=== PATIENT | female | born 1960 | race African-American/Black ===

== ENCOUNTER 2021-08-08 04:55 | Inpatient (IN) | payer OTHER, MEDICARE ==
[~2021-08-08] VITALS: Ht 162.6 cm; Wt 192.0 kg
[~2021-08-08 04:55] MED LIST: AMLO-186 PO; CIPR500S2 PO; ERGO500027 PO; FERR325T72 PO; FESO8TAB PO; FISH12002 PO; HYDR-2145 PO; LISI10TA16 PO; LISI1TAB39 PO; LORA10TA3 PO; LOVA20TA2 PO; MEDR10TA3 PO; METO50TA6 PO; MULT-18 PO; Megestrol Acetate PO; NAPR-683 PO; NORE5TAB3 PO; OMEP20TA8 PO; TERB250T72 PO; TOLT4CAP PO
--- NOTE | 2021-08-08 05:05 | PHYS DOC ---
Past Medical History Past Medical History: Anemia, High Cholesterol, Hypertension, Pneumonia, Other Additional Past Medical Histor: SLEEP APNEA Past Medical History Obesity hypoventilation syndrome Chronic hypoxic respiratory failure Past Surgical History: Cholecystectomy Smoking Status: Former Smoker Alcohol Use: Rarely Drug Use: None General Adult EDM: Chief Complaint: WEAKNESS/GENERALIZED HPI: HPI: Patient is a 61 year old female who is brought in by EMS from home for evaluation of generalized weakness and fatigue, as well as cough for the past week. She reports several episodes of nausea and vomiting. She has been unable to get out of bed on her own. She has had multiple slide/falls out of bed. EMS was called 2 hours prior to her arrival here for lift assist, the patient and her declined transport at that time. They were called again for another lift assist, the patient slid out of bed. No reported head injury or loss of consciousness was reported. The patient is on supplemental oxygen chronically, records indicate she has a history of obesity hypoventilation syndrome, dating back as far as 2014 in 2016. The patient reported to EMS and to me that she really does not even know why she is on oxygen. She was still hypoxic on 2 and 3 L for EMS, as well as here. She is titrated up to 5 L per nasal cannula shortly after arrival. She denies chest pain. She denies abdominal pain. She is not vaccinated against COVID-19. Her tested positive for COVID-19 infection about 1 week ago. Per EMS, the home is significantly cluttered, disheveled, and overall home/living situation appears to be dangerous and unsuitable for human dwelling. 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 I do not have any more recent records for her here other than from 2014 and 2015. Patient is overall an extremely poor historian. Review of Systems: Review of Systems: Constitutional: No reported documented fever. Generalized malaise, chills, weakness Eyes: Denies change in visual acuity. [] HENT: Denies nasal congestion or sore throat. [] Respiratory: Dry cough. Dyspnea. Cardiovascular: Denies chest pain GI: She denies abdominal pain. She does report intermittent nausea and vomiting symptoms. Denies acute bowel habit changes. : Chronically incontinent of urine, denies acute urinary symptoms Musculoskeletal: Generalized myalgias and body aches Integument: Denies rash. [] Neurologic: Denies headache, focal weakness or sensory changes. Diffuse, nonfocal and generalized weakness. Denies dizziness. Denies syncope. Denies head injury. Psychiatric: Denies depression or anxiety. [] Heart Score: C/O Chest Pain: No Risk Factors: Risk Factors: DM, Current or recent (<one month) smoker, HTN, HLP, family history of CAD, obesity. Risk Scores: Score 0 - 3: 2.5% MACE over next 6 weeks - Discharge Home Score 4 - 6: 20.3% MACE over next 6 weeks - Admit for Clinical Observation Score 7 - 10: 72.7% MACE over next 6 weeks - Early Invasive Strategies Allergies: Allergies: Allergies Coded Allergies Type Severity Reaction Last Updated Verified tree nut Allergy Intermediate LIP SWELLING 06/26/16 Yes Physical Exam: PE: Constitutional: She is ill-appearing, both acutely and chronically, she is obese, she appears much older than her stated age HENT: Normocephalic, atraumatic Eyes: PERRL, EOMI, conjunctiva normal, no discharge. No scleral icterus Neck: Normal range of motion, no tenderness, supple, no stridor. Achy it is midline. Cardiovascular:Heart rate regular rhythm, +2 radial pulses bilaterally Lungs & Thorax: Tachypnea is noted, no evidence of chest wall injury or trauma. Equal chest rise. Diminished breath sounds in bilateral bases. Bibasilar rales are noted. No stridor. No wheezing. She speaks in short but full sentences. Abdomen: Abdomen is obese, soft, nondistended, nontender Skin: Warm, dry, no erythema, no rash. [] Back: No tenderness, no CVA tenderness. [] Extremities: No tenderness, no cyanosis, no clubbing, ROM intact, bilateral lower extremity nonpitting, symmetric edema. No calf tenderness. No acute limb deformity is noted Neurologic: Patient is awake, she is not alert, she is oriented to person, place, month but not specific year. She localizes to pain. No facial asymmetry. Speech is clear. Sensation is grossly intact. She moves all 4 extremities equally, though there is significant, generalized, nonfocal motor weakness noted throughout. She is unable to participate in moving from the EMS gurney to the ED gurney. Psychologic: Affect is flat. EKG: EKG: EKG is interpreted at 0513 Rhythm is sinus Rate is 94 bpm [place] is normal No STEMI Radiology/Procedures: Radiology/Procedures: IMAGING REPORT Signed PATIENT: TAYLOR ORDOÑEZ RACCOUNT: [id number] : 1960 LOCATION: ER AGE: 61 SEX: F EXAM STATUS: REG ER ORD. PHYSICIAN: PETE FREGOSO DO REASON: respiratory failure, cough PROCEDURE: PORTABLE CHEST 1V Single view chest dated 08/08/2021 5:33 AM: COMPARISON: 02/04/2014 Clinical Indication: Respiratory failure. Findings: Single upright portable exam of the chest was performed. Size is moderately enlarged. Hazy increased density at the perihilar regions and bilateral lung bases. No definite pleural effusion or pneumothorax. IMPRESSION: 1. Hazy perihilar and bibasilar opacities, low-grade edema versus atypical pneumonia. 2. Cardiomegaly Electronically signed by: Mata Diane MD (08/08/2021 5:35 AM) [facility] DICTATED and SIGNED BY: MATA DIANE MD DATE: 08/08/21 [id number] Course & Med Decision Making: Course & Med Decision Making Pertinent Labs and Imaging studies reviewed. (See chart for details) Patient's oxygen was titrated here in the ER. ABG demonstrates marked hypercapnia and respiratory acidosis. BiPAP was ordered. The patient is given IV dexamethasone. Her vital signs are otherwise relatively stable. The patient verbalizes to me she wishes to remain a full code. I explained that she is very ill. COVID is positive, she manifest evidence of COVID-pneumonia on x-ray. I have recommended mission to the hospital. She understands this, she is excepted for admission by Dr. Luna. Dragon Disclaimer: Timur Disclaimer: This electronic medical record was generated, in whole or in part, using a voice recognition dictation system. Departure Departure Impression: Primary Impression: Respiratory failure with hypoxia Qualified Codes: J96.21 - Acute and chronic respiratory failure with hypoxia Additional Impressions: Respiratory acidosis COVID-19 Pneumonia due to COVID-19 virus Elevated troponin Disposition: ADMITTED INPATIENT Admitting Physician: COREY (Dr. Luna) Condition: CRITICAL Referrals: MATA EPPERSON MD (PCP) PETE FREGOSO DO Aug 08, 2021 05:05
--- NOTE | 2021-08-08 05:38 | RAD ---
Single view chest dated 08/08/2021 5:33 AM: COMPARISON: 02/04/2014 Clinical Indication: Respiratory failure. Findings: Single upright portable exam of the chest was performed. Size is moderately enlarged. Hazy increased density at the perihilar regions and bilateral lung bases. No definite pleural effusion or pneumothor ax. IMPRESSION: 1. Hazy perihilar and bibasilar opacities, low-grade edema versus atypical pneumonia. 2. Cardiomegaly Electronically signed by: Mata Diane MD (08/08/2021 5:35 AM) [facility]
[2021-08-08 05:42] LABS: BASO # 0.1 x10^3/uL (0.0-0.2); BASO % 1 % (0-3); EOS % 0 % (0-3); HEMATOCRIT 35.2 % (36.0-47.0); HEMOGLOBIN 11.3 g/dL (12.0-15.5); LYMPH # 0.5 x10^3/uL (1.0-4.8); LYMPH % 8 % (24-48); MEAN CORPUSCULAR HEMOGLOBIN 31 pg (25-35); MEAN CORPUSCULAR HGB CONC 32 g/dL (31-37); MEAN CORPUSCULAR VOLUME 96 fL (79-100); MONO # 0.5 x10^3/uL (0.0-1.1); MONO % 8 % (0-9); NEUT # 5.7 x10^3/uL (1.8-7.7); NEUT % 84 % (31-73); PLATELET COUNT 131 x10^3/uL (140-400); RED BLOOD COUNT 3.66 x10^6/uL (3.50-5.40); RED CELL DISTRIBUTION WIDTH 13.7 % (11.5-14.5); WHITE BLOOD COUNT 6.8 x10^3/uL (4.0-11.0)
[2021-08-08] MEDS ORDERED: DEXAMETHASONE SOD PHOS 4 MG/ML VIAL IVP ONE (05:45)
[2021-08-08 05:54] LABS: INFLUENZA A PATIENT NEGATIVE (NEGATIVE); INFLUENZA B PATIENT NEGATIVE (NEGATIVE)
[2021-08-08 06:09] LABS: CALCIUM 8.4 mg/dL (8.5-10.1); CREATININE 2.8 mg/dL (0.6-1.0); GFR 20.7; POTASSIUM 4.9 mmol/L (3.5-5.1)
[2021-08-08 06:15] LABS: ALBUMIN 2.7 g/dL (3.4-5.0); ALBUMIN/GLOBULIN RATIO 0.5 (1.0-1.7); MAGNESIUM 1.6 mg/dL (1.8-2.4); TOTAL BILIRUBIN 0.4 mg/dL (0.2-1.0); TOTAL PROTEIN 7.9 g/dL (6.4-8.2)
[2021-08-08 06:24] LABS: BASE EXCESS ABG -3 mmol/L (-3-3); HCO3 ABG 28 mmol/L (21-28); PO2 ABG 87 mmHg (65-108); SAT O2 ABG 93 % (92-99)
[2021-08-08] MEDS ORDERED: ONDANSETRON PF 4 MG/2 ML VIAL. IVP PRN (06:30)
[2021-08-08] MEDS ORDERED: ENOXAPARIN 40 MG/0.4 ML SYRINGE. SQ ONE (06:30)
[2021-08-08] MEDS ORDERED: ASPIRIN ENTERIC COATED 325 MG TABLET.DR. PO ONE (06:30)
--- NOTE | 2021-08-08 06:47 | EKG ---
[facility] [address] [place] [address] Test Date: 2021-08-08 Test Time: 05:10:30 Pat Name: TAYLOR ORDOÑEZ Department: Room: Gender: F Program Consultant: : 1960 Requested By: PETE FREGOSO Order Number: [id number] Reading MD: Jose Patino MD Measurements Intervals [place] Rate: 94 P: 46 HI: 138 QRS: 26 QRSD: 74 T: 54 QT: 334 QTc: 423 Interpretive Statements SINUS RHYTHM Electronically Signed On 08-08-2021 8:41:10 [employer] by Jose Patino MD
[2021-08-08 07:46] LABS: PCO2 ABG 81 mmHg (35-46)
[2021-08-08 10:00] VITALS: BP 155/88
--- NOTE | 2021-08-08 10:46 | NUR ---
ADMISSION PT ARRIVES ON FLOOR AT 0952, FROM ED ON CART. RT ACCOMPANIES PT TO FLOOR WITH BIPAP, THOUGH SHE IS CURRENTLY ON O2 PER NC, AND IS SATURATING WELL. BIPAP PLACED ON STANDBY AT THIS TIME. TRANSFERRED TO [facility] BED WITH ASSIST OF 5 STAFF MEMBERS. SHE IS SOILED WITH URINE AND FECES, BED BATH GIVEN. NOTABLE AMOUNTS OF MOISTURE AND YEAST UNDER (B) BREASTS, UNDER ENTIRE LENGTH OF PANNUS, AND IN KALEB AREA. NYSTATIN POWDER ORDERED, BUT NOT AVAILABLE AT THIS TIME. DRY, SCALY SKIN ON LOWER ABDOMEN AND SHINS WITH LOTION APPLIED. VS ASSESSED, TELE APPLIED. NEW WRISTBAND AND ALLERGY BRACELET APPLIED. PT IS ALERT AND ORIENTED, BUT IS UNABLE TO LIST HER HOME MEDICATIONS. SHE STATES THAT SHE DOESNT HAVE ANY FAMILY HISTORY.
[2021-08-08] MEDS: NYSTATIN TOPICAL POWDER 15GM BOTTLE. TP SCH ×2 (11:00→20:55)
[2021-08-08] MEDS: cefTRIAXone IV Push 1 GM VIAL. IVP SCH (12:00)
[2021-08-08] MEDS: IV NORMAL SALINE 1000ML BAG 1,000 ML IV SCH ×2 (12:00→23:46)
--- NOTE | 2021-08-08 12:16 | CONS ---
DATE OF CONSULTATION: 08/08/2021 PULMONARY CONSULTATION ATTENDING PHYSICIAN: Roger Luna MD REASON FOR CONSULTATION: Respiratory failure. HISTORY OF PRESENT ILLNESS: The patient is a 61-year-old who is morbidly obese with a BMI of 77.6. The patient has history of likely underlying obesity hypoventilation syndrome and sleep apnea. The patient was brought in to the hospital via EMS after she was noted to have generalized weakness and fatigue as well as a cough. There were several episodes of nausea and vomiting. EMS was called. The patient needed lift assist. The patient was noted to be hypoxic. She was placed on nasal cannula. Her tested positive for COVID-19 about a week ago. The patient is not vaccinated against COVID. Her COVID test came back positive as well. When I arrived in the patient's room, the patient was lethargic and was not fully responsive. I noticed that there was arterial blood gases, which was obtained earlier this morning showed a pH of 7.15, pCO2 of 81 and a pO2 of 87. BiPAP was on standby, but she has not been placed on the BiPAP. I immediately talked to her nurse and ordered to be placed on BiPAP stat. Discussed with Dr. Luna as well. A chest x-ray was reviewed. There are faint interstitial infiltrates suggestive of viral pneumonia. PAST MEDICAL HISTORY: Significant for history of morbid obesity and underlying obesity hypoventilation syndrome, sleep apnea, dyslipidemia, anemia, hypertension and pneumonia, and history of chronic hypoxic respiratory failure. PAST SURGICAL HISTORY: Cholecystectomy. SOCIAL HISTORY: Former smoker. ALLERGIES: None to any medications. CURRENT MEDICATIONS: Reviewed as listed in the MRAD including Lovenox for DVT prophylaxis. PHYSICAL EXAMINATION: She is not responsive. Visual exam done. No paradoxical breathing. She is morbidly obese. She has lower extremity edema. LABORATORY DATA: Reviewed. ABGs discussed in my history of present illness. Her BUN is 58 and a creatinine of 2.8. White cell count 6.8, hemoglobin 11.3 and platelets 131. IMPRESSION: 1. Acute on chronic hypercapnic and hypoxic respiratory failure secondary to multifactorial etiologies including COVID-19 viral pneumonia and underlying obesity hypoventilation syndrome with acute on chronic cor pulmonale. 2. Acute kidney injury. Could be component of volume contraction since she has some nausea and vomiting. 3. COVID positive. 4. Abnormal chest x-ray with bilateral interstitial infiltrates consistent with COVID-19 viral pneumonia. 5. Encephalopathy secondary to hypercarbia. 6. History of tobaccoism. RECOMMENDATIONS: 1. Discussed with RN. We will place her on BiPAP stat. 2. Follow ABGs in few hours after placement on BiPAP. 3. If clinically does not improve, then we may have to transfer to the ICU. 4. We will continue with Lovenox for DVT prophylaxis. 5. Initiate remdesivir. 6. Initiate dexamethasone. 7. We will follow the patient closely. Her respiratory status is guarded. 8. Discussed with RN and Dr. Luna. total cct [address]: Katty TID: [id number] MTDD
[2021-08-08 12:42] LABS: BASE EXCESS ABG -1 mmol/L (-3-3); HCO3 ABG 31 mmol/L (21-28); PO2 ABG 94 mmHg (65-108); SAT O2 ABG 95 % (92-99)
--- NOTE | 2021-08-08 12:46 | NUR ---
VACCINATION PT REPORTS THAT SHE HAD PFIZER VACCINES X 2, BUT NO BOOSTER. HE IS UNABLE TO RECALL DATES. SHE ALSO HAD THE FLU VACCINE FOR THIS YEAR WITH UNKNOWN DATE.
[2021-08-08 12:50] LABS: FIO2 ABG 60; PCO2 ABG 104 mmHg (35-46)
[2021-08-08 15:00] VITALS: BP 166/82
[2021-08-08] MEDS ORDERED: guaiFENesin DM 200MG/20MG 10 ML SYRUP PO PRN (15:30)
[2021-08-08] MEDS ORDERED: ACETAMINOPHEN 325 MG TABLET. PO PRN (15:30)
[2021-08-08] MEDS ORDERED: fentaNYL PF VIAL 100 MCG/2 ML VIAL IVP PRN (15:30)
--- NOTE | 2021-08-08 15:50 | PDOC1 ---
History and Physical Date of Admission Date of Admission DATE: 08/08/21 TIME: 15:13 Identification/Chief Complaint Chief Complaint Shortness of breath Source Source: Chart review, Patient History of Present Illness History of Present Illness Ms Londono is a 61 year old female w/ PMHx anemia, MADHU, OHS on 2 to 3 L home O2, HLD, HTN comes to ED on 08/08/2021 via EMS from home for a 1 week history of progressive weakness fatigue malaise nausea vomiting. She has been unable to get up out of bed and had been calling EMS for lift assist, and had previously declined transport earlier in the day. She is unable to provide significant history to me is very confused responsive to name mostly moving. ED physician has obtained above history patient did not complain of chest pain. ED physician noted patient is vaccinating is COVID-19 but her tested +1-week ago and patient herself has not been tested. There was concern noted by EMS about the condition of the home being unlivable. Labs with WBC 6.8, Hb 9.3, platelets 131, had a 136, K4.9, BUN 58, CR 2.8, glucose 129, calcium 8.4, mag 1.6, bilirubin 0.4, AST 112, ALT 35, alkaline phosphatase 69, high-sensitivity troponin is 298, NT proBNP 871, albumin is 2.7, lactic acid is 1.3, rapid influenza negative, rapid COVID-19 positive ABG 7.1 on 5 L nasal cannula oxygen. Chest radiograph with cardiomegaly and bibasilar opacities EKG sinus rate 94 bpm normal axis and intervals no ST elevations or TWI. Place on BIPAP, given dexamethasone and admitted for further care. Past Medical History Cardiovascular: HTN Pulmonary: COPD, Other Heme/Onc: Anemia NOS Psych: Anxiety, Depression Renal/: Chronic renal insuff Past Surgical History Past Surgical History: Cholecystectomy Family History Family History: Diabetes, Hypertension, Other Social History Smoke: Quit ALCOHOL: none Drugs: None Current Problem List Problem List Problems Medical Problems: (1) COVID-19 Status: Acute (2) Elevated troponin Status: Acute (3) Pneumonia due to COVID-19 virus Status: Acute (4) Respiratory acidosis Status: Acute (5) Respiratory failure with hypoxia Status: Acute Current Medications Current Medications Current Medications Dexamethasone Sodium Phosphate (Decadron) 6 mg 1X ONCE IVP Last administered on 08/08/21at 06:41; Start 08/08/21 at 05:45; Stop 08/08/21 at 05:47; Status DC Ondansetron HCl (Zofran) 4 mg PRN Q8HRS PRN IVP NAUSEA/VOMITING; Start 08/08/21 at 06:30; Stop 08/09/21 at 06:29 Aspirin (Ecotrin) 325 mg 1X ONCE PO ; Start 08/08/21 at 06:30; Stop 08/08/21 at 06:31; Status DC Enoxaparin Sodium (Lovenox Per Pharmacy Prophylaxis Dosing) 1 each PRN DAILY PRN MC SEE COMMENTS; Start 08/08/21 at 06:30 Enoxaparin Sodium (Lovenox 40mg Syringe) 40 mg 1X ONCE SQ ; Start 08/08/21 at 06:30; Stop 08/08/21 at 06:31; Status UNV Enoxaparin Sodium (Lovenox 60mg Syringe) 60 mg Q12HR SQ ; Start 08/08/21 at 06:45 Nystatin (Nystop) 1 blayne BID TP Last administered on 08/08/21at 11:00; Start 08/08/21 at 11:00 Dexamethasone Sodium Phosphate (Decadron) 6 mg DAILY IVP ; Start 08/09/21 at 09:00 Ceftriaxone Sodium (Rocephin) 1 gm Q24H IVP Last administered on 08/08/21at 12:00; Start 08/08/21 at 12:00 Sodium Chloride 1,000 ml @ 100 mls/hr Q10H IV Last administered on 08/08/21at 12:00; Start 08/08/21 at 12:00 Active Scripts Active [Megestrol Acetate] 20 MG Tablet 20 Mg PO BID Feosol (Ferrous Sulfate) 325 Mg Tablet 325 Mg PO DAILYWBKFT 30 Days Reported [place] 3-6-9 1,200 mg Softgel (Fish Oil/Borage/Flax/Om3,6,9#1) 1,200 Mg Capsule 1,200 Mg PO DAILY Loratadine 10 Mg Tablet 10 Mg PO Metoprolol Tartrate 50 Mg Tablet 50 Mg PO BID Toviaz (Fesoterodine Fumarate) 8 Mg Tab.er.24h 8 Mg PO Lovastatin 20 Mg Tablet 20 Mg PO HS Omeprazole 20 Mg Tablet.dr 20 Mg PO DAILY Daily Vitamin (Multivitamin) 1 Each Tablet 1 Each PO Detrol La (Tolterodine Tartrate) 4 Mg Cap.er.24h 4 Mg PO DAILY Allergies Allergies: Coded Allergies: tree nut (Verified Allergy, Intermediate, LIP SWELLING, 06/26/16) STEVEN ALMEIDA Review of System Unable to obtain due to significant altered mental status. Physical Exam General: Alert, severe distress HEENT: Atraumatic, PERRLA, EOMI, Mucous membr. moist/pink Lungs: Other (decreased breath sounds) Heart: S1S2, RRR, no thrills, no rubs, no gallops, no murmurs Abdomen: Normal bowel sounds, Soft, No tenderness, No hepatosplenomegaly, No masses Rectal Exam: not examined Extremities: No clubbing, No cyanosis, No edema, Normal pulses, No tenderness/swelling Skin: No rashes, No breakdown, No significant lesion Neuro: Normal tone, Sensation intact, Cranial nerves 3-12 NL, Reflexes 2+ Psych/Mental Status: Other (Confused) Vitals Vitals Vital Signs Date Time Temp Pulse Resp B/P (MAP) Pulse Ox O2 Delivery O2 Flow Rate FiO2 08/08/21 15:00 97.8 82 25 166/82 (110) 90 BiPAP/CPAP 50.0 97.8 Labs Labs Laboratory Tests Test 08/08/21 05:25 08/08/21 06:20 08/08/21 12:30 White Blood Count 6.8 x10^3/uL (4.0-11.0) Red Blood Count 3.66 x10^6/uL (3.50-5.40) Hemoglobin 11.3 g/dL (12.0-15.5) Hematocrit 35.2 % (36.0-47.0) Mean Corpuscular Volume 96 fL (79-100) Mean Corpuscular Hemoglobin 31 pg (25-35) Mean Corpuscular Hemoglobin Concent 32 g/dL (31-37) Red Cell Distribution Width 13.7 % (11.5-14.5) Platelet Count 131 x10^3/uL (140-400) Neutrophils (%) (Auto) 84 % (31-73) Lymphocytes (%) (Auto) 8 % (24-48) Monocytes (%) (Auto) 8 % (0-9) Eosinophils (%) (Auto) 0 % (0-3) Basophils (%) (Auto) 1 % (0-3) Neutrophils # (Auto) 5.7 x10^3/uL (1.8-7.7) Lymphocytes # (Auto) 0.5 x10^3/uL (1.0-4.8) Monocytes # (Auto) 0.5 x10^3/uL (0.0-1.1) Eosinophils # (Auto) 0.0 x10^3/uL (0.0-0.7) Basophils # (Auto) 0.1 x10^3/uL (0.0-0.2) Sodium Level 136 mmol/L (136-145) Potassium Level 4.9 mmol/L (3.5-5.1) Chloride Level 100 mmol/L (98-107) Carbon Dioxide Level 31 mmol/L (21-32) Anion Gap 5 (6-14) Blood Urea Nitrogen 58 mg/dL (7-20) Creatinine 2.8 mg/dL (0.6-1.0) Estimated GFR (Cockcroft-Gault) 20.7 BUN/Creatinine Ratio 21 (6-20) Glucose Level 129 mg/dL (70-99) Lactic Acid Level 1.3 mmol/L (0.4-2.0) Calcium Level 8.4 mg/dL (8.5-10.1) Magnesium Level 1.6 mg/dL (1.8-2.4) Total Bilirubin 0.4 mg/dL (0.2-1.0) Aspartate Amino Transf (AST/SGOT) 112 U/L (15-37) Alanine Aminotransferase (ALT/SGPT) 35 U/L (14-59) Alkaline Phosphatase 69 U/L (46-116) Troponin I High Sensitivity 298 ng/L (4-50) IZ-Udd-T-Type Natriuretic Peptide 871 pg/mL (0-124) Total Protein 7.9 g/dL (6.4-8.2) Albumin 2.7 g/dL (3.4-5.0) Albumin/Globulin Ratio 0.5 (1.0-1.7) Influenza Type A Antigen Negative (NEGATIVE) Influenza Type B Antigen Negative (NEGATIVE) SARS-CoV-2 Antigen (Rapid) Positive (NEGATIVE) O2 Saturation 93 % (92-99) 95 % (92-99) Arterial Blood pH 7.15 (7.35-7.45) 7.10 (7.35-7.45) Arterial Blood pCO2 at Patient Temp 81 mmHg (35-46) 104 mmHg (35-46) Arterial Blood pO2 at Patient Temp 87 mmHg (65-108) 94 mmHg (65-108) Arterial Blood HCO3 28 mmol/L (21-28) 31 mmol/L (21-28) Arterial Blood Base Excess -3 mmol/L (-3-3) -1 mmol/L (-3-3) FiO2 60 Laboratory Tests Test 08/08/21 05:25 08/08/21 06:20 08/08/21 12:30 White Blood Count 6.8 x10^3/uL (4.0-11.0) Red Blood Count 3.66 x10^6/uL (3.50-5.40) Hemoglobin 11.3 g/dL (12.0-15.5) Hematocrit 35.2 % (36.0-47.0) Mean Corpuscular Volume 96 fL (79-100) Mean Corpuscular Hemoglobin 31 pg (25-35) Mean Corpuscular Hemoglobin Concent 32 g/dL (31-37) Red Cell Distribution Width 13.7 % (11.5-14.5) Platelet Count 131 x10^3/uL (140-400) Neutrophils (%) (Auto) 84 % (31-73) Lymphocytes (%) (Auto) 8 % (24-48) Monocytes (%) (Auto) 8 % (0-9) Eosinophils (%) (Auto) 0 % (0-3) Basophils (%) (Auto) 1 % (0-3) Neutrophils # (Auto) 5.7 x10^3/uL (1.8-7.7) Lymphocytes # (Auto) 0.5 x10^3/uL (1.0-4.8) Monocytes # (Auto) 0.5 x10^3/uL (0.0-1.1) Eosinophils # (Auto) 0.0 x10^3/uL (0.0-0.7) Basophils # (Auto) 0.1 x10^3/uL (0.0-0.2) Sodium Level 136 mmol/L (136-145) Potassium Level 4.9 mmol/L (3.5-5.1) Chloride Level 100 mmol/L (98-107) Carbon Dioxide Level 31 mmol/L (21-32) Anion Gap 5 (6-14) Blood Urea Nitrogen 58 mg/dL (7-20) Creatinine 2.8 mg/dL (0.6-1.0) Estimated GFR (Cockcroft-Gault) 20.7 BUN/Creatinine Ratio 21 (6-20) Glucose Level 129 mg/dL (70-99) Lactic Acid Level 1.3 mmol/L (0.4-2.0) Calcium Level 8.4 mg/dL (8.5-10.1) Magnesium Level 1.6 mg/dL (1.8-2.4) Total Bilirubin 0.4 mg/dL (0.2-1.0) Aspartate Amino Transf (AST/SGOT) 112 U/L (15-37) Alanine Aminotransferase (ALT/SGPT) 35 U/L (14-59) Alkaline Phosphatase 69 U/L (46-116) Troponin I High Sensitivity 298 ng/L (4-50) DO-Zre-L-Type Natriuretic Peptide 871 pg/mL (0-124) Total Protein 7.9 g/dL (6.4-8.2) Albumin 2.7 g/dL (3.4-5.0) Albumin/Globulin Ratio 0.5 (1.0-1.7) Influenza Type A Antigen Negative (NEGATIVE) Influenza Type B Antigen Negative (NEGATIVE) SARS-CoV-2 Antigen (Rapid) Positive (NEGATIVE) O2 Saturation 93 % (92-99) 95 % (92-99) Arterial Blood pH 7.15 (7.35-7.45) 7.10 (7.35-7.45) Arterial Blood pCO2 at Patient Temp 81 mmHg (35-46) 104 mmHg (35-46) Arterial Blood pO2 at Patient Temp 87 mmHg (65-108) 94 mmHg (65-108) Arterial Blood HCO3 28 mmol/L (21-28) 31 mmol/L (21-28) Arterial Blood Base Excess -3 mmol/L (-3-3) -1 mmol/L (-3-3) FiO2 60 Images Images Single upright portable exam of the chest was performed. Size is moderately enlarged. Hazy increased density at the perihilar regions and bilateral lung bases. No definite pleural effusion or pneumothorax. IMPRESSION: 1. Hazy perihilar and bibasilar opacities, low-grade edema versus atypical pneumonia. 2. Cardiomegaly VTE Prophylaxis Ordered VTE Prophylaxis Devices: No VTE Pharmacological Prophylaxi: Yes Assessment/Plan Assessment/Plan A/P: Acute on chronic hypercapnic respiratory failure - likely from aspiratory infection with COVID-19 complicated by pre-existing OHS and MADHU. We will keep on BiPAP as needed while sleeping titrate to ABGs. Pulmonology consulted Hypoxic respiratory failure - likely from COVID-19 viral pneumonia acute on chr onic cor pulmonale. Acute kidney injury -on chronic kidney disease baseline creatinine from 7 years ago was 1.5 likely just vasomotor nephropathy from above COVID 19 pneumonia -required 5 L nasal cannula O2 increased for home O2 eval with BiPAP. We will give steroid therapy with dexamethasone and remdesivir. Acute metabolic encephalopathy -likely hypercapnic respiratory failure. We will treat with BiPAP Anemia - likely of chronic disease. 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 Protein calorie malnutrition - will start IV nutrition Elevated troponin -likely type II demand ischemia from hypoxia and hypercapnia and possibly COVID myocarditis. Will monitor. FEN - General diet PPX - lovenox FULL CODE DIspo - inpatient cc time 37 minutes Justifications for Admission Other Justification EBER ZHOU MD Aug 08, 2021 15:49
[2021-08-08] MEDS ORDERED: REMDESIVIR LOAD in IV NORMAL SALINE 250ML TV IV ONE (16:00)
[2021-08-08 19:00] VITALS: BP 166/74
[2021-08-08 22:51] LABS: BASE EXCESS ABG -1 mmol/L (-3-3); HCO3 ABG 31 mmol/L (21-28); PO2 ABG 72 mmHg (65-108); SAT O2 ABG 91 % (92-99)
[2021-08-08 22:52] VITALS: BP 173/80
[2021-08-08 22:55] LABS: FIO2 ABG 50% (Bipap); PCO2 ABG 97 mmHg (35-46)
[2021-08-09 02:39] VITALS: BP 149/72
[2021-08-09 07:00] VITALS: BP 136/72
[2021-08-09] MEDS: IV NORMAL SALINE 1000ML BAG 1,000 ML IV SCH (08:00)
[2021-08-09 08:52] LABS: BASE EXCESS ABG -1 mmol/L (-3-3); HCO3 ABG 29 mmol/L (21-28); PO2 ABG 73 mmHg (65-108); SAT O2 ABG 93 % (92-99)
[2021-08-09 08:58] LABS: ALBUMIN 2.4 g/dL (3.4-5.0); ALBUMIN/GLOBULIN RATIO 0.5 (1.0-1.7); CALCIUM 8.4 mg/dL (8.5-10.1); CREATININE 2.6 mg/dL (0.6-1.0); GFR 22.6; TOTAL BILIRUBIN 0.2 mg/dL (0.2-1.0); TOTAL PROTEIN 7.6 g/dL (6.4-8.2)
[2021-08-09] MEDS: DEXAMETHASONE SOD PHOS 4 MG/ML VIAL IVP SCH (09:00)
[2021-08-09] MEDS: NYSTATIN TOPICAL POWDER 15GM BOTTLE. TP SCH ×2 (09:00→21:35)
[2021-08-09 09:06] LABS: PCO2 ABG 78 mmHg (35-46)
[2021-08-09 09:07] LABS: FIO2 ABG 45
[2021-08-09 09:09] LABS: POTASSIUM 5.8 mmol/L (3.5-5.1)
[2021-08-09] MEDS: cefTRIAXone IV Push 1 GM VIAL. IVP SCH (09:49)
--- NOTE | 2021-08-09 10:45 | PDOC ---
PULMONARY PROGRESS NOTES DATE: 08/09/21 TIME: 10:38 Subjective patient seen resting in bed, more alert this morning. continues on bipap. Vitals Vital Signs Date Time Temp Pulse Resp B/P (MAP) Pulse Ox O2 Delivery O2 Flow Rate FiO2 08/09/21 08:41 91 BiPAP/CPAP 08/09/21 08:00 6.0 08/09/21 07:00 98.3 86 25 136/72 (93) 98.3 General: Alert, Oriented X4 HEENT: Other Lungs: Clear, Other Cardiovascular: S1, S2 Abdomen: Soft, Other Extremities: Other Labs Laboratory Tests Test 08/08/21 05:25 08/08/21 06:20 08/08/21 12:30 08/08/21 22:45 White Blood Count 6.8 x10^3/uL (4.0-11.0) Red Blood Count 3.66 x10^6/uL (3.50-5.40) Hemoglobin 11.3 g/dL (12.0-15.5) Hematocrit 35.2 % (36.0-47.0) Mean Corpuscular Volume 96 fL (79-100) Mean Corpuscular Hemoglobin 31 pg (25-35) Mean Corpuscular Hemoglobin Concent 32 g/dL (31-37) Red Cell Distribution Width 13.7 % (11.5-14.5) Platelet Count 131 x10^3/uL (140-400) Neutrophils (%) (Auto) 84 % (31-73) Lymphocytes (%) (Auto) 8 % (24-48) Monocytes (%) (Auto) 8 % (0-9) Eosinophils (%) (Auto) 0 % (0-3) Basophils (%) (Auto) 1 % (0-3) Neutrophils # (Auto) 5.7 x10^3/uL (1.8-7.7) Lymphocytes # (Auto) 0.5 x10^3/uL (1.0-4.8) Monocytes # (Auto) 0.5 x10^3/uL (0.0-1.1) Eosinophils # (Auto) 0.0 x10^3/uL (0.0-0.7) Basophils # (Auto) 0.1 x10^3/uL (0.0-0.2) Sodium Level 136 mmol/L (136-145) Potassium Level 4.9 mmol/L (3.5-5.1) Chloride Level 100 mmol/L (98-107) Carbon Dioxide Level 31 mmol/L (21-32) Anion Gap 5 (6-14) Blood Urea Nitrogen 58 mg/dL (7-20) Creatinine 2.8 mg/dL (0.6-1.0) Estimated GFR (Cockcroft-Gault) 20.7 BUN/Creatinine Ratio 21 (6-20) Glucose Level 129 mg/dL (70-99) Lactic Acid Level 1.3 mmol/L (0.4-2.0) Calcium Level 8.4 mg/dL (8.5-10.1) Magnesium Level 1.6 mg/dL (1.8-2.4) Total Bilirubin 0.4 mg/dL (0.2-1.0) Aspartate Amino Transf (AST/SGOT) 112 U/L (15-37) Alanine Aminotransferase (ALT/SGPT) 35 U/L (14-59) Alkaline Phosphatase 69 U/L (46-116) Troponin I High Sensitivity 298 ng/L (4-50) SA-Ord-I-Type Natriuretic Peptide 871 pg/mL (0-124) Total Protein 7.9 g/dL (6.4-8.2) Albumin 2.7 g/dL (3.4-5.0) Albumin/Globulin Ratio 0.5 (1.0-1.7) Influenza Type A Antigen Negative (NEGATIVE) Influenza Type B Antigen Negative (NEGATIVE) SARS-CoV-2 Antigen (Rapid) Positive (NEGATIVE) O2 Saturation 93 % (92-99) 95 % (92-99) 91 % (92-99) Arterial Blood pH 7.15 (7.35-7.45) 7.10 (7.35-7.45) 7.12 (7.35-7.45) Arterial Blood pCO2 at Patient Temp 81 mmHg (35-46) 104 mmHg (35-46) 97 mmHg (35-46) Arterial Blood pO2 at Patient Temp 87 mmHg (65-108) 94 mmHg (65-108) 72 mmHg (65-108) Arterial Blood HCO3 28 mmol/L (21-28) 31 mmol/L (21-28) 31 mmol/L (21-28) Arterial Blood Base Excess -3 mmol/L (-3-3) -1 mmol/L (-3-3) -1 mmol/L (-3-3) FiO2 60 50% (bipap) Test 08/09/21 04:25 08/09/21 08:41 Sodium Level 143 mmol/L (136-145) Potassium Level 5.8 mmol/L (3.5-5.1) Chloride Level 105 mmol/L (98-107) Carbon Dioxide Level 31 mmol/L (21-32) Anion Gap 7 (6-14) Blood Urea Nitrogen 69 mg/dL (7-20) Creatinine 2.6 mg/dL (0.6-1.0) Estimated GFR (Cockcroft-Gault) 22.6 BUN/Creatinine Ratio 27 (6-20) Glucose Level 81 mg/dL (70-99) Calcium Level 8.4 mg/dL (8.5-10.1) Total Bilirubin 0.2 mg/dL (0.2-1.0) Aspartate Amino Transf (AST/SGOT) 195 U/L (15-37) Alanine Aminotransferase (ALT/SGPT) 38 U/L (14-59) Alkaline Phosphatase 61 U/L (46-116) Total Protein 7.6 g/dL (6.4-8.2) Albumin 2.4 g/dL (3.4-5.0) Albumin/Globulin Ratio 0.5 (1.0-1.7) O2 Saturation 93 % (92-99) Arterial Blood pH 7.18 (7.35-7.45) Arterial Blood pCO2 at Patient Temp 78 mmHg (35-46) Arterial Blood pO2 at Patient Temp 73 mmHg (65-108) Arterial Blood HCO3 29 mmol/L (21-28) Arterial Blood Base Excess -1 mmol/L (-3-3) FiO2 45 Laboratory Tests Test 08/08/21 12:30 08/08/21 22:45 08/09/21 04:25 08/09/21 08:41 O2 Saturation 95 % (92-99) 91 % (92-99) 93 % (92-99) Arterial Blood pH 7.10 (7.35-7.45) 7.12 (7.35-7.45) 7.18 (7.35-7.45) Arterial Blood pCO2 at Patient Temp 104 mmHg (35-46) 97 mmHg (35-46) 78 mmHg (35-46) Arterial Blood pO2 at Patient Temp 94 mmHg (65-108) 72 mmHg (65-108) 73 mmHg (65-108) Arterial Blood HCO3 31 mmol/L (21-28) 31 mmol/L (21-28) 29 mmol/L (21-28) Arterial Blood Base Excess -1 mmol/L (-3-3) -1 mmol/L (-3-3) -1 mmol/L (-3-3) FiO2 60 50% (bipap) 45 Sodium Level 143 mmol/L (136-145) Potassium Level 5.8 mmol/L (3.5-5.1) Chloride Level 105 mmol/L (98-107) Carbon Dioxide Level 31 mmol/L (21-32) Anion Gap 7 (6-14) Blood Urea Nitrogen 69 mg/dL (7-20) Creatinine 2.6 mg/dL (0.6-1.0) Estimated GFR (Cockcroft-Gault) 22.6 BUN/Creatinine Ratio 27 (6-20) Glucose Level 81 mg/dL (70-99) Calcium Level 8.4 mg/dL (8.5-10.1) Total Bilirubin 0.2 mg/dL (0.2-1.0) Aspartate Amino Transf (AST/SGOT) 195 U/L (15-37) Alanine Aminotransferase (ALT/SGPT) 38 U/L (14-59) Alkaline Phosphatase 61 U/L (46-116) Total Protein 7.6 g/dL (6.4-8.2) Albumin 2.4 g/dL (3.4-5.0) Albumin/Globulin Ratio 0.5 (1.0-1.7) Medications Active Scripts Medications Dose Route/Sig Max Daily Dose Days Date Category [Megestrol Acetate] 20 MG Tablet 20 Mg PO BID 11/11/14 Rx Feosol (Ferrous Sulfate) 325 Mg Tablet 325 Mg PO DAILYWBKFT 30 11/11/14 Rx [place] 3-6-9 1,200 mg Softgel (Fish Oil/Borage/Flax/Om3,6,9#1) 1,200 Mg Capsule 1,200 Mg PO DAILY 11/05/14 Reported Loratadine 10 Mg Tablet 10 Mg PO 11/05/14 Reported Metoprolol Tartrate 50 Mg Tablet 50 Mg PO BID 11/05/14 Reported Toviaz (Fesoterodine Fumarate) 8 Mg Tab.er.24h 8 Mg PO 11/05/14 Reported Lovastatin 20 Mg Tablet 20 Mg PO HS 11/05/14 Reported Omeprazole 20 Mg Tablet.dr 20 Mg PO DAILY 02/04/14 Reported Daily Vitamin (Multivitamin) 1 Each Tablet 1 Each PO 02/04/14 Reported Detrol La (Tolterodine Tartrate) 4 Mg Cap.er.24h 4 Mg PO DAILY 02/04/14 Reported Impression . IMPRESSION: 1. Acute on chronic hypercapnic and hypoxic respiratory failure secondary to multifactorial etiologies including COVID-19 viral pneumonia and underlying obesity hypoventilation syndrome with acute on chronic cor pulmonale. 2. Acute kidney injury. Could be component of volume contraction since she has some nausea and vomiting. 3. COVID positive. 4. Abnormal chest x-ray with bilateral interstitial infiltrates consistent with COVID-19 viral pneumonia. 5. Encephalopathy secondary to hypercarbia. 6. History of tobaccoism. Plan . RECOMMENDATIONS: 1. continue on BIPAP to keep O2 sats greater than 90%, follow ABGs. Hypercapnia is improving along with improvement in pH. Patient is more awake. 2. continue lovenox for DVT prohpylaxis 3. continue remdesivir 4. continue dexamethasone 5. Patient may have a component of metabolic acidosis as well. We will try 1 amp of bicarb today. discussed with OLGA ADAMS MD Aug 09, 2021 10:45
[2021-08-09 11:00] VITALS: BP 161/74
[2021-08-09] MEDS ORDERED: SODIUM BICARB ADULT 8.4% 50 MEQ/50 ML DISP.SYRIN. IV ONE (11:00)
--- NOTE | 2021-08-09 12:36 | PDOC ---
[facility] PROGRESS NOTE Date of Service DOS: DATE: 08/09/21 TIME: 12:34 Chief Complaint Chief Complaint A/P: Acute on chronic hypercapnic respiratory failure - likely from aspiratory infection with COVID-19 complicated by pre-existing OHS and MADHU. We will keep on BiPAP as needed while sleeping titrate to ABGs. Pulmonology consulted Hypoxic respiratory failure - likely from COVID-19 viral pneumonia acute on chronic cor pulmonale. Hyperkalemia - IV bicarb Acute kidney injury -on chronic kidney disease baseline creatinine from 7 years ago was 1.5 likely just vasomotor nephropathy from above. Will consult nephrology COVID 19 pneumonia -required 5 L nasal cannula O2 increased for home O2 eval with BiPAP. We will give steroid therapy with dexamethasone and remdesivir. Acute metabolic encephalopathy -likely hypercapnic respiratory failure. We will treat with BiPAP Anemia - likely of chronic disease. 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 Protein calorie malnutrition - will start IV nutrition Elevated troponin -likely type II demand ischemia from hypoxia and hypercapnia and possibly COVID myocarditis. Will monitor. FEN - General diet PPX - lovenox FULL CODE DIspo - inpatient cc time 37 minutes History of Present Illness History of Present Illness Ms Londono is a 61 year old female w/ PMHx anemia, MADHU, OHS on 2 to 3 L home O2, HLD, HTN comes to ED on 08/08/2021 via EMS from home for a 1 week history of progressive weakness fatigue malaise nausea vomiting. She has been unable to get up out of bed and had been calling EMS for lift assist, and had previously declined transport earlier in the day. She is unable to provide significant history to me is very confused responsive to name mostly moving. ED physician has obtained above history patient did not complain of chest pain. ED physician noted patient is vaccinating is COVID-19 but her tested +1-week ago and patient herself has not been tested. There was concern noted by EMS about the condition of the home being unlivable. Labs with WBC 6.8, Hb 9.3, platelets 131, had a 136, K4.9, BUN 58, CR 2.8, glucose 129, calcium 8.4, mag 1.6, bilirubin 0.4, AST 112, ALT 35, alkaline phosphatase 69, high-sensitivity troponin is 298, NT proBNP 871, albumin is 2.7, lactic acid is 1.3, rapid influenza negative, rapid COVID-19 positive ABG 7.1 on 5 L nasal cannula oxygen. Chest radiograph with cardiomegaly and bibasilar opacities EKG sinus rate 94 bpm normal axis and intervals no ST elevations or TWI. Place on BIPAP, given dexamethasone and admitted for further care. 08/09: BUN/creatinine worsened slightly K5.8 given bicarb. More alert today still requiring BiPAP. Started on remdesivir and Decadron. She has a little bit of an appetite and is thirsty. Very weak diarrhea is improving. Vitals/I&O Vitals/I&O: Vital Signs Date Time Temp Pulse Resp B/P (MAP) Pulse Ox O2 Delivery O2 Flow Rate FiO2 08/09/21 11:50 90 BiPAP/CPAP 08/09/21 11:00 98.2 87 22 161/74 (103) 98.2 08/09/21 08:00 6.0 I & O 08/08/21 08/08/21 08/09/21 15:00 23:00 07:00 Intake Total 0 ml 0 ml 0 ml Output Total 0 ml 550 ml Balance 0 ml 0 ml -550 ml Physical Exam General: Alert, severe distress Lungs: Clear, Other Abdomen: Normal bowel sounds, Soft, No tenderness, No hepatosplenomegaly, No masses Extremities: No clubbing, No cyanosis, No edema, Normal pulses, No tenderness/swelling Skin: No rashes, No breakdown, No significant lesion Labs Labs: Laboratory Tests Test 08/08/21 22:45 08/09/21 04:25 08/09/21 08:41 O2 Saturation 91 % (92-99) 93 % (92-99) Arterial Blood pH 7.12 (7.35-7.45) 7.18 (7.35-7.45) Arterial Blood pCO2 at Patient Temp 97 mmHg (35-46) 78 mmHg (35-46) Arterial Blood pO2 at Patient Temp 72 mmHg (65-108) 73 mmHg (65-108) Arterial Blood HCO3 31 mmol/L (21-28) 29 mmol/L (21-28) Arterial Blood Base Excess -1 mmol/L (-3-3) -1 mmol/L (-3-3) FiO2 50% (bipap) 45 Sodium Level 143 mmol/L (136-145) Potassium Level 5.8 mmol/L (3.5-5.1) Chloride Level 105 mmol/L (98-107) Carbon Dioxide Level 31 mmol/L (21-32) Anion Gap 7 (6-14) Blood Urea Nitrogen 69 mg/dL (7-20) Creatinine 2.6 mg/dL (0.6-1.0) Estimated GFR (Cockcroft-Gault) 22.6 BUN/Creatinine Ratio 27 (6-20) Glucose Level 81 mg/dL (70-99) Calcium Level 8.4 mg/dL (8.5-10.1) Total Bilirubin 0.2 mg/dL (0.2-1.0) Aspartate Amino Transf (AST/SGOT) 195 U/L (15-37) Alanine Aminotransferase (ALT/SGPT) 38 U/L (14-59) Alkaline Phosphatase 61 U/L (46-116) Total Protein 7.6 g/dL (6.4-8.2) Albumin 2.4 g/dL (3.4-5.0) Albumin/Globulin Ratio 0.5 (1.0-1.7) Assessment and Plan Assessmemt and Plan Problems Medical Problems: (1) COVID-19 Status: Acute (2) Elevated troponin Status: Acute (3) Pneumonia due to COVID-19 virus Status: Acute (4) Respiratory acidosis Status: Acute (5) Respiratory failure with hypoxia Status: Acute Comment Review of Relevant I have reviewed the following items marcus (where applicable) has been applied. Medications: Current Medications Medications (Trade) Dose Ordered Sig/Jeannie Route PRN Reason Start Time Stop Time Status Last Admin Dose Admin Dexamethasone Sodium Phosphate (Decadron) 6 mg DAILY IVP 08/09/21 09:00 08/09/21 09:00 Remdesivir 200 mg/ Sodium Chloride 210 ml @ 210 mls/hr 1X ONCE IV 08/08/21 16:00 08/08/21 16:59 DC 08/08/21 16:00 Sodium Bicarbonate (Sodium Bicarb Adult 8.4% Syr) 50 meq 1X ONCE IV 08/09/21 11:00 08/09/21 11:01 DC 08/09/21 11:00 Justifications for Admission Other Justification EBER ZHOU MD Aug 09, 2021 12:36
--- NOTE | 2021-08-09 13:16 | NUR ---
SS following for discharge planning. SS reviewed pt chart and discussed with pt RN. Pt is from home with spouse and is currently requiring oxygen at six liters nasal canula and BIPAP. COVID19 positive. Pt on IV Remdesivir, IV Rocephin, and IV Decadron. Pulmonology following. Nephrology consulted. Per spouse, pt has continuous home oxygen through [employer]. SS will continue to follow for discharge planning.
[2021-08-09] MEDS: REMDESIVIR 100mg in NORMAL SALINE 250ML X 4 DAYS IV SCH (14:34)
[2021-08-09 15:00] VITALS: BP 188/85
[2021-08-09] MEDS: SODIUM BICARBONATE VIAL 50 MEQ in IV DEXTROSE 5% 1,000 ML IV SCH ×2 (15:09→23:10)
[2021-08-09 19:34] VITALS: BP 188/85
[2021-08-09 19:45] LABS: BASE EXCESS ABG 1 mmol/L (-3-3); HCO3 ABG 31 mmol/L (21-28); PO2 ABG 70 mmHg (65-108); SAT O2 ABG 92 % (92-99)
[2021-08-09 20:32] LABS: PCO2 ABG 83 mmHg (35-46)
[2021-08-09 20:33] LABS: FIO2 ABG 40
[2021-08-09] MEDS: LACTOBACILLUS RHAMNOSUS GG 1 CAPSULE. PO SCH (21:26)
[2021-08-09 22:42] VITALS: BP 195/91
[2021-08-10 02:30] VITALS: BP 129/82
[2021-08-10] MEDS ORDERED: STERILE WATER for RESP 1,000 ML BAG. INH PRN (03:00)
[2021-08-10 06:01] LABS: ALBUMIN 2.2 g/dL (3.4-5.0); ALBUMIN/GLOBULIN RATIO 0.5 (1.0-1.7); CALCIUM 7.7 mg/dL (8.5-10.1); CREATININE 2.8 mg/dL (0.6-1.0); GFR 20.7; POTASSIUM 5.4 mmol/L (3.5-5.1); TOTAL BILIRUBIN 0.2 mg/dL (0.2-1.0); TOTAL PROTEIN 6.6 g/dL (6.4-8.2)
[2021-08-10 07:32] VITALS: BP 171/81
[2021-08-10] MEDS: SODIUM BICARBONATE VIAL 50 MEQ in IV DEXTROSE 5% 1,000 ML IV SCH ×2 (08:08→15:13)
[2021-08-10 08:48] LABS: BASE EXCESS ABG 5 mmol/L (-3-3); HCO3 ABG 34 mmol/L (21-28); PO2 ABG 70 mmHg (65-108); SAT O2 ABG 92 % (92-99)
[2021-08-10] MEDS: NYSTATIN TOPICAL POWDER 15GM BOTTLE. TP SCH ×2 (08:56→20:12)
[2021-08-10] MEDS: DEXAMETHASONE SOD PHOS 4 MG/ML VIAL IVP SCH (08:56)
[2021-08-10] MEDS: LACTOBACILLUS RHAMNOSUS GG 1 CAPSULE. PO SCH ×2 (08:56→20:12)
[2021-08-10 09:05] LABS: FIO2 ABG 45; PCO2 ABG 78 mmHg (35-46)
[2021-08-10 10:37] VITALS: BP 175/80
--- NOTE | 2021-08-10 10:48 | PDOC ---
PULMONARY PROGRESS NOTES DATE: 08/10/21 TIME: 10:41 Subjective patient seen in bed, awake this morning continues on bipap, appears more comfortable. Vitals Vital Signs Date Time Temp Pulse Resp B/P (MAP) Pulse Ox O2 Delivery O2 Flow Rate FiO2 08/10/21 10:37 98.3 81 24 175/80 (111) 91 BiPAP/CPAP 98.3 08/10/21 08:00 7.0 General: Alert, Oriented X4 HEENT: Other Lungs: Clear, Other Cardiovascular: S1, S2 Abdomen: Soft, Other Extremities: Other Labs Laboratory Tests Test 08/08/21 12:30 08/08/21 22:45 08/09/21 04:25 08/09/21 08:41 O2 Saturation 95 % (92-99) 91 % (92-99) 93 % (92-99) Arterial Blood pH 7.10 (7.35-7.45) 7.12 (7.35-7.45) 7.18 (7.35-7.45) Arterial Blood pCO2 at Patient Temp 104 mmHg (35-46) 97 mmHg (35-46) 78 mmHg (35-46) Arterial Blood pO2 at Patient Temp 94 mmHg (65-108) 72 mmHg (65-108) 73 mmHg (65-108) Arterial Blood HCO3 31 mmol/L (21-28) 31 mmol/L (21-28) 29 mmol/L (21-28) Arterial Blood Base Excess -1 mmol/L (-3-3) -1 mmol/L (-3-3) -1 mmol/L (-3-3) FiO2 60 50% (bipap) 45 Sodium Level 143 mmol/L (136-145) Potassium Level 5.8 mmol/L (3.5-5.1) Chloride Level 105 mmol/L (98-107) Carbon Dioxide Level 31 mmol/L (21-32) Anion Gap 7 (6-14) Blood Urea Nitrogen 69 mg/dL (7-20) Creatinine 2.6 mg/dL (0.6-1.0) Estimated GFR (Cockcroft-Gault) 22.6 BUN/Creatinine Ratio 27 (6-20) Glucose Level 81 mg/dL (70-99) Calcium Level 8.4 mg/dL (8.5-10.1) Total Bilirubin 0.2 mg/dL (0.2-1.0) Aspartate Amino Transf (AST/SGOT) 195 U/L (15-37) Alanine Aminotransferase (ALT/SGPT) 38 U/L (14-59) Alkaline Phosphatase 61 U/L (46-116) Total Protein 7.6 g/dL (6.4-8.2) Albumin 2.4 g/dL (3.4-5.0) Albumin/Globulin Ratio 0.5 (1.0-1.7) Test 08/09/21 19:20 08/10/21 04:00 08/10/21 08:40 O2 Saturation 92 % (92-99) 92 % (92-99) Arterial Blood pH 7.19 (7.35-7.45) 7.26 (7.35-7.45) Arterial Blood pCO2 at Patient Temp 83 mmHg (35-46) 78 mmHg (35-46) Arterial Blood pO2 at Patient Temp 70 mmHg (65-108) 70 mmHg (65-108) Arterial Blood HCO3 31 mmol/L (21-28) 34 mmol/L (21-28) Arterial Blood Base Excess 1 mmol/L (-3-3) 5 mmol/L (-3-3) FiO2 40 45 Sodium Level 144 mmol/L (136-145) Potassium Level 5.4 mmol/L (3.5-5.1) Chloride Level 107 mmol/L (98-107) Carbon Dioxide Level 32 mmol/L (21-32) Anion Gap 5 (6-14) Blood Urea Nitrogen 85 mg/dL (7-20) Creatinine 2.8 mg/dL (0.6-1.0) Estimated GFR (Cockcroft-Gault) 20.7 BUN/Creatinine Ratio 30 (6-20) Glucose Level 148 mg/dL (70-99) Calcium Level 7.7 mg/dL (8.5-10.1) Total Bilirubin 0.2 mg/dL (0.2-1.0) Aspartate Amino Transf (AST/SGOT) 154 U/L (15-37) Alanine Aminotransferase (ALT/SGPT) 36 U/L (14-59) Alkaline Phosphatase 58 U/L (46-116) Total Protein 6.6 g/dL (6.4-8.2) Albumin 2.2 g/dL (3.4-5.0) Albumin/Globulin Ratio 0.5 (1.0-1.7) Laboratory Tests Test 08/09/21 19:20 08/10/21 04:00 08/10/21 08:40 O2 Saturation 92 % (92-99) 92 % (92-99) Arterial Blood pH 7.19 (7.35-7.45) 7.26 (7.35-7.45) Arterial Blood pCO2 at Patient Temp 83 mmHg (35-46) 78 mmHg (35-46) Arterial Blood pO2 at Patient Temp 70 mmHg (65-108) 70 mmHg (65-108) Arterial Blood HCO3 31 mmol/L (21-28) 34 mmol/L (21-28) Arterial Blood Base Excess 1 mmol/L (-3-3) 5 mmol/L (-3-3) FiO2 40 45 Sodium Level 144 mmol/L (136-145) Potassium Level 5.4 mmol/L (3.5-5.1) Chloride Level 107 mmol/L (98-107) Carbon Dioxide Level 32 mmol/L (21-32) Anion Gap 5 (6-14) Blood Urea Nitrogen 85 mg/dL (7-20) Creatinine 2.8 mg/dL (0.6-1.0) Estimated GFR (Cockcroft-Gault) 20.7 BUN/Creatinine Ratio 30 (6-20) Glucose Level 148 mg/dL (70-99) Calcium Level 7.7 mg/dL (8.5-10.1) Total Bilirubin 0.2 mg/dL (0.2-1.0) Aspartate Amino Transf (AST/SGOT) 154 U/L (15-37) Alanine Aminotransferase (ALT/SGPT) 36 U/L (14-59) Alkaline Phosphatase 58 U/L (46-116) Total Protein 6.6 g/dL (6.4-8.2) Albumin 2.2 g/dL (3.4-5.0) Albumin/Globulin Ratio 0.5 (1.0-1.7) Medications Active Scripts Medications Dose Route/Sig Max Daily Dose Days Date Category [Megestrol Acetate] 20 MG Tablet 20 Mg PO BID 11/11/14 Rx Feosol (Ferrous Sulfate) 325 Mg Tablet 325 Mg PO DAILYWBKFT 30 11/11/14 Rx [place] 3-6-9 1,200 mg Softgel (Fish Oil/Borage/Flax/Om3,6,9#1) 1,200 Mg Capsule 1,200 Mg PO DAILY 11/05/14 Reported Loratadine 10 Mg Tablet 10 Mg PO 11/05/14 Reported Metoprolol Tartrate 50 Mg Tablet 50 Mg PO BID 11/05/14 Reported Toviaz (Fesoterodine Fumarate) 8 Mg Tab.er.24h 8 Mg PO 11/05/14 Reported Lovastatin 20 Mg Tablet 20 Mg PO HS 11/05/14 Reported Omeprazole 20 Mg Tablet.dr 20 Mg PO DAILY 02/04/14 Reported Daily Vitamin (Multivitamin) 1 Each Tablet 1 Each PO 02/04/14 Reported Detrol La (Tolterodine Tartrate) 4 Mg Cap.er.24h 4 Mg PO DAILY 02/04/14 Reported Impression . IMPRESSION: 1. Acute on chronic hypercapnic and hypoxic respiratory failure secondary to multifactorial etiologies including COVID-19 viral pneumonia and underlying obesity hypoventilation syndrome with acute on chronic cor pulmonale. 2. Acute kidney injury. Could be component of volume contraction since she has some nausea and vomiting. 3. COVID positive. 4. Abnormal chest x-ray with bilateral interstitial infiltrates consistent with COVID-19 viral pneumonia. 5. Encephalopathy secondary to hypercarbia. 6. History of tobaccoism. Plan . RECOMMENDATIONS: 1. continue on BIPAP to keep O2 sats greater than 88%. Hypercapnia continues to improve along with improvement in pH. Patient is more awake and alert. titrate oxygen to 40% and repeat ABG 2. continue lovenox for DVT prohpylaxis 3. continue remdesivir 4. continue dexamethasone 5. Patient may have a component of metabolic acidosis as well. discussed with OLGA ADAMS MD Aug 10, 2021 10:48
--- NOTE | 2021-08-10 11:00 | PDOC ---
[employer] PROGRESS NOTE Date of Service DOS: DATE: 08/10/21 TIME: 10:59 Chief Complaint Chief Complaint A/P: Acute on chronic hypercapnic respiratory failure - likely from aspiratory infection with COVID-19 complicated by pre-existing OHS and MADHU. We will keep on BiPAP as needed while sleeping titrate to ABGs. Pulmonology consulted Hypoxic respiratory failure - likely from COVID-19 viral pneumonia acute on chronic cor pulmonale. Hyperkalemia - IV bicarb Acute kidney injury -on chronic kidney disease baseline creatinine from 7 years ago was 1.5 likely just vasomotor nephropathy from above. Will consult nephrology COVID 19 pneumonia -required 5 L nasal cannula O2 increased for home O2 eval with BiPAP. We will give steroid therapy with dexamethasone and remdesivir. Acute metabolic encephalopathy -likely hypercapnic respiratory failure. We will treat with BiPAP Anemia - likely of chronic disease. 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 Protein calorie malnutrition - will start IV nutrition Elevated troponin -likely type II demand ischemia from hypoxia and hypercapnia and possibly COVID myocarditis. Will monitor. FEN - General diet PPX - lovenox FULL CODE DIspo - inpatient cc time 37 minutes History of Present Illness History of Present Illness Ms Londono is a 61 year old female w/ PMHx anemia, MADHU, OHS on 2 to 3 L home O2, HLD, HTN comes to ED on 08/08/2021 via EMS from home for a 1 week history of progressive weakness fatigue malaise nausea vomiting. She has been unable to get up out of bed and had been calling EMS for lift assist, and had previously declined transport earlier in the day. She is unable to provide significant history to me is very confused responsive to name mostly moving. ED physician has obtained above history patient did not complain of chest pain. ED physician noted patient is vaccinating is COVID-19 but her tested +1-week ago and patient herself has not been tested. There was concern noted by EMS about the condition of the home being unlivable. Labs with WBC 6.8, Hb 9.3, platelets 131, had a 136, K4.9, BUN 58, CR 2.8, glucose 129, calcium 8.4, mag 1.6, bilirubin 0.4, AST 112, ALT 35, alkaline phosphatase 69, high-sensitivity troponin is 298, NT proBNP 871, albumin is 2.7, lactic acid is 1.3, rapid influenza negative, rapid COVID-19 positive ABG 7.1 on 5 L nasal cannula oxygen. Chest radiograph with cardiomegaly and bibasilar opacities EKG sinus rate 94 bpm normal axis and intervals no ST elevations or TWI. Place on BIPAP, given dexamethasone and admitted for further care. 08/09: BUN/creatinine worsened slightly K5.8 given bicarb. More alert today still requiring BiPAP. Started on remdesivir and Decadron. She has a little bit of an appetite and is thirsty. Very weak diarrhea is improving. 08/10: ABG 7.2 back on BiPAP. BUN 85. K down to 5.4. She is asking if she can have something to eat. Still with significant dyspnea Vitals/I&O Vitals/I&O: Vital Signs Date Time Temp Pulse Resp B/P (MAP) Pulse Ox O2 Delivery O2 Flow Rate FiO2 08/10/21 10:37 98.3 81 24 175/80 (111) 91 BiPAP/CPAP 98.3 08/10/21 08:00 7.0 I & O 08/09/21 08/09/21 08/10/21 15:00 23:00 07:00 Intake Total 320 ml 360 ml 100 ml Output Total 620 ml 400 ml Balance 320 ml -260 ml -300 ml Physical Exam General: Alert, severe distress Lungs: Clear, Other Abdomen: Normal bowel sounds, Soft, No tenderness, No hepatosplenomegaly, No masses Extremities: No clubbing, No cyanosis, No edema, Normal pulses, No tenderness/swelling Skin: No rashes, No breakdown, No significant lesion Labs Labs: Laboratory Tests Test 08/09/21 19:20 08/10/21 04:00 08/10/21 08:40 O2 Saturation 92 % (92-99) 92 % (92-99) Arterial Blood pH 7.19 (7.35-7.45) 7.26 (7.35-7.45) Arterial Blood pCO2 at Patient Temp 83 mmHg (35-46) 78 mmHg (35-46) Arterial Blood pO2 at Patient Temp 70 mmHg (65-108) 70 mmHg (65-108) Arterial Blood HCO3 31 mmol/L (21-28) 34 mmol/L (21-28) Arterial Blood Base Excess 1 mmol/L (-3-3) 5 mmol/L (-3-3) FiO2 40 45 Sodium Level 144 mmol/L (136-145) Potassium Level 5.4 mmol/L (3.5-5.1) Chloride Level 107 mmol/L (98-107) Carbon Dioxide Level 32 mmol/L (21-32) Anion Gap 5 (6-14) Blood Urea Nitrogen 85 mg/dL (7-20) Creatinine 2.8 mg/dL (0.6-1.0) Estimated GFR (Cockcroft-Gault) 20.7 BUN/Creatinine Ratio 30 (6-20) Glucose Level 148 mg/dL (70-99) Calcium Level 7.7 mg/dL (8.5-10.1) Total Bilirubin 0.2 mg/dL (0.2-1.0) Aspartate Amino Transf (AST/SGOT) 154 U/L (15-37) Alanine Aminotransferase (ALT/SGPT) 36 U/L (14-59) Alkaline Phosphatase 58 U/L (46-116) Total Protein 6.6 g/dL (6.4-8.2) Albumin 2.2 g/dL (3.4-5.0) Albumin/Globulin Ratio 0.5 (1.0-1.7) Assessment and Plan Assessmemt and Plan Problems Medical Problems: (1) COVID-19 Status: Acute (2) Elevated troponin Status: Acute (3) Pneumonia due to COVID-19 virus Status: Acute (4) Respiratory acidosis Status: Acute (5) Respiratory failure with hypoxia Status: Acute Comment Review of Relevant I have reviewed the following items marcus (where applicable) has been applied. Medications: Current Medications Medications (Trade) Dose Ordered Sig/Jeannie Route PRN Reason Start Time Stop Time Status Last Admin Dose Admin Remdesivir 100 mg/ Sodium Chloride 230 ml @ 460 mls/hr Q24H IV 08/09/21 16:00 08/12/21 16:29 08/09/21 14:34 Lactobacillus Rhamnosus (Culturelle) 1 cap BID PO 08/09/21 21:00 08/10/21 08:56 Sodium Bicarbonate (Sodium Bicarb Adult 8.4% Syr) 50 meq 1X ONCE IV 08/09/21 11:00 08/09/21 11:01 DC 08/09/21 11:00 Sodium Bicarbonate 50 meq/Dextrose 1,050 ml @ 125 mls/hr Q8H24M IV 08/09/21 15:00 08/10/21 08:08 Justifications for Admission Other Justification EBER ZHOU MD Aug 10, 2021 11:00
[2021-08-10] MEDS: cefTRIAXone IV Push 1 GM VIAL. IVP SCH (11:46)
--- NOTE | 2021-08-10 13:25 | PDOC2 ---
CONSULT Date of Consult Date of Consult DATE: 08/10/21 TIME: 13:20 Reason for Consult Reason for Consult: JULIA, hyperkalemia, COVID Referring Physician Referring Physician: Jeremy Identification/Chief Complaint Chief Complaint Generalized weakness and fatigue in the setting of COVID positivity Source Source: Chart review History of Present Illness Reason for Visit: Patient is a morbidly obese 61-year-old female with a past medical history as reviewed below. She tested positive for COVID and was also noted to have significant generalized weakness and fatigue as well as ongoing cough. She was noted to be hypoxemic on presentation to the ER and has been admitted to the hospital for further evaluation. Review of her old records show that she tends to run a creatinine of 1.5-1.8 as far back as 2014. No interim labs are available. She now presents with a creatinine of 2. 6 and now 2.8 today. We were asked to see her for her renal insufficiency. Abdominal ultrasound has been ordered and is pending. Previous imaging studies not included evaluation of her kidneys. At presentation ABG noted to be 7.1 0/94 with a bicarb of 31. She is now on BiPAP and ABGs have improved. She does have a history of sleep apnea and has a BMI documented of 77.6. Review of pulmonary note suggests possibility of interstitial infiltrate/viral pneumonitis Past Medical History Cardiovascular: HTN Pulmonary: COPD, Other Heme/Onc: Anemia NOS Psych: Anxiety, Depression Renal/: Chronic renal insuff Past Surgical History Past Surgical History: Cholecystectomy Family History Family History: Diabetes, Hypertension, Other Social History Quit ALCOHOL: none Drugs: None Lives: with Family Current Problem List Problem List Problems Medical Problems: (1) COVID-19 Status: Acute (2) Elevated troponin Status: Acute (3) Pneumonia due to COVID-19 virus Status: Acute (4) Respiratory acidosis Status: Acute (5) Respiratory failure with hypoxia Status: Acute Current Medications Current Medications Current Medications Dexamethasone Sodium Phosphate (Decadron) 6 mg 1X ONCE IVP Last administered on 08/08/21at 06:41; Start 08/08/21 at 05:45; Stop 08/08/21 at 05:47; Status DC Ondansetron HCl (Zofran) 4 mg PRN Q8HRS PRN IVP NAUSEA/VOMITING; Start 08/08/21 at 06:30; Stop 08/09/21 at 06:29; Status DC Aspirin (Ecotrin) 325 mg 1X ONCE PO ; Start 08/08/21 at 06:30; Stop 08/08/21 at 06:31; Status DC Enoxaparin Sodium (Lovenox Per Pharmacy Prophylaxis Dosing) 1 each PRN DAILY PRN MC SEE COMMENTS; Start 08/08/21 at 06:30 Enoxaparin Sodium (Lovenox 40mg Syringe) 40 mg 1X ONCE SQ ; Start 08/08/21 at 06:30; Stop 08/08/21 at 06:31; Status UNV Enoxaparin Sodium (Lovenox 60mg Syringe) 60 mg Q12HR SQ Last administered on 08/10/21at 08:56; Start 08/08/21 at 06:45 Nystatin (Nystop) 1 blayne BID TP Last administered on 08/10/21at 08:56; Start 08/08/21 at 11:00 Dexamethasone Sodium Phosphate (Decadron) 6 mg DAILY IVP Last administered on 08/10/21at 08:56; Start 08/09/21 at 09:00 Ceftriaxone Sodium (Rocephin) 1 gm Q24H IVP Last administered on 08/10/21at 11:46; Start 08/08/21 at 12:00 Sodium Chloride 1,000 ml @ 100 mls/hr Q10H IV Last administered on 08/09/21at 08:00; Start 08/08/21 at 12:00; Stop 08/09/21 at 12:34; Status DC Guaifenesin (Robitussin Dm) 10 ml PRN Q6HRS PRN PO COUGH; Start 08/08/21 at 15:30 Fentanyl Citrate (Fentanyl 2ml Vial) 25 mcg PRN Q3HRS PRN IVP SEVERE PAIN 7-10; Start 08/08/21 at 15:30 Acetaminophen (Tylenol) 650 mg PRN Q6HRS PRN PO MILD PAIN / TEMP > 100.3'F; Start 08/08/21 at 15:30 Remdesivir 200 mg/ Sodium Chloride 210 ml @ 210 mls/hr 1X ONCE IV Last administered on 08/08/21at 16:00; Start 08/08/21 at 16:00; Stop 08/08/21 at 16:59; Status DC Remdesivir 100 mg/ Sodium Chloride 230 ml @ 460 mls/hr Q24H IV Last administered on 08/09/21at 14:34; Start 08/09/21 at 16:00; Stop 08/12/21 at 16:29 Lactobacillus Rhamnosus (Culturelle) 1 cap BID PO Last administered on 07/21 09/10at 08:56; Start 08/09/21 at 21:00 Sodium Bicarbonate (Sodium Bicarb Adult 8.4% Syr) 50 meq 1X ONCE IV Last administered on 08/09/21at 11:00; Start 08/09/21 at 11:00; Stop 08/09/21 at 11:01; Status DC Sodium Bicarbonate 50 meq/Dextrose 1,050 ml @ 125 mls/hr Q8H24M IV Last administered on 08/10/21at 08:08; Start 08/09/21 at 15:00 Sterile Water (WATER for RESP) 1,000 ml CONT PRN INH VIA VAPOTHERM DEVICE; Start 08/10/21 at 03:00 Active Scripts Active [Megestrol Acetate] 20 MG Tablet 20 Mg PO BID Feosol (Ferrous Sulfate) 325 Mg Tablet 325 Mg PO DAILYWBKFT 30 Days Reported [place] 3-6-9 1,200 mg Softgel (Fish Oil/Borage/Flax/Om3,6,9#1) 1,200 Mg Capsule 1,200 Mg PO DAILY Loratadine 10 Mg Tablet 10 Mg PO Metoprolol Tartrate 50 Mg Tablet 50 Mg PO BID Toviaz (Fesoterodine Fumarate) 8 Mg Tab.er.24h 8 Mg PO Lovastatin 20 Mg Tablet 20 Mg PO HS Omeprazole 20 Mg Tablet.dr 20 Mg PO DAILY Daily Vitamin (Multivitamin) 1 Each Tablet 1 Each PO Detrol La (Tolterodine Tartrate) 4 Mg Cap.er.24h 4 Mg PO DAILY Allergies Allergies: Coded Allergies: tree nut (Verified Allergy, Intermediate, LIP SWELLING, 06/26/16) STEVEN ALMEIDA Review of System Unable to be obtained due to COVID-19 respiratory isolation. Reviewed as documented by other providers and in HPI Physical Exam Physical Exam Patient remains in COVID-19 isolation and hence physical exam as documented by other providers was reviewed and was corroborated with patient's nurse Vital Signs Vital Signs Date Time Temp Pulse Resp B/P (MAP) Pulse Ox O2 Delivery O2 Flow Rate FiO2 08/10/21 11:41 89 BiPAP/CPAP 08/10/21 10:37 98.3 81 24 175/80 (111) 98.3 08/10/21 08:00 7.0 Assessment & Plan ARF Versus progression of underlying CKD cannot be ruled out. Work-up as ordered current FLuid and E-lyte status does not necessitate emergent need for Dialysis. Will re-evaluate for Dialysis in am Severe hypercapnic respiratory failure in the setting of COVID-19 pneumonitis defer to pulmonary expertise Anemia: In the setting of potential CKD. Iron profile will be checked HTN: Current BP meds reviewed. We will continue to evaluate for additional blood pressure medications if needed Hyperkalemia: Presumably due to respiratory acidosis and hypercapnia. As reported urine output is adequate. Discussed Plan of Care and prognosis etc. at length with Dr. Abbott Labs Labs Laboratory Tests Test 08/08/21 22:45 08/09/21 04:25 08/09/21 08:41 08/09/21 19:20 O2 Saturation 91 % (92-99) 93 % (92-99) 92 % (92-99) Arterial Blood pH 7.12 (7.35-7.45) 7.18 (7.35-7.45) 7.19 (7.35-7.45) Arterial Blood pCO2 at Patient Temp 97 mmHg (35-46) 78 mmHg (35-46) 83 mmHg (35-46) Arterial Blood pO2 at Patient Temp 72 mmHg (65-108) 73 mmHg (65-108) 70 mmHg (65-108) Arterial Blood HCO3 31 mmol/L (21-28) 29 mmol/L (21-28) 31 mmol/L (21-28) Arterial Blood Base Excess -1 mmol/L (-3-3) -1 mmol/L (-3-3) 1 mmol/L (-3-3) FiO2 50% (bipap) 45 40 Sodium Level 143 mmol/L (136-145) Potassium Level 5.8 mmol/L (3.5-5.1) Chloride Level 105 mmol/L (98-107) Carbon Dioxide Level 31 mmol/L (21-32) Anion Gap 7 (6-14) Blood Urea Nitrogen 69 mg/dL (7-20) Creatinine 2.6 mg/dL (0.6-1.0) Estimated GFR (Cockcroft-Gault) 22.6 BUN/Creatinine Ratio 27 (6-20) Glucose Level 81 mg/dL (70-99) Calcium Level 8.4 mg/dL (8.5-10.1) Total Bilirubin 0.2 mg/dL (0.2-1.0) Aspartate Amino Transf (AST/SGOT) 195 U/L (15-37) Alanine Aminotransferase (ALT/SGPT) 38 U/L (14-59) Alkaline Phosphatase 61 U/L (46-116) Total Protein 7.6 g/dL (6.4-8.2) Albumin 2.4 g/dL (3.4-5.0) Albumin/Globulin Ratio 0.5 (1.0-1.7) Test 08/10/21 04:00 08/10/21 08:40 Sodium Level 144 mmol/L (136-145) Potassium Level 5.4 mmol/L (3.5-5.1) Chloride Level 107 mmol/L (98-107) Carbon Dioxide Level 32 mmol/L (21-32) Anion Gap 5 (6-14) Blood Urea Nitrogen 85 mg/dL (7-20) Creatinine 2.8 mg/dL (0.6-1.0) Estimated GFR (Cockcroft-Gault) 20.7 BUN/Creatinine Ratio 30 (6-20) Glucose Level 148 mg/dL (70-99) Calcium Level 7.7 mg/dL (8.5-10.1) Total Bilirubin 0.2 mg/dL (0.2-1.0) Aspartate Amino Transf (AST/SGOT) 154 U/L (15-37) Alanine Aminotransferase (ALT/SGPT) 36 U/L (14-59) Alkaline Phosphatase 58 U/L (46-116) Total Protein 6.6 g/dL (6.4-8.2) Albumin 2.2 g/dL (3.4-5.0) Albumin/Globulin Ratio 0.5 (1.0-1.7) O2 Saturation 92 % (92-99) Arterial Blood pH 7.26 (7.35-7.45) Arterial Blood pCO2 at Patient Temp 78 mmHg (35-46) Arterial Blood pO2 at Patient Temp 70 mmHg (65-108) Arterial Blood HCO3 34 mmol/L (21-28) Arterial Blood Base Excess 5 mmol/L (-3-3) FiO2 45 Laboratory Tests Test 08/09/21 19:20 08/10/21 04:00 08/10/21 08:40 O2 Saturation 92 % (92-99) 92 % (92-99) Arterial Blood pH 7.19 (7.35-7.45) 7.26 (7.35-7.45) Arterial Blood pCO2 at Patient Temp 83 mmHg (35-46) 78 mmHg (35-46) Arterial Blood pO2 at Patient Temp 70 mmHg (65-108) 70 mmHg (65-108) Arterial Blood HCO3 31 mmol/L (21-28) 34 mmol/L (21-28) Arterial Blood Base Excess 1 mmol/L (-3-3) 5 mmol/L (-3-3) FiO2 40 45 Sodium Level 144 mmol/L (136-145) Potassium Level 5.4 mmol/L (3.5-5.1) Chloride Level 107 mmol/L (98-107) Carbon Dioxide Level 32 mmol/L (21-32) Anion Gap 5 (6-14) Blood Urea Nitrogen 85 mg/dL (7-20) Creatinine 2.8 mg/dL (0.6-1.0) Estimated GFR (Cockcroft-Gault) 20.7 BUN/Creatinine Ratio 30 (6-20) Glucose Level 148 mg/dL (70-99) Calcium Level 7.7 mg/dL (8.5-10.1) Total Bilirubin 0.2 mg/dL (0.2-1.0) Aspartate Amino Transf (AST/SGOT) 154 U/L (15-37) Alanine Aminotransferase (ALT/SGPT) 36 U/L (14-59) Alkaline Phosphatase 58 U/L (46-116) Total Protein 6.6 g/dL (6.4-8.2) Albumin 2.2 g/dL (3.4-5.0) Albumin/Globulin Ratio 0.5 (1.0-1.7) Review All relevant outside records, renal labs, imaging studies, telemetry/EKG's were reviewed. Images Images Chest x-ray 08/08/2021 IMPRESSION: 1. Hazy perihilar and bibasilar opacities, low-grade edema versus atypical pneumonia. 2. Cardiomegaly ANG RUSH MD Aug 10, 2021 13:25
[2021-08-10 14:00] LABS: BILIRUBIN,URINE NEGATIVE (NEG); CLARITY,URINE CLEAR; COLOR,URINE YELLOW; NITRITE,URINE NEGATIVE (NEG); PH,URINE 5.5 (<5.0-8.0); PROTEIN,URINE >=300 mg/dL (NEG-TRACE); UROBILINOGEN,URINE 0.2 mg/dL (0.2 mg/dL)
[2021-08-10 14:12] VITALS: BP 151/89
[2021-08-10 14:17] LABS: BACTERIA,URINE MANY /HPF (0-FEW)
[2021-08-10] MEDS: REMDESIVIR 100mg in NORMAL SALINE 250ML X 4 DAYS IV SCH (15:13)
--- NOTE | 2021-08-10 15:37 | RAD ---
EXAM: RENAL ULTRASOUND CLINICAL HISTORY: ARF/ CKD, COVID POSITIVE COMPARISON: None available. TECHNIQUE: Ultrasound examination of the bilateral kidneys and urinary bladder was performed. FINDINGS: Examination is markedly limited chronic suboptimal sonographic penetration. Therefore the kidneys and bladder are not visualized. IMPRESSION: The kidneys and bladder are not visualized, obscured by overlying prominent soft tissues. Electronically signed by: Francois Abarca MD (08/10/2021 3:34 PM) [facility]
[2021-08-10 16:19] LABS: BASE EXCESS ABG 6 mmol/L (-3-3); HCO3 ABG 33 mmol/L (21-28); PO2 ABG 56 mmHg (65-108); SAT O2 ABG 88 % (92-99)
[2021-08-10 16:32] LABS: PCO2 ABG 60 mmHg (35-46)
[2021-08-10 16:33] LABS: FIO2 ABG 40
[2021-08-10 19:36] VITALS: BP 199/93
[2021-08-10 23:44] VITALS: BP 188/84
[2021-08-11] VITALS (7 sets, daily range): BP systolic 151–210; BP diastolic 73–94
[2021-08-11] MEDS: SODIUM BICARBONATE VIAL 50 MEQ in IV DEXTROSE 5% 1,000 ML IV SCH (02:49)
[2021-08-11 05:37] LABS: ALBUMIN 1.9 g/dL (3.4-5.0); ALBUMIN/GLOBULIN RATIO 0.4 (1.0-1.7); CALCIUM 8.1 mg/dL (8.5-10.1); CREATININE 2.6 mg/dL (0.6-1.0); GFR 22.6; TOTAL BILIRUBIN 0.2 mg/dL (0.2-1.0); TOTAL PROTEIN 6.4 g/dL (6.4-8.2)
--- NOTE | 2021-08-11 08:16 | PDOC ---
[employer] PROGRESS NOTE Date of Service DOS: DATE: 08/11/21 TIME: 08:16 Chief Complaint Chief Complaint A/P: Acute on chronic hypercapnic respiratory failure - likely from aspiratory infection with COVID-19 complicated by pre-existing OHS and MADHU. We will keep on BiPAP as needed while sleeping titrate to ABGs. Pulmonology consulted Hypoxic respiratory failure - likely from COVID-19 viral pneumonia acute on chronic cor pulmonale. Hyperkalemia - IV bicarb Acute kidney injury -on chronic kidney disease baseline creatinine from 7 years ago was 1.5 likely just vasomotor nephropathy from above. Will consult nephrology COVID 19 pneumonia -required 5 L nasal cannula O2 increased for home O2 eval with BiPAP. We will give steroid therapy with dexamethasone and remdesivir. Acute metabolic encephalopathy -likely hypercapnic respiratory failure. We will treat with BiPAP Anemia - likely of chronic disease. 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 Protein calorie malnutrition - will start IV nutrition Elevated troponin -likely type II demand ischemia from hypoxia and hypercapnia and possibly COVID myocarditis. Will monitor. FEN - General diet PPX - lovenox FULL CODE DIspo - inpatient cc time 37 minutes History of Present Illness History of Present Illness Ms Londono is a 61 year old female w/ PMHx anemia, MADHU, OHS on 2 to 3 L home O2, HLD, HTN comes to ED on 08/08/2021 via EMS from home for a 1 week history of progressive weakness fatigue malaise nausea vomiting. She has been unable to get up out of bed and had been calling EMS for lift assist, and had previously declined transport earlier in the day. She is unable to provide significant history to me is very confused responsive to name mostly moving. ED physician has obtained above history patient did not complain of chest pain. ED physician noted patient is vaccinating is COVID-19 but her tested +1-week ago and patient herself has not been tested. There was concern noted by EMS about the condition of the home being unlivable. Labs with WBC 6.8, Hb 9.3, platelets 131, had a 136, K4.9, BUN 58, CR 2.8, glucose 129, calcium 8.4, mag 1.6, bilirubin 0.4, AST 112, ALT 35, alkaline phosphatase 69, high-sensitivity troponin is 298, NT proBNP 871, albumin is 2.7, lactic acid is 1.3, rapid influenza negative, rapid COVID-19 positive ABG 7.1 on 5 L nasal cannula oxygen. Chest radiograph with cardiomegaly and bibasilar opacities EKG sinus rate 94 bpm normal axis and intervals no ST elevations or TWI. Place on BIPAP, given dexamethasone and admitted for further care. 08/09: BUN/creatinine worsened slightly K5.8 given bicarb. More alert today still requiring BiPAP. Started on remdesivir and Decadron. She has a little bit of an appetite and is thirsty. Very weak diarrhea is improving. 08/10: ABG 7.2 back on BiPAP. BUN 85. K down to 5.4. She is asking if she can have something to eat. Still with significant dyspnea 08/11: BUN increased to 109 CR 2.6, renal ultrasound did not identify kidneys ureters or bladder. On BiPAP 14/01 FiO2 40% she made some improvements with yesterday evening ABG 7.3 . O2 was increased to 60% and continue her BiPAP overnight. Restarting BP meds today. More alert. Amenable to dialysis if necessary. Hold remdesivir. Vitals/I&O Vitals/I&O: Vital Signs Date Time Temp Pulse Resp B/P (MAP) Pulse Ox O2 Delivery O2 Flow Rate FiO2 08/11/21 06:19 90 BiPAP/CPAP 08/11/21 03:42 98.4 74 18 181/86 (117) 98.4 08/10/21 18:07 6.0 I & O 08/10/21 08/10/21 08/11/21 15:00 23:00 07:00 Intake Total 720 ml 0 ml Output Total 1000 ml 700 ml Balance -280 ml -700 ml Physical Exam General: Alert, severe distress Lungs: Clear, Other Abdomen: Normal bowel sounds, Soft, No tenderness, No hepatosplenomegaly, No masses Extremities: No clubbing, No cyanosis, No edema, Normal pulses, No tenderness/swelling Skin: No rashes, No breakdown, No significant lesion Labs Labs: Laboratory Tests Test 08/10/21 08:40 08/10/21 13:30 08/10/21 16:10 08/11/21 04:30 O2 Saturation 92 % (92-99) 88 % (92-99) Arterial Blood pH 7.26 (7.35-7.45) 7.36 (7.35-7.45) Arterial Blood pCO2 at Patient Temp 78 mmHg (35-46) 60 mmHg (35-46) Arterial Blood pO2 at Patient Temp 70 mmHg (65-108) 56 mmHg (65-108) Arterial Blood HCO3 34 mmol/L (21-28) 33 mmol/L (21-28) Arterial Blood Base Excess 5 mmol/L (-3-3) 6 mmol/L (-3-3) FiO2 45 40 Urine Collection Type Unknown Urine Color Yellow Urine Clarity Clear Urine pH 5.5 (<5.0-8.0) Urine Specific [place] 1.015 (1.000-1.030) Urine Protein >=300 mg/dL (NEG-TRACE) Urine Glucose (UA) Negative mg/dL (NEG) Urine Ketones (Stick) Negative mg/dL (NEG) Urine Blood Large (NEG) Urine Nitrite Negative (NEG) Urine Bilirubin Negative (NEG) Urine Urobilinogen Dipstick 0.2 mg/dL (0.2 mg/dL) Urine Leukocyte Esterase Negative (NEG) Urine RBC 6-10 /HPF (0-2) Urine WBC 1-4 /HPF (0-4) Urine Squamous Epithelial Cells Mod /LPF Urine Bacteria Many /HPF (0-FEW) Urine Mucus Slight /LPF Sodium Level 137 mmol/L (136-145) Potassium Level 5.0 mmol/L (3.5-5.1) Chloride Level 102 mmol/L (98-107) Carbon Dioxide Level 33 mmol/L (21-32) Anion Gap 2 (6-14) Blood Urea Nitrogen 109 mg/dL (7-20) Creatinine 2.6 mg/dL (0.6-1.0) Estimated GFR (Cockcroft-Gault) 22.6 BUN/Creatinine Ratio 42 (6-20) Glucose Level 155 mg/dL (70-99) Calcium Level 8.1 mg/dL (8.5-10.1) Total Bilirubin 0.2 mg/dL (0.2-1.0) Aspartate Amino Transf (AST/SGOT) 97 U/L (15-37) Alanine Aminotransferase (ALT/SGPT) 32 U/L (14-59) Alkaline Phosphatase 49 U/L (46-116) Total Protein 6.4 g/dL (6.4-8.2) Albumin 1.9 g/dL (3.4-5.0) Albumin/Globulin Ratio 0.4 (1.0-1.7) Assessment and Plan Assessmemt and Plan Problems Medical Problems: (1) COVID-19 Status: Acute (2) Elevated troponin Status: Acute (3) Pneumonia due to COVID-19 virus Status: Acute (4) Respiratory acidosis Status: Acute (5) Respiratory failure with hypoxia Status: Acute Comment Review of Relevant I have reviewed the following items marcus (where applicable) has been applied. Justifications for Admission Other Justification EBER ZHOU MD Aug 11, 2021 08:16
[2021-08-11] MEDS: DEXAMETHASONE SOD PHOS 4 MG/ML VIAL IVP SCH (08:27)
[2021-08-11] MEDS: LACTOBACILLUS RHAMNOSUS GG 1 CAPSULE. PO SCH ×2 (08:27→19:59)
[2021-08-11] MEDS: NYSTATIN TOPICAL POWDER 15GM BOTTLE. TP SCH ×2 (08:27→20:07)
--- NOTE | 2021-08-11 09:48 | PDOC ---
PULMONARY PROGRESS NOTES DATE: 08/11/21 TIME: 09:44 Subjective patient seen in bed, awake this morning clinically much better. Off the BiPAP during the day and using at night. Currently on nasal cannula during the day Vitals Vital Signs Date Time Temp Pulse Resp B/P (MAP) Pulse Ox O2 Delivery O2 Flow Rate FiO2 08/11/21 09:04 91 Nasal Cannula 6.0 08/11/21 07:55 98.3 85 18 176/80 (112) 98.3 General: Alert, Oriented X4 HEENT: Other Lungs: Other (Decreased breath sounds bilaterally) Cardiovascular: S1, S2 Abdomen: Soft, Other (Trace pitting edema) Extremities: Other Labs Laboratory Tests Test 08/09/21 19:20 08/10/21 04:00 08/10/21 08:40 08/10/21 13:30 O2 Saturation 92 % (92-99) 92 % (92-99) Arterial Blood pH 7.19 (7.35-7.45) 7.26 (7.35-7.45) Arterial Blood pCO2 at Patient Temp 83 mmHg (35-46) 78 mmHg (35-46) Arterial Blood pO2 at Patient Temp 70 mmHg (65-108) 70 mmHg (65-108) Arterial Blood HCO3 31 mmol/L (21-28) 34 mmol/L (21-28) Arterial Blood Base Excess 1 mmol/L (-3-3) 5 mmol/L (-3-3) FiO2 40 45 Sodium Level 144 mmol/L (136-145) Potassium Level 5.4 mmol/L (3.5-5.1) Chloride Level 107 mmol/L (98-107) Carbon Dioxide Level 32 mmol/L (21-32) Anion Gap 5 (6-14) Blood Urea Nitrogen 85 mg/dL (7-20) Creatinine 2.8 mg/dL (0.6-1.0) Estimated GFR (Cockcroft-Gault) 20.7 BUN/Creatinine Ratio 30 (6-20) Glucose Level 148 mg/dL (70-99) Calcium Level 7.7 mg/dL (8.5-10.1) Total Bilirubin 0.2 mg/dL (0.2-1.0) Aspartate Amino Transf (AST/SGOT) 154 U/L (15-37) Alanine Aminotransferase (ALT/SGPT) 36 U/L (14-59) Alkaline Phosphatase 58 U/L (46-116) Creatine Kinase 2627 U/L (26-192) Total Protein 6.6 g/dL (6.4-8.2) Albumin 2.2 g/dL (3.4-5.0) Albumin/Globulin Ratio 0.5 (1.0-1.7) Urine Collection Type Unknown Urine Color Yellow Urine Clarity Clear Urine pH 5.5 (<5.0-8.0) Urine Specific [place] 1.015 (1.000-1.030) Urine Protein >=300 mg/dL (NEG-TRACE) Urine Glucose (UA) Negative mg/dL (NEG) Urine Ketones (Stick) Negative mg/dL (NEG) Urine Blood Large (NEG) Urine Nitrite Negative (NEG) Urine Bilirubin Negative (NEG) Urine Urobilinogen Dipstick 0.2 mg/dL (0.2 mg/dL) Urine Leukocyte Esterase Negative (NEG) Urine RBC 6-10 /HPF (0-2) Urine WBC 1-4 /HPF (0-4) Urine Squamous Epithelial Cells Mod /LPF Urine Bacteria Many /HPF (0-FEW) Urine Mucus Slight /LPF Test 08/10/21 16:10 08/11/21 04:30 O2 Saturation 88 % (92-99) Arterial Blood pH 7.36 (7.35-7.45) Arterial Blood pCO2 at Patient Temp 60 mmHg (35-46) Arterial Blood pO2 at Patient Temp 56 mmHg (65-108) Arterial Blood HCO3 33 mmol/L (21-28) Arterial Blood Base Excess 6 mmol/L (-3-3) FiO2 40 Sodium Level 137 mmol/L (136-145) Potassium Level 5.0 mmol/L (3.5-5.1) Chloride Level 102 mmol/L (98-107) Carbon Dioxide Level 33 mmol/L (21-32) Anion Gap 2 (6-14) Blood Urea Nitrogen 109 mg/dL (7-20) Creatinine 2.6 mg/dL (0.6-1.0) Estimated GFR (Cockcroft-Gault) 22.6 BUN/Creatinine Ratio 42 (6-20) Glucose Level 155 mg/dL (70-99) Calcium Level 8.1 mg/dL (8.5-10.1) Total Bilirubin 0.2 mg/dL (0.2-1.0) Aspartate Amino Transf (AST/SGOT) 97 U/L (15-37) Alanine Aminotransferase (ALT/SGPT) 32 U/L (14-59) Alkaline Phosphatase 49 U/L (46-116) Total Protein 6.4 g/dL (6.4-8.2) Albumin 1.9 g/dL (3.4-5.0) Albumin/Globulin Ratio 0.4 (1.0-1.7) Laboratory Tests Test 08/10/21 13:30 08/10/21 16:10 08/11/21 04:30 Urine Collection Type Unknown Urine Color Yellow Urine Clarity Clear Urine pH 5.5 (<5.0-8.0) Urine Specific [place] 1.015 (1.000-1.030) Urine Protein >=300 mg/dL (NEG-TRACE) Urine Glucose (UA) Negative mg/dL (NEG) Urine Ketones (Stick) Negative mg/dL (NEG) Urine Blood Large (NEG) Urine Nitrite Negative (NEG) Urine Bilirubin Negative (NEG) Urine Urobilinogen Dipstick 0.2 mg/dL (0.2 mg/dL) Urine Leukocyte Esterase Negative (NEG) Urine RBC 6-10 /HPF (0-2) Urine WBC 1-4 /HPF (0-4) Urine Squamous Epithelial Cells Mod /LPF Urine Bacteria Many /HPF (0-FEW) Urine Mucus Slight /LPF O2 Saturation 88 % (92-99) Arterial Blood pH 7.36 (7.35-7.45) Arterial Blood pCO2 at Patient Temp 60 mmHg (35-46) Arterial Blood pO2 at Patient Temp 56 mmHg (65-108) Arterial Blood HCO3 33 mmol/L (21-28) Arterial Blood Base Excess 6 mmol/L (-3-3) FiO2 40 Sodium Level 137 mmol/L (136-145) Potassium Level 5.0 mmol/L (3.5-5.1) Chloride Level 102 mmol/L (98-107) Carbon Dioxide Level 33 mmol/L (21-32) Anion Gap 2 (6-14) Blood Urea Nitrogen 109 mg/dL (7-20) Creatinine 2.6 mg/dL (0.6-1.0) Estimated GFR (Cockcroft-Gault) 22.6 BUN/Creatinine Ratio 42 (6-20) Glucose Level 155 mg/dL (70-99) Calcium Level 8.1 mg/dL (8.5-10.1) Total Bilirubin 0.2 mg/dL (0.2-1.0) Aspartate Amino Transf (AST/SGOT) 97 U/L (15-37) Alanine Aminotransferase (ALT/SGPT) 32 U/L (14-59) Alkaline Phosphatase 49 U/L (46-116) Total Protein 6.4 g/dL (6.4-8.2) Albumin 1.9 g/dL (3.4-5.0) Albumin/Globulin Ratio 0.4 (1.0-1.7) Medications Active Scripts Medications Dose Route/Sig Max Daily Dose Days Date Category [Megestrol Acetate] 20 MG Tablet 20 Mg PO BID 11/11/14 Rx Feosol (Ferrous Sulfate) 325 Mg Tablet 325 Mg PO DAILYWBKFT 30 11/11/14 Rx [place] 3-6-9 1,200 mg Softgel (Fish Oil/Borage/Flax/Om3,6,9#1) 1,200 Mg Capsule 1,200 Mg PO DAILY 11/05/14 Reported Loratadine 10 Mg Tablet 10 Mg PO 11/05/14 Reported Metoprolol Tartrate 50 Mg Tablet 50 Mg PO BID 11/05/14 Reported Toviaz (Fesoterodine Fumarate) 8 Mg Tab.er.24h 8 Mg PO 11/05/14 Reported Lovastatin 20 Mg Tablet 20 Mg PO HS 11/05/14 Reported Omeprazole 20 Mg Tablet.dr 20 Mg PO DAILY 02/04/14 Reported Daily Vitamin (Multivitamin) 1 Each Tablet 1 Each PO 02/04/14 Reported Detrol La (Tolterodine Tartrate) 4 Mg Cap.er.24h 4 Mg PO DAILY 02/04/14 Reported Impression . IMPRESSION: 1. Acute on chronic hypercapnic and hypoxic respiratory failure secondary to multifactorial etiologies including COVID-19 viral pneumonia and underlying obesity hypoventilation syndrome with acute on chronic cor pulmonale. Clinically compensated now. 2. Acute kidney injury. Could be component of volume contraction since she has some nausea and vomiting. 3. COVID positive. 4. Abnormal chest x-ray with bilateral interstitial infiltrates consistent with COVID-19 viral pneumonia. 5. Encephalopathy secondary to hypercarbia. 6. History of tobaccoism. Plan . RECOMMENDATIONS: 1. Patient is clinically improved. Her hypercapnia is now compensated. Will use BiPAP nightly and as needed during the day. Continue nasal cannula during the day 2. continue lovenox for DVT prohpylaxis 3. Patient's GFR is 22. Discussed with pharmacy. Will discontinue remdesivir today 4. continue dexamethasone 5. Discussed with renal Dr. Hamilton. Follow his recommendations. Discussed with Dr. Abbott and the patient. She has home CPAP. We will ask criminal records technician to consider home BiPAP for OLGA PAREDES MD Aug 11, 2021 09:48
--- NOTE | 2021-08-11 09:49 | PDOC ---
DATE OF SERVICE: DOS: DATE: 08/11/21 TIME: 09:44 SUBJECTIVE ROS Follow-up for acute kidney injury Patient remains in COVID-19 associated respiratory isolation at this time. Unable to get review of systems but reportedly is doing much better OBJECTIVE Vital Signs Vital Signs Date Time Temp Pulse Resp B/P (MAP) Pulse Ox O2 Delivery O2 Flow Rate FiO2 08/11/21 09:04 91 Nasal Cannula 6.0 08/11/21 07:55 98.3 85 18 176/80 (112) 98.3 I & 0 Intake and Output 08/11/21 07:00 Intake Total 720 ml Output Total 1700 ml Balance -980 ml Intake Oral 720 ml Output Urine Total 1700 ml # Voids 1 PHYSICAL EXAM Physical Exam Patient remains in COVID-19 isolation and hence physical exam as documented by other providers was reviewed and was corroborated with patient's nurse Assessment & Plan ARF Versus progression of underlying CKD cannot be ruled out. Ultrasound is ordered as unable to visualize kidneys. May need CT scan. Current FLuid and E-lyte status does not necessitate emergent need for Dialysis. Will re-evaluate for Dialysis in am Worsening azotemia presumably due to steroids Abnormal UA with significant proteinuria large amount of blood but no RBCs. Will check CPK. Quantitate proteinuria. Cannot rule out rhabdo Severe hypercapnic respiratory failure in the setting of COVID-19 pneumonitis defer to pulmonary expertise. No recent ABG but was improving on last check Anemia: In the setting of potential CKD. Iron profile will be checked HTN: Current BP meds reviewed. We will continue to evaluate for additional blood pressure medications if needed Hyperkalemia: Presumably due to respiratory acidosis and hypercapnia. Appears to have improved currently with correction of acidosis. No recent ABG. We will stop bicarbonate at this time COVID-19 positive and patient remains in respiratory isolation Discussed Plan of Care and prognosis etc. at length with Dr. Abbott COMMENT/RELEVANT DATA Meds Current Medications Medications (Trade) Dose Ordered Sig/Jeannie Start Time Stop Time Status Last Admin Dose Admin Acetaminophen (Tylenol) 650 mg PRN Q6HRS PRN 08/08/21 15:30 Aspirin (Ecotrin) 325 mg 1X ONCE 08/08/21 06:30 08/08/21 06:31 DC Ceftriaxone Sodium (Rocephin) 1 gm Q24H 08/08/21 12:00 08/10/21 11:46 1 GM Dexamethasone Sodium Phosphate (Decadron) 6 mg DAILY 08/09/21 09:00 08/11/21 08:27 6 MG Enoxaparin Sodium (Lovenox 40mg Syringe) 40 mg 1X ONCE 08/08/21 06:30 08/08/21 06:31 UNV Enoxaparin Sodium (Lovenox 60mg Syringe) 60 mg Q12HR 08/08/21 06:45 08/11/21 08:26 60 MG Enoxaparin Sodium (Lovenox Per Pharmacy Prophylaxis Dosing) 1 each PRN DAILY PRN 08/08/21 06:30 Fentanyl Citrate (Fentanyl 2ml Vial) 25 mcg PRN Q3HRS PRN 08/08/21 15:30 Guaifenesin (Robitussin Dm) 10 ml PRN Q6HRS PRN 08/08/21 15:30 08/10/21 17:27 10 ML Lactobacillus Rhamnosus (Culturelle) 1 cap BID 08/09/21 21:00 08/11/21 08:27 1 CAP Nystatin (Nystop) 1 blayne BID 08/08/21 11:00 08/11/21 08:27 1 BLAYNE Ondansetron HCl (Zofran) 4 mg PRN Q8HRS PRN 08/08/21 06:30 08/09/21 06:29 DC Remdesivir 100 mg/ Sodium Chloride 230 ml @ 460 mls/hr Q24H 08/09/21 16:00 08/12/21 16:29 08/10/21 15:13 460 MLS/HR Remdesivir 200 mg/ Sodium Chloride 210 ml @ 210 mls/hr 1X ONCE 08/08/21 16:00 08/08/21 16:59 DC 08/08/21 16:00 210 MLS/HR Sodium Bicarbonate 50 meq/Dextrose 1,050 ml @ 125 mls/hr Q8H24M 08/09/21 15:00 08/11/21 02:49 125 MLS/HR Sodium Bicarbonate (Sodium Bicarb Adult 8.4% Syr) 50 meq 1X ONCE 08/09/21 11:00 08/09/21 11:01 DC 08/09/21 11:00 50 MEQ Sodium Chloride 1,000 ml @ 100 mls/hr Q10H 08/08/21 12:00 08/09/21 12:34 DC 08/09/21 08:00 100 MLS/HR Sterile Water (WATER for RESP) 1,000 ml CONT PRN 08/10/21 03:00 Lab Laboratory Tests Test 08/10/21 13:30 08/10/21 16:10 08/11/21 04:30 Urine Collection Type Unknown Urine Color Yellow Urine Clarity Clear Urine pH 5.5 (<5.0-8.0) Urine Specific [place] 1.015 (1.000-1.030) Urine Protein >=300 mg/dL (NEG-TRACE) Urine Glucose (UA) Negative mg/dL (NEG) Urine Ketones (Stick) Negative mg/dL (NEG) Urine Blood Large (NEG) Urine Nitrite Negative (NEG) Urine Bilirubin Negative (NEG) Urine Urobilinogen Dipstick 0.2 mg/dL (0.2 mg/dL) Urine Leukocyte Esterase Negative (NEG) Urine RBC 6-10 /HPF (0-2) Urine WBC 1-4 /HPF (0-4) Urine Squamous Epithelial Cells Mod /LPF Urine Bacteria Many /HPF (0-FEW) Urine Mucus Slight /LPF O2 Saturation 88 % (92-99) Arterial Blood pH 7.36 (7.35-7.45) Arterial Blood pCO2 at Patient Temp 60 mmHg (35-46) Arterial Blood pO2 at Patient Temp 56 mmHg (65-108) Arterial Blood HCO3 33 mmol/L (21-28) Arterial Blood Base Excess 6 mmol/L (-3-3) FiO2 40 Sodium Level 137 mmol/L (136-145) Potassium Level 5.0 mmol/L (3.5-5.1) Chloride Level 102 mmol/L (98-107) Carbon Dioxide Level 33 mmol/L (21-32) Anion Gap 2 (6-14) Blood Urea Nitrogen 109 mg/dL (7-20) Creatinine 2.6 mg/dL (0.6-1.0) Estimated GFR (Cockcroft-Gault) 22.6 BUN/Creatinine Ratio 42 (6-20) Glucose Level 155 mg/dL (70-99) Calcium Level 8.1 mg/dL (8.5-10.1) Total Bilirubin 0.2 mg/dL (0.2-1.0) Aspartate Amino Transf (AST/SGOT) 97 U/L (15-37) Alanine Aminotransferase (ALT/SGPT) 32 U/L (14-59) Alkaline Phosphatase 49 U/L (46-116) Total Protein 6.4 g/dL (6.4-8.2) Albumin 1.9 g/dL (3.4-5.0) Albumin/Globulin Ratio 0.4 (1.0-1.7) Results All relevant outside records, renal labs, imaging studies, telemetry/EKG's were reviewed. Other Renal sonogram: FINDINGS: Examination is markedly limited chronic suboptimal sonographic penetration. Therefore the kidneys and bladder are not visualized. IMPRESSION: The kidneys and bladder are not visualized, obscured by overlying prominent soft tissues. Justicifation of Admission Dx: Justifications for Admission: Justification of Admission Dx: N/A ANG RUSH MD Aug 11, 2021 09:49
[2021-08-11] MEDS ORDERED: hydrALAZINE 20 MG/ML VIAL. IVP PRN (12:15)
[2021-08-11] MEDS: PANTOPRAZOLE 40 MG TABLET.DR. PO SCH (12:42)
[2021-08-11] MEDS: CETIRIZINE HCL 10 MG TABLET. PO SCH (12:42)
[2021-08-11] MEDS: cefTRIAXone IV Push 1 GM VIAL. IVP SCH (12:42)
[2021-08-11] MEDS: METOPROLOL TART IMMED RELEASE 50 MG TABLET. PO SCH ×2 (12:42→20:07)
[2021-08-11] MEDS ORDERED: MINERAL OIL/PETROLATUM,WHITE OPHTH OINT 3.5GM TUBE. OU PRN (13:45)
[2021-08-11] MEDS ORDERED: VITS A & D/LANOLIN TOPICAL OINTMENT 42GM TUBE. TP PRN (13:45)
[2021-08-11] MEDS: ATORVASTATIN CALCIUM 10 MG TABLET. PO SCH (19:59)
[2021-08-12 02:49] VITALS: BP 186/88
[2021-08-12 05:31] LABS: CREATININE,RANDOM URINE 67.1 mg/dL (Not Establ.)
[2021-08-12] MEDS: PANTOPRAZOLE 40 MG TABLET.DR. PO SCH (05:39)
[2021-08-12 05:54] LABS: ALBUMIN/GLOBULIN RATIO 0.4 (1.0-1.7); CALCIUM 8.4 mg/dL (8.5-10.1); CREATININE 2.5 mg/dL (0.6-1.0); GFR 23.6; PHOSPHORUS 2.1 mg/dL (2.6-4.7); POTASSIUM 5.4 mmol/L (3.5-5.1); TOTAL BILIRUBIN 0.3 mg/dL (0.2-1.0); TOTAL PROTEIN 6.6 g/dL (6.4-8.2)
[2021-08-12 07:55] VITALS: BP 186/102
[2021-08-12] MEDS: METOPROLOL TART IMMED RELEASE 50 MG TABLET. PO SCH ×2 (08:55→20:37)
[2021-08-12] MEDS: DEXAMETHASONE SOD PHOS 4 MG/ML VIAL IVP SCH (08:55)
[2021-08-12] MEDS: LACTOBACILLUS RHAMNOSUS GG 1 CAPSULE. PO SCH ×2 (08:56→20:37)
[2021-08-12] MEDS: CETIRIZINE HCL 10 MG TABLET. PO SCH (08:56)
[2021-08-12] MEDS: NYSTATIN TOPICAL POWDER 15GM BOTTLE. TP SCH ×2 (08:57→20:45)
--- NOTE | 2021-08-12 10:16 | PDOC ---
DATE OF SERVICE DATE: 08/12/21 TIME: 10:12 SUBJECTIVE ROS Propped up in bed. on 6 L nasal cannula. States feeling very weak Denies N/V, No SOB OBJECTIVE Vital Signs Vital Signs Date Time Temp Pulse Resp B/P (MAP) Pulse Ox O2 Delivery O2 Flow Rate FiO2 08/12/21 08:55 68 156/88 08/12/21 08:00 Bi-pap 6.0 08/12/21 07:55 98.0 20 90 98.0 I & 0 Intake and Output 08/12/21 07:00 Intake Total 1820 ml Output Total 575 ml Balance 1245 ml Intake Oral 1820 ml Output Urine Total 575 ml # Voids 4 # Bowel Movements 4 PHYSICAL EXAM Physical Exam General: AXOX3.nad , Morbidly Obese HEENT: Atraumatic, PERRLA, EOMI, Mucous membr. moist/pink. On o2 by NC Neck Thick, supple Lungs: decreased at bases, Non labored Heart: S1S2, RRR, no thrills, no rubs, no gallops, no murmurs Abdomen: Normal bowel sounds, Soft, No tenderness, No hepatosplenomegaly,Obese Extremities: No clubbing, No cyanosis, No edema, Skin: No rashes, No breakdown, No significant lesion Neuro: Grossly Normal Psych/Mental Status: Cooperative No Curtis, No CVA or SP tenderness DIAGNOSIS/ASSESSMENT Assessment & Plan ARF Versus progression of underlying CKD cannot be ruled out. Ultrasound unable to visualize kidneys. May need CT scan. UOP not recorded , Currently no emergent need for Dialysis. Will re-evaluate in am , Worsening azotemia due to steroids. Supportive care , maintain fluid balance. Strict II/o(NOT RECORDED) , Avoid Nephrotoxins HyperKalemia- Mild, Monitor Abnormal UA large amount of blood , RBCs + . Pr/Cr 2.2 gms . Mild Rhabdo . Monitor Rhabdo- Mild at presentation, improving Acute on chronic hypercapnic and hypoxic respiratory failure secondary to COVID-19 viral pneumonia and underlying obesity hypoventilation syndrome COVID-19 viral pneumonia. Abnormal chest x-ray with bilateral interstitial infiltrates consistent with History of tobaccoism. Anemia:Hgb stable,Tsat at goal No indication for ROBERT or Fe HTN:Not well controlled. Anthypertensives Morbid Obese COMMENT/RELEVANT DATA Meds Current Medications Medications (Trade) Dose Ordered Sig/Jeannie Start Time Stop Time Status Last Admin Dose Admin Acetaminophen (Tylenol) 650 mg PRN Q6HRS PRN 08/08/21 15:30 Aspirin (Ecotrin) 325 mg 1X ONCE 08/08/21 06:30 08/08/21 06:31 DC Atorvastatin Calcium (Lipitor) 5 mg HS 08/11/21 21:00 08/11/21 19:59 5 MG Ceftriaxone Sodium (Rocephin) 1 gm Q24H 08/08/21 12:00 08/11/21 12:42 1 GM Cetirizine HCl (ZyrTEC) 10 mg DAILY 08/11/21 12:45 08/12/21 08:56 10 MG Dexamethasone Sodium Phosphate (Decadron) 6 mg DAILY 08/09/21 09:00 08/12/21 08:55 6 MG Enoxaparin Sodium (Lovenox 40mg Syringe) 40 mg 1X ONCE 08/08/21 06:30 08/08/21 06:31 UNV Enoxaparin Sodium (Lovenox 60mg Syringe) 60 mg Q12HR 08/08/21 06:45 08/12/21 08:55 60 MG Enoxaparin Sodium (Lovenox Per Pharmacy Prophylaxis Dosing) 1 each PRN DAILY PRN 08/08/21 06:30 Fentanyl Citrate (Fentanyl 2ml Vial) 25 mcg PRN Q3HRS PRN 08/08/21 15:30 Guaifenesin (Robitussin Dm) 10 ml PRN Q6HRS PRN 08/08/21 15:30 08/10/21 17:27 10 ML Hydralazine HCl (Apresoline Inj) 10 mg PRN Q4HRS PRN 08/11/21 12:15 Lactobacillus Rhamnosus (Culturelle) 1 cap BID 08/09/21 21:00 08/12/21 08:56 1 CAP Metoprolol Tartrate (Lopressor) 50 mg BID 08/11/21 12:45 08/12/21 08:55 50 MG Multi-Ingred Cream/Lotion/Oil/ Oint (Artificial Tears Eye Ointment) 1 blayne PRN Q1HR PRN 08/11/21 13:45 Nystatin (Nystop) 1 blayne BID 08/08/21 11:00 08/12/21 08:57 1 BLAYNE Ondansetron HCl (Zofran) 4 mg PRN Q8HRS PRN 08/08/21 06:30 08/09/21 06:29 DC Pantoprazole Sodium (Protonix) 40 mg DAILYAC 08/11/21 12:45 08/12/21 05:39 40 MG Remdesivir 100 mg/ Sodium Chloride 230 ml @ 460 mls/hr Q24H 08/09/21 16:00 08/11/21 09:47 DC 08/10/21 15:13 460 MLS/HR Remdesivir 200 mg/ Sodium Chloride 210 ml @ 210 mls/hr 1X ONCE 08/08/21 16:00 08/08/21 16:59 DC 08/08/21 16:00 210 MLS/HR Sodium Bicarbonate 50 meq/Dextrose 1,050 ml @ 125 mls/hr Q8H24M 08/09/21 15:00 08/11/21 09:48 DC 08/11/21 02:49 125 MLS/HR Sodium Bicarbonate (Sodium Bicarb Adult 8.4% Syr) 50 meq 1X ONCE 08/09/21 11:00 08/09/21 11:01 DC 08/09/21 11:00 50 MEQ Sodium Chloride 1,000 ml @ 100 mls/hr Q10H 08/08/21 12:00 08/09/21 12:34 DC 08/09/21 08:00 100 MLS/HR Sterile Water (WATER for RESP) 1,000 ml CONT PRN 08/10/21 03:00 Vitamin A/Vitamin D (Vitamin A & D Ointment) 1 blayne PRN Q1HR PRN 08/11/21 13:45 UNV Lab Laboratory Tests Test 08/12/21 04:30 08/12/21 05:00 Sodium Level 145 mmol/L (136-145) Potassium Level 5.4 mmol/L (3.5-5.1) Chloride Level 107 mmol/L (98-107) Carbon Dioxide Level 32 mmol/L (21-32) Anion Gap 6 (6-14) Blood Urea Nitrogen 132 mg/dL (7-20) Creatinine 2.5 mg/dL (0.6-1.0) Estimated GFR (Cockcroft-Gault) 23.6 BUN/Creatinine Ratio 53 (6-20) Glucose Level 126 mg/dL (70-99) Calcium Level 8.4 mg/dL (8.5-10.1) Phosphorus Level 2.1 mg/dL (2.6-4.7) Total Bilirubin 0.3 mg/dL (0.2-1.0) Aspartate Amino Transf (AST/SGOT) 66 U/L (15-37) Alanine Aminotransferase (ALT/SGPT) 34 U/L (14-59) Alkaline Phosphatase 50 U/L (46-116) Creatine Kinase 346 U/L (26-192) Total Protein 6.6 g/dL (6.4-8.2) Albumin 2.0 g/dL (3.4-5.0) Albumin/Globulin Ratio 0.4 (1.0-1.7) Urine Random Creatinine 67.1 mg/dL (Not Establ.) Urine Random Total Protein 152.6 mg/dL (Not Establ.) Urine Protein/Creatinine Ratio 2274 mg/g (0-200) Results All relevant outside records, renal labs, imaging studies, telemetry/EKG's were reviewed. Justicifation of Admission Dx: Justifications for Admission: Justification of Admission Dx: N/A JORGE CHENEY MD Aug 12, 2021 10:16
[2021-08-12 10:24] VITALS: BP 169/81
--- NOTE | 2021-08-12 10:34 | PDOC ---
PULMONARY PROGRESS NOTES DATE: 08/12/21 TIME: 10:28 Subjective patient seen sitting on the edge of bed. denies shortness of breath. Off the BiPAP during the day and using at night. Currently on nasal cannula during the day. Vitals Vital Signs Date Time Temp Pulse Resp B/P (MAP) Pulse Ox O2 Delivery O2 Flow Rate FiO2 08/12/21 08:55 68 156/88 08/12/21 08:00 Bi-pap 6.0 08/12/21 07:55 98.0 20 90 98.0 General: Alert, Oriented X4 HEENT: Other Lungs: Other (Decreased breath sounds bilaterally) Cardiovascular: S1, S2 Abdomen: Soft, Other (Trace pitting edema) Extremities: Other Labs Laboratory Tests Test 08/10/21 13:30 08/10/21 16:10 08/11/21 04:30 08/12/21 04:30 Urine Collection Type Unknown Urine Color Yellow Urine Clarity Clear Urine pH 5.5 (<5.0-8.0) Urine Specific [place] 1.015 (1.000-1.030) Urine Protein >=300 mg/dL (NEG-TRACE) Urine Glucose (UA) Negative mg/dL (NEG) Urine Ketones (Stick) Negative mg/dL (NEG) Urine Blood Large (NEG) Urine Nitrite Negative (NEG) Urine Bilirubin Negative (NEG) Urine Urobilinogen Dipstick 0.2 mg/dL (0.2 mg/dL) Urine Leukocyte Esterase Negative (NEG) Urine RBC 6-10 /HPF (0-2) Urine WBC 1-4 /HPF (0-4) Urine Squamous Epithelial Cells Mod /LPF Urine Bacteria Many /HPF (0-FEW) Urine Mucus Slight /LPF Urine Random Sodium <20 mmol/L (Not Estab.) O2 Saturation 88 % (92-99) Arterial Blood pH 7.36 (7.35-7.45) Arterial Blood pCO2 at Patient Temp 60 mmHg (35-46) Arterial Blood pO2 at Patient Temp 56 mmHg (65-108) Arterial Blood HCO3 33 mmol/L (21-28) Arterial Blood Base Excess 6 mmol/L (-3-3) FiO2 40 Sodium Level 137 mmol/L (136-145) 145 mmol/L (136-145) Potassium Level 5.0 mmol/L (3.5-5.1) 5.4 mmol/L (3.5-5.1) Chloride Level 102 mmol/L (98-107) 107 mmol/L (98-107) Carbon Dioxide Level 33 mmol/L (21-32) 32 mmol/L (21-32) Anion Gap 2 (6-14) 6 (6-14) Blood Urea Nitrogen 109 mg/dL (7-20) 132 mg/dL (7-20) Creatinine 2.6 mg/dL (0.6-1.0) 2.5 mg/dL (0.6-1.0) Estimated GFR (Cockcroft-Gault) 22.6 23.6 BUN/Creatinine Ratio 42 (6-20) 53 (6-20) Glucose Level 155 mg/dL (70-99) 126 mg/dL (70-99) Calcium Level 8.1 mg/dL (8.5-10.1) 8.4 mg/dL (8.5-10.1) Iron Level 45 ug/dL (50-170) Total Iron Binding Capacity 127 ug/dL (250-450) Iron Saturation 35 % (15-34) Ferritin 559 ng/mL (8-252) Total Bilirubin 0.2 mg/dL (0.2-1.0) 0.3 mg/dL (0.2-1.0) Aspartate Amino Transf (AST/SGOT) 97 U/L (15-37) 66 U/L (15-37) Alanine Aminotransferase (ALT/SGPT) 32 U/L (14-59) 34 U/L (14-59) Alkaline Phosphatase 49 U/L (46-116) 50 U/L (46-116) Total Protein 6.4 g/dL (6.4-8.2) 6.6 g/dL (6.4-8.2) Albumin 1.9 g/dL (3.4-5.0) 2.0 g/dL (3.4-5.0) Albumin/Globulin Ratio 0.4 (1.0-1.7) 0.4 (1.0-1.7) Phosphorus Level 2.1 mg/dL (2.6-4.7) Creatine Kinase 346 U/L (26-192) Test 08/12/21 05:00 Urine Random Creatinine 67.1 mg/dL (Not Establ.) Urine Random Total Protein 152.6 mg/dL (Not Establ.) Urine Protein/Creatinine Ratio 2274 mg/g (0-200) Laboratory Tests Test 08/12/21 04:30 08/12/21 05:00 Sodium Level 145 mmol/L (136-145) Potassium Level 5.4 mmol/L (3.5-5.1) Chloride Level 107 mmol/L (98-107) Carbon Dioxide Level 32 mmol/L (21-32) Anion Gap 6 (6-14) Blood Urea Nitrogen 132 mg/dL (7-20) Creatinine 2.5 mg/dL (0.6-1.0) Estimated GFR (Cockcroft-Gault) 23.6 BUN/Creatinine Ratio 53 (6-20) Glucose Level 126 mg/dL (70-99) Calcium Level 8.4 mg/dL (8.5-10.1) Phosphorus Level 2.1 mg/dL (2.6-4.7) Total Bilirubin 0.3 mg/dL (0.2-1.0) Aspartate Amino Transf (AST/SGOT) 66 U/L (15-37) Alanine Aminotransferase (ALT/SGPT) 34 U/L (14-59) Alkaline Phosphatase 50 U/L (46-116) Creatine Kinase 346 U/L (26-192) Total Protein 6.6 g/dL (6.4-8.2) Albumin 2.0 g/dL (3.4-5.0) Albumin/Globulin Ratio 0.4 (1.0-1.7) Urine Random Creatinine 67.1 mg/dL (Not Establ.) Urine Random Total Protein 152.6 mg/dL (Not Establ.) Urine Protein/Creatinine Ratio 2274 mg/g (0-200) Medications Active Scripts Medications Dose Route/Sig Max Daily Dose Days Date Category [Megestrol Acetate] 20 MG Tablet 20 Mg PO BID 11/11/14 Rx Feosol (Ferrous Sulfate) 325 Mg Tablet 325 Mg PO [id number] 30 11/11/14 Rx [place] 3-6-9 1,200 mg Softgel (Fish Oil/Borage/Flax/Om3,6,9#1) 1,200 Mg Capsule 1,200 Mg PO DAILY 11/05/14 Reported Loratadine 10 Mg Tablet 10 Mg PO 11/05/14 Reported Metoprolol Tartrate 50 Mg Tablet 50 Mg PO BID 11/05/14 Reported Toviaz (Fesoterodine Fumarate) 8 Mg Tab.er.24h 8 Mg PO 11/05/14 Reported Lovastatin 20 Mg Tablet 20 Mg PO HS 11/05/14 Reported Omeprazole 20 Mg Tablet.dr 20 Mg PO DAILY 02/04/14 Reported Daily Vitamin (Multivitamin) 1 Each Tablet 1 Each PO 02/04/14 Reported Detrol La (Tolterodine Tartrate) 4 Mg Cap.er.24h 4 Mg PO DAILY 02/04/14 Reported Impression . IMPRESSION: 1. Acute on chronic hypercapnic and hypoxic respiratory failure secondary to multifactorial etiologies including COVID-19 viral pneumonia and underlying obesity hypoventilation syndrome with acute on chronic cor pulmonale. Clinically compensated now. 2. Acute kidney injury. Could be component of volume contraction since she has some nausea and vomiting. 3. COVID positive. 4. Abnormal chest x-ray with bilateral interstitial infiltrates consistent with COVID-19 viral pneumonia. 5. Encephalopathy secondary to hypercarbia. 6. History of tobaccoism. Plan . RECOMMENDATIONS: 1. Patient is clinically improved. Her hypercapnia is now compensated. Will use BiPAP nightly and as needed during the day. Continue nasal cannula during the day 2. continue lovenox for DVT prohpylaxis 3. Patient's GFR is 22. Discussed with pharmacy. remdesivir has been discontinued 4. continue dexamethasone 5. appreciate renal recommendations. planning to re evaluate for dialysis in the morning Discussed with rn She has home CPAP. We will ask online communications specialist to consider home BiPAP . Will reduce IPAP pressure to improve her tolerance OLGA PAREDES MD Aug 12, 2021 10:34
--- NOTE | 2021-08-12 11:51 | PDOC ---
[facility] PROGRESS NOTE Date of Service DOS: DATE: 08/12/21 TIME: 11:48 Chief Complaint Chief Complaint A/P: Acute on chronic hypercapnic respiratory failure - likely from aspiratory infection with COVID-19 complicated by pre-existing OHS and MADHU. We will keep on BiPAP as needed while sleeping titrate to ABGs. Pulmonology consulted Hypoxic respiratory failure - likely from COVID-19 viral pneumonia acute on chronic cor pulmonale. Hyperkalemia - IV bicarb Acute kidney injury -on chronic kidney disease baseline creatinine from 7 years ago was 1.5 likely just vasomotor nephropathy from above. Will consult nephrology COVID 19 pneumonia -required 5 L nasal cannula O2 increased for home O2 eval with BiPAP. We will give steroid therapy with dexamethasone and remdesivir. Acute metabolic encephalopathy -likely hypercapnic respiratory failure. We will treat with BiPAP Anemia - likely of chronic disease. 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 Protein calorie malnutrition - will start IV nutrition Elevated troponin -likely type II demand ischemia from hypoxia and hypercapnia and possibly COVID myocarditis. Will monitor. FEN - General diet PPX - lovenox FULL CODE DIspo - inpatient cc time 37 minutes History of Present Illness History of Present Illness Ms Londono is a 61 year old female w/ PMHx anemia, MADHU, OHS on 2 to 3 L home O2, HLD, HTN comes to ED on 08/08/2021 via EMS from home for a 1 week history of progressive weakness fatigue malaise nausea vomiting. She has been unable to get up out of bed and had been calling EMS for lift assist, and had previously declined transport earlier in the day. She is unable to provide significant history to me is very confused responsive to name mostly moving. ED physician has obtained above history patient did not complain of chest pain. ED physician noted patient is vaccinating is COVID-19 but her tested +1-week ago and patient herself has not been tested. There was concern noted by EMS about the condition of the home being unlivable. Labs with WBC 6.8, Hb 9.3, platelets 131, had a 136, K4.9, BUN 58, CR 2.8, glucose 129, calcium 8.4, mag 1.6, bilirubin 0.4, AST 112, ALT 35, alkaline phosphatase 69, high-sensitivity troponin is 298, NT proBNP 871, albumin is 2.7, lactic acid is 1.3, rapid influenza negative, rapid COVID-19 positive ABG 7.1 on 5 L nasal cannula oxygen. Chest radiograph with cardiomegaly and bibasilar opacities EKG sinus rate 94 bpm normal axis and intervals no ST elevations or TWI. Place on BIPAP, given dexamethasone and admitted for further care. 08/09: BUN/creatinine worsened slightly K5.8 given bicarb. More alert today still requiring BiPAP. Started on remdesivir and Decadron. She has a little bit of an appetite and is thirsty. Very weak diarrhea is improving. 08/10: ABG 7.2 back on BiPAP. BUN 85. K down to 5.4. She is asking if she can have something to eat. Still with significant dyspnea 08/11: BUN increased to 109 CR 2.6, renal ultrasound did not identify kidneys ureters or bladder. On BiPAP 14/01 FiO2 40% she made some improvements with yesterday evening ABG 7.3 . O2 was increased to 60% and continue her BiPAP overnight. Restarting BP meds today. More alert. Amenable to dialysis if necessary. Hold remdesivir. 08/12 Patient evaluated examined at bedside. Resting in bed on the phone with her daughter. She was on 6 L nasal cannula. Said to me she was still feeling just very weak and rundown overall. Continuing current treatments. Pulmonary and nephro following. Plan discussed with bedside RN. Vitals/I&O Vitals/I&O: Vital Signs Date Time Temp Pulse Resp B/P (MAP) Pulse Ox O2 Delivery O2 Flow Rate FiO2 08/12/21 10:24 98.0 82 18 169/81 (110) 95 Nasal Cannula 6.0 98.0 I & O 08/11/21 08/11/21 08/12/21 15:00 23:00 07:00 Intake Total 660 ml 1160 ml 0 ml Output Total 500 ml 75 ml Balance 660 ml 660 ml -75 ml Physical Exam General: Alert, severe distress Heart: Regular rate Lungs: Clear, Other (Decreased breath sounds bilaterally) Abdomen: Normal bowel sounds, Soft, No tenderness, No hepatosplenomegaly, No masses Extremities: No clubbing, No cyanosis, No edema, Normal pulses, No tenderness/swelling Skin: No rashes, No breakdown, No significant lesion Labs Labs: Laboratory Tests Test 08/12/21 04:30 08/12/21 05:00 Sodium Level 145 mmol/L (136-145) Potassium Level 5.4 mmol/L (3.5-5.1) Chloride Level 107 mmol/L (98-107) Carbon Dioxide Level 32 mmol/L (21-32) Anion Gap 6 (6-14) Blood Urea Nitrogen 132 mg/dL (7-20) Creatinine 2.5 mg/dL (0.6-1.0) Estimated GFR (Cockcroft-Gault) 23.6 BUN/Creatinine Ratio 53 (6-20) Glucose Level 126 mg/dL (70-99) Calcium Level 8.4 mg/dL (8.5-10.1) Phosphorus Level 2.1 mg/dL (2.6-4.7) Total Bilirubin 0.3 mg/dL (0.2-1.0) Aspartate Amino Transf (AST/SGOT) 66 U/L (15-37) Alanine Aminotransferase (ALT/SGPT) 34 U/L (14-59) Alkaline Phosphatase 50 U/L (46-116) Creatine Kinase 346 U/L (26-192) Total Protein 6.6 g/dL (6.4-8.2) Albumin 2.0 g/dL (3.4-5.0) Albumin/Globulin Ratio 0.4 (1.0-1.7) Urine Random Creatinine 67.1 mg/dL (Not Establ.) Urine Random Total Protein 152.6 mg/dL (Not Establ.) Urine Protein/Creatinine Ratio 2274 mg/g (0-200) Assessment and Plan Assessmemt and Plan Problems Medical Problems: (1) COVID-19 Status: Acute (2) Elevated troponin Status: Acute (3) Pneumonia due to COVID-19 virus Status: Acute (4) Respiratory acidosis Status: Acute (5) Respiratory failure with hypoxia Status: Acute Comment Review of Relevant I have reviewed the following items marcus (where applicable) has been applied. Medications: Current Medications Medications (Trade) Dose Ordered Sig/Jeannie Route PRN Reason Start Time Stop Time Status Last Admin Dose Admin Metoprolol Tartrate (Lopressor) 50 mg BID PO 08/11/21 12:45 08/12/21 08:55 Atorvastatin Calcium (Lipitor) 5 mg HS PO 08/11/21 21:00 08/11/21 19:59 Pantoprazole Sodium (Protonix) 40 mg DAILYAC PO 08/11/21 12:45 08/12/21 05:39 Cetirizine HCl (ZyrTEC) 10 mg DAILY PO 08/11/21 12:45 08/12/21 08:56 Justifications for Admission Other Justification EBER CEJA MD Aug 12, 2021 11:51
[2021-08-12] MEDS: cefTRIAXone IV Push 1 GM VIAL. IVP SCH (12:16)
--- NOTE | 2021-08-12 14:28 | NUR ---
SS following up with discharge planning. SS reviewed pt chart and discussed with pt RN. Pt is currently requiring oxygen at six liters nasal canula. COVID19 positive. BIPAP PRN. Pt on IV Decadron and IV Rocephin. Pt has home oxygen. Probable need for PT/OT when medically ready to participate. SS will continue to follow for discharge planning.
[2021-08-12 14:31] VITALS: BP 174/84
[2021-08-12 19:53] VITALS: BP 163/77
[2021-08-12] MEDS: ATORVASTATIN CALCIUM 10 MG TABLET. PO SCH (20:37)
[2021-08-12 22:53] VITALS: BP 153/82
[2021-08-13 02:55] VITALS: BP 172/96
[2021-08-13 06:42] LABS: ALBUMIN 2.1 g/dL (3.4-5.0); ALBUMIN/GLOBULIN RATIO 0.5 (1.0-1.7); CALCIUM 8.5 mg/dL (8.5-10.1); CREATININE 2.5 mg/dL (0.6-1.0); GFR 23.6; POTASSIUM 5.6 mmol/L (3.5-5.1); TOTAL BILIRUBIN 0.2 mg/dL (0.2-1.0); TOTAL PROTEIN 6.6 g/dL (6.4-8.2)
[2021-08-13 07:00] VITALS: BP 172/92
[2021-08-13] MEDS: NYSTATIN TOPICAL POWDER 15GM BOTTLE. TP SCH ×2 (09:00→19:55)
--- NOTE | 2021-08-13 09:39 | PDOC ---
PULMONARY PROGRESS NOTES DATE: 08/13/21 TIME: 09:38 Subjective Patient currently on 5 L oxygen flow, ARN BiPAP, BiPAP nightly Denies shortness of air Somewhat confused Vitals Vital Signs Date Time Temp Pulse Resp B/P (MAP) Pulse Ox O2 Delivery O2 Flow Rate FiO2 08/13/21 07:58 92 Nasal Cannula 6.0 08/13/21 07:00 97.8 62 28 172/92 (118) 97.8 ROS: No Nausea, No Chest Pain, No Abdominal Pain, No Increase Cough General: Alert, Confused HEENT: Other Lungs: Clear, Other (Decreased breath sounds bilaterally) Cardiovascular: S1, S2 Abdomen: Soft, Other (Trace pitting edema) Extremities: Other Labs Laboratory Tests Test 08/12/21 04:30 08/12/21 05:00 08/13/21 04:45 Sodium Level 145 mmol/L (136-145) 144 mmol/L (136-145) Potassium Level 5.4 mmol/L (3.5-5.1) 5.6 mmol/L (3.5-5.1) Chloride Level 107 mmol/L (98-107) 109 mmol/L (98-107) Carbon Dioxide Level 32 mmol/L (21-32) 34 mmol/L (21-32) Anion Gap 6 (6-14) 1 (6-14) Blood Urea Nitrogen 132 mg/dL (7-20) 140 mg/dL (7-20) Creatinine 2.5 mg/dL (0.6-1.0) 2.5 mg/dL (0.6-1.0) Estimated GFR (Cockcroft-Gault) 23.6 23.6 BUN/Creatinine Ratio 53 (6-20) 56 (6-20) Glucose Level 126 mg/dL (70-99) 131 mg/dL (70-99) Calcium Level 8.4 mg/dL (8.5-10.1) 8.5 mg/dL (8.5-10.1) Phosphorus Level 2.1 mg/dL (2.6-4.7) Total Bilirubin 0.3 mg/dL (0.2-1.0) 0.2 mg/dL (0.2-1.0) Aspartate Amino Transf (AST/SGOT) 66 U/L (15-37) 42 U/L (15-37) Alanine Aminotransferase (ALT/SGPT) 34 U/L (14-59) 36 U/L (14-59) Alkaline Phosphatase 50 U/L (46-116) 47 U/L (46-116) Creatine Kinase 346 U/L (26-192) 134 U/L (26-192) Total Protein 6.6 g/dL (6.4-8.2) 6.6 g/dL (6.4-8.2) Albumin 2.0 g/dL (3.4-5.0) 2.1 g/dL (3.4-5.0) Albumin/Globulin Ratio 0.4 (1.0-1.7) 0.5 (1.0-1.7) Urine Random Creatinine 67.1 mg/dL (Not Establ.) Urine Random Total Protein 152.6 mg/dL (Not Establ.) Urine Protein/Creatinine Ratio 2274 mg/g (0-200) Laboratory Tests Test 08/13/21 04:45 Sodium Level 144 mmol/L (136-145) Potassium Level 5.6 mmol/L (3.5-5.1) Chloride Level 109 mmol/L (98-107) Carbon Dioxide Level 34 mmol/L (21-32) Anion Gap 1 (6-14) Blood Urea Nitrogen 140 mg/dL (7-20) Creatinine 2.5 mg/dL (0.6-1.0) Estimated GFR (Cockcroft-Gault) 23.6 BUN/Creatinine Ratio 56 (6-20) Glucose Level 131 mg/dL (70-99) Calcium Level 8.5 mg/dL (8.5-10.1) Total Bilirubin 0.2 mg/dL (0.2-1.0) Aspartate Amino Transf (AST/SGOT) 42 U/L (15-37) Alanine Aminotransferase (ALT/SGPT) 36 U/L (14-59) Alkaline Phosphatase 47 U/L (46-116) Creatine Kinase 134 U/L (26-192) Total Protein 6.6 g/dL (6.4-8.2) Albumin 2.1 g/dL (3.4-5.0) Albumin/Globulin Ratio 0.5 (1.0-1.7) Medications Active Scripts Medications Dose Route/Sig Max Daily Dose Days Date Category [Megestrol Acetate] 20 MG Tablet 20 Mg PO BID 4/25/15 Rx Feosol (Ferrous Sulfate) 325 Mg Tablet 325 Mg PO DAILYWBKFT 30 11/11/14 Rx [place] 3-6-9 1,200 mg Softgel (Fish Oil/Borage/Flax/Om3,6,9#1) 1,200 Mg Capsule 1,200 Mg PO DAILY 11/05/14 Reported Loratadine 10 Mg Tablet 10 Mg PO 11/05/14 Reported Metoprolol Tartrate 50 Mg Tablet 50 Mg PO BID 11/05/14 Reported Toviaz (Fesoterodine Fumarate) 8 Mg Tab.er.24h 8 Mg PO 11/05/14 Reported Lovastatin 20 Mg Tablet 20 Mg PO HS 11/05/14 Reported Omeprazole 20 Mg Tablet.dr 20 Mg PO DAILY 02/04/14 Reported Daily Vitamin (Multivitamin) 1 Each Tablet 1 Each PO 02/04/14 Reported Detrol La (Tolterodine Tartrate) 4 Mg Cap.er.24h 4 Mg PO DAILY 02/04/14 Reported Impression . IMPRESSION: 1. Acute on chronic hypercapnic and hypoxic respiratory failure secondary to multifactorial etiologies including COVID-19 viral pneumonia and underlying obesity hypoventilation syndrome with acute on chronic cor pulmonale. 2. Chronic kidney disease, acute kidney insufficiency 3. COVID positive 4. Abnormal chest x-ray with bilateral interstitial infiltrates consistent with COVID-19 viral pneumonia. 5. Encephalopathy multifactorial 6. History of tobaccoism. Plan . Updated 08/13 continue current support BiPAP nightly Oxygen supplementation Follow nephrology input RECOMMENDATIONS: 1. Patient is clinically improved. Her hypercapnia is now compensated. Will use BiPAP nightly and as needed during the day. Continue nasal cannula during the day 2. continue lovenox for DVT prohpylaxis 3. Patient's GFR is 22. Discussed with pharmacy. remdesivir has been discontinued 4. continue dexamethasone 5. appreciate renal recommendations. planning to re evaluate for dialysis in the morning Discussed with rn She has home CPAP. We will ask technician support association to consider home BiPAP . Will reduce IPAP pressure to improve her tolerance IVORY WEBER MD Aug 13, 2021 09:39
--- NOTE | 2021-08-13 09:45 | PDOC ---
DATE OF SERVICE DATE: 08/13/21 TIME: 09:41 SUBJECTIVE ROS on 6 L nasal cannula. Denies N/V, No SOB OBJECTIVE Vital Signs Vital Signs Date Time Temp Pulse Resp B/P (MAP) Pulse Ox O2 Delivery O2 Flow Rate FiO2 08/13/21 07:58 92 Nasal Cannula 6.0 08/13/21 07:00 97.8 62 28 172/92 (118) 97.8 I & 0 Intake and Output 08/13/21 06:59 Intake Total 1730 ml Output Total 1950 ml Balance -220 ml Intake Oral 1730 ml Output Urine Total 1950 ml # Voids 3 # Bowel Movements 1 PHYSICAL EXAM Physical Exam General: AXOX3.nad , Morbidly Obese HEENT: Atraumatic, PERRLA, EOMI, Mucous membr. moist/pink. On o2 by NC Neck Thick, supple Lungs: decreased at bases, Non labored Heart: S1S2, RRR, no thrills, no rubs, no gallops, no murmurs Abdomen: Normal bowel sounds, Soft, No tenderness, No hepatosplenomegaly,Obese Extremities: No clubbing, No cyanosis, No edema, Skin: No rashes, No breakdown, No significant lesion Neuro: Grossly Normal Psych/Mental Status: Cooperative No Curtis, No CVA or SP tenderness DIAGNOSIS/ASSESSMENT Assessment & Plan ARF Versus progression of underlying CKD cannot be ruled out. Ultrasound sherron ble to visualize kidneysUOP not recorded ; will initiate dialysis Supportive care , maintain fluid balance. Strict I/o(NOT RECORDED) , Avoid Nephrotoxins HyperKalemia- Dialysis today Abnormal UA large amount of blood , RBCs + . Pr/Cr 2.2 gms . Mild Rhabdo . Monitor Rhabdo- Mild at presentation, improving Acute on chronic hypercapnic and hypoxic respiratory failure secondary to COVID-19 viral pneumonia and underlying obesity hypoventilation syndrome COVID-19 viral pneumonia. Abnormal chest x-ray with bilateral interstitial infiltrates consistent with History of tobaccoism. Anemia:Hgb stable,Tsat at goal No indication for ROBERT or Fe HTN:Not well controlled. Anthypertensives Morbid Obese COMMENT/RELEVANT DATA Meds Current Medications Medications (Trade) Dose Ordered Sig/Jeannie Start Time Stop Time Status Last Admin Dose Admin Acetaminophen (Tylenol) 650 mg PRN Q6HRS PRN 08/08/21 15:30 Aspirin (Ecotrin) 325 mg 1X ONCE 08/08/21 06:30 08/08/21 06:31 DC Atorvastatin Calcium (Lipitor) 5 mg HS 08/11/21 21:00 08/12/21 20:37 5 MG Ceftriaxone Sodium (Rocephin) 1 gm Q24H 08/08/21 12:00 08/14/21 12:01 08/12/21 12:16 1 GM Cetirizine HCl (ZyrTEC) 10 mg DAILY 08/11/21 12:45 08/12/21 08:56 10 MG Dexamethasone Sodium Phosphate (Decadron) 6 mg DAILY 08/09/21 09:00 08/18/21 09:01 08/12/21 08:55 6 MG Enoxaparin Sodium (Lovenox 40mg Syringe) 40 mg 1X ONCE 08/08/21 06:30 08/08/21 06:31 UNV Enoxaparin Sodium (Lovenox 60mg Syringe) 60 mg Q12HR 08/08/21 06:45 08/12/21 20:37 60 MG Enoxaparin Sodium (Lovenox Per Pharmacy Prophylaxis Dosing) 1 each PRN DAILY PRN 08/08/21 06:30 Fentanyl Citrate (Fentanyl 2ml Vial) 25 mcg PRN Q3HRS PRN 08/08/21 15:30 Guaifenesin (Robitussin Dm) 10 ml PRN Q6HRS PRN 08/08/21 15:30 08/10/21 17:27 10 ML Hydralazine HCl (Apresoline Inj) 10 mg PRN Q4HRS PRN 08/11/21 12:15 Lactobacillus Rhamnosus (Culturelle) 1 cap BID 08/09/21 21:00 08/12/21 20:37 1 CAP Metoprolol Tartrate (Lopressor) 50 mg BID 08/11/21 12:45 08/12/21 20:37 50 MG Multi-Ingred Cream/Lotion/Oil/ Oint (Artificial Tears Eye Ointment) 1 blayne PRN Q1HR PRN 08/11/21 13:45 Nystatin (Nystop) 1 blayne BID 08/08/21 11:00 08/12/21 20:45 1 BLAYNE Ondansetron HCl (Zofran) 4 mg PRN Q8HRS PRN 08/08/21 06:30 08/09/21 06:29 DC Pantoprazole Sodium (Protonix) 40 mg DAILYAC 08/11/21 12:45 08/12/21 05:39 40 MG Remdesivir 100 mg/ Sodium Chloride 230 ml @ 460 mls/hr Q24H 08/09/21 16:00 08/11/21 09:47 DC 08/10/21 15:13 460 MLS/HR Remdesivir 200 mg/ Sodium Chloride 210 ml @ 210 mls/hr 1X ONCE 08/08/21 16:00 08/08/21 16:59 DC 08/08/21 16:00 210 MLS/HR Sodium Bicarbonate 50 meq/Dextrose 1,050 ml @ 125 mls/hr Q8H24M 08/09/21 15:00 08/11/21 09:48 DC 08/11/21 02:49 125 MLS/HR Sodium Bicarbonate (Sodium Bicarb Adult 8.4% Syr) 50 meq 1X ONCE 08/09/21 11:00 08/09/21 11:01 DC 08/09/21 11:00 50 MEQ Sodium Chloride 1,000 ml @ 100 mls/hr Q10H 08/08/21 12:00 08/09/21 12:34 DC 08/09/21 08:00 100 MLS/HR Sterile Water (WATER for RESP) 1,000 ml CONT PRN 08/10/21 03:00 Vitamin A/Vitamin D (Vitamin A & D Ointment) 1 blayne PRN Q1HR PRN 08/11/21 13:45 UNV Lab Laboratory Tests Test 08/13/21 04:45 Sodium Level 144 mmol/L (136-145) Potassium Level 5.6 mmol/L (3.5-5.1) Chloride Level 109 mmol/L (98-107) Carbon Dioxide Level 34 mmol/L (21-32) Anion Gap 1 (6-14) Blood Urea Nitrogen 140 mg/dL (7-20) Creatinine 2.5 mg/dL (0.6-1.0) Estimated GFR (Cockcroft-Gault) 23.6 BUN/Creatinine Ratio 56 (6-20) Glucose Level 131 mg/dL (70-99) Calcium Level 8.5 mg/dL (8.5-10.1) Total Bilirubin 0.2 mg/dL (0.2-1.0) Aspartate Amino Transf (AST/SGOT) 42 U/L (15-37) Alanine Aminotransferase (ALT/SGPT) 36 U/L (14-59) Alkaline Phosphatase 47 U/L (46-116) Creatine Kinase 134 U/L (26-192) Total Protein 6.6 g/dL (6.4-8.2) Albumin 2.1 g/dL (3.4-5.0) Albumin/Globulin Ratio 0.5 (1.0-1.7) Results All relevant outside records, renal labs, imaging studies, telemetry/EKG's were reviewed. Justicifation of Admission Dx: Justifications for Admission: Justification of Admission Dx: N/A JORGE CHENEY MD Aug 13, 2021 09:45
[2021-08-13] MEDS ORDERED: HEPARIN for IV BOLUS 10,000 UNIT/10 ML VIAL. ONE (10:35)
[2021-08-13 11:00] VITALS: BP 152/72
--- NOTE | 2021-08-13 12:07 | PDOC ---
[facility] [facility] PROGRESS NOTE Date of Service DOS: DATE: 08/13/21 TIME: 12:06 Chief Complaint Chief Complaint A/P: Acute on chronic hypercapnic respiratory failure - likely from aspiratory infection with COVID-19 complicated by pre-existing OHS and MADHU. We will keep on BiPAP as needed while sleeping titrate to ABGs. Pulmonology consulted Hypoxic respiratory failure - likely from COVID-19 viral pneumonia acute on chronic cor pulmonale. Hyperkalemia - IV bicarb Acute kidney injury -on chronic kidney disease baseline creatinine from 7 years ago was 1.5 likely just vasomotor nephropathy from above. Will consult nephrology COVID 19 pneumonia -required 5 L nasal cannula O2 increased for home O2 eval with BiPAP. We will give steroid therapy with dexamethasone and remdesivir. Acute metabolic encephalopathy -likely hypercapnic respiratory failure. We will treat with BiPAP Anemia - likely of chronic disease. 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 Protein calorie malnutrition - will start IV nutrition Elevated troponin -likely type II demand ischemia from hypoxia and hypercapnia and possibly COVID myocarditis. Will monitor. FEN - General diet PPX - lovenox FULL CODE DIspo - inpatient cc time 37 minutes History of Present Illness History of Present Illness Ms Londono is a 61 year old female w/ PMHx anemia, MADHU, OHS on 2 to 3 L home O2, HLD, HTN comes to ED on 08/08/2021 via EMS from home for a 1 week history of progressive weakness fatigue malaise nausea vomiting. She has been unable to get up out of bed and had been calling EMS for lift assist, and had previously declined transport earlier in the day. She is unable to provide significant history to me is very confused responsive to name mostly moving. ED physician has obtained above history patient did not complain of chest pain. ED physician noted patient is vaccinating is COVID-19 but her tested +1-week ago and patient herself has not been tested. There was concern noted by EMS about the condition of the home being unlivable. Labs with WBC 6.8, Hb 9.3, platelets 131, had a 136, K4.9, BUN 58, CR 2.8, glucose 129, calcium 8.4, mag 1.6, bilirubin 0.4, AST 112, ALT 35, alkaline phosphatase 69, high-sensitivity troponin is 298, NT proBNP 871, albumin is 2.7, lactic acid is 1.3, rapid influenza negative, rapid COVID-19 positive ABG 7.1 on 5 L nasal cannula oxygen. Chest radiograph with cardiomegaly and bibasilar opacities EKG sinus rate 94 bpm normal axis and intervals no ST elevations or TWI. Place on BIPAP, given dexamethasone and admitted for further care. 08/09: BUN/creatinine worsened slightly K5.8 given bicarb. More alert today still requiring BiPAP. Started on remdesivir and Decadron. She has a little bit of an appetite and is thirsty. Very weak diarrhea is improving. 08/10: ABG 7.2 back on BiPAP. BUN 85. K down to 5.4. She is asking if she can have something to eat. Still with significant dyspnea 08/11: BUN increased to 109 CR 2.6, renal ultrasound did not identify kidneys ureters or bladder. On BiPAP 14/01 FiO2 40% she made some improvements with yesterday evening ABG 7.3 . O2 was increased to 60% and continue her BiPAP overnight. Restarting BP meds today. More alert. Amenable to dialysis if necessary. Hold remdesivir. 08/12 Patient evaluated examined at bedside. Resting in bed on the phone with her daughter. She was on 6 L nasal cannula. Said to me she was still feeling just very weak and rundown overall. Continuing current treatments. Pulmonary and nephro following. Plan discussed with bedside RN. 08/13 Patient evaluated examined at bedside. Resting in bed still on 6 L nasal cannula. Continue COVID treatment. Encourage BiPAP use when asleep. Dialysis today. PT OT ordered. Vitals/I&O Vitals/I&O: Vital Signs Date Time Temp Pulse Resp B/P (MAP) Pulse Ox O2 Delivery O2 Flow Rate FiO2 08/13/21 11:52 99 Nasal Cannula 6.0 08/13/21 11:00 98.3 57 22 152/72 (98) 98.3 I & O 08/12/21 08/12/21 08/13/21 15:00 23:00 07:00 Intake Total 640 ml 1090 ml 0 ml Output Total 950 ml 1000 ml Balance 640 ml 140 ml -1000 ml Physical Exam General: Alert, Oriented X3, Cooperative, severe distress Heart: Regular rate Lungs: Clear, Other (Decreased breath sounds bilaterally) Abdomen: Normal bowel sounds, Soft, No tenderness, No hepatosplenomegaly, No masses Extremities: No clubbing, No cyanosis, No edema, Normal pulses, No tenderness/swelling Skin: No rashes, No breakdown, No significant lesion Labs Labs: Laboratory Tests Test 08/13/21 04:45 Sodium Level 144 mmol/L (136-145) Potassium Level 5.6 mmol/L (3.5-5.1) Chloride Level 109 mmol/L (98-107) Carbon Dioxide Level 34 mmol/L (21-32) Anion Gap 1 (6-14) Blood Urea Nitrogen 140 mg/dL (7-20) Creatinine 2.5 mg/dL (0.6-1.0) Estimated GFR (Cockcroft-Gault) 23.6 BUN/Creatinine Ratio 56 (6-20) Glucose Level 131 mg/dL (70-99) Calcium Level 8.5 mg/dL (8.5-10.1) Total Bilirubin 0.2 mg/dL (0.2-1.0) Aspartate Amino Transf (AST/SGOT) 42 U/L (15-37) Alanine Aminotransferase (ALT/SGPT) 36 U/L (14-59) Alkaline Phosphatase 47 U/L (46-116) Creatine Kinase 134 U/L (26-192) Total Protein 6.6 g/dL (6.4-8.2) Albumin 2.1 g/dL (3.4-5.0) Albumin/Globulin Ratio 0.5 (1.0-1.7) Assessment and Plan Assessmemt and Plan Problems Medical Problems: (1) COVID-19 Status: Acute (2) Elevated troponin Status: Acute (3) Pneumonia due to COVID-19 virus Status: Acute (4) Respiratory acidosis Status: Acute (5) Respiratory failure with hypoxia Status: Acute Comment Review of Relevant I have reviewed the following items marcus (where applicable) has been applied. Justifications for Admission Other Justification EBER CEJA MD Aug 13, 2021 12:07
[2021-08-13] MEDS ORDERED: LIDOCAINE WITH 8.4% SOD BICARB 3 ML DISP.SYRIN. INJ ONE (13:45)
--- NOTE | 2021-08-13 13:52 | NUR ---
SS following up with discharge planning. SS reviewed pt chart and discussed with pt RN. Pt is currently requiring oxygen at six liters nasal canula and BIPAP PRN. COVID19 positive. Pt on IV Decadron and IV Rocephin. Pt has home home oxygen. PT/OT ordered. Temporary HD cath being placed today. Not ready. SS will continue to follow for discharge planning.
--- NOTE | 2021-08-13 14:32 | RAD ---
EXAM: XR CHEST 1V 08/13/2021 1:57 PM CLINICAL INDICATION: Catheter placement COMPARISON: Chest radiograph 08/08/2021 TECHNIQUE: AP view of the chest FINDINGS: There is a new right internal jugular dialysis catheter with tip projecting over the super ior cavoatrial junction. The heart is enlarged. There is persistent mild bibasilar opacities. No pleu ral effusion or pneumothorax. IMPRESSION: 1. New right IJ dialysis catheter in appropriate position. 2. Unchanged cardiomegaly and bibasilar opacities, which could be due to pneumonia or pulmonary edema . Electronically signed by: Pamela Salmon MD (08/13/2021 2:30 PM) [id number]
[2021-08-13] MEDS ORDERED: DIALYSIS PATIENT. MC PRN ×2 (14:45)
[2021-08-13] MEDS: CETIRIZINE HCL 10 MG TABLET. PO SCH (14:59)
[2021-08-13] MEDS: LACTOBACILLUS RHAMNOSUS GG 1 CAPSULE. PO SCH ×2 (14:59→21:27)
[2021-08-13] MEDS: DEXAMETHASONE SOD PHOS 4 MG/ML VIAL IVP SCH (14:59)
[2021-08-13] MEDS: PANTOPRAZOLE 40 MG TABLET.DR. PO SCH (14:59)
[2021-08-13] MEDS: METOPROLOL TART IMMED RELEASE 50 MG TABLET. PO SCH ×2 (14:59→21:27)
[2021-08-13 15:00] VITALS: BP 146/74
[2021-08-13] MEDS: cefTRIAXone IV Push 1 GM VIAL. IVP SCH (15:02)
--- NOTE | 2021-08-13 15:32 | RAD ---
EXAM: XR CHEST 1V 08/13/2021 3:09 PM CLINICAL INDICATION: Dialysis catheter placement COMPARISON: Chest radiograph 08/13/2021 TECHNIQUE: AP upright view of the chest FINDINGS: The right IJ dialysis catheter is unchanged in position. The heart is mildly enlarged. Jung gs are adequately expanded. There are persistent bilateral basilar predominant opacities. No enlargin g pleural effusion or pneumothorax. IMPRESSION: Unchanged right IJ dialysis catheter. Persistent cardiomegaly and bilateral opacities. Electronically signed by: Pamela Salmon MD (08/13/2021 3:30 PM) [id number]
--- NOTE | 2021-08-13 16:17 | RAD ---
Procedure: Temporary hemodialysis catheter placement Sterility: All elements of maximal sterile barrier technique including the use of a cap, mask, steril e gown, sterile gloves, large sterile sheet, appropriate hand hygiene, and 2% chlorhexidine for cutan eous antisepsis (or acceptable alternative antiseptic per current guidelines) were followed for this procedure. Consent: The procedure was explained in its entirety to the patient or the patients designated repres entative by a member of the treatment team, including a discussion of the risks, benefits and commonl y accepted alternatives to the procedure, as well as the expected consequences of no therapy whatsoev er. Discussion of the risks included, but was not limited to, those that are most frequent and thos e that are rare but possibly severe or life-threatening, as well as the possibility of unforeseen com plications. Technique and Findings: Following informed consent, the patient was prepped and draped in the usual s terile fashion. Ultrasound interrogation of the right neck revealed patency and compressibility of t he right internal jugular vein. A 21-gauge micropuncture was then used to gain access to this vein u nder ultrasound guidance. A hard copy ultrasound image was recorded. A guidewire was advanced centra lly over which, following dilatation, a temporary dialysis catheter was placed. The new catheter wa s found to flush and aspirate normally. The catheter was secured in place. Sterile dressings were blayne lied. No immediate complications were identified. IMPRESSION: Placement of a temporary dialysis catheter Electronically signed by: Ilia Negron MD (08/13/2021 4:14 PM) [id number]
[2021-08-13] MEDS: ATORVASTATIN CALCIUM 10 MG TABLET. PO SCH (21:27)
[2021-08-13] MEDS: HEPARIN for SUB-Q USE 5,000 UNIT/ML VIAL. SQ SCH (21:29)
[2021-08-13 22:16] VITALS: BP 143/76
[2021-08-14 02:53] VITALS: BP 162/76
[2021-08-14] MEDS: HEPARIN for SUB-Q USE 5,000 UNIT/ML VIAL. SQ SCH ×4 (06:09→20:45)
[2021-08-14 06:26] VITALS: BP 162/76
[2021-08-14 06:32] LABS: ALBUMIN 2.2 g/dL (3.4-5.0); CALCIUM 8.4 mg/dL (8.5-10.1); CREATININE 2.1 mg/dL (0.6-1.0); GFR 28.9; PHOSPHORUS 4.4 mg/dL (2.6-4.7); POTASSIUM 5.5 mmol/L (3.5-5.1)
[2021-08-14] MEDS: NYSTATIN TOPICAL POWDER 15GM BOTTLE. TP SCH ×2 (09:00→21:00)
[2021-08-14] MEDS: METOPROLOL TART IMMED RELEASE 50 MG TABLET. PO SCH ×2 (09:00→20:44)
--- NOTE | 2021-08-14 09:47 | PDOC ---
PULMONARY PROGRESS NOTES DATE: 08/14/21 TIME: 09:47 Subjective Patient's respiratory status remains tenuous patient currently on 5 L oxygen flow, ARN BiPAP, BiPAP nightly Denies shortness of air Less confused today Vitals Vital Signs Date Time Temp Pulse Resp B/P (MAP) Pulse Ox O2 Delivery O2 Flow Rate FiO2 08/14/21 06:26 97.8 52 30 162/76 (104) 94 BiPAP/CPAP 97.8 08/13/21 15:00 6.0 ROS: No Nausea, No Chest Pain, No Abdominal Pain, No Increase Cough General: Alert, Confused HEENT: Other Lungs: Clear, Other (Decreased breath sounds bilaterally) Cardiovascular: S1, S2 Abdomen: Soft, Other (Trace pitting edema) Extremities: Other Labs Laboratory Tests Test 08/13/21 04:45 08/14/21 04:45 Sodium Level 144 mmol/L (136-145) 143 mmol/L (136-145) Potassium Level 5.6 mmol/L (3.5-5.1) 5.5 mmol/L (3.5-5.1) Chloride Level 109 mmol/L (98-107) 108 mmol/L (98-107) Carbon Dioxide Level 34 mmol/L (21-32) 32 mmol/L (21-32) Anion Gap 1 (6-14) 3 (6-14) Blood Urea Nitrogen 140 mg/dL (7-20) 100 mg/dL (7-20) Creatinine 2.5 mg/dL (0.6-1.0) 2.1 mg/dL (0.6-1.0) Estimated GFR (Cockcroft-Gault) 23.6 28.9 BUN/Creatinine Ratio 56 (6-20) Glucose Level 131 mg/dL (70-99) 128 mg/dL (70-99) Calcium Level 8.5 mg/dL (8.5-10.1) 8.4 mg/dL (8.5-10.1) Total Bilirubin 0.2 mg/dL (0.2-1.0) Aspartate Amino Transf (AST/SGOT) 42 U/L (15-37) Alanine Aminotransferase (ALT/SGPT) 36 U/L (14-59) Alkaline Phosphatase 47 U/L (46-116) Creatine Kinase 134 U/L (26-192) Total Protein 6.6 g/dL (6.4-8.2) Albumin 2.1 g/dL (3.4-5.0) 2.2 g/dL (3.4-5.0) Albumin/Globulin Ratio 0.5 (1.0-1.7) Hepatitis B Surface Antigen Nonreactive (Nonreactive) Hepatitis B Surface Antibody, Quant 36.6 mIU/mL (Immunity>9.9) Phosphorus Level 4.4 mg/dL (2.6-4.7) Laboratory Tests Test 08/14/21 04:45 Sodium Level 143 mmol/L (136-145) Potassium Level 5.5 mmol/L (3.5-5.1) Chloride Level 108 mmol/L (98-107) Carbon Dioxide Level 32 mmol/L (21-32) Anion Gap 3 (6-14) Blood Urea Nitrogen 100 mg/dL (7-20) Creatinine 2.1 mg/dL (0.6-1.0) Estimated GFR (Cockcroft-Gault) 28.9 Glucose Level 128 mg/dL (70-99) Calcium Level 8.4 mg/dL (8.5-10.1) Phosphorus Level 4.4 mg/dL (2.6-4.7) Albumin 2.2 g/dL (3.4-5.0) Medications Active Scripts Medications Dose Route/Sig Max Daily Dose Days Date Category [Megestrol Acetate] 20 MG Tablet 20 Mg PO BID 11/11/14 Rx Feosol (Ferrous Sulfate) 325 Mg Tablet 325 Mg PO DAILYWBKFT 30 11/11/14 Rx [place] 3-6-9 1,200 mg Softgel (Fish Oil/Borage/Flax/Om3,6,9#1) 1,200 Mg Capsule 1,200 Mg PO DAILY 11/05/14 Reported Loratadine 10 Mg Tablet 10 Mg PO 11/05/14 Reported Metoprolol Tartrate 50 Mg Tablet 50 Mg PO BID 11/05/14 Reported Toviaz (Fesoterodine Fumarate) 8 Mg Tab.er.24h 8 Mg PO 11/05/14 Reported Lovastatin 20 Mg Tablet 20 Mg PO HS 11/05/14 Reported Omeprazole 20 Mg Tablet.dr 20 Mg PO DAILY 02/04/14 Reported Daily Vitamin (Multivitamin) 1 Each Tablet 1 Each PO 02/04/14 Reported Detrol La (Tolterodine Tartrate) 4 Mg Cap.er.24h 4 Mg PO DAILY 02/04/14 Reported Impression . IMPRESSION: 1. Acute on chronic hypercapnic and hypoxic respiratory failure secondary to multifactorial etiologies including COVID-19 viral pneumonia and underlying obesity hypoventilation syndrome with acute on chronic cor pulmonale. 2. Chronic kidney disease, acute kidney insufficiency 3. COVID positive 4. Abnormal chest x-ray with bilateral interstitial infiltrates consistent with COVID-19 viral pneumonia. 5. Encephalopathy multifactorial 6. History of tobaccoism. Plan . Continue current support BiPAP as needed and nightly Oxygen supplementation Nephrology, input appreciated Dexamethasone IVORY WEBER MD Aug 14, 2021 09:47
--- NOTE | 2021-08-14 10:02 | NUR ---
SS following up with discharge planning. SS reviewed pt chart and discussed with pt RN. Pt is currently requiring oxygen at six liters nasal canula and BIPAP PRN. COVID19 positive post six days. Pt currently on temporary hemodialysis. Pt on IV Decadron and IV Rocephin. Morbid obesity. Pt has home oxygen. PT/OT recommended shelter unit. Not medically ready at this time. SS will continue to follow for discharge planning.
--- NOTE | 2021-08-14 10:31 | PDOC ---
DATE OF SERVICE DATE: 08/14/21 TIME: 10:30 SUBJECTIVE ROS on 6 L nasal cannula. Denies N/V, No SOB . No issues on dialysis yesterday OBJECTIVE Vital Signs Vital Signs Date Time Temp Pulse Resp B/P (MAP) Pulse Ox O2 Delivery O2 Flow Rate FiO2 08/14/21 06:26 97.8 52 30 162/76 (104) 94 BiPAP/CPAP 97.8 08/13/21 15:00 6.0 I & 0 Intake and Output 08/14/21 07:00 Intake Total 1360 ml Output Total 750 ml Balance 610 ml Intake Oral 1360 ml Output Urine Total 750 ml # Voids 1 # Bowel Movements 1 PHYSICAL EXAM Physical Exam General: AXOX3.nad , Morbidly Obese HEENT: Atraumatic, PERRLA, EOMI, Mucous membr. moist/pink. On o2 by NC Neck Thick, supple Lungs: decreased at bases, Non labored Heart: S1S2, RRR, no thrills, no rubs, no gallops, no murmurs Abdomen: Normal bowel sounds, Soft, No tenderness, No hepatosplenomegaly,Obese Extremities: No clubbing, No cyanosis, No edema, Skin: No rashes, No breakdown, No significant lesion Neuro: Grossly Normal Psych/Mental Status: Cooperative No Curtis, No CVA or SP tenderness DIAGNOSIS/ASSESSMENT Assessment & Plan ARF Versus progression of underlying CKD cannot be ruled out. Ultrasound unable to visualize kidneysUOP not recorded ; Started dialysis 08/13, 2 nd treatment today. Discussed treatment plan with DRMaryann Supportive care , maintain fluid balance. Strict I/o(NOT RECORDED) , Avoid Nephrotoxins HyperKalemia- Dialyzed yesterday; again today Abnormal UA large amount of blood , RBCs + . Pr/Cr 2.2 gms . Mild Rhabdo . Monitor Rhabdo- Mild at presentation, improving Acute on chronic hypercapnic and hypoxic respiratory failure secondary to COVID-19 viral pneumonia and underlying obesity hypoventilation syndrome COVID-19 viral pneumonia. Abnormal chest x-ray with bilateral interstitial infiltrates consistent with History of tobaccoism. Anemia:Hgb stable,Tsat at goal No indication for ROBERT or Fe HTN:Not well controlled. Anthypertensives Morbid Obese COMMENT/RELEVANT DATA Meds Current Medications Medications (Trade) Dose Ordered Sig/Jeannie Start Time Stop Time Status Last Admin Dose Admin Acetaminophen (Tylenol) 650 mg PRN Q6HRS PRN 08/08/21 15:30 Aspirin (Ecotrin) 325 mg 1X ONCE 08/08/21 06:30 08/08/21 06:31 DC Atorvastatin Calcium (Lipitor) 5 mg HS 08/11/21 21:00 08/13/21 21:27 5 MG Ceftriaxone Sodium (Rocephin) 1 gm Q24H 08/08/21 12:00 08/14/21 12:01 08/13/21 15:02 1 GM Cetirizine HCl (ZyrTEC) 10 mg DAILY 08/11/21 12:45 08/13/21 14:59 10 MG Dexamethasone Sodium Phosphate (Decadron) 6 mg DAILY 08/09/21 09:00 08/18/21 09:01 08/13/21 14:59 6 MG Enoxaparin Sodium (Lovenox 40mg Syringe) 40 mg 1X ONCE 08/08/21 06:30 08/08/21 06:31 UNV Enoxaparin Sodium (Lovenox 60mg Syringe) 60 mg Q12HR 08/08/21 06:45 08/13/21 14:46 DC 08/12/21 20:37 60 MG Enoxaparin Sodium (Lovenox Per Pharmacy Prophylaxis Dosing) 1 each PRN DAILY PRN 08/08/21 06:30 08/13/21 14:46 DC Fentanyl Citrate (Fentanyl 2ml Vial) 25 mcg PRN Q3HRS PRN 08/08/21 15:30 Guaifenesin (Robitussin Dm) 10 ml PRN Q6HRS PRN 08/08/21 15:30 08/10/21 17:27 10 ML Heparin Sodium (Porcine) (Heparin Sodium) 7,500 unit Q8HRS 08/13/21 22:00 08/14/21 06:09 7,500 UNIT Hydralazine HCl (Apresoline Inj) 10 mg PRN Q4HRS PRN 08/11/21 12:15 Info (PHARMACY MONITORING -- do not chart) 1 each PRN DAILY PRN 08/13/21 14:45 UNV Lactobacillus Rhamnosus (Culturelle) 1 cap BID 08/09/21 21:00 08/13/21 21:27 1 CAP Lidocaine HCl (Buffered Lidocaine 1%) 6 ml 1X ONCE 08/13/21 13:45 08/13/21 13:53 DC 08/13/21 13:49 3 ML Metoprolol Tartrate (Lopressor) 50 mg BID 08/11/21 12:45 08/13/21 21:27 50 MG Multi-Ingred Cream/Lotion/Oil/ Oint (Artificial Tears Eye Ointment) 1 blayne PRN Q1HR PRN 08/11/21 13:45 Nystatin (Nystop) 1 blayne BID 08/08/21 11:00 08/13/21 19:55 1 BLAYNE Ondansetron HCl (Zofran) 4 mg PRN Q8HRS PRN 08/08/21 06:30 08/09/21 06:29 DC Pantoprazole Sodium (Protonix) 40 mg DAILYAC 08/11/21 12:45 08/13/21 14:59 40 MG Remdesivir 100 mg/ Sodium Chloride 230 ml @ 460 mls/hr Q24H 08/09/21 16:00 08/11/21 09:47 DC 08/10/21 15:13 460 MLS/HR Remdesivir 200 mg/ Sodium Chloride 210 ml @ 210 mls/hr 1X ONCE 08/08/21 16:00 08/08/21 16:59 DC 08/08/21 16:00 210 MLS/HR Sodium Bicarbonate 50 meq/Dextrose 1,050 ml @ 125 mls/hr Q8H24M 08/09/21 15:00 08/11/21 09:48 DC 08/11/21 02:49 125 MLS/HR Sodium Bicarbonate (Sodium Bicarb Adult 8.4% Syr) 50 meq 1X ONCE 08/09/21 11:00 08/09/21 11:01 DC 08/09/21 11:00 50 MEQ Sodium Chloride 1,000 ml @ 100 mls/hr Q10H 08/08/21 12:00 08/09/21 12:34 DC 08/09/21 08:00 100 MLS/HR Sterile Water (WATER for RESP) 1,000 ml CONT PRN 08/10/21 03:00 Vitamin A/Vitamin D (Vitamin A & D Ointment) 1 blayne PRN Q1HR PRN 08/11/21 13:45 UNV Lab Laboratory Tests Test 08/14/21 04:45 Sodium Level 143 mmol/L (136-145) Potassium Level 5.5 mmol/L (3.5-5.1) Chloride Level 108 mmol/L (98-107) Carbon Dioxide Level 32 mmol/L (21-32) Anion Gap 3 (6-14) Blood Urea Nitrogen 100 mg/dL (7-20) Creatinine 2.1 mg/dL (0.6-1.0) Estimated GFR (Cockcroft-Gault) 28.9 Glucose Level 128 mg/dL (70-99) Calcium Level 8.4 mg/dL (8.5-10.1) Phosphorus Level 4.4 mg/dL (2.6-4.7) Albumin 2.2 g/dL (3.4-5.0) Results All relevant outside records, renal labs, imaging studies, telemetry/EKG's were reviewed. Justicifation of Admission Dx: Justifications for Admission: Justification of Admission Dx: N/A JORGE CHENEY MD Aug 14, 2021 10:30
[2021-08-14] MEDS: DEXAMETHASONE SOD PHOS 4 MG/ML VIAL IVP SCH (10:49)
[2021-08-14] MEDS: LACTOBACILLUS RHAMNOSUS GG 1 CAPSULE. PO SCH ×2 (10:50→20:44)
[2021-08-14] MEDS: PANTOPRAZOLE 40 MG TABLET.DR. PO SCH (10:51)
[2021-08-14] MEDS: CETIRIZINE HCL 10 MG TABLET. PO SCH (10:51)
[2021-08-14 11:00] VITALS: BP 142/80
--- NOTE | 2021-08-14 11:39 | PDOC ---
[facility] PROGRESS NOTE Date of Service DOS: DATE: 08/14/21 TIME: 11:38 Chief Complaint Chief Complaint A/P: Acute on chronic hypercapnic respiratory failure - likely from aspiratory infection with COVID-19 complicated by pre-existing OHS and MADHU. We will keep on BiPAP as needed while sleeping titrate to ABGs. Pulmonology consulted Hypoxic respiratory failure - likely from COVID-19 viral pneumonia acute on chronic cor pulmonale. Hyperkalemia - IV bicarb Acute kidney injury -on chronic kidney disease baseline creatinine from 7 years ago was 1.5 likely just vasomotor nephropathy from above. Will consult nephrology COVID 19 pneumonia -required 5 L nasal cannula O2 increased for home O2 eval with BiPAP. We will give steroid therapy with dexamethasone and remdesivir. Acute metabolic encephalopathy -likely hypercapnic respiratory failure. We will treat with BiPAP Anemia - likely of chronic disease. 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 Protein calorie malnutrition - will start IV nutrition Elevated troponin -likely type II demand ischemia from hypoxia and hypercapnia and possibly COVID myocarditis. Will monitor. FEN - General diet PPX - lovenox FULL CODE DIspo - inpatient cc time 37 minutes History of Present Illness History of Present Illness Ms Londono is a 61 year old female w/ PMHx anemia, MADHU, OHS on 2 to 3 L home O2, HLD, HTN comes to ED on 08/08/2021 via EMS from home for a 1 week history of progressive weakness fatigue malaise nausea vomiting. She has been unable to get up out of bed and had been calling EMS for lift assist, and had previously declined transport earlier in the day. She is unable to provide significant history to me is very confused responsive to name mostly moving. ED physician has obtained above history patient did not complain of chest pain. ED physician noted patient is vaccinating is COVID-19 but her tested +1-week ago and patient herself has not been tested. There was concern noted by EMS about the condition of the home being unlivable. Labs with WBC 6.8, Hb 9.3, platelets 131, had a 136, K4.9, BUN 58, CR 2.8, glucose 129, calcium 8.4, mag 1.6, bilirubin 0.4, AST 112, ALT 35, alkaline phosphatase 69, high-sensitivity troponin is 298, NT proBNP 871, albumin is 2.7, lactic acid is 1.3, rapid influenza negative, rapid COVID-19 positive ABG 7.1 on 5 L nasal cannula oxygen. Chest radiograph with cardiomegaly and bibasilar opacities EKG sinus rate 94 bpm normal axis and intervals no ST elevations or TWI. Place on BIPAP, given dexamethasone and admitted for further care. 08/09: BUN/creatinine worsened slightly K5.8 given bicarb. More alert today still requiring BiPAP. Started on remdesivir and Decadron. She has a little bit of an appetite and is thirsty. Very weak diarrhea is improving. 08/10: ABG 7.2 back on BiPAP. BUN 85. K down to 5.4. She is asking if she can have something to eat. Still with significant dyspnea 08/11: BUN increased to 109 CR 2.6, renal ultrasound did not identify kidneys ureters or bladder. On BiPAP 14/01 FiO2 40% she made some improvements with yesterday evening ABG 7.3 . O2 was increased to 60% and continue her BiPAP overnight. Restarting BP meds today. More alert. Amenable to dialysis if necessary. Hold remdesivir. 08/12 Patient evaluated examined at bedside. Resting in bed on the phone with her daughter. She was on 6 L nasal cannula. Said to me she was still feeling just very weak and rundown overall. Continuing current treatments. Pulmonary and nephro following. Plan discussed with bedside RN. 08/13 Patient evaluated examined at bedside. Resting in bed still on 6 L nasal cannula. Continue COVID treatment. Encourage BiPAP use when asleep. Dialysis today. PT OT ordered. 08/14 Patient evaluated examined at bedside. Still on 6 L oxygen. Did okay with the first dialysis yesterday. Any further sessions per nephrology. Otherwise continuing Covid treatment. Vitals/I&O Vitals/I&O: Vital Signs Date Time Temp Pulse Resp B/P (MAP) Pulse Ox O2 Delivery O2 Flow Rate FiO2 08/14/21 11:00 98.9 106 28 142/80 (100) 96 Nasal Cannula 6.0 98.9 I & O 08/13/21 08/13/21 08/14/21 15:00 23:00 07:00 Intake Total 1210 ml 150 ml Output Total 750 ml Balance 460 ml 150 ml Physical Exam General: Alert, Oriented X3, Cooperative, severe distress Heart: Regular rate Lungs: Clear, Other (Decreased breath sounds bilaterally) Abdomen: Normal bowel sounds, Soft, No tenderness, No hepatosplenomegaly, No masses Extremities: No clubbing, No cyanosis, No edema, Normal pulses, No tenderness/swelling Skin: No rashes, No breakdown, No significant lesion Labs Labs: Laboratory Tests Test 08/14/21 04:45 Sodium Level 143 mmol/L (136-145) Potassium Level 5.5 mmol/L (3.5-5.1) Chloride Level 108 mmol/L (98-107) Carbon Dioxide Level 32 mmol/L (21-32) Anion Gap 3 (6-14) Blood Urea Nitrogen 100 mg/dL (7-20) Creatinine 2.1 mg/dL (0.6-1.0) Estimated GFR (Cockcroft-Gault) 28.9 Glucose Level 128 mg/dL (70-99) Calcium Level 8.4 mg/dL (8.5-10.1) Phosphorus Level 4.4 mg/dL (2.6-4.7) Albumin 2.2 g/dL (3.4-5.0) Assessment and Plan Assessmemt and Plan Problems Medical Problems: (1) COVID-19 Status: Acute (2) Elevated troponin Status: Acute (3) Pneumonia due to COVID-19 virus Status: Acute (4) Respiratory acidosis Status: Acute (5) Respiratory failure with hypoxia Status: Acute Comment Review of Relevant I have reviewed the following items marcus (where applicable) has been applied. Medications: Current Medications Medications (Trade) Dose Ordered Sig/Jeannie Route PRN Reason Start Time Stop Time Status Last Admin Dose Admin Heparin Sodium (Porcine) (Heparin Sodium) 2,500 unit 1X ONCE INT CAT 08/13/21 13:30 08/13/21 13:31 DC 08/13/21 13:53 Lidocaine HCl (Buffered Lidocaine 1%) 6 ml 1X ONCE INJ 08/13/21 13:45 08/13/21 13:53 DC 08/13/21 13:49 Heparin Sodium (Porcine) (Heparin Sodium) 7,500 unit Q8HRS SQ 08/13/21 22:00 08/14/21 06:09 Justifications for Admission Other Justification EBER CEJA MD Aug 14, 2021 11:39
[2021-08-14] MEDS: cefTRIAXone IV Push 1 GM VIAL. IVP SCH (12:56)
[2021-08-14] MEDS ORDERED: DIALYSIS PATIENT. MC PRN (15:15)
[2021-08-14] MEDS ORDERED: IV NORMAL SALINE 1000ML BAG 1,000 ML IV PRN ×2 (15:15)
[2021-08-14] MEDS: ATORVASTATIN CALCIUM 10 MG TABLET. PO SCH (20:44)
[2021-08-14 22:32] VITALS: BP 120/80
[2021-08-15 02:04] VITALS: BP 143/85
[2021-08-15] MEDS: HEPARIN for SUB-Q USE 5,000 UNIT/ML VIAL. SQ SCH ×3 (05:04→21:48)
[2021-08-15 05:14] LABS: ALBUMIN 2.2 g/dL (3.4-5.0); CALCIUM 8.3 mg/dL (8.5-10.1); CREATININE 1.8 mg/dL (0.6-1.0); GFR 34.5; POTASSIUM 4.9 mmol/L (3.5-5.1)
[2021-08-15 07:55] VITALS: BP 136/79
[2021-08-15] MEDS: PANTOPRAZOLE 40 MG TABLET.DR. PO SCH (08:46)
[2021-08-15] MEDS: LACTOBACILLUS RHAMNOSUS GG 1 CAPSULE. PO SCH ×2 (08:47→21:43)
[2021-08-15] MEDS: CETIRIZINE HCL 10 MG TABLET. PO SCH (08:47)
[2021-08-15] MEDS: DEXAMETHASONE SOD PHOS 4 MG/ML VIAL IVP SCH (08:48)
[2021-08-15] MEDS: NYSTATIN TOPICAL POWDER 15GM BOTTLE. TP SCH ×2 (08:48→21:00)
[2021-08-15] MEDS: METOPROLOL TART IMMED RELEASE 50 MG TABLET. PO SCH ×2 (08:48→21:43)
--- NOTE | 2021-08-15 09:34 | PDOC ---
PULMONARY PROGRESS NOTES DATE: 08/15/21 TIME: 09:31 Subjective Patient feels slightly better p as needed BiPAP 12/ 45% Vitals Vital Signs Date Time Temp Pulse Resp B/P (MAP) Pulse Ox O2 Delivery O2 Flow Rate FiO2 08/15/21 08:48 58 136/79 08/15/21 07:55 98.5 22 96 Nasal Cannula 6.0 98.5 ROS: No Nausea, No Chest Pain, No Abdominal Pain, No Increase Cough General: Alert HEENT: Other Lungs: Clear, Other (Decreased breath sounds bilaterally) Cardiovascular: S1, S2 Abdomen: Soft, Other (Trace pitting edema) Extremities: Other Skin: Warm, No Rashes Labs Laboratory Tests Test 08/14/21 04:45 08/15/21 03:55 Sodium Level 143 mmol/L (136-145) 141 mmol/L (136-145) Potassium Level 5.5 mmol/L (3.5-5.1) 4.9 mmol/L (3.5-5.1) Chloride Level 108 mmol/L (98-107) 104 mmol/L (98-107) Carbon Dioxide Level 32 mmol/L (21-32) 33 mmol/L (21-32) Anion Gap 3 (6-14) 4 (6-14) Blood Urea Nitrogen 100 mg/dL (7-20) 64 mg/dL (7-20) Creatinine 2.1 mg/dL (0.6-1.0) 1.8 mg/dL (0.6-1.0) Estimated GFR (Cockcroft-Gault) 28.9 34.5 Glucose Level 128 mg/dL (70-99) 119 mg/dL (70-99) Calcium Level 8.4 mg/dL (8.5-10.1) 8.3 mg/dL (8.5-10.1) Phosphorus Level 4.4 mg/dL (2.6-4.7) 5.0 mg/dL (2.6-4.7) Albumin 2.2 g/dL (3.4-5.0) 2.2 g/dL (3.4-5.0) Laboratory Tests Test 08/15/21 03:55 Sodium Level 141 mmol/L (136-145) Potassium Level 4.9 mmol/L (3.5-5.1) Chloride Level 104 mmol/L (98-107) Carbon Dioxide Level 33 mmol/L (21-32) Anion Gap 4 (6-14) Blood Urea Nitrogen 64 mg/dL (7-20) Creatinine 1.8 mg/dL (0.6-1.0) Estimated GFR (Cockcroft-Gault) 34.5 Glucose Level 119 mg/dL (70-99) Calcium Level 8.3 mg/dL (8.5-10.1) Phosphorus Level 5.0 mg/dL (2.6-4.7) Albumin 2.2 g/dL (3.4-5.0) Medications Active Scripts Medications Dose Route/Sig Max Daily Dose Days Date Category [Megestrol Acetate] 20 MG Tablet 20 Mg PO BID 11/11/14 Rx Feosol (Ferrous Sulfate) 325 Mg Tablet 325 Mg PO [id number] 30 11/11/14 Rx [place] 3-6-9 1,200 mg Softgel (Fish Oil/Borage/Flax/Om3,6,9#1) 1,200 Mg Capsule 1,200 Mg PO DAILY 11/05/14 Reported Loratadine 10 Mg Tablet 10 Mg PO 11/05/14 Reported Metoprolol Tartrate 50 Mg Tablet 50 Mg PO BID 11/05/14 Reported Toviaz (Fesoterodine Fumarate) 8 Mg Tab.er.24h 8 Mg PO 11/05/14 Reported Lovastatin 20 Mg Tablet 20 Mg PO HS 11/05/14 Reported Omeprazole 20 Mg Tablet.dr 20 Mg PO DAILY 02/04/14 Reported Daily Vitamin (Multivitamin) 1 Each Tablet 1 Each PO 02/04/14 Reported Detrol La (Tolterodine Tartrate) 4 Mg Cap.er.24h 4 Mg PO DAILY 02/04/14 Reported Impression . IMPRESSION: 1. Acute on chronic hypercapnic and hypoxic respiratory failure secondary to multifactorial etiologies including COVID-19 viral pneumonia and underlying obesity hypoventilation syndrome with acute on chronic cor pulmonale. 2. Chronic kidney disease, acute kidney insufficiency 3. COVID positive 4. Abnormal chest x-ray with bilateral interstitial infiltrates consistent with COVID-19 viral pneumonia. 5. Encephalopathy multifactorial 6. History of tobaccoism. Plan . Continue oxygen supplementation As needed BiPAP Hemodialysis per nephrology Spoke with on the phone IVORY Hill MD Aug 15, 2021 09:34
--- NOTE | 2021-08-15 09:51 | PDOC ---
DATE OF SERVICE DATE: 08/15/21 TIME: 09:48 SUBJECTIVE ROS Denies N/V, No SOB . No issues on dialysis yesterday on 6 L nasal cannula. OBJECTIVE Vital Signs Vital Signs Date Time Temp Pulse Resp B/P (MAP) Pulse Ox O2 Delivery O2 Flow Rate FiO2 08/15/21 08:48 58 136/79 08/15/21 07:55 98.5 22 96 Nasal Cannula 6.0 98.5 I & 0 Intake and Output 08/15/21 06:59 Intake Total 570 ml Output Total 200 ml Balance 370 ml Intake Oral 570 ml Output Urine Total 200 ml # Voids 1 PHYSICAL EXAM Physical Exam General: AXOX3.nad , Morbidly Obese HEENT: Atraumatic, PERRLA, EOMI, Mucous membr. moist/pink. On o2 by NC Neck Thick, supple Lungs: decreased at bases, Non labored Heart: S1S2, RRR, no thrills, no rubs, no gallops, no murmurs Abdomen: Normal bowel sounds, Soft, No tenderness, No hepatosplenomegaly,Obese Extremities: No clubbing, No cyanosis, No edema, Skin: No rashes, No breakdown, No significant lesion Neuro: Grossly Normal Psych/Mental Status: Cooperative No Curtis, No CVA or SP tenderness DIAGNOSIS/ASSESSMENT Assessment & Plan ARF Versus progression of underlying CKD cannot be ruled out. Ultrasound unable to visualize kidneysUOP not recorded ; Started dialysis 08/13 x 2 treatment . Currently no indication for dialysis today Supportive care , maintain fluid balance. Strict I/o Monitor for renal recovery Avoid Nephrotoxins HyperKalemia- Resolved Abnormal UA large amount of blood , RBCs + . Pr/Cr 2.2 gms . Mild Rhabdo . Monitor Rhabdo- Mild at presentation, improving Acute on chronic hypercapnic and hypoxic respiratory failure secondary to COVID-19 viral pneumonia and underlying obesity hypoventilation syndrome COVID-19 viral pneumonia. Abnormal chest x-ray with bilateral interstitial i nfiltrates consistent with History of tobaccoism. Anemia:Hgb stable,Tsat at goal No indication for ROBERT or Fe HTN:Not well controlled. Anthypertensives Morbid Obese COMMENT/RELEVANT DATA Meds Current Medications Medications (Trade) Dose Ordered Sig/Jeannie Start Time Stop Time Status Last Admin Dose Admin Acetaminophen (Tylenol) 650 mg PRN Q6HRS PRN 08/08/21 15:30 Aspirin (Ecotrin) 325 mg 1X ONCE 08/08/21 06:30 08/08/21 06:31 DC Atorvastatin Calcium (Lipitor) 5 mg HS 08/11/21 21:00 08/14/21 20:44 5 MG Ceftriaxone Sodium (Rocephin) 1 gm Q24H 08/08/21 12:00 08/14/21 12:01 DC 08/14/21 12:56 1 GM Cetirizine HCl (ZyrTEC) 10 mg DAILY 08/11/21 12:45 08/15/21 08:47 10 MG Dexamethasone Sodium Phosphate (Decadron) 6 mg DAILY 08/09/21 09:00 08/18/21 09:01 08/15/21 08:48 6 MG Enoxaparin Sodium (Lovenox 40mg Syringe) 40 mg 1X ONCE 08/08/21 06:30 08/08/21 06:31 UNV Enoxaparin Sodium (Lovenox 60mg Syringe) 60 mg Q12HR 08/08/21 06:45 08/13/21 14:46 DC 08/12/21 20:37 60 MG Enoxaparin Sodium (Lovenox Per Pharmacy Prophylaxis Dosing) 1 each PRN DAILY PRN 08/08/21 06:30 08/13/21 14:46 DC Fentanyl Citrate (Fentanyl 2ml Vial) 25 mcg PRN Q3HRS PRN 08/08/21 15:30 Guaifenesin (Robitussin Dm) 10 ml PRN Q6HRS PRN 08/08/21 15:30 08/10/21 17:27 10 ML Heparin Sodium (Porcine) (Heparin Sodium) 7,500 unit Q8HRS 08/13/21 22:00 08/15/21 05:04 7,500 UNIT Hydralazine HCl (Apresoline Inj) 10 mg PRN Q4HRS PRN 08/11/21 12:15 Info (PHARMACY MONITORING -- do not chart) 1 each PRN DAILY PRN 08/14/21 15:15 Lactobacillus Rhamnosus (Culturelle) 1 cap BID 08/09/21 21:00 08/15/21 08:47 1 CAP Lidocaine HCl (Buffered Lidocaine 1%) 6 ml 1X ONCE 08/13/21 13:45 08/13/21 13:53 DC 08/13/21 13:49 3 ML Metoprolol Tartrate (Lopressor) 50 mg BID 08/11/21 12:45 08/15/21 08:48 50 MG Multi-Ingred Cream/Lotion/Oil/ Oint (Artificial Tears Eye Ointment) 1 blayne PRN Q1HR PRN 08/11/21 13:45 Nystatin (Nystop) 1 blayne BID 08/08/21 11:00 08/15/21 08:48 1 BLAYNE Ondansetron HCl (Zofran) 4 mg PRN Q8HRS PRN 08/08/21 06:30 08/09/21 06:29 DC Pantoprazole Sodium (Protonix) 40 mg DAILYAC 08/11/21 12:45 08/15/21 08:46 40 MG Remdesivir 100 mg/ Sodium Chloride 230 ml @ 460 mls/hr Q24H 08/09/21 16:00 08/11/21 09:47 DC 08/10/21 15:13 460 MLS/HR Remdesivir 200 mg/ Sodium Chloride 210 ml @ 210 mls/hr 1X ONCE 08/08/21 16:00 08/08/21 16:59 DC 08/08/21 16:00 210 MLS/HR Sodium Bicarbonate 50 meq/Dextrose 1,050 ml @ 125 mls/hr Q8H24M 08/09/21 15:00 08/11/21 09:48 DC 08/11/21 02:49 125 MLS/HR Sodium Bicarbonate (Sodium Bicarb Adult 8.4% Syr) 50 meq 1X ONCE 08/09/21 11:00 08/09/21 11:01 DC 08/09/21 11:00 50 MEQ Sodium Chloride 1,000 ml @ 400 mls/hr Q2H30M PRN 08/14/21 15:15 08/15/21 03:14 DC Sterile Water (WATER for RESP) 1,000 ml CONT PRN 08/10/21 03:00 Vitamin A/Vitamin D (Vitamin A & D Ointment) 1 blayne PRN Q1HR PRN 08/11/21 13:45 UNV Lab Laboratory Tests Test 08/15/21 03:55 Sodium Level 141 mmol/L (136-145) Potassium Level 4.9 mmol/L (3.5-5.1) Chloride Level 104 mmol/L (98-107) Carbon Dioxide Level 33 mmol/L (21-32) Anion Gap 4 (6-14) Blood Urea Nitrogen 64 mg/dL (7-20) Creatinine 1.8 mg/dL (0.6-1.0) Estimated GFR (Cockcroft-Gault) 34.5 Glucose Level 119 mg/dL (70-99) Calcium Level 8.3 mg/dL (8.5-10.1) Phosphorus Level 5.0 mg/dL (2.6-4.7) Albumin 2.2 g/dL (3.4-5.0) Results All relevant outside records, renal labs, imaging studies, telemetry/EKG's were reviewed. Justicifation of Admission Dx: Justifications for Admission: Justification of Admission Dx: N/A JORGE CHENEY MD Aug 15, 2021 09:51
[2021-08-15 11:30] VITALS: BP 140/74
--- NOTE | 2021-08-15 12:12 | PDOC ---
[employer] PROGRESS NOTE Date of Service DOS: DATE: 08/15/21 TIME: 12:10 Chief Complaint Chief Complaint A/P: Acute on chronic hypercapnic respiratory failure - likely from aspiratory infection with COVID-19 complicated by pre-existing OHS and MADHU. We will keep on BiPAP as needed while sleeping titrate to ABGs. Pulmonology consulted Hypoxic respiratory failure - likely from COVID-19 viral pneumonia acute on chronic cor pulmonale. Hyperkalemia - IV bicarb Acute kidney injury -on chronic kidney disease baseline creatinine from 7 years ago was 1.5 likely just vasomotor nephropathy from above. Will consult nephrology COVID 19 pneumonia -required 5 L nasal cannula O2 increased for home O2 eval with BiPAP. We will give steroid therapy with dexamethasone and remdesivir. Acute metabolic encephalopathy -likely hypercapnic respiratory failure. We will treat with BiPAP Anemia - likely of chronic disease. 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 Protein calorie malnutrition - will start IV nutrition Elevated troponin -likely type II demand ischemia from hypoxia and hypercapnia and possibly COVID myocarditis. Will monitor. FEN - General diet PPX - lovenox FULL CODE DIspo - inpatient cc time 37 minutes History of Present Illness History of Present Illness Ms Londono is a 61 year old female w/ PMHx anemia, MADHU, OHS on 2 to 3 L home O2, HLD, HTN comes to ED on 08/08/2021 via EMS from home for a 1 week history of progressive weakness fatigue malaise nausea vomiting. She has been unable to get up out of bed and had been calling EMS for lift assist, and had previously declined transport earlier in the day. She is unable to provide significant history to me is very confused responsive to name mostly moving. ED physician has obtained above history patient did not complain of chest pain. ED physician noted patient is vaccinating is COVID-19 but her tested +1-week ago and patient herself has not been tested. There was concern noted by EMS about the condition of the home being unlivable. Labs with WBC 6.8, Hb 9.3, platelets 131, had a 136, K4.9, BUN 58, CR 2.8, glucose 129, calcium 8.4, mag 1.6, bilirubin 0.4, AST 112, ALT 35, alkaline phosphatase 69, high-sensitivity troponin is 298, NT proBNP 871, albumin is 2.7, lactic acid is 1.3, rapid influenza negative, rapid COVID-19 positive ABG 7.1 on 5 L nasal cannula oxygen. Chest radiograph with cardiomegaly and bibasilar opacities EKG sinus rate 94 bpm normal axis and intervals no ST elevations or TWI. Place on BIPAP, given dexamethasone and admitted for further care. 08/09: BUN/creatinine worsened slightly K5.8 given bicarb. More alert today still requiring BiPAP. Started on remdesivir and Decadron. She has a little bit of an appetite and is thirsty. Very weak diarrhea is improving. 08/10: ABG 7.2 back on BiPAP. BUN 85. K down to 5.4. She is asking if she can have something to eat. Still with significant dyspnea 08/11: BUN increased to 109 CR 2.6, renal ultrasound did not identify kidneys ureters or bladder. On BiPAP 14/01 FiO2 40% she made some improvements with yesterday evening ABG 7.3 . O2 was increased to 60% and continue her BiPAP overnight. Restarting BP meds today. More alert. Amenable to dialysis if necessary. Hold remdesivir. 08/12 Patient evaluated examined at bedside. Resting in bed on the phone with her daughter. She was on 6 L nasal cannula. Said to me she was still feeling just very weak and rundown overall. Continuing current treatments. Pulmonary and nephro following. Plan discussed with bedside RN. 08/13 Patient evaluated examined at bedside. Resting in bed still on 6 L nasal cannula. Continue COVID treatment. Encourage BiPAP use when asleep. Dialysis today. PT OT ordered. 08/14 Patient evaluated examined at bedside. Still on 6 L oxygen. Did okay with the first dialysis yesterday. Any further sessions per nephrology. Otherwise continuing Covid treatment. 08/15 Seen and examined at bedside. Still little confused today. No dialysis today per nephrology. Covid treatment. Continue PT OT. Suspect will need placement. Vitals/I&O Vitals/I&O: Vital Signs Date Time Temp Pulse Resp B/P (MAP) Pulse Ox O2 Delivery O2 Flow Rate FiO2 08/15/21 08:48 58 136/79 08/15/21 07:55 98.5 22 96 Nasal Cannula 6.0 98.5 I & O 08/14/21 08/14/21 08/15/21 14:59 22:59 06:59 Intake Total 220 ml 200 ml 150 ml Output Total 200 ml Balance 220 ml 200 ml -50 ml Physical Exam General: Alert, Oriented X3, Cooperative, severe distress Heart: Regular rate Lungs: Clear, Other (Decreased breath sounds bilaterally) Abdomen: Normal bowel sounds, Soft, No tenderness, No hepatosplenomegaly, No masses Extremities: No clubbing, No cyanosis, No edema, Normal pulses, No tenderness/swelling Skin: No rashes, No breakdown, No significant lesion Labs Labs: Laboratory Tests Test 08/15/21 03:55 Sodium Level 141 mmol/L (136-145) Potassium Level 4.9 mmol/L (3.5-5.1) Chloride Level 104 mmol/L (98-107) Carbon Dioxide Level 33 mmol/L (21-32) Anion Gap 4 (6-14) Blood Urea Nitrogen 64 mg/dL (7-20) Creatinine 1.8 mg/dL (0.6-1.0) Estimated GFR (Cockcroft-Gault) 34.5 Glucose Level 119 mg/dL (70-99) Calcium Level 8.3 mg/dL (8.5-10.1) Phosphorus Level 5.0 mg/dL (2.6-4.7) Albumin 2.2 g/dL (3.4-5.0) Assessment and Plan Assessmemt and Plan Problems Medical Problems: (1) COVID-19 Status: Acute (2) Elevated troponin Status: Acute (3) Pneumonia due to COVID-19 virus Status: Acute (4) Respiratory acidosis Status: Acute (5) Respiratory failure with hypoxia Status: Acute Comment Review of Relevant I have reviewed the following items marcus (where applicable) has been applied. Justifications for Admission Other Justification EBER CEJA MD Aug 15, 2021 12:12
--- NOTE | 2021-08-15 13:32 | NUR ---
SS following up with discharge planning. SS reviewed pt chart and discussed with pt RN. Pt is currently requiring oxygen at six liters nasal canula and BIPAP PRN. COVID19 positive post seven days. Pt currently on temporary hemodialysis. Pt on IV Decadron. Morbid obesity. Pt has home oxygen. PT/OT recommended group home unit. Not medically ready at this time. SS will continue to follow for discharge planning.
[2021-08-15 15:12] VITALS: BP 142/77
--- NOTE | 2021-08-15 16:12 | RAD ---
CT scan abdomen and pelvis without contrast 08/15/2021 CLINICAL HISTORY: Microscopic hematuria. TECHNIQUE: Unenhanced, contiguous, 2 mm axial sections were obtained through the abdomen and pelvis. One or more of the following individualized dose reduction techniques were utilized for this study: 1. Automated exposure control. 2. Adjustment of the mA and/or kV according to patient size. 3. Use of iterative reconstruction technique. FINDINGS: The patient's extraordinarily large body habitus causes significant beam hardening artifact limiting the study. Images through the lung bases demonstrate mild cardiomegaly. A 1 cm calcified granuloma is seen invol ving the lingula. Dependent subsegmental atelectasis is seen involving both lower lobes. The liver parenchyma has a decreased attenuation consistent with fatty infiltration. The spleen, panc reas, and adrenal glands are within normal limits. No renal or ureteral calculus is seen. There is no evidence of obstruction of either collecting system. The abdominal aorta tapers normally. Atherosclerotic calcification of the abdominal aorta is seen. No free fluid or free air is seen within the abdomen. There is no evidence of bowel obstruction. Images through the pelvis demonstrate the urinary bladder to be contracted. No adnexal mass is seen. No free fluid is noted. Calcifications are seen within the pelvis consistent with phleboliths. Minimal S-shaped curvature of the thoracolumbar spine is seen. Degenerative changes are seen involvin g the lower thoracic and throughout the lumbar spine along with both hips. IMPRESSION: No acute abnormality is seen. Electronically signed by: Dyllan Taylor MD (08/15/2021 4:10 PM) [id number]
--- NOTE | 2021-08-15 18:24 | NUR ---
Assumed care of patient from ANDI Padilla. Agree with previous nurse assessment. Will continue to monitor.
[2021-08-15 19:02] VITALS: BP 135/62
[2021-08-15] MEDS: ATORVASTATIN CALCIUM 10 MG TABLET. PO SCH (21:43)
[2021-08-15 22:34] VITALS: BP 139/67
[2021-08-16 02:35] VITALS: BP 131/72
[2021-08-16 05:10] LABS: ALBUMIN 2.3 g/dL (3.4-5.0); CALCIUM 8.3 mg/dL (8.5-10.1); CREATININE 2.3 mg/dL (0.6-1.0); PHOSPHORUS 5.6 mg/dL (2.6-4.7); POTASSIUM 5.4 mmol/L (3.5-5.1)
[2021-08-16] MEDS: HEPARIN for SUB-Q USE 5,000 UNIT/ML VIAL. SQ SCH ×3 (05:46→20:49)
[2021-08-16] MEDS: PANTOPRAZOLE 40 MG TABLET.DR. PO SCH (05:46)
[2021-08-16 07:00] VITALS: BP_SYST 169; BP_SYST 95; BP_DIAS 64; BP_DIAS 73
[2021-08-16] MEDS: DEXAMETHASONE SOD PHOS 4 MG/ML VIAL IVP SCH (08:47)
[2021-08-16] MEDS: CETIRIZINE HCL 10 MG TABLET. PO SCH (08:48)
[2021-08-16] MEDS: METOPROLOL TART IMMED RELEASE 50 MG TABLET. PO SCH ×2 (08:48→20:47)
[2021-08-16] MEDS: LACTOBACILLUS RHAMNOSUS GG 1 CAPSULE. PO SCH ×2 (08:48→20:48)
[2021-08-16] MEDS: NYSTATIN TOPICAL POWDER 15GM BOTTLE. TP SCH ×2 (09:00→20:49)
--- NOTE | 2021-08-16 09:17 | PDOC ---
PULMONARY PROGRESS NOTES DATE: 08/16/21 TIME: 09:11 Subjective Patient sitting up in bed, feeling "pretty good" this morning Currently on 6LNC BiPAP used last night, settings 12/7 45% Vitals Vital Signs Date Time Temp Pulse Resp B/P (MAP) Pulse Ox O2 Delivery O2 Flow Rate FiO2 08/16/21 08:48 59 169/73 08/16/21 07:00 97.8 20 100 BiPAP/CPAP 97.8 08/15/21 22:34 6.0 ROS: No Nausea, No Chest Pain, No Abdominal Pain, No Increase Cough General: Alert HEENT: Other Lungs: Clear, Other (Decreased breath sounds bilaterally) Cardiovascular: S1, S2 Abdomen: Soft, Other (Trace pitting edema) Extremities: Other Skin: Warm, No Rashes Labs Laboratory Tests Test 08/15/21 03:55 08/16/21 04:15 Sodium Level 141 mmol/L (136-145) 140 mmol/L (136-145) Potassium Level 4.9 mmol/L (3.5-5.1) 5.4 mmol/L (3.5-5.1) Chloride Level 104 mmol/L (98-107) 105 mmol/L (98-107) Carbon Dioxide Level 33 mmol/L (21-32) 32 mmol/L (21-32) Anion Gap 4 (6-14) 3 (6-14) Blood Urea Nitrogen 64 mg/dL (7-20) 84 mg/dL (7-20) Creatinine 1.8 mg/dL (0.6-1.0) 2.3 mg/dL (0.6-1.0) Estimated GFR (Cockcroft-Gault) 34.5 26.0 Glucose Level 119 mg/dL (70-99) 114 mg/dL (70-99) Calcium Level 8.3 mg/dL (8.5-10.1) 8.3 mg/dL (8.5-10.1) Phosphorus Level 5.0 mg/dL (2.6-4.7) 5.6 mg/dL (2.6-4.7) Albumin 2.2 g/dL (3.4-5.0) 2.3 g/dL (3.4-5.0) Laboratory Tests Test 08/16/21 04:15 Sodium Level 140 mmol/L (136-145) Potassium Level 5.4 mmol/L (3.5-5.1) Chloride Level 105 mmol/L (98-107) Carbon Dioxide Level 32 mmol/L (21-32) Anion Gap 3 (6-14) Blood Urea Nitrogen 84 mg/dL (7-20) Creatinine 2.3 mg/dL (0.6-1.0) Estimated GFR (Cockcroft-Gault) 26.0 Glucose Level 114 mg/dL (70-99) Calcium Level 8.3 mg/dL (8.5-10.1) Phosphorus Level 5.6 mg/dL (2.6-4.7) Albumin 2.3 g/dL (3.4-5.0) Medications Active Scripts Medications Dose Route/Sig Max Daily Dose Days Date Category [Megestrol Acetate] 20 MG Tablet 20 Mg PO BID 11/11/14 Rx Feosol (Ferrous Sulfate) 325 Mg Tablet 325 Mg PO [id number] 30 11/11/14 Rx [place] 3-6-9 1,200 mg Softgel (Fish Oil/Borage/Flax/Om3,6,9#1) 1,200 Mg Capsule 1,200 Mg PO DAILY 11/05/14 Reported Loratadine 10 Mg Tablet 10 Mg PO 11/05/14 Reported Metoprolol Tartrate 50 Mg Tablet 50 Mg PO BID 11/05/14 Reported Toviaz (Fesoterodine Fumarate) 8 Mg Tab.er.24h 8 Mg PO 11/05/14 Reported Lovastatin 20 Mg Tablet 20 Mg PO HS 11/05/14 Reported Omeprazole 20 Mg Tablet.dr 20 Mg PO DAILY 02/04/14 Reported Daily Vitamin (Multivitamin) 1 Each Tablet 1 Each PO 02/04/14 Reported Detrol La (Tolterodine Tartrate) 4 Mg Cap.er.24h 4 Mg PO DAILY 02/04/14 Reported Impression . IMPRESSION: 1. Acute on chronic hypercapnic and hypoxic respiratory failure secondary to multifactorial etiologies including COVID-19 viral pneumonia and underlying obesity hypoventilation syndrome with acute on chronic cor pulmonale. 2. Chronic kidney disease, acute kidney insufficiency 3. COVID positive 4. Abnormal chest x-ray with bilateral interstitial infiltrates consistent with COVID-19 viral pneumonia. 5. Encephalopathy multifactorial 6. History of tobaccoism. Plan . Continue oxygen supplementation, currently 6L NC As needed BiPAP Hemodialysis per nephrology Continue Dexamethasone Labs reviewed ABD CT results noted IVORY WEBER MD Aug 16, 2021 09:17
[2021-08-16 11:00] VITALS: BP 142/64
--- NOTE | 2021-08-16 11:00 | PDOC ---
DATE OF SERVICE DATE: 08/16/21 TIME: 10:59 SUBJECTIVE ROS Denies N/V, No SOB on 6 L nasal cannula. OBJECTIVE Vital Signs Vital Signs Date Time Temp Pulse Resp B/P (MAP) Pulse Ox O2 Delivery O2 Flow Rate FiO2 08/16/21 08:48 59 169/73 08/16/21 08:00 Bi-pap 6.0 08/16/21 07:00 97.8 20 100 97.8 I & 0 Intake and Output 08/16/21 07:00 Intake Total 800 ml Output Total 950 ml Balance -150 ml Intake Oral 800 ml Output Urine Total 950 ml PHYSICAL EXAM Physical Exam General: AXOX3.nad , Morbidly Obese HEENT: Atraumatic, PERRLA, EOMI, Mucous membr. moist/pink. On o2 by NC Neck Thick, supple Lungs: decreased at bases, Non labored Heart: S1S2, RRR, no thrills, no rubs, no gallops, no murmurs Abdomen: Normal bowel sounds, Soft, No tenderness, No hepatosplenomegaly,Obese Extremities: No clubbing, No cyanosis, No edema, Skin: No rashes, No breakdown, No significant lesion Neuro: Grossly Normal Psych/Mental Status: Cooperative No Curtis, No CVA or SP tenderness DIAGNOSIS/ASSESSMENT Assessment & Plan ARF Versus progression of underlying CKD cannot be ruled out. Ultrasound unable to visualize kidneys; non oliguric ?Accuracy of UOP recorded ; Started dialysis 08/13 ; Dialysis today . Discussed treatment plan with GABRIELA Supportive care , maintain fluid balance. Strict I/o Monitor for renal recovery Avoid Nephrotoxins HyperKalemia- mild, dialysis today Abnormal UA large amount of blood , RBCs + . Pr/Cr 2.2 gms . Mild Rhabdo . Monitor Rhabdo- Mild at presentation, improving Acute on chronic hypercapnic and hypoxic respiratory failure secondary to COVID-19 viral pneumonia and underlying obesity hypoventilation syndrome COVID-19 viral pneumonia. Abnormal chest x-ray with bilateral interstitial infiltrates consistent with History of tobaccoism. Anemia:Hgb stable,Tsat at goal No indication for ROBERT or Fe HTN:Not well controlled. Anthypertensives Morbid Obese COMMENT/RELEVANT DATA Meds Current Medications Medications (Trade) Dose Ordered Sig/Jeannie Start Time Stop Time Status Last Admin Dose Admin Acetaminophen (Tylenol) 650 mg PRN Q6HRS PRN 08/08/21 15:30 Aspirin (Ecotrin) 325 mg 1X ONCE 08/08/21 06:30 08/08/21 06:31 DC Atorvastatin Calcium (Lipitor) 5 mg HS 08/11/21 21:00 08/15/21 21:43 5 MG Ceftriaxone Sodium (Rocephin) 1 gm Q24H 08/08/21 12:00 08/14/21 12:01 DC 08/14/21 12:56 1 GM Cetirizine HCl (ZyrTEC) 10 mg DAILY 08/11/21 12:45 08/16/21 08:48 10 MG Dexamethasone Sodium Phosphate (Decadron) 6 mg DAILY 08/09/21 09:00 08/18/21 09:01 08/16/21 08:47 6 MG Enoxaparin Sodium (Lovenox 40mg Syringe) 40 mg 1X ONCE 08/08/21 06:30 08/08/21 06:31 UNV Enoxaparin Sodium (Lovenox 60mg Syringe) 60 mg Q12HR 08/08/21 06:45 08/13/21 14:46 DC 08/12/21 20:37 60 MG Enoxaparin Sodium (Lovenox Per Pharmacy Prophylaxis Dosing) 1 each PRN DAILY PRN 08/08/21 06:30 08/13/21 14:46 DC Fentanyl Citrate (Fentanyl 2ml Vial) 25 mcg PRN Q3HRS PRN 08/08/21 15:30 Guaifenesin (Robitussin Dm) 10 ml PRN Q6HRS PRN 08/08/21 15:30 08/10/21 17:27 10 ML Heparin Sodium (Porcine) (Heparin Sodium) 7,500 unit Q8HRS 08/13/21 22:00 08/16/21 05:46 7,500 UNIT Hydralazine HCl (Apresoline Inj) 10 mg PRN Q4HRS PRN 08/11/21 12:15 Info (PHARMACY MONITORING -- do not chart) 1 each PRN DAILY PRN 08/14/21 15:15 Lactobacillus Rhamnosus (Culturelle) 1 cap BID 08/09/21 21:00 08/16/21 08:48 1 CAP Lidocaine HCl (Buffered Lidocaine 1%) 6 ml 1X ONCE 08/13/21 13:45 08/13/21 13:53 DC 08/13/21 13:49 3 ML Metoprolol Tartrate (Lopressor) 50 mg BID 08/11/21 12:45 08/16/21 08:48 50 MG Multi-Ingred Cream/Lotion/Oil/ Oint (Artificial Tears Eye Ointment) 1 blayne PRN Q1HR PRN 08/11/21 13:45 Nystatin (Nystop) 1 blayne BID 08/08/21 11:00 08/16/21 09:00 1 BLAYNE Ondansetron HCl (Zofran) 4 mg PRN Q8HRS PRN 08/08/21 06:30 08/09/21 06:29 DC Pantoprazole Sodium (Protonix) 40 mg DAILYAC 08/11/21 12:45 08/16/21 05:46 40 MG Remdesivir 100 mg/ Sodium Chloride 230 ml @ 460 mls/hr Q24H 08/09/21 16:00 08/11/21 09:47 DC 08/10/21 15:13 460 MLS/HR Remdesivir 200 mg/ Sodium Chloride 210 ml @ 210 mls/hr 1X ONCE 08/08/21 16:00 08/08/21 16:59 DC 08/08/21 16:00 210 MLS/HR Sodium Bicarbonate 50 meq/Dextrose 1,050 ml @ 125 mls/hr Q8H24M 08/09/21 15:00 08/11/21 09:48 DC 08/11/21 02:49 125 MLS/HR Sodium Bicarbonate (Sodium Bicarb Adult 8.4% Syr) 50 meq 1X ONCE 08/09/21 11:00 08/09/21 11:01 DC 08/09/21 11:00 50 MEQ Sodium Chloride 1,000 ml @ 400 mls/hr Q2H30M PRN 08/14/21 15:15 08/15/21 03:14 DC Sterile Water (WATER for RESP) 1,000 ml CONT PRN 08/10/21 03:00 Vitamin A/Vitamin D (Vitamin A & D Ointment) 1 blayne PRN Q1HR PRN 08/11/21 13:45 UNV Lab Laboratory Tests Test 08/16/21 04:15 Sodium Level 140 mmol/L (136-145) Potassium Level 5.4 mmol/L (3.5-5.1) Chloride Level 105 mmol/L (98-107) Carbon Dioxide Level 32 mmol/L (21-32) Anion Gap 3 (6-14) Blood Urea Nitrogen 84 mg/dL (7-20) Creatinine 2.3 mg/dL (0.6-1.0) Estimated GFR (Cockcroft-Gault) 26.0 Glucose Level 114 mg/dL (70-99) Calcium Level 8.3 mg/dL (8.5-10.1) Phosphorus Level 5.6 mg/dL (2.6-4.7) Albumin 2.3 g/dL (3.4-5.0) Results All relevant outside records, renal labs, imaging studies, telemetry/EKG's were reviewed. Justicifation of Admission Dx: Justifications for Admission: Justification of Admission Dx: N/A JORGE CHENEY MD Aug 16, 2021 11:00
[2021-08-16] MEDS ORDERED: 0.9 % SODIUM CHLORIDE 10 ML DISP.SYRIN. IV PRN ×2 (11:15)
[2021-08-16] MEDS ORDERED: DIALYSIS PATIENT. MC PRN ×2 (11:15)
[2021-08-16] MEDS ORDERED: IV NORMAL SALINE 1000ML BAG 1,000 ML IV PRN (11:15)
--- NOTE | 2021-08-16 12:07 | NUR ---
SS following up with discharge planning. SS reviewed pt chart and discussed with pt RN. Pt is currently requiring oxygen at six liters nasal canula and BIPAP PRN. COVID19 positive post eight days. Pt currently on temporary hemodialysis. Nephrology monitoring for renal recovery. Pt on IV Decadron. Morbid obesity. Pt has home oxygen. PT/OT recommended senior living unit on 08/13/2021. Not medically ready at this time. SS will continue to follow for discharge planning.
--- NOTE | 2021-08-16 13:37 | PDOC ---
[employer] PROGRESS NOTE Date of Service DOS: DATE: 08/16/21 TIME: 13:37 Chief Complaint Chief Complaint A/P: Acute on chronic hypercapnic respiratory failure - likely from aspiratory infection with COVID-19 complicated by pre-existing OHS and MADHU. We will keep on BiPAP as needed while sleeping titrate to ABGs. Pulmonology consulted Hypoxic respiratory failure - likely from COVID-19 viral pneumonia acute on chronic cor pulmonale. Hyperkalemia - IV bicarb Acute kidney injury -on chronic kidney disease baseline creatinine from 7 years ago was 1.5 likely just vasomotor nephropathy from above. Will consult nephrology COVID 19 pneumonia -required 5 L nasal cannula O2 increased for home O2 eval with BiPAP. We will give steroid therapy with dexamethasone and remdesivir. Acute metabolic encephalopathy -likely hypercapnic respiratory failure. We will treat with BiPAP Anemia - likely of chronic disease. 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 Protein calorie malnutrition - will start IV nutrition Elevated troponin -likely type II demand ischemia from hypoxia and hypercapnia and possibly COVID myocarditis. Will monitor. FEN - General diet PPX - lovenox FULL CODE DIspo - inpatient cc time 37 minutes History of Present Illness History of Present Illness Ms Londono is a 61 year old female w/ PMHx anemia, MADHU, OHS on 2 to 3 L home O2, HLD, HTN comes to ED on 08/08/2021 via EMS from home for a 1 week history of progressive weakness fatigue malaise nausea vomiting. She has been unable to get up out of bed and had been calling EMS for lift assist, and had previously declined transport earlier in the day. She is unable to provide significant history to me is very confused responsive to name mostly moving. ED physician has obtained above history patient did not complain of chest pain. ED physician noted patient is vaccinating is COVID-19 but her tested +1-week ago and patient herself has not been tested. There was concern noted by EMS about the condition of the home being unlivable. Labs with WBC 6.8, Hb 9.3, platelets 131, had a 136, K4.9, BUN 58, CR 2.8, glucose 129, calcium 8.4, mag 1.6, bilirubin 0.4, AST 112, ALT 35, alkaline phosphatase 69, high-sensitivity troponin is 298, NT proBNP 871, albumin is 2.7, lactic acid is 1.3, rapid influenza negative, rapid COVID-19 positive ABG 7.1 on 5 L nasal cannula oxygen. Chest radiograph with cardiomegaly and bibasilar opacities EKG sinus rate 94 bpm normal axis and intervals no ST elevations or TWI. Place on BIPAP, given dexamethasone and admitted for further care. 08/09: BUN/creatinine worsened slightly K5.8 given bicarb. More alert today still requiring BiPAP. Started on remdesivir and Decadron. She has a little bit of an appetite and is thirsty. Very weak diarrhea is improving. 08/10: ABG 7.2 back on BiPAP. BUN 85. K down to 5.4. She is asking if she can have something to eat. Still with significant dyspnea 08/11: BUN increased to 109 CR 2.6, renal ultrasound did not identify kidneys ureters or bladder. On BiPAP 14/01 FiO2 40% she made some improvements with yesterday evening ABG 7.3 . O2 was increased to 60% and continue her BiPAP overnight. Restarting BP meds today. More alert. Amenable to dialysis if necessary. Hold remdesivir. 08/12 Patient evaluated examined at bedside. Resting in bed on the phone with her daughter. She was on 6 L nasal cannula. Said to me she was still feeling just very weak and rundown overall. Continuing current treatments. Pulmonary and nephro following. Plan discussed with bedside RN. 08/13 Patient evaluated examined at bedside. Resting in bed still on 6 L nasal cannula. Continue COVID treatment. Encourage BiPAP use when asleep. Dialysis today. PT OT ordered. 08/14 Patient evaluated examined at bedside. Still on 6 L oxygen. Did okay with the first dialysis yesterday. Any further sessions per nephrology. Otherwise continuing Covid treatment. 08/15 Seen and examined at bedside. Still little confused today. No dialysis today per nephrology. Covid treatment. Continue PT OT. Suspect will need placement. 08/16 Evaluated at bedside. Plan for dialysis today. Patient agreeable. A little bit altered still. Treat COVID still. Plan discussed with bedside RN. Vitals/I&O Vitals/I&O: Vital Signs Date Time Temp Pulse Resp B/P (MAP) Pulse Ox O2 Delivery O2 Flow Rate FiO2 08/16/21 11:00 97.9 61 18 142/64 (90) 100 BiPAP/CPAP 97.9 08/16/21 08:00 6.0 I & O 08/15/21 08/15/21 08/16/21 15:00 23:00 07:00 Intake Total 700 ml 100 ml Output Total 950 ml Balance 700 ml -850 ml Physical Exam General: Alert, Oriented X3, Cooperative, severe distress Heart: Regular rate Lungs: Clear, Other (Decreased breath sounds bilaterally) Abdomen: Normal bowel sounds, Soft, No tenderness, No hepatosplenomegaly, No masses Extremities: No clubbing, No cyanosis, No edema, Normal pulses, No tenderness/swelling Skin: No rashes, No breakdown, No significant lesion Labs Labs: Laboratory Tests Test 08/16/21 04:15 Sodium Level 140 mmol/L (136-145) Potassium Level 5.4 mmol/L (3.5-5.1) Chloride Level 105 mmol/L (98-107) Carbon Dioxide Level 32 mmol/L (21-32) Anion Gap 3 (6-14) Blood Urea Nitrogen 84 mg/dL (7-20) Creatinine 2.3 mg/dL (0.6-1.0) Estimated GFR (Cockcroft-Gault) 26.0 Glucose Level 114 mg/dL (70-99) Calcium Level 8.3 mg/dL (8.5-10.1) Phosphorus Level 5.6 mg/dL (2.6-4.7) Albumin 2.3 g/dL (3.4-5.0) Assessment and Plan Assessmemt and Plan Problems Medical Problems: (1) COVID-19 Status: Acute (2) Elevated troponin Status: Acute (3) Pneumonia due to COVID-19 virus Status: Acute (4) Respiratory acidosis Status: Acute (5) Respiratory failure with hypoxia Status: Acute Comment Review of Relevant I have reviewed the following items marcus (where applicable) has been applied. Justifications for Admission Other Justification EBER CEJA MD Aug 16, 2021 13:37
[2021-08-16 15:00] VITALS: BP 131/64
--- NOTE | 2021-08-16 15:00 | NUR ---
Discharged patient to [facility]. Report given to Juventino, staff nurse. piv and heart monitor removed. Escorted patient off unit per transportation via wheelchair. Addendum: 08/16/21 at 1552 by Xander Quiroz RN ABOVE NOTE MADE IN WRONG PATIENT.
[2021-08-16 19:11] VITALS: BP 143/66
[2021-08-16] MEDS: ATORVASTATIN CALCIUM 10 MG TABLET. PO SCH (20:48)
[2021-08-16 22:32] VITALS: BP 126/60
[2021-08-17 02:17] VITALS: BP 129/66
[2021-08-17 05:01] LABS: ALBUMIN 2.2 g/dL (3.4-5.0); CALCIUM 8.1 mg/dL (8.5-10.1); CREATININE 2.1 mg/dL (0.6-1.0); GFR 28.9; PHOSPHORUS 5.1 mg/dL (2.6-4.7); POTASSIUM 5.1 mmol/L (3.5-5.1)
[2021-08-17] MEDS: PANTOPRAZOLE 40 MG TABLET.DR. PO SCH (06:00)
[2021-08-17] MEDS: HEPARIN for SUB-Q USE 5,000 UNIT/ML VIAL. SQ SCH ×3 (06:00→21:15)
[2021-08-17 07:00] VITALS: BP 125/59
--- NOTE | 2021-08-17 08:35 | PDOC ---
PULMONARY PROGRESS NOTES DATE: 08/17/21 TIME: 08:30 Subjective Patient feeling better, no worse currently on NC at 6L BiPAP overnight no new cough Vitals Vital Signs Date Time Temp Pulse Resp B/P (MAP) Pulse Ox O2 Delivery O2 Flow Rate FiO2 08/17/21 04:45 100 BiPAP/CPAP 08/17/21 02:17 98.2 62 20 129/66 (87) 98.2 08/16/21 19:11 6.0 ROS: No Nausea, No Chest Pain, No Abdominal Pain, No Increase Cough General: Alert HEENT: Other Lungs: Clear, Other (Decreased breath sounds bilaterally) Cardiovascular: S1, S2 Abdomen: Soft, Other (Trace pitting edema) Extremities: Other Skin: Warm, No Rashes Labs Laboratory Tests Test 08/16/21 04:15 08/17/21 04:00 Sodium Level 140 mmol/L (136-145) 140 mmol/L (136-145) Potassium Level 5.4 mmol/L (3.5-5.1) 5.1 mmol/L (3.5-5.1) Chloride Level 105 mmol/L (98-107) 106 mmol/L (98-107) Carbon Dioxide Level 32 mmol/L (21-32) 33 mmol/L (21-32) Anion Gap 3 (6-14) 1 (6-14) Blood Urea Nitrogen 84 mg/dL (7-20) 69 mg/dL (7-20) Creatinine 2.3 mg/dL (0.6-1.0) 2.1 mg/dL (0.6-1.0) Estimated GFR (Cockcroft-Gault) 26.0 28.9 Glucose Level 114 mg/dL (70-99) 136 mg/dL (70-99) Calcium Level 8.3 mg/dL (8.5-10.1) 8.1 mg/dL (8.5-10.1) Phosphorus Level 5.6 mg/dL (2.6-4.7) 5.1 mg/dL (2.6-4.7) Albumin 2.3 g/dL (3.4-5.0) 2.2 g/dL (3.4-5.0) Laboratory Tests Test 08/17/21 04:00 Sodium Level 140 mmol/L (136-145) Potassium Level 5.1 mmol/L (3.5-5.1) Chloride Level 106 mmol/L (98-107) Carbon Dioxide Level 33 mmol/L (21-32) Anion Gap 1 (6-14) Blood Urea Nitrogen 69 mg/dL (7-20) Creatinine 2.1 mg/dL (0.6-1.0) Estimated GFR (Cockcroft-Gault) 28.9 Glucose Level 136 mg/dL (70-99) Calcium Level 8.1 mg/dL (8.5-10.1) Phosphorus Level 5.1 mg/dL (2.6-4.7) Albumin 2.2 g/dL (3.4-5.0) Medications Active Scripts Medications Dose Route/Sig Max Daily Dose Days Date Category [Megestrol Acetate] 20 MG Tablet 20 Mg PO BID 11/11/14 Rx Feosol (Ferrous Sulfate) 325 Mg Tablet 325 Mg PO DAILYWBKFT 30 11/11/14 Rx [place] 3-6-9 1,200 mg Softgel (Fish Oil/Borage/Flax/Om3,6,9#1) 1,200 Mg Capsule 1,200 Mg PO DAILY 11/05/14 Reported Loratadine 10 Mg Tablet 10 Mg PO 11/05/14 Reported Metoprolol Tartrate 50 Mg Tablet 50 Mg PO BID 11/05/14 Reported Toviaz (Fesoterodine Fumarate) 8 Mg Tab.er.24h 8 Mg PO 11/05/14 Reported Lovastatin 20 Mg Tablet 20 Mg PO HS 11/05/14 Reported Omeprazole 20 Mg Tablet.dr 20 Mg PO DAILY 02/04/14 Reported Daily Vitamin (Multivitamin) 1 Each Tablet 1 Each PO 02/04/14 Reported Detrol La (Tolterodine Tartrate) 4 Mg Cap.er.24h 4 Mg PO DAILY 02/04/14 Reported Impression . IMPRESSION: 1. Acute on chronic hypercapnic and hypoxic respiratory failure secondary to multifactorial etiologies including COVID-19 viral pneumonia and underlying obesity hypoventilation syndrome with acute on chronic cor pulmonale. 2. Chronic kidney disease, acute kidney insufficiency 3. COVID positive 4. Abnormal chest x-ray with bilateral interstitial infiltrates consistent with COVID-19 viral pneumonia. 5. Encephalopathy multifactorial 6. History of tobaccoism. Plan . Update 08/17 Continue current support Continue oxygen supplementation and titrate if possible, currently 6L NC BiPAP PRN Continue Dexamethasone Dialysis per nephrology Continue oxygen supplementation, currently 6L NC As needed BiPAP Hemodialysis per nephrology Continue Dexamethasone Labs reviewed ABD CT results noted IVORY WEBER MD Aug 17, 2021 08:35
[2021-08-17] MEDS: NYSTATIN TOPICAL POWDER 15GM BOTTLE. TP SCH ×2 (09:00→21:00)
[2021-08-17] MEDS: METOPROLOL TART IMMED RELEASE 50 MG TABLET. PO SCH ×2 (09:24→21:14)
[2021-08-17] MEDS: LACTOBACILLUS RHAMNOSUS GG 1 CAPSULE. PO SCH ×2 (09:24→21:11)
[2021-08-17] MEDS: CETIRIZINE HCL 10 MG TABLET. PO SCH (09:29)
[2021-08-17] MEDS: DEXAMETHASONE SOD PHOS 4 MG/ML VIAL IVP SCH (09:29)
[2021-08-17 11:00] VITALS: BP 110/56
--- NOTE | 2021-08-17 13:04 | PDOC ---
DATE OF SERVICE DATE: 08/17/21 TIME: 13:04 SUBJECTIVE ROS Denies N/V, No SOB on 6 L nasal cannula. OBJECTIVE Vital Signs Vital Signs Date Time Temp Pulse Resp B/P (MAP) Pulse Ox O2 Delivery O2 Flow Rate FiO2 08/17/21 12:00 98 Nasal Cannula 5.0 08/17/21 11:00 96.9 67 20 110/56 (74) 96.9 I & 0 Intake and Output 08/17/21 07:00 Intake Total 1000 ml Output Total 1000 ml Balance 0 ml Intake Oral 1000 ml Output Urine Total 1000 ml # Voids 2 PHYSICAL EXAM Physical Exam General: AXOX3.nad , Morbidly Obese HEENT: Atraumatic, PERRLA, EOMI, Mucous membr. moist/pink. On o2 by NC Neck Thick, supple Lungs: decreased at bases, Non labored Heart: S1S2, RRR, no thrills, no rubs, no gallops, no murmurs Abdomen: Normal bowel sounds, Soft, No tenderness, No hepatosplenomegaly,Obese Extremities: No clubbing, No cyanosis, No edema, Skin: No rashes, No breakdown, No significant lesion Neuro: Grossly Normal Psych/Mental Status: Cooperative No Curtis, No CVA or SP tenderness DIAGNOSIS/ASSESSMENT Assessment & Plan ARF Versus progression of underlying CKD cannot be ruled out. Ultrasound unable to visualize kidneys; non oliguric ?Accuracy of UOP recorded ; No indication for dialysis today Supportive care , maintain fluid balance. Strict I/o Monitor for renal recovery Avoid Nephrotoxins . Monitor for renal recovery . Re-eval on Thursday HyperKalemia- resolved Abnormal UA large amount of blood , RBCs + . Pr/Cr 2.2 gms . Mild Rhabdo . Monitor Rhabdo- Mild at presentation, improving Acute on chronic hypercapnic and hypoxic respiratory failure secondary to COVID-19 viral pneumonia and underlying obesity hypoventilation syndrome COVID-19 viral pneumonia. Abnormal chest x-ray with bilateral interstitial infiltrates consistent with History of tobaccoism. Anemia:Hgb stable,Tsat at goal No indication for ROBERT or Fe HTN:Not well controlled. Anthypertensives Morbid Obese COMMENT/RELEVANT DATA Meds Current Medications Medications (Trade) Dose Ordered Sig/Jeannie Start Time Stop Time Status Last Admin Dose Admin Acetaminophen (Tylenol) 650 mg PRN Q6HRS PRN 08/08/21 15:30 Aspirin (Ecotrin) 325 mg 1X ONCE 08/08/21 06:30 08/08/21 06:31 DC Atorvastatin Calcium (Lipitor) 5 mg HS 08/11/21 21:00 08/16/21 20:48 5 MG Ceftriaxone Sodium (Rocephin) 1 gm Q24H 08/08/21 12:00 08/14/21 12:01 DC 08/14/21 12:56 1 GM Cetirizine HCl (ZyrTEC) 10 mg DAILY 08/11/21 12:45 08/17/21 09:29 10 MG Dexamethasone Sodium Phosphate (Decadron) 6 mg DAILY 08/09/21 09:00 08/18/21 09:01 08/17/21 09:29 6 MG Enoxaparin Sodium (Lovenox 40mg Syringe) 40 mg 1X ONCE 08/08/21 06:30 08/08/21 06:31 UNV Enoxaparin Sodium (Lovenox 60mg Syringe) 60 mg Q12HR 08/08/21 06:45 08/13/21 14:46 DC 08/12/21 20:37 60 MG Enoxaparin Sodium (Lovenox Per Pharmacy Prophylaxis Dosing) 1 each PRN DAILY PRN 08/08/21 06:30 08/13/21 14:46 DC Fentanyl Citrate (Fentanyl 2ml Vial) 25 mcg PRN Q3HRS PRN 08/08/21 15:30 Guaifenesin (Robitussin Dm) 10 ml PRN Q6HRS PRN 08/08/21 15:30 08/10/21 17:27 10 ML Heparin Sodium (Porcine) (Heparin Sodium) 7,500 unit Q8HRS 08/13/21 22:00 08/17/21 06:00 7,500 UNIT Hydralazine HCl (Apresoline Inj) 10 mg PRN Q4HRS PRN 08/11/21 12:15 Info (PHARMACY MONITORING -- do not chart) 1 each PRN DAILY PRN 08/16/21 11:15 Lactobacillus Rhamnosus (Culturelle) 1 cap BID 08/09/21 21:00 08/17/21 09:24 1 CAP Lidocaine HCl (Buffered Lidocaine 1%) 6 ml 1X ONCE 08/13/21 13:45 08/13/21 13:53 DC 08/13/21 13:49 3 ML Metoprolol Tartrate (Lopressor) 50 mg BID 08/11/21 12:45 08/17/21 09:24 50 MG Multi-Ingred Cream/Lotion/Oil/ Oint (Artificial Tears Eye Ointment) 1 blayne PRN Q1HR PRN 08/11/21 13:45 Nystatin (Nystop) 1 blayne BID 08/08/21 11:00 08/17/21 09:00 1 BLAYNE Ondansetron HCl (Zofran) 4 mg PRN Q8HRS PRN 08/08/21 06:30 08/09/21 06:29 DC Pantoprazole Sodium (Protonix) 40 mg DAILYAC 08/11/21 12:45 08/17/21 06:00 40 MG Remdesivir 100 mg/ Sodium Chloride 230 ml @ 460 mls/hr Q24H 08/09/21 16:00 08/11/21 09:47 DC 08/10/21 15:13 460 MLS/HR Remdesivir 200 mg/ Sodium Chloride 210 ml @ 210 mls/hr 1X ONCE 08/08/21 16:00 08/08/21 16:59 DC 08/08/21 16:00 210 MLS/HR Sodium Bicarbonate 50 meq/Dextrose 1,050 ml @ 125 mls/hr Q8H24M 08/09/21 15:00 08/11/21 09:48 DC 08/11/21 02:49 125 MLS/HR Sodium Bicarbonate (Sodium Bicarb Adult 8.4% Syr) 50 meq 1X ONCE 08/09/21 11:00 08/09/21 11:01 DC 08/09/21 11:00 50 MEQ Sodium Chloride (Normal Saline Flush) 10 ml 1X PRN PRN 08/16/21 11:15 08/17/21 11:14 DC Sterile Water (WATER for RESP) 1,000 ml CONT PRN 08/10/21 03:00 Vitamin A/Vitamin D (Vitamin A & D Ointment) 1 blayne PRN Q1HR PRN 08/11/21 13:45 UNV Lab Laboratory Tests Test 08/17/21 04:00 Sodium Level 140 mmol/L (136-145) Potassium Level 5.1 mmol/L (3.5-5.1) Chloride Level 106 mmol/L (98-107) Carbon Dioxide Level 33 mmol/L (21-32) Anion Gap 1 (6-14) Blood Urea Nitrogen 69 mg/dL (7-20) Creatinine 2.1 mg/dL (0.6-1.0) Estimated GFR (Cockcroft-Gault) 28.9 Glucose Level 136 mg/dL (70-99) Calcium Level 8.1 mg/dL (8.5-10.1) Phosphorus Level 5.1 mg/dL (2.6-4.7) Albumin 2.2 g/dL (3.4-5.0) Results All relevant outside records, renal labs, imaging studies, telemetry/EKG's were reviewed. Justicifation of Admission Dx: Justifications for Admission: Justification of Admission Dx: N/A JORGE CHENEY MD Aug 17, 2021 13:04
[2021-08-17 15:00] VITALS: BP 118/58
[2021-08-17 19:55] VITALS: BP 135/64
--- NOTE | 2021-08-17 21:02 | PDOC ---
[facility] PROGRESS NOTE Date of Service DOS: DATE: 08/17/21 TIME: 21:01 Chief Complaint Chief Complaint A/P: Acute on chronic hypercapnic respiratory failure - likely from aspiratory infection with COVID-19 complicated by pre-existing OHS and MADHU. We will keep on BiPAP as needed while sleeping titrate to ABGs. Pulmonology consulted Hypoxic respiratory failure - likely from COVID-19 viral pneumonia acute on chronic cor pulmonale. Hyperkalemia - IV bicarb Acute kidney injury -on chronic kidney disease baseline creatinine from 7 years ago was 1.5 likely just vasomotor nephropathy from above. Will consult nephrology COVID 19 pneumonia -required 5 L nasal cannula O2 increased for home O2 eval with BiPAP. We will give steroid therapy with dexamethasone and remdesivir. Acute metabolic encephalopathy -likely hypercapnic respiratory failure. We will treat with BiPAP Anemia - likely of chronic disease. 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 Protein calorie malnutrition - will start IV nutrition Elevated troponin -likely type II demand ischemia from hypoxia and hypercapnia and possibly COVID myocarditis. Will monitor. FEN - General diet PPX - lovenox FULL CODE DIspo - inpatient cc time 37 minutes History of Present Illness History of Present Illness Ms Londono is a 61 year old female w/ PMHx anemia, MADHU, OHS on 2 to 3 L home O2, HLD, HTN comes to ED on 08/08/2021 via EMS from home for a 1 week history of progressive weakness fatigue malaise nausea vomiting. She has been unable to get up out of bed and had been calling EMS for lift assist, and had previously declined transport earlier in the day. She is unable to provide significant history to me is very confused responsive to name mostly moving. ED physician has obtained above history patient did not complain of chest pain. ED physician noted patient is vaccinating is COVID-19 but her tested +1-week ago and patient herself has not been tested. There was concern noted by EMS about the condition of the home being unlivable. Labs with WBC 6.8, Hb 9.3, platelets 131, had a 136, K4.9, BUN 58, CR 2.8, glucose 129, calcium 8.4, mag 1.6, bilirubin 0.4, AST 112, ALT 35, alkaline phosphatase 69, high-sensitivity troponin is 298, NT proBNP 871, albumin is 2.7, lactic acid is 1.3, rapid influenza negative, rapid COVID-19 positive ABG 7.1 on 5 L nasal cannula oxygen. Chest radiograph with cardiomegaly and bibasilar opacities EKG sinus rate 94 bpm normal axis and intervals no ST elevations or TWI. Place on BIPAP, given dexamethasone and admitted for further care. 08/09: BUN/creatinine worsened slightly K5.8 given bicarb. More alert today still requiring BiPAP. Started on remdesivir and Decadron. She has a little bit of an appetite and is thirsty. Very weak diarrhea is improving. 08/10: ABG 7.2 back on BiPAP. BUN 85. K down to 5.4. She is asking if she can have something to eat. Still with significant dyspnea 08/11: BUN increased to 109 CR 2.6, renal ultrasound did not identify kidneys ureters or bladder. On BiPAP 14/01 FiO2 40% she made some improvements with yesterday evening ABG 7.3 . O2 was increased to 60% and continue her BiPAP overnight. Restarting BP meds today. More alert. Amenable to dialysis if necessary. Hold remdesivir. 08/12 Patient evaluated examined at bedside. Resting in bed on the phone with her daughter. She was on 6 L nasal cannula. Said to me she was still feeling just very weak and rundown overall. Continuing current treatments. Pulmonary and nephro following. Plan discussed with bedside RN. 08/13 Patient evaluated examined at bedside. Resting in bed still on 6 L nasal cannula. Continue COVID treatment. Encourage BiPAP use when asleep. Dialysis today. PT OT ordered. 08/14 Patient evaluated examined at bedside. Still on 6 L oxygen. Did okay with the first dialysis yesterday. Any further sessions per nephrology. Otherwise continuing Covid treatment. 08/15 Seen and examined at bedside. Still little confused today. No dialysis today per nephrology. Covid treatment. Continue PT OT. Suspect will need placement. 08/16 Evaluated at bedside. Plan for dialysis today. Patient agreeable. A little bit altered still. Treat COVID still. Plan discussed with bedside RN. 08/17 Eval examined at bedside. Nephro pulm following. Not much clinical change. Continue current. Vitals/I&O Vitals/I&O: Vital Signs Date Time Temp Pulse Resp B/P (MAP) Pulse Ox O2 Delivery O2 Flow Rate FiO2 08/17/21 16:22 100 Nasal Cannula 5.0 08/17/21 15:00 97.9 64 20 118/58 (78) 97.9 I & O 08/16/21 08/16/21 08/17/21 15:00 23:00 07:00 Intake Total 350 ml 650 ml Output Total 700 ml 300 ml Balance -700 ml 350 ml 350 ml Physical Exam General: Alert, Oriented X3, Cooperative, severe distress Heart: Regular rate Lungs: Clear, Other (Decreased breath sounds bilaterally) Abdomen: Normal bowel sounds, Soft, No tenderness, No hepatosplenomegaly, No masses Extremities: No clubbing, No cyanosis, No edema, Normal pulses, No tenderness/swelling Skin: No rashes, No breakdown, No significant lesion Labs Labs: Laboratory Tests Test 08/17/21 04:00 Sodium Level 140 mmol/L (136-145) Potassium Level 5.1 mmol/L (3.5-5.1) Chloride Level 106 mmol/L (98-107) Carbon Dioxide Level 33 mmol/L (21-32) Anion Gap 1 (6-14) Blood Urea Nitrogen 69 mg/dL (7-20) Creatinine 2.1 mg/dL (0.6-1.0) Estimated GFR (Cockcroft-Gault) 28.9 Glucose Level 136 mg/dL (70-99) Calcium Level 8.1 mg/dL (8.5-10.1) Phosphorus Level 5.1 mg/dL (2.6-4.7) Albumin 2.2 g/dL (3.4-5.0) Assessment and Plan Assessmemt and Plan Problems Medical Problems: (1) COVID-19 Status: Acute (2) Elevated troponin Status: Acute (3) Pneumonia due to COVID-19 virus Status: Acute (4) Respiratory acidosis Status: Acute (5) Respiratory failure with hypoxia Status: Acute Comment Review of Relevant I have reviewed the following items marcus (where applicable) has been applied. Justifications for Admission Other Justification EBER CEJA MD Aug 17, 2021 21:02
[2021-08-17] MEDS: ATORVASTATIN CALCIUM 10 MG TABLET. PO SCH (21:11)
[2021-08-17 22:59] VITALS: BP 134/64
[2021-08-18 02:41] VITALS: BP 127/60
[2021-08-18 05:31] LABS: ALBUMIN 2.3 g/dL (3.4-5.0); CALCIUM 8.3 mg/dL (8.5-10.1); CREATININE 2.2 mg/dL (0.6-1.0); GFR 27.4; PHOSPHORUS 5.2 mg/dL (2.6-4.7); POTASSIUM 5.4 mmol/L (3.5-5.1)
[2021-08-18] MEDS: HEPARIN for SUB-Q USE 5,000 UNIT/ML VIAL. SQ SCH ×3 (06:05→22:22)
[2021-08-18] MEDS: PANTOPRAZOLE 40 MG TABLET.DR. PO SCH (06:06)
[2021-08-18 07:00] VITALS: BP 121/60
[2021-08-18] MEDS: METOPROLOL TART IMMED RELEASE 50 MG TABLET. PO SCH ×2 (09:00→20:53)
[2021-08-18] MEDS: NYSTATIN TOPICAL POWDER 15GM BOTTLE. TP SCH ×2 (09:00→20:53)
--- NOTE | 2021-08-18 09:17 | PDOC ---
PULMONARY PROGRESS NOTES DATE: 08/18/21 TIME: 09:05 Subjective Patient feeling better, currently on NC at 6L BiPAP overnight 14/01 40% Has not needed BiPAP PRN Vitals Vital Signs Date Time Temp Pulse Resp B/P (MAP) Pulse Ox O2 Delivery O2 Flow Rate FiO2 08/18/21 07:00 96.8 58 20 121/60 (80) 100 Nasal Cannula 6.0 96.8 ROS: No Nausea, No Chest Pain, No Abdominal Pain, No Increase Cough General: Alert HEENT: Other Lungs: Clear, Other (Decreased breath sounds bilaterally) Cardiovascular: S1, S2 Abdomen: Soft, Other (Trace pitting edema) Extremities: Other Skin: Warm, No Rashes Labs Laboratory Tests Test 08/17/21 04:00 08/18/21 04:00 Sodium Level 140 mmol/L (136-145) 141 mmol/L (136-145) Potassium Level 5.1 mmol/L (3.5-5.1) 5.4 mmol/L (3.5-5.1) Chloride Level 106 mmol/L (98-107) 105 mmol/L (98-107) Carbon Dioxide Level 33 mmol/L (21-32) 32 mmol/L (21-32) Anion Gap 1 (6-14) 4 (6-14) Blood Urea Nitrogen 69 mg/dL (7-20) 87 mg/dL (7-20) Creatinine 2.1 mg/dL (0.6-1.0) 2.2 mg/dL (0.6-1.0) Estimated GFR (Cockcroft-Gault) 28.9 27.4 Glucose Level 136 mg/dL (70-99) 113 mg/dL (70-99) Calcium Level 8.1 mg/dL (8.5-10.1) 8.3 mg/dL (8.5-10.1) Phosphorus Level 5.1 mg/dL (2.6-4.7) 5.2 mg/dL (2.6-4.7) Albumin 2.2 g/dL (3.4-5.0) 2.3 g/dL (3.4-5.0) Laboratory Tests Test 08/18/21 04:00 Sodium Level 141 mmol/L (136-145) Potassium Level 5.4 mmol/L (3.5-5.1) Chloride Level 105 mmol/L (98-107) Carbon Dioxide Level 32 mmol/L (21-32) Anion Gap 4 (6-14) Blood Urea Nitrogen 87 mg/dL (7-20) Creatinine 2.2 mg/dL (0.6-1.0) Estimated GFR (Cockcroft-Gault) 27.4 Glucose Level 113 mg/dL (70-99) Calcium Level 8.3 mg/dL (8.5-10.1) Phosphorus Level 5.2 mg/dL (2.6-4.7) Albumin 2.3 g/dL (3.4-5.0) Medications Active Scripts Medications Dose Route/Sig Max Daily Dose Days Date Category [Megestrol Acetate] 20 MG Tablet 20 Mg PO BID 11/11/14 Rx Feosol (Ferrous Sulfate) 325 Mg Tablet 325 Mg PO DAILYWBKFT 30 11/11/14 Rx [place] 3-6-9 1,200 mg Softgel (Fish Oil/Borage/Flax/Om3,6,9#1) 1,200 Mg Capsule 1,200 Mg PO DAILY 11/05/14 Reported Loratadine 10 Mg Tablet 10 Mg PO 11/05/14 Reported Metoprolol Tartrate 50 Mg Tablet 50 Mg PO BID 11/05/14 Reported Toviaz (Fesoterodine Fumarate) 8 Mg Tab.er.24h 8 Mg PO 11/05/14 Reported Lovastatin 20 Mg Tablet 20 Mg PO HS 11/05/14 Reported Omeprazole 20 Mg Tablet.dr 20 Mg PO DAILY 02/04/14 Reported Daily Vitamin (Multivitamin) 1 Each Tablet 1 Each PO 02/04/14 Reported Detrol La (Tolterodine Tartrate) 4 Mg Cap.er.24h 4 Mg PO DAILY 02/04/14 Reported Impression . IMPRESSION: 1. Acute on chronic hypercapnic and hypoxic respiratory failure secondary to multifactorial etiologies including COVID-19 viral pneumonia and underlying obesity hypoventilation syndrome with acute on chronic cor pulmonale. 2. Chronic kidney disease, acute kidney insufficiency 3. COVID positive 4. Abnormal chest x-ray with bilateral interstitial infiltrates consistent with COVID-19 viral pneumonia. 5. Encephalopathy multifactorial 6. History of tobaccoism. Plan . Updated 08/18 We will discussed with team, on disposition Continue current support Dialysis per nephrology BiPAP overnight and PRN Continue to titrate O2 down Labs reviewed IVORY WEBER MD Aug 18, 2021 09:17
[2021-08-18] MEDS: DEXAMETHASONE SOD PHOS 4 MG/ML VIAL IVP SCH (10:32)
[2021-08-18] MEDS: LACTOBACILLUS RHAMNOSUS GG 1 CAPSULE. PO SCH ×2 (10:34→20:53)
[2021-08-18] MEDS: CETIRIZINE HCL 10 MG TABLET. PO SCH (10:34)
[2021-08-18 11:00] VITALS: BP 126/71
--- NOTE | 2021-08-18 12:33 | PDOC ---
DATE OF SERVICE DATE: 08/18/21 TIME: 12:31 SUBJECTIVE ROS Denies N/V, No SOB on 3 L nasal cannula., improved OBJECTIVE Vital Signs Vital Signs Date Time Temp Pulse Resp B/P (MAP) Pulse Ox O2 Delivery O2 Flow Rate FiO2 08/18/21 11:00 97.0 60 20 126/71 (89) 98 Nasal Cannula 3.0 97.0 I & 0 Intake and Output 08/18/21 07:00 Intake Total 900 ml Output Total 600 ml Balance 300 ml Intake Oral 900 ml Output Urine Total 600 ml # Voids 1 PHYSICAL EXAM Physical Exam General: AXOX3.nad , Morbidly Obese HEENT: Atraumatic, PERRLA, EOMI, Mucous membr. moist/pink. On o2 by NC Neck Thick, supple Lungs: decreased at bases, Non labored Heart: S1S2, RRR, no thrills, no rubs, no gallops, no murmurs Abdomen: Normal bowel sounds, Soft, No tenderness, No hepatosplenomegaly,Obese Extremities: No clubbing, No cyanosis, No edema, Skin: No rashes, No breakdown, No significant lesion Neuro: Grossly Normal Psych/Mental Status: Cooperative No Curtis, No CVA or SP tenderness DIAGNOSIS/ASSESSMENT Assessment & Plan ARF Versus progression of underlying CKD cannot be ruled out. Ultrasound unable to visualize kidneys; non oliguric ?Accuracy of UOP recorded ; No indication for dialysis today Supportive care , maintain fluid balance. Strict I/o Avoid Nephrotoxins .Monitor for renal recovery . Re-evaluate for Dialysis on Thursday HyperKalemia- Mild Abnormal UA large amount of blood , RBCs + . Pr/Cr 2.2 gms . Mild Rhabdo . Monitor Rhabdo- Mild at presentation, improving Acute on chronic hypercapnic and hypoxic respiratory failure secondary to COVID-19 viral pneumonia and underlying obesity hypoventilation syndrome COVID-19 viral pneumonia. Abnormal chest x-ray with bilateral interstitial infiltrates consistent with History of tobaccoism. Anemia:Hgb stable,Tsat at goal No indication for ROBERT or Fe HTN:Not well controlled. Anthypertensives Morbid Obese COMMENT/RELEVANT DATA Meds Current Medications Medications (Trade) Dose Ordered Sig/Jeannie Start Time Stop Time Status Last Admin Dose Admin Acetaminophen (Tylenol) 650 mg PRN Q6HRS PRN 08/08/21 15:30 Aspirin (Ecotrin) 325 mg 1X ONCE 08/08/21 06:30 08/08/21 06:31 DC Atorvastatin Calcium (Lipitor) 5 mg HS 08/11/21 21:00 08/17/21 21:11 5 MG Ceftriaxone Sodium (Rocephin) 1 gm Q24H 08/08/21 12:00 08/14/21 12:01 DC 08/14/21 12:56 1 GM Cetirizine HCl (ZyrTEC) 10 mg DAILY 08/11/21 12:45 08/18/21 10:34 10 MG Dexamethasone Sodium Phosphate (Decadron) 6 mg DAILY 08/09/21 09:00 08/18/21 09:01 DC 08/18/21 10:32 6 MG Enoxaparin Sodium (Lovenox 40mg Syringe) 40 mg 1X ONCE 08/08/21 06:30 08/08/21 06:31 UNV Enoxaparin Sodium (Lovenox 60mg Syringe) 60 mg Q12HR 08/08/21 06:45 08/13/21 14:46 DC 08/12/21 20:37 60 MG Enoxaparin Sodium (Lovenox Per Pharmacy Prophylaxis Dosing) 1 each PRN DAILY PRN 08/08/21 06:30 08/13/21 14:46 DC Fentanyl Citrate (Fentanyl 2ml Vial) 25 mcg PRN Q3HRS PRN 08/08/21 15:30 Guaifenesin (Robitussin Dm) 10 ml PRN Q6HRS PRN 08/08/21 15:30 08/10/21 17:27 10 ML Heparin Sodium (Porcine) (Heparin Sodium) 7,500 unit Q8HRS 08/13/21 22:00 08/18/21 06:05 7,500 UNIT Hydralazine HCl (Apresoline Inj) 10 mg PRN Q4HRS PRN 08/11/21 12:15 Info (PHARMACY MONITORING -- do not chart) 1 each PRN DAILY PRN 08/16/21 11:15 Lactobacillus Rhamnosus (Culturelle) 1 cap BID 08/09/21 21:00 08/18/21 10:34 1 CAP Lidocaine HCl (Buffered Lidocaine 1%) 6 ml 1X ONCE 08/13/21 13:45 08/13/21 13:53 DC 08/13/21 13:49 3 ML Metoprolol Tartrate (Lopressor) 50 mg BID 08/11/21 12:45 08/17/21 21:14 50 MG Multi-Ingred Cream/Lotion/Oil/ Oint (Artificial Tears Eye Ointment) 1 blayne PRN Q1HR PRN 08/11/21 13:45 Nystatin (Nystop) 1 blayne BID 08/08/21 11:00 08/18/21 09:00 1 BLAYNE Ondansetron HCl (Zofran) 4 mg PRN Q8HRS PRN 08/08/21 06:30 08/09/21 06:29 DC Pantoprazole Sodium (Protonix) 40 mg DAILYAC 08/11/21 12:45 08/18/21 06:06 40 MG Remdesivir 100 mg/ Sodium Chloride 230 ml @ 460 mls/hr Q24H 08/09/21 16:00 08/11/21 09:47 DC 08/10/21 15:13 460 MLS/HR Remdesivir 200 mg/ Sodium Chloride 210 ml @ 210 mls/hr 1X ONCE 08/08/21 16:00 08/08/21 16:59 DC 08/08/21 16:00 210 MLS/HR Sodium Bicarbonate 50 meq/Dextrose 1,050 ml @ 125 mls/hr Q8H24M 08/09/21 15:00 08/11/21 09:48 DC 08/11/21 02:49 125 MLS/HR Sodium Bicarbonate (Sodium Bicarb Adult 8.4% Syr) 50 meq 1X ONCE 08/09/21 11:00 08/09/21 11:01 DC 08/09/21 11:00 50 MEQ Sodium Chloride (Normal Saline Flush) 10 ml 1X PRN PRN 08/16/21 11:15 08/17/21 11:14 DC Sterile Water (WATER for RESP) 1,000 ml CONT PRN 08/10/21 03:00 Vitamin A/Vitamin D (Vitamin A & D Ointment) 1 blayne PRN Q1HR PRN 08/11/21 13:45 UNV Lab Laboratory Tests Test 08/18/21 04:00 Sodium Level 141 mmol/L (136-145) Potassium Level 5.4 mmol/L (3.5-5.1) Chloride Level 105 mmol/L (98-107) Carbon Dioxide Level 32 mmol/L (21-32) Anion Gap 4 (6-14) Blood Urea Nitrogen 87 mg/dL (7-20) Creatinine 2.2 mg/dL (0.6-1.0) Estimated GFR (Cockcroft-Gault) 27.4 Glucose Level 113 mg/dL (70-99) Calcium Level 8.3 mg/dL (8.5-10.1) Phosphorus Level 5.2 mg/dL (2.6-4.7) Albumin 2.3 g/dL (3.4-5.0) Results All relevant outside records, renal labs, imaging studies, telemetry/EKG's were reviewed. Justicifation of Admission Dx: Justifications for Admission: Justification of Admission Dx: N/A JORGE CHENEY MD Aug 18, 2021 12:33
--- NOTE | 2021-08-18 13:19 | PDOC ---
[employer] PROGRESS NOTE Date of Service DOS: DATE: 08/18/21 TIME: 13:18 Chief Complaint Chief Complaint A/P: Acute on chronic hypercapnic respiratory failure - likely from aspiratory infection with COVID-19 complicated by pre-existing OHS and MADHU. We will keep on BiPAP as needed while sleeping titrate to ABGs. Pulmonology consulted Hypoxic respiratory failure - likely from COVID-19 viral pneumonia acute on chronic cor pulmonale. Hyperkalemia - IV bicarb Acute kidney injury -on chronic kidney disease baseline creatinine from 7 years ago was 1.5 likely just vasomotor nephropathy from above. Will consult nephrology COVID 19 pneumonia -required 5 L nasal cannula O2 increased for home O2 eval with BiPAP. We will give steroid therapy with dexamethasone and remdesivir. Acute metabolic encephalopathy -likely hypercapnic respiratory failure. We will treat with BiPAP Anemia - likely of chronic disease. 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 Protein calorie malnutrition - will start IV nutrition Elevated troponin -likely type II demand ischemia from hypoxia and hypercapnia and possibly COVID myocarditis. Will monitor. FEN - General diet PPX - lovenox FULL CODE DIspo - inpatient cc time 37 minutes History of Present Illness History of Present Illness Ms Londono is a 61 year old female w/ PMHx anemia, MADHU, OHS on 2 to 3 L home O2, HLD, HTN comes to ED on 08/08/2021 via EMS from home for a 1 week history of progressive weakness fatigue malaise nausea vomiting. She has been unable to get up out of bed and had been calling EMS for lift assist, and had previously declined transport earlier in the day. She is unable to provide significant history to me is very confused responsive to name mostly moving. ED physician has obtained above history patient did not complain of chest pain. ED physician noted patient is vaccinating is COVID-19 but her tested +1-week ago and patient herself has not been tested. There was concern noted by EMS about the condition of the home being unlivable. Labs with WBC 6.8, Hb 9.3, platelets 131, had a 136, K4.9, BUN 58, CR 2.8, glucose 129, calcium 8.4, mag 1.6, bilirubin 0.4, AST 112, ALT 35, alkaline phosphatase 69, high-sensitivity troponin is 298, NT proBNP 871, albumin is 2.7, lactic acid is 1.3, rapid influenza negative, rapid COVID-19 positive ABG 7.1 on 5 L nasal cannula oxygen. Chest radiograph with cardiomegaly and bibasilar opacities EKG sinus rate 94 bpm normal axis and intervals no ST elevations or TWI. Place on BIPAP, given dexamethasone and admitted for further care. 08/09: BUN/creatinine worsened slightly K5.8 given bicarb. More alert today still requiring BiPAP. Started on remdesivir and Decadron. She has a little bit of an appetite and is thirsty. Very weak diarrhea is improving. 08/10: ABG 7.2 back on BiPAP. BUN 85. K down to 5.4. She is asking if she can have something to eat. Still with significant dyspnea 08/11: BUN increased to 109 CR 2.6, renal ultrasound did not identify kidneys ureters or bladder. On BiPAP 14/01 FiO2 40% she made some improvements with yesterday evening ABG 7.3 . O2 was increased to 60% and continue her BiPAP overnight. Restarting BP meds today. More alert. Amenable to dialysis if necessary. Hold remdesivir. 08/12 Patient evaluated examined at bedside. Resting in bed on the phone with her daughter. She was on 6 L nasal cannula. Said to me she was still feeling just very weak and rundown overall. Continuing current treatments. Pulmonary and nephro following. Plan discussed with bedside RN. 08/13 Patient evaluated examined at bedside. Resting in bed still on 6 L nasal cannula. Continue COVID treatment. Encourage BiPAP use when asleep. Dialysis today. PT OT ordered. 08/14 Patient evaluated examined at bedside. Still on 6 L oxygen. Did okay with the first dialysis yesterday. Any further sessions per nephrology. Otherwise continuing Covid treatment. 08/15 Seen and examined at bedside. Still little confused today. No dialysis today per nephrology. Covid treatment. Continue PT OT. Suspect will need placement. 08/16 Evaluated at bedside. Plan for dialysis today. Patient agreeable. A little bit altered still. Treat COVID still. Plan discussed with bedside RN. 08/17 Eval examined at bedside. Nephro pulm following. Not much clinical change. Continue current. 08/18 Evaluated examined at bedside. Able to wean O2 a little bit. Otherwise continue current treatments. Nephro evaluating for dialysis. Continue current otherwise. Most recent therapy note recommending SNF placement Vitals/I&O Vitals/I&O: Vital Signs Date Time Temp Pulse Resp B/P (MAP) Pulse Ox O2 Delivery O2 Flow Rate FiO2 08/18/21 11:00 97.0 60 20 126/71 (89) 98 Nasal Cannula 3.0 97.0 I & O 08/17/21 08/17/21 08/18/21 15:00 23:00 07:00 Intake Total 300 ml 600 ml Output Total 600 ml Balance 300 ml 0 ml Physical Exam General: Alert, Oriented X3, Cooperative, severe distress Heart: Regular rate Lungs: Clear, Other (Decreased breath sounds bilaterally) Abdomen: Normal bowel sounds, Soft, No tenderness, No hepatosplenomegaly, No masses Extremities: No clubbing, No cyanosis, No edema, Normal pulses, No tenderness/swelling Skin: No rashes, No breakdown, No significant lesion Labs Labs: Laboratory Tests Test 08/18/21 04:00 Sodium Level 141 mmol/L (136-145) Potassium Level 5.4 mmol/L (3.5-5.1) Chloride Level 105 mmol/L (98-107) Carbon Dioxide Level 32 mmol/L (21-32) Anion Gap 4 (6-14) Blood Urea Nitrogen 87 mg/dL (7-20) Creatinine 2.2 mg/dL (0.6-1.0) Estimated GFR (Cockcroft-Gault) 27.4 Glucose Level 113 mg/dL (70-99) Calcium Level 8.3 mg/dL (8.5-10.1) Phosphorus Level 5.2 mg/dL (2.6-4.7) Albumin 2.3 g/dL (3.4-5.0) Assessment and Plan Assessmemt and Plan Problems Medical Problems: (1) COVID-19 Status: Acute (2) Elevated troponin Status: Acute (3) Pneumonia due to COVID-19 virus Status: Acute (4) Respiratory acidosis Status: Acute (5) Respiratory failure with hypoxia Status: Acute Comment Review of Relevant I have reviewed the following items marcus (where applicable) has been applied. Justifications for Admission Other Justification EBER CEJA MD Aug 18, 2021 13:19
[2021-08-18 15:00] VITALS: BP 121/57
[2021-08-18 19:43] VITALS: BP 147/70
[2021-08-18] MEDS: ATORVASTATIN CALCIUM 10 MG TABLET. PO SCH (20:53)
[2021-08-18 22:26] VITALS: BP 126/66
[2021-08-19 02:38] VITALS: BP 175/82
[2021-08-19 05:30] LABS: ALBUMIN 2.2 g/dL (3.4-5.0); GFR 30.5; POTASSIUM 5.7 mmol/L (3.5-5.1)
[2021-08-19] MEDS: PANTOPRAZOLE 40 MG TABLET.DR. PO SCH (06:19)
[2021-08-19] MEDS: HEPARIN for SUB-Q USE 5,000 UNIT/ML VIAL. SQ SCH ×3 (06:19→21:04)
[2021-08-19 07:55] VITALS: BP 137/73
[2021-08-19] MEDS ORDERED: IV NORMAL SALINE 1000ML BAG 1,000 ML IV PRN ×2 (08:00)
[2021-08-19] MEDS ORDERED: DIALYSIS PATIENT. MC PRN (08:00)
--- NOTE | 2021-08-19 08:29 | PDOC ---
PULMONARY PROGRESS NOTES DATE: 08/19/21 TIME: 08:24 Subjective Patient resting comfortably, feeling a little better this morning currently on NC at 3L BiPAP overnight 28/6 40% PRN, did not use last night No new concerns Vitals Vital Signs Date Time Temp Pulse Resp B/P (MAP) Pulse Ox O2 Delivery O2 Flow Rate FiO2 08/19/21 07:52 98 Nasal Cannula 3.0 08/19/21 02:38 97.6 62 20 175/82 (113) 97.6 ROS: No Nausea, No Chest Pain, No Abdominal Pain, No Increase Cough General: Alert HEENT: Other Lungs: Clear, Other (Decreased breath sounds bilaterally) Cardiovascular: S1, S2 Abdomen: Soft, Other (Trace pitting edema) Extremities: Other Skin: Warm, No Rashes Labs Laboratory Tests Test 08/18/21 04:00 08/19/21 04:40 Sodium Level 141 mmol/L (136-145) 139 mmol/L (136-145) Potassium Level 5.4 mmol/L (3.5-5.1) 5.7 mmol/L (3.5-5.1) Chloride Level 105 mmol/L (98-107) 106 mmol/L (98-107) Carbon Dioxide Level 32 mmol/L (21-32) 32 mmol/L (21-32) Anion Gap 4 (6-14) 1 (6-14) Blood Urea Nitrogen 87 mg/dL (7-20) 84 mg/dL (7-20) Creatinine 2.2 mg/dL (0.6-1.0) 2.0 mg/dL (0.6-1.0) Estimated GFR (Cockcroft-Gault) 27.4 30.5 Glucose Level 113 mg/dL (70-99) 108 mg/dL (70-99) Calcium Level 8.3 mg/dL (8.5-10.1) 8.0 mg/dL (8.5-10.1) Phosphorus Level 5.2 mg/dL (2.6-4.7) 4.0 mg/dL (2.6-4.7) Albumin 2.3 g/dL (3.4-5.0) 2.2 g/dL (3.4-5.0) Laboratory Tests Test 08/19/21 04:40 Sodium Level 139 mmol/L (136-145) Potassium Level 5.7 mmol/L (3.5-5.1) Chloride Level 106 mmol/L (98-107) Carbon Dioxide Level 32 mmol/L (21-32) Anion Gap 1 (6-14) Blood Urea Nitrogen 84 mg/dL (7-20) Creatinine 2.0 mg/dL (0.6-1.0) Estimated GFR (Cockcroft-Gault) 30.5 Glucose Level 108 mg/dL (70-99) Calcium Level 8.0 mg/dL (8.5-10.1) Phosphorus Level 4.0 mg/dL (2.6-4.7) Albumin 2.2 g/dL (3.4-5.0) Medications Active Scripts Medications Dose Route/Sig Max Daily Dose Days Date Category [Megestrol Acetate] 20 MG Tablet 20 Mg PO BID 11/11/14 Rx Feosol (Ferrous Sulfate) 325 Mg Tablet 325 Mg PO DAILYWBKFT 30 11/11/14 Rx [place] 3-6-9 1,200 mg Softgel (Fish Oil/Borage/Flax/Om3,6,9#1) 1,200 Mg Capsule 1,200 Mg PO DAILY 11/05/14 Reported Loratadine 10 Mg Tablet 10 Mg PO 11/05/14 Reported Metoprolol Tartrate 50 Mg Tablet 50 Mg PO BID 11/05/14 Reported Toviaz (Fesoterodine Fumarate) 8 Mg Tab.er.24h 8 Mg PO 11/05/14 Reported Lovastatin 20 Mg Tablet 20 Mg PO HS 11/05/14 Reported Omeprazole 20 Mg Tablet.dr 20 Mg PO DAILY 02/04/14 Reported Daily Vitamin (Multivitamin) 1 Each Tablet 1 Each PO 02/04/14 Reported Detrol La (Tolterodine Tartrate) 4 Mg Cap.er.24h 4 Mg PO DAILY 02/04/14 Reported Impression . IMPRESSION: 1. Acute on chronic hypercapnic and hypoxic respiratory failure secondary to multifactorial etiologies including COVID-19 viral pneumonia and underlying obesity hypoventilation syndrome with acute on chronic cor pulmonale. 2. Chronic kidney disease, acute kidney insufficiency 3. COVID positive 4. Abnormal chest x-ray with bilateral interstitial infiltrates consistent with COVID-19 viral pneumonia. 5. Encephalopathy multifactorial 6. History of tobaccoism. Plan . Updated 08/19 We will discuss with Dr. Braun, on need for long-term dialysis Continue current support of 3L NC Titrate O2 down as tolerated Dialysis per nephrology Labs reviewed Updated 08/18 We will discussed with team, on disposition Continue current support Dialysis per nephrology BiPAP overnight and PRN Continue to titrate O2 down Labs reviewed IVORY WEBER MD Aug 19, 2021 08:29
[2021-08-19] MEDS: NYSTATIN TOPICAL POWDER 15GM BOTTLE. TP SCH ×2 (09:00→21:00)
--- NOTE | 2021-08-19 11:07 | PDOC ---
[employer] PROGRESS NOTE Date of Service DOS: DATE: 08/19/21 TIME: 11:06 Chief Complaint Chief Complaint A/P: Acute on chronic hypercapnic respiratory failure - likely from aspiratory infection with COVID-19 complicated by pre-existing OHS and MADHU. We will keep on BiPAP as needed while sleeping titrate to ABGs. Pulmonology consulted Hypoxic respiratory failure - likely from COVID-19 viral pneumonia acute on chronic cor pulmonale. Hyperkalemia - IV bicarb Acute kidney injury -on chronic kidney disease baseline creatinine from 7 years ago was 1.5 likely just vasomotor nephropathy from above. Will consult nephrology COVID 19 pneumonia -required 5 L nasal cannula O2 increased for home O2 eval with BiPAP. We will give steroid therapy with dexamethasone and remdesivir. Acute metabolic encephalopathy -likely hypercapnic respiratory failure. We will treat with BiPAP Anemia - likely of chronic disease. 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 Protein calorie malnutrition - will start IV nutrition Elevated troponin -likely type II demand ischemia from hypoxia and hypercapnia and possibly COVID myocarditis. Will monitor. FEN - General diet PPX - lovenox FULL CODE DIspo - inpatient cc time 37 minutes History of Present Illness History of Present Illness Ms Londono is a 61 year old female w/ PMHx anemia, MADHU, OHS on 2 to 3 L home O2, HLD, HTN comes to ED on 08/08/2021 via EMS from home for a 1 week history of progressive weakness fatigue malaise nausea vomiting. She has been unable to get up out of bed and had been calling EMS for lift assist, and had previously declined transport earlier in the day. She is unable to provide significant history to me is very confused responsive to name mostly moving. ED physician has obtained above history patient did not complain of chest pain. ED physician noted patient is vaccinating is COVID-19 but her tested +1-week ago and patient herself has not been tested. There was concern noted by EMS about the condition of the home being unlivable. Labs with WBC 6.8, Hb 9.3, platelets 131, had a 136, K4.9, BUN 58, CR 2.8, glucose 129, calcium 8.4, mag 1.6, bilirubin 0.4, AST 112, ALT 35, alkaline phosphatase 69, high-sensitivity troponin is 298, NT proBNP 871, albumin is 2.7, lactic acid is 1.3, rapid influenza negative, rapid COVID-19 positive ABG 7.1 on 5 L nasal cannula oxygen. Chest radiograph with cardiomegaly and bibasilar opacities EKG sinus rate 94 bpm normal axis and intervals no ST elevations or TWI. Place on BIPAP, given dexamethasone and admitted for further care. 08/09: BUN/creatinine worsened slightly K5.8 given bicarb. More alert today still requiring BiPAP. Started on remdesivir and Decadron. She has a little bit of an appetite and is thirsty. Very weak diarrhea is improving. 08/10: ABG 7.2 back on BiPAP. BUN 85. K down to 5.4. She is asking if she can have something to eat. Still with significant dyspnea 08/11: BUN increased to 109 CR 2.6, renal ultrasound did not identify kidneys ureters or bladder. On BiPAP 14/01 FiO2 40% she made some improvements with yesterday evening ABG 7.3 . O2 was increased to 60% and continue her BiPAP overnight. Restarting BP meds today. More alert. Amenable to dialysis if necessary. Hold remdesivir. 08/12 Patient evaluated examined at bedside. Resting in bed on the phone with her daughter. She was on 6 L nasal cannula. Said to me she was still feeling just very weak and rundown overall. Continuing current treatments. Pulmonary and nephro following. Plan discussed with bedside RN. 08/13 Patient evaluated examined at bedside. Resting in bed still on 6 L nasal cannula. Continue COVID treatment. Encourage BiPAP use when asleep. Dialysis today. PT OT ordered. 08/14 Patient evaluated examined at bedside. Still on 6 L oxygen. Did okay with the first dialysis yesterday. Any further sessions per nephrology. Otherwise continuing Covid treatment. 08/15 Seen and examined at bedside. Still little confused today. No dialysis today per nephrology. Covid treatment. Continue PT OT. Suspect will need placement. 08/16 Evaluated at bedside. Plan for dialysis today. Patient agreeable. A little bit altered still. Treat COVID still. Plan discussed with bedside RN. 08/17 Eval examined at bedside. Nephro pulm following. Not much clinical change. Continue current. 08/18: Evaluated examined at bedside. Able to wean O2 a little bit. Nephro evaluating for dialysis. Continue current otherwise. Most recent therapy note recommending SNF. 08/19: K5.7, BUN 84, CR 2. Going for dialysis today. On 3L NCO2 and QHS BIPAP. Very weak. Vitals/I&O Vitals/I&O: Vital Signs Date Time Temp Pulse Resp B/P (MAP) Pulse Ox O2 Delivery O2 Flow Rate FiO2 08/19/21 07:55 97.8 70 18 137/73 (94) 98 Nasal Cannula 3.0 97.8 I & O 08/18/21 08/18/21 08/19/21 15:00 23:00 07:00 Intake Total 580 ml 320 ml 200 ml Output Total 1300 ml Balance 580 ml -980 ml 200 ml Physical Exam General: Alert, Oriented X3, Cooperative, severe distress Heart: Regular rate Lungs: Clear, Other (Decreased breath sounds bilaterally) Abdomen: Normal bowel sounds, Soft, No tenderness, No hepatosplenomegaly, No masses Extremities: No clubbing, No cyanosis, No edema, Normal pulses, No tenderness/swelling Skin: No rashes, No breakdown, No significant lesion Labs Labs: Laboratory Tests Test 08/19/21 04:40 Sodium Level 139 mmol/L (136-145) Potassium Level 5.7 mmol/L (3.5-5.1) Chloride Level 106 mmol/L (98-107) Carbon Dioxide Level 32 mmol/L (21-32) Anion Gap 1 (6-14) Blood Urea Nitrogen 84 mg/dL (7-20) Creatinine 2.0 mg/dL (0.6-1.0) Estimated GFR (Cockcroft-Gault) 30.5 Glucose Level 108 mg/dL (70-99) Calcium Level 8.0 mg/dL (8.5-10.1) Phosphorus Level 4.0 mg/dL (2.6-4.7) Albumin 2.2 g/dL (3.4-5.0) Assessment and Plan Assessmemt and Plan Problems Medical Problems: (1) COVID-19 Status: Acute (2) Elevated troponin Status: Acute (3) Pneumonia due to COVID-19 virus Status: Acute (4) Respiratory acidosis Status: Acute (5) Respiratory failure with hypoxia Status: Acute Comment Review of Relevant I have reviewed the following items marcus (where applicable) has been applied. Justifications for Admission Other Justification EBER ZHOU MD Aug 19, 2021 11:07
--- NOTE | 2021-08-19 12:32 | PDOC ---
Renal-Progress Notes Subjective Notes Notes NO NEW COMPLAINTS History of Present Illness Hx of present illness STABLE Vitals Vitals Vital Signs Date Time Temp Pulse Resp B/P (MAP) Pulse Ox O2 Delivery O2 Flow Rate FiO2 08/19/21 08:00 Nasal Cannula 3.0 08/19/21 07:55 97.8 70 18 137/73 (94) 98 97.8 Weight Weight [ ] I.O. Intake and Output Intake and Output 08/19/21 07:00 Intake Total 1100 ml Output Total 1300 ml Balance -200 ml Intake Oral 1100 ml Output Urine Total 1300 ml # Voids 1 Labs Labs Laboratory Tests Test 08/19/21 04:40 Sodium Level 139 mmol/L (136-145) Potassium Level 5.7 mmol/L (3.5-5.1) Chloride Level 106 mmol/L (98-107) Carbon Dioxide Level 32 mmol/L (21-32) Anion Gap 1 (6-14) Blood Urea Nitrogen 84 mg/dL (7-20) Creatinine 2.0 mg/dL (0.6-1.0) Estimated GFR (Cockcroft-Gault) 30.5 Glucose Level 108 mg/dL (70-99) Calcium Level 8.0 mg/dL (8.5-10.1) Phosphorus Level 4.0 mg/dL (2.6-4.7) Albumin 2.2 g/dL (3.4-5.0) Micro Micro Microbiology 08/10/21 Urine Culture - Final, Complete 08/08/21 Blood Culture - Final, Complete Staphylococcus Pettenkoferi Review of Systems Constitutional: yes: alert, oriented Ears/Nose/Throat: Yes: no symptom reported Eyes: Yes: no symptom reported Pulmonary: Yes dyspnea Cardiovascular: Yes no symptom reported Gastrointestional: Yes: no symptom reported Genitourinary: Yes: no symptom reported Musculoskeletal: Yes: no symptom reported Skin: Yes no symptom reported Psychiatric/Neurological: Yes: no symptom reported Endocrine: Yes: no symptom reported Physical Exam General Appearance: no apparent distress Skin: warm Respiratory: decreased breath sounds Heart: S1S2 Abdomen: soft, bowel sounds present Genitourinary: bladder flat Extremities: pulses present Neurology: alert, oriented Assessment Assessment IMP JULIA-ATN-NON OLIGURIC CKD STAGE 3B TO 4 - CR PROB NEAR 2.0 AT BASELINE ACUTE HYPOXIC HYPERCAPNEIC RESP FAILURE MORBID OBESITY COVID 19 VIRAL PNEUMONIA ENCEPHALOPATHY-RESOLVED ANEMIA PLAN HD AGAIN TODAY MIN UF LOOK FOR RENAL RECOVERY START ORAL DIURETICS TODAY WILL FOLLOW BOOM RAINEY MD Aug 19, 2021 12:32
--- NOTE | 2021-08-19 13:05 | NUR ---
SS following up with discharge planning. SS reviewed pt chart and discussed with pt RN. Pt is currently requiring oxygen at three liters nasal canula and BIPAP PRN. COVID19 positive. Pt has home oxygen. Morbid obesity. Temporary Hemodialysis. Nephrology monitoring for renal recovery. PT/OT recommended half-way unit. Referrals sent to [facility], [facility], [facility], and [facility]. [facility] and [facility] clinically declined. [facility] reviewing at this time. [facility] reported that they would have to decline if pt needs hemodialysis due to cost of bariatric transportation to and from dialysis. SS will continue to follow for discharge planning.
[2021-08-19 14:18] VITALS: BP 108/56
[2021-08-19] MEDS: CETIRIZINE HCL 10 MG TABLET. PO SCH (14:27)
[2021-08-19] MEDS: LACTOBACILLUS RHAMNOSUS GG 1 CAPSULE. PO SCH ×2 (14:27→21:02)
[2021-08-19] MEDS: METOPROLOL TART IMMED RELEASE 50 MG TABLET. PO SCH ×2 (14:28→21:03)
[2021-08-19] MEDS: FUROSEMIDE 40 MG TABLET. PO SCH ×2 (14:29→21:07)
[2021-08-19 19:50] VITALS: BP 126/63
[2021-08-19] MEDS: ATORVASTATIN CALCIUM 10 MG TABLET. PO SCH (21:02)
[2021-08-19 23:20] VITALS: BP 128/59
[2021-08-20 03:00] VITALS: BP 130/68
[2021-08-20] MEDS: PANTOPRAZOLE 40 MG TABLET.DR. PO SCH (06:07)
[2021-08-20] MEDS: HEPARIN for SUB-Q USE 5,000 UNIT/ML VIAL. SQ SCH ×3 (06:07→21:33)
[2021-08-20 06:10] LABS: ALBUMIN 2.1 g/dL (3.4-5.0); CALCIUM 8.2 mg/dL (8.5-10.1); CREATININE 1.8 mg/dL (0.6-1.0); GFR 34.5; PHOSPHORUS 4.5 mg/dL (2.6-4.7); POTASSIUM 4.9 mmol/L (3.5-5.1)
[2021-08-20 07:55] VITALS: BP 118/61
[2021-08-20] MEDS: METOPROLOL TART IMMED RELEASE 50 MG TABLET. PO SCH ×2 (08:58→21:30)
[2021-08-20] MEDS: NYSTATIN TOPICAL POWDER 15GM BOTTLE. TP SCH ×2 (08:58→21:31)
[2021-08-20] MEDS: FUROSEMIDE 40 MG TABLET. PO SCH ×2 (08:58→21:30)
[2021-08-20] MEDS: CETIRIZINE HCL 10 MG TABLET. PO SCH (08:58)
[2021-08-20] MEDS: LACTOBACILLUS RHAMNOSUS GG 1 CAPSULE. PO SCH ×2 (08:58→21:30)
--- NOTE | 2021-08-20 09:01 | PDOC ---
PULMONARY PROGRESS NOTES DATE: 08/20/21 TIME: 08:57 Subjective Patient resting comfortably this morning, No events overnight Feels slightly better Continues on 3L NC Vitals Vital Signs Date Time Temp Pulse Resp B/P (MAP) Pulse Ox O2 Delivery O2 Flow Rate FiO2 08/20/21 08:28 96 Nasal Cannula 3.0 08/20/21 07:55 98.4 63 22 118/61 (80) 98.4 ROS: No Nausea, No Chest Pain, No Abdominal Pain, No Increase Cough General: Alert HEENT: Other Lungs: Clear, Other (Decreased breath sounds bilaterally) Cardiovascular: S1, S2 Abdomen: Soft, Other (Trace pitting edema) Extremities: Other Skin: Warm, No Rashes Labs Laboratory Tests Test 08/19/21 04:40 08/20/21 05:20 Sodium Level 139 mmol/L (136-145) 144 mmol/L (136-145) Potassium Level 5.7 mmol/L (3.5-5.1) 4.9 mmol/L (3.5-5.1) Chloride Level 106 mmol/L (98-107) 108 mmol/L (98-107) Carbon Dioxide Level 32 mmol/L (21-32) 33 mmol/L (21-32) Anion Gap 1 (6-14) 3 (6-14) Blood Urea Nitrogen 84 mg/dL (7-20) 51 mg/dL (7-20) Creatinine 2.0 mg/dL (0.6-1.0) 1.8 mg/dL (0.6-1.0) Estimated GFR (Cockcroft-Gault) 30.5 34.5 Glucose Level 108 mg/dL (70-99) 87 mg/dL (70-99) Calcium Level 8.0 mg/dL (8.5-10.1) 8.2 mg/dL (8.5-10.1) Phosphorus Level 4.0 mg/dL (2.6-4.7) 4.5 mg/dL (2.6-4.7) Albumin 2.2 g/dL (3.4-5.0) 2.1 g/dL (3.4-5.0) Laboratory Tests Test 08/20/21 05:20 Sodium Level 144 mmol/L (136-145) Potassium Level 4.9 mmol/L (3.5-5.1) Chloride Level 108 mmol/L (98-107) Carbon Dioxide Level 33 mmol/L (21-32) Anion Gap 3 (6-14) Blood Urea Nitrogen 51 mg/dL (7-20) Creatinine 1.8 mg/dL (0.6-1.0) Estimated GFR (Cockcroft-Gault) 34.5 Glucose Level 87 mg/dL (70-99) Calcium Level 8.2 mg/dL (8.5-10.1) Phosphorus Level 4.5 mg/dL (2.6-4.7) Albumin 2.1 g/dL (3.4-5.0) Medications Active Scripts Medications Dose Route/Sig Max Daily Dose Days Date Category [Megestrol Acetate] 20 MG Tablet 20 Mg PO BID 11/11/14 Rx Feosol (Ferrous Sulfate) 325 Mg Tablet 325 Mg PO DAILYWBKFT 30 11/11/14 Rx [place] 3-6-9 1,200 mg Softgel (Fish Oil/Borage/Flax/Om3,6,9#1) 1,200 Mg Capsule 1,200 Mg PO DAILY 11/05/14 Reported Loratadine 10 Mg Tablet 10 Mg PO 11/05/14 Reported Metoprolol Tartrate 50 Mg Tablet 50 Mg PO BID 11/05/14 Reported Toviaz (Fesoterodine Fumarate) 8 Mg Tab.er.24h 8 Mg PO 11/05/14 Reported Lovastatin 20 Mg Tablet 20 Mg PO HS 11/05/14 Reported Omeprazole 20 Mg Tablet.dr 20 Mg PO DAILY 02/04/14 Reported Daily Vitamin (Multivitamin) 1 Each Tablet 1 Each PO 02/04/14 Reported Detrol La (Tolterodine Tartrate) 4 Mg Cap.er.24h 4 Mg PO DAILY 02/04/14 Reported Impression . IMPRESSION: 1. Acute on chronic hypercapnic and hypoxic respiratory failure secondary to multifactorial etiologies including COVID-19 viral pneumonia and underlying obesity hypoventilation syndrome with acute on chronic cor pulmonale. 2. Chronic kidney disease, acute kidney insufficiency 3. COVID positive 4. Abnormal chest x-ray with bilateral interstitial infiltrates consistent with COVID-19 viral pneumonia. 5. Encephalopathy multifactorial 6. History of tobaccoism. Plan . Updated 08/20 Tolerate O2 down as tolerated Labs reviewed Nephrology following Dialysis yesterday Updated 08/19 We will discuss with Dr. Braun, on need for long-term dialysis Continue current support of 3L NC Titrate O2 down as tolerated Dialysis per nephrology Labs reviewed Updated 08/18 We will discussed with team, on disposition Continue current support Dialysis per nephrology BiPAP overnight and PRN Continue to titrate O2 down Labs reviewed IVORY WEBER MD Aug 20, 2021 09:01
--- NOTE | 2021-08-20 11:09 | PDOC ---
[facility] [facility] PROGRESS NOTE Date of Service DOS: DATE: 08/20/21 TIME: 11:07 Chief Complaint Chief Complaint A/P: Acute on chronic hypercapnic respiratory failure - likely from aspiratory infection with COVID-19 complicated by pre-existing OHS and MADHU. We will keep on BiPAP as needed while sleeping titrate to ABGs. Pulmonology consulted Hypoxic respiratory failure - likely from COVID-19 viral pneumonia acute on chronic cor pulmonale. Hyperkalemia - IV bicarb Acute kidney injury -on chronic kidney disease baseline creatinine from 7 years ago was 1.5 likely just vasomotor nephropathy from above. Will consult nephrology COVID 19 pneumonia -required 5 L nasal cannula O2 increased for home O2 eval with BiPAP. We will give steroid therapy with dexamethasone and remdesivir. Acute metabolic encephalopathy -likely hypercapnic respiratory failure. We will treat with BiPAP Anemia - likely of chronic disease. 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 Protein calorie malnutrition - will start IV nutrition Elevated troponin -likely type II demand ischemia from hypoxia and hypercapnia and possibly COVID myocarditis. Will monitor. FEN - General diet PPX - lovenox FULL CODE DIspo - inpatient cc time 37 minutes History of Present Illness History of Present Illness Ms Londono is a 61 year old female w/ PMHx anemia, MADHU, OHS on 2 to 3 L home O2, HLD, HTN comes to ED on 08/08/2021 via EMS from home for a 1 week history of progressive weakness fatigue malaise nausea vomiting. She has been unable to get up out of bed and had been calling EMS for lift assist, and had previously declined transport earlier in the day. She is unable to provide significant history to me is very confused responsive to name mostly moving. ED physician has obtained above history patient did not complain of chest pain. ED physician noted patient is vaccinating is COVID-19 but her tested +1-week ago and patient herself has not been tested. There was concern noted by EMS about the condition of the home being unlivable. Labs with WBC 6.8, Hb 9.3, platelets 131, had a 136, K4.9, BUN 58, CR 2.8, glucose 129, calcium 8.4, mag 1.6, bilirubin 0.4, AST 112, ALT 35, alkaline phosphatase 69, high-sensitivity troponin is 298, NT proBNP 871, albumin is 2.7, lactic acid is 1.3, rapid influenza negative, rapid COVID-19 positive ABG 7.1 on 5 L nasal cannula oxygen. Chest radiograph with cardiomegaly and bibasilar opacities EKG sinus rate 94 bpm normal axis and intervals no ST elevations or TWI. Place on BIPAP, given dexamethasone and admitted for further care. 08/09: BUN/creatinine worsened slightly K5.8 given bicarb. More alert. BiPAP qhs. On remdesivir and Decadron. Has appetite and is thirsty. Very weak diarrhea is improving. 08/10: ABG 7.2 back on BiPAP. BUN 85. K down to 5.4. She is asking if she can have something to eat. Still with significant dyspnea 08/11: BUN increased to 109 CR 2.6, renal ultrasound did not identify kidneys ureters or bladder. On BiPAP / FiO2 40% she made some improvements with yesterday evening ABG 7.3 . O2 was increased to 60% and continue her BiPAP overnight. Restarting BP meds today. More alert. Amenable to dialysis if necessary. Hold remdesivir. 08/12: Patient evaluated examined at bedside. Resting in bed on the phone with her daughter. She was on 6 L nasal cannula. Said to me she was still feeling just very weak 08/13: Patient evaluated examined at bedside. Resting in bed still on 6 L nasal cannula. Continue COVID treatment. Encourage BiPAP use when asleep. Dialysis today. PT OT 08/14: Patient evaluated examined at bedside. Still on 6 L oxygen. Did okay with the first dialysis yesterday. Any further sessions per nephrology. 08/15: Seen and examined at bedside. Still little confused today. No dialysis today per nephrology. Covid treatment. Continue PT OT. Suspect will need placement. 08/16: Evaluated at bedside. Plan for dialysis today. Patient agreeable. A little bit altered still. Treat COVID still. Plan discussed with bedside RN. 08/17: Eval examined at bedside. Nephro pulm following. Not much clinical change. Continue current. 1/30: Evaluated examined at bedside. Able to wean O2 a little bit. Nephro evaluating for dialysis. Continue current otherwise. Most recent therapy note recommending SNF. 08/19: K5.7, BUN 84, CR 2. Going for dialysis today. On 3L NCO2 and QHS BIPAP. Very weak. 08/20: K BUN/creatinine improved. No plans for dialysis next day will monitor labs. Feeling weak is amenable to rehab. On 3 L nasal cannula with O2 saturations 94%. BiPAP nightly. Vitals/I&O Vitals/I&O: Vital Signs Date Time Temp Pulse Resp B/P (MAP) Pulse Ox O2 Delivery O2 Flow Rate FiO2 08/20/21 08:58 63 118/61 08/20/21 08:28 96 Nasal Cannula 3.0 08/20/21 07:55 98.4 22 98.4 I & O 08/19/21 08/19/21 08/20/21 14:59 22:59 06:59 Intake Total 660 ml 440 ml Output Total 450 ml Balance 660 ml -10 ml Physical Exam General: Alert, Oriented X3, Cooperative, severe distress Heart: Regular rate Lungs: Clear, Other (Decreased breath sounds bilaterally) Abdomen: Normal bowel sounds, Soft, No tenderness, No hepatosplenomegaly, No masses Extremities: No clubbing, No cyanosis, No edema, Normal pulses, No tenderness/swelling Skin: No rashes, No breakdown, No significant lesion Labs Labs: Laboratory Tests Test 08/20/21 05:20 Sodium Level 144 mmol/L (136-145) Potassium Level 4.9 mmol/L (3.5-5.1) Chloride Level 108 mmol/L (98-107) Carbon Dioxide Level 33 mmol/L (21-32) Anion Gap 3 (6-14) Blood Urea Nitrogen 51 mg/dL (7-20) Creatinine 1.8 mg/dL (0.6-1.0) Estimated GFR (Cockcroft-Gault) 34.5 Glucose Level 87 mg/dL (70-99) Calcium Level 8.2 mg/dL (8.5-10.1) Phosphorus Level 4.5 mg/dL (2.6-4.7) Albumin 2.1 g/dL (3.4-5.0) Assessment and Plan Assessmemt and Plan Problems Medical Problems: (1) COVID-19 Status: Acute (2) Elevated troponin Status: Acute (3) Pneumonia due to COVID-19 virus Status: Acute (4) Respiratory acidosis Status: Acute (5) Respiratory failure with hypoxia Status: Acute Comment Review of Relevant I have reviewed the following items marcus (where applicable) has been applied. Medications: Current Medications Medications (Trade) Dose Ordered Sig/Jeannie Route PRN Reason Start Time Stop Time Status Last Admin Dose Admin Furosemide (Lasix) 40 mg BID PO 08/19/21 13:00 08/20/21 08:58 Justifications for Admission Other Justification EBER ZHOU MD Aug 20, 2021 11:09
[2021-08-20 11:55] VITALS: BP 124/59
--- NOTE | 2021-08-20 12:09 | PDOC ---
Renal-Progress Notes Subjective Notes Notes NO NEW COMPLAINTS History of Present Illness Hx of present illness STABLE Vitals Vitals Vital Signs Date Time Temp Pulse Resp B/P (MAP) Pulse Ox O2 Delivery O2 Flow Rate FiO2 08/20/21 08:58 63 118/61 08/20/21 08:28 96 Nasal Cannula 3.0 08/20/21 07:55 98.4 22 98.4 Weight Weight [ ] I.O. Intake and Output Intake and Output 08/20/21 07:00 Intake Total 1100 ml Output Total 450 ml Balance 650 ml Intake Oral 1100 ml Output Urine Total 450 ml Labs Labs Laboratory Tests Test 08/20/21 05:20 Sodium Level 144 mmol/L (136-145) Potassium Level 4.9 mmol/L (3.5-5.1) Chloride Level 108 mmol/L (98-107) Carbon Dioxide Level 33 mmol/L (21-32) Anion Gap 3 (6-14) Blood Urea Nitrogen 51 mg/dL (7-20) Creatinine 1.8 mg/dL (0.6-1.0) Estimated GFR (Cockcroft-Gault) 34.5 Glucose Level 87 mg/dL (70-99) Calcium Level 8.2 mg/dL (8.5-10.1) Phosphorus Level 4.5 mg/dL (2.6-4.7) Albumin 2.1 g/dL (3.4-5.0) Micro Micro Microbiology 08/10/21 Urine Culture - Final, Complete 08/08/21 Blood Culture - Final, Complete Staphylococcus Pettenkoferi Review of Systems Constitutional: yes: alert, oriented Ears/Nose/Throat: Yes: no symptom reported Eyes: Yes: no symptom reported Pulmonary: Yes dyspnea Cardiovascular: Yes no symptom reported Gastrointestional: Yes: no symptom reported Genitourinary: Yes: no symptom reported Musculoskeletal: Yes: no symptom reported Skin: Yes no symptom reported Psychiatric/Neurological: Yes: no symptom reported Endocrine: Yes: no symptom reported Physical Exam General Appearance: no apparent distress Skin: warm Respiratory: decreased breath sounds Heart: S1S2 Abdomen: soft, bowel sounds present Genitourinary: bladder flat Extremities: pulses present Neurology: alert, oriented Assessment Assessment IMP JULIA-ATN-NON OLIGURIC CKD STAGE 3B TO 4 - CR PROB NEAR 2.0 AT BASELINE ACUTE HYPOXIC HYPERCAPNEIC RESP FAILURE MORBID OBESITY COVID 19 VIRAL PNEUMONIA ENCEPHALOPATHY-RESOLVED ANEMIA PLAN HOLD HD FOR NOW LOOK FOR RENAL RECOVERY START ORAL DIURETICS TODAY WILL FOLLOW BOOM RAINEY MD Aug 20, 2021 12:09
--- NOTE | 2021-08-20 13:23 | NUR ---
SS following up with discharge planning. SS reviewed pt chart and discussed with pt RN. Pt is currently requiring oxygen at three liters nasal canula and BIPAP PRN. COVID19 positive. Pt has home oxygen. Morbid obesity. Temporary Hemodialysis. Nephrology monitoring for renal recovery. PT/OT recommended [facility] unit. [facility], ; fax [phone], if pt does not need dialysis. [facility] unable to provide bariatric transportation to and from dialysis. Possible LTACH referral if hemodialysis needed. Clinical updates phoned and faxed to [facility]. SS will continue to follow for discharge planning.
[2021-08-20 14:58] VITALS: BP 119/56
[2021-08-20 19:00] VITALS: BP 148/71
[2021-08-20] MEDS: ATORVASTATIN CALCIUM 10 MG TABLET. PO SCH (21:31)
[2021-08-20 23:00] VITALS: BP 122/66
[2021-08-21 02:55] VITALS: BP 143/80
[2021-08-21] MEDS: PANTOPRAZOLE 40 MG TABLET.DR. PO SCH (06:17)
[2021-08-21] MEDS: HEPARIN for SUB-Q USE 5,000 UNIT/ML VIAL. SQ SCH ×3 (06:18→20:08)
[2021-08-21 06:50] LABS: ALBUMIN 2.2 g/dL (3.4-5.0); CALCIUM 8.5 mg/dL (8.5-10.1); CREATININE 2.3 mg/dL (0.6-1.0); MAGNESIUM 1.9 mg/dL (1.8-2.4); POTASSIUM 5.3 mmol/L (3.5-5.1)
[2021-08-21 07:00] VITALS: BP 113/56
[2021-08-21] MEDS: NYSTATIN TOPICAL POWDER 15GM BOTTLE. TP SCH ×2 (09:00→20:08)
[2021-08-21] MEDS: CETIRIZINE HCL 10 MG TABLET. PO SCH (09:13)
[2021-08-21] MEDS: FUROSEMIDE 40 MG TABLET. PO SCH ×2 (09:13→20:06)
[2021-08-21] MEDS: LACTOBACILLUS RHAMNOSUS GG 1 CAPSULE. PO SCH ×2 (09:13→20:06)
[2021-08-21] MEDS: METOPROLOL TART IMMED RELEASE 50 MG TABLET. PO SCH ×2 (09:14→20:06)
[2021-08-21 10:24] VITALS: BP 126/52
--- NOTE | 2021-08-21 12:29 | NUR ---
SS following up with discharge planning. SS reviewed pt chart and discussed with pt RN. Pt is currently requiring oxygen at three liters nasal canula and BIPAP PRN. COVID19 positive. Pt has home oxygen. Morbid obesity. Temporary Hemodialysis. Nephrology monitoring for renal recovery. PT/OT recommended [facility] unit. Pt accepted at [facility], ; fax [phone], if pt does not need dialysis. [facility] unable to provide bariatric transportation to and from dialysis. Possible LTACH referral if hemodialysis needed. SS will continue to follow for discharge planning.
--- NOTE | 2021-08-21 13:13 | PDOC ---
PULMONARY PROGRESS NOTES DATE: 08/21/21 TIME: 13:12 Subjective Patient with no new complaints continues on nasal cannula oxygen Vitals Vital Signs Date Time Temp Pulse Resp B/P (MAP) Pulse Ox O2 Delivery O2 Flow Rate FiO2 08/21/21 10:24 97.6 74 18 126/52 (76) 95 Nasal Cannula 3.0 97.6 ROS: No Nausea, No Chest Pain, No Abdominal Pain, No Increase Cough General: Alert HEENT: Other Lungs: Clear, Other (Decreased breath sounds bilaterally) Cardiovascular: S1, S2 Abdomen: Soft, Other (Trace pitting edema) Extremities: Other Skin: Warm, No Rashes Labs Laboratory Tests Test 08/20/21 05:20 08/21/21 05:44 Sodium Level 144 mmol/L (136-145) 142 mmol/L (136-145) Potassium Level 4.9 mmol/L (3.5-5.1) 5.3 mmol/L (3.5-5.1) Chloride Level 108 mmol/L (98-107) 107 mmol/L (98-107) Carbon Dioxide Level 33 mmol/L (21-32) 31 mmol/L (21-32) Anion Gap 3 (6-14) 4 (6-14) Blood Urea Nitrogen 51 mg/dL (7-20) 64 mg/dL (7-20) Creatinine 1.8 mg/dL (0.6-1.0) 2.3 mg/dL (0.6-1.0) Estimated GFR (Cockcroft-Gault) 34.5 26.0 Glucose Level 87 mg/dL (70-99) 90 mg/dL (70-99) Calcium Level 8.2 mg/dL (8.5-10.1) 8.5 mg/dL (8.5-10.1) Phosphorus Level 4.5 mg/dL (2.6-4.7) 5.0 mg/dL (2.6-4.7) Albumin 2.1 g/dL (3.4-5.0) 2.2 g/dL (3.4-5.0) Magnesium Level 1.9 mg/dL (1.8-2.4) Laboratory Tests Test 08/21/21 05:44 Sodium Level 142 mmol/L (136-145) Potassium Level 5.3 mmol/L (3.5-5.1) Chloride Level 107 mmol/L (98-107) Carbon Dioxide Level 31 mmol/L (21-32) Anion Gap 4 (6-14) Blood Urea Nitrogen 64 mg/dL (7-20) Creatinine 2.3 mg/dL (0.6-1.0) Estimated GFR (Cockcroft-Gault) 26.0 Glucose Level 90 mg/dL (70-99) Calcium Level 8.5 mg/dL (8.5-10.1) Phosphorus Level 5.0 mg/dL (2.6-4.7) Magnesium Level 1.9 mg/dL (1.8-2.4) Albumin 2.2 g/dL (3.4-5.0) Medications Active Scripts Medications Dose Route/Sig Max Daily Dose Days Date Category [Megestrol Acetate] 20 MG Tablet 20 Mg PO BID 11/11/14 Rx Feosol (Ferrous Sulfate) 325 Mg Tablet 325 Mg PO [id number] 30 11/11/14 Rx [place] 3-6-9 1,200 mg Softgel (Fish Oil/Borage/Flax/Om3,6,9#1) 1,200 Mg Capsule 1,200 Mg PO DAILY 11/05/14 Reported Loratadine 10 Mg Tablet 10 Mg PO 11/05/14 Reported Metoprolol Tartrate 50 Mg Tablet 50 Mg PO BID 11/05/14 Reported Toviaz (Fesoterodine Fumarate) 8 Mg Tab.er.24h 8 Mg PO 11/05/14 Reported Lovastatin 20 Mg Tablet 20 Mg PO HS 11/05/14 Reported Omeprazole 20 Mg Tablet.dr 20 Mg PO DAILY 02/04/14 Reported Daily Vitamin (Multivitamin) 1 Each Tablet 1 Each PO 02/04/14 Reported Detrol La (Tolterodine Tartrate) 4 Mg Cap.er.24h 4 Mg PO DAILY 02/04/14 Reported Impression . IMPRESSION: 1. Acute on chronic hypercapnic and hypoxic respiratory failure secondary to multifactorial etiologies including COVID-19 viral pneumonia and underlying obesity hypoventilation syndrome with acute on chronic cor pulmonale. 2. Chronic kidney disease, acute kidney insufficiency 3. COVID positive 4. Abnormal chest x-ray with bilateral interstitial infiltrates consistent with COVID-19 viral pneumonia. 5. Encephalopathy multifactorial 6. History of tobaccoism. Plan . Updated 2/[address] Braun, Dr. Riffel Continue current support As needed BiPAP, at bedtime IVORY WEBER MD Aug 21, 2021 13:13
--- NOTE | 2021-08-21 13:58 | PDOC ---
Renal-Progress Notes Subjective Notes Notes NO NEW COMPLAINTS History of Present Illness Hx of present illness STABLE Vitals Vitals Vital Signs Date Time Temp Pulse Resp B/P (MAP) Pulse Ox O2 Delivery O2 Flow Rate FiO2 08/21/21 10:24 97.6 74 18 126/52 (76) 95 Nasal Cannula 3.0 97.6 Weight Weight [ ] I.O. Intake and Output Intake and Output 08/21/21 07:00 Intake Total 1660 ml Output Total 1100 ml Balance 560 ml Intake Oral 1660 ml Output Urine Total 1100 ml # Voids 6 Labs Labs Laboratory Tests Test 08/21/21 05:44 Sodium Level 142 mmol/L (136-145) Potassium Level 5.3 mmol/L (3.5-5.1) Chloride Level 107 mmol/L (98-107) Carbon Dioxide Level 31 mmol/L (21-32) Anion Gap 4 (6-14) Blood Urea Nitrogen 64 mg/dL (7-20) Creatinine 2.3 mg/dL (0.6-1.0) Estimated GFR (Cockcroft-Gault) 26.0 Glucose Level 90 mg/dL (70-99) Calcium Level 8.5 mg/dL (8.5-10.1) Phosphorus Level 5.0 mg/dL (2.6-4.7) Magnesium Level 1.9 mg/dL (1.8-2.4) Albumin 2.2 g/dL (3.4-5.0) Micro Micro Microbiology 08/10/21 Urine Culture - Final, Complete 08/08/21 Blood Culture - Final, Complete Staphylococcus Pettenkoferi Review of Systems Constitutional: yes: alert, oriented Ears/Nose/Throat: Yes: no symptom reported Eyes: Yes: no symptom reported Pulmonary: Yes dyspnea Cardiovascular: Yes no symptom reported Gastrointestional: Yes: no symptom reported Genitourinary: Yes: no symptom reported Musculoskeletal: Yes: no symptom reported Skin: Yes no symptom reported Psychiatric/Neurological: Yes: no symptom reported Endocrine: Yes: no symptom reported Physical Exam General Appearance: no apparent distress Skin: warm Respiratory: decreased breath sounds Heart: S1S2 Abdomen: soft, bowel sounds present Genitourinary: bladder flat Extremities: pulses present Neurology: alert, oriented Assessment Assessment IMP JULIA-ATN-NON OLIGURIC MILD HYPERKALEMIA CKD STAGE 3B TO 4 - CR PROB NEAR 2.0 AT BASELINE ACUTE HYPOXIC HYPERCAPNEIC RESP FAILURE MORBID OBESITY COVID 19 VIRAL PNEUMONIA ENCEPHALOPATHY-RESOLVED ANEMIA PLAN LOW K DIET RESTRICTION CONT HOLD HD FOR NOW LOOK FOR RENAL RECOVERY CONT PO LASIX IF CR STABLE TOMORROW THEN WILL D/C HD LINE WILL FOLLOW BOOM RAINEY MD Aug 21, 2021 13:58
--- NOTE | 2021-08-21 14:32 | PDOC ---
[employer] PROGRESS NOTE Date of Service DOS: DATE: 08/21/21 TIME: 14:31 Chief Complaint Chief Complaint A/P: Acute on chronic hypercapnic respiratory failure - likely from aspiratory infection with COVID-19 complicated by pre-existing OHS and MADHU. We will keep on BiPAP as needed while sleeping titrate to ABGs. Pulmonology consulted Hypoxic respiratory failure - likely from COVID-19 viral pneumonia acute on chronic cor pulmonale. Hyperkalemia - IV bicarb Acute kidney injury -on chronic kidney disease baseline creatinine from 7 years ago was 1.5 likely just vasomotor nephropathy from above. Will consult nephrology COVID 19 pneumonia -required 5 L nasal cannula O2 increased for home O2 eval with BiPAP. We will give steroid therapy with dexamethasone and remdesivir. Acute metabolic encephalopathy -likely hypercapnic respiratory failure. We will treat with BiPAP Anemia - likely of chronic disease. 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 Protein calorie malnutrition - will start IV nutrition Elevated troponin -likely type II demand ischemia from hypoxia and hypercapnia and possibly COVID myocarditis. Will monitor. FEN - General diet PPX - lovenox FULL CODE DIspo - inpatient cc time 37 minutes History of Present Illness History of Present Illness Ms Londono is a 61 year old female w/ PMHx anemia, MADHU, OHS on 2 to 3 L home O2, HLD, HTN comes to ED on 08/08/2021 via EMS from home for a 1 week history of progressive weakness fatigue malaise nausea vomiting. She has been unable to get up out of bed and had been calling EMS for lift assist, and had previously declined transport earlier in the day. She is unable to provide significant history to me is very confused responsive to name mostly moving. ED physician has obtained above history patient did not complain of chest pain. ED physician noted patient is vaccinating is COVID-19 but her tested +1-week ago and patient herself has not been tested. There was concern noted by EMS about the condition of the home being unlivable. Labs with WBC 6.8, Hb 9.3, platelets 131, had a 136, K4.9, BUN 58, CR 2.8, glucose 129, calcium 8.4, mag 1.6, bilirubin 0.4, AST 112, ALT 35, alkaline phosphatase 69, high-sensitivity troponin is 298, NT proBNP 871, albumin is 2.7, lactic acid is 1.3, rapid influenza negative, rapid COVID-19 positive ABG 7.1 on 5 L nasal cannula oxygen. Chest radiograph with cardiomegaly and bibasilar opacities EKG sinus rate 94 bpm normal axis and intervals no ST elevations or TWI. Place on BIPAP, given dexamethasone and admitted for further care. 08/09: BUN/creatinine worsened slightly K5.8 given bicarb. More alert. BiPAP qhs. On remdesivir and Decadron. Has appetite and is thirsty. Very weak diarrhea is improving. 08/10: ABG 7.2 back on BiPAP. BUN 85. K down to 5.4. She is asking if she can have something to eat. Still with significant dyspnea 08/11: BUN increased to 109 CR 2.6, renal ultrasound did not identify kidneys ureters or bladder. On BiPAP / FiO2 40% she made some improvements with yesterday evening ABG 7.3 . O2 was increased to 60% and continue her BiPAP overnight. Restarting BP meds today. More alert. Amenable to dialysis if necessary. Hold remdesivir. 08/12: Patient evaluated examined at bedside. Resting in bed on the phone with her daughter. She was on 6 L nasal cannula. Said to me she was still feeling just very weak 08/13: Patient evaluated examined at bedside. Resting in bed still on 6 L nasal cannula. Continue COVID treatment. Encourage BiPAP use when asleep. Dialysis today. PT OT 08/14: Patient evaluated examined at bedside. Still on 6 L oxygen. Did okay with the first dialysis yesterday. Any further sessions per nephrology. 08/15: Seen and examined at bedside. Still little confused today. No dialysis today per nephrology. Covid treatment. Continue PT OT. Suspect will need placement. 08/16: Evaluated at bedside. Plan for dialysis today. Patient agreeable. A little bit altered still. Treat COVID still. Plan discussed with bedside RN. 08/17: Eval examined at bedside. Nephro pulm following. Not much clinical change. Continue current. 1/30: Evaluated examined at bedside. Able to wean O2 a little bit. Nephro evaluating for dialysis. Continue current otherwise. Most recent therapy note recommending SNF. 08/19: K5.7, BUN 84, CR 2. Going for dialysis today. On 3L NCO2 and QHS BIPAP. Very weak. 08/20: K BUN/creatinine improved. No plans for dialysis next day will monitor labs. Feeling weak is amenable to rehab. On 3 L nasal cannula with O2 saturations 94%. BiPAP nightly. 08/21: Stable on 3 L nasal cannula. Had easily awakened. CR and BUN with a slight bump today. Good urine output 900 cc per shift. Awaiting renal labs on 08/22/2021 Vitals/I&O Vitals/I&O: Vital Signs Date Time Temp Pulse Resp B/P (MAP) Pulse Ox O2 Delivery O2 Flow Rate FiO2 08/21/21 10:24 97.6 74 18 126/52 (76) 95 Nasal Cannula 3.0 97.6 I & O 08/20/21 08/20/21 08/21/21 15:00 23:00 07:00 Intake Total 640 ml 900 ml 120 ml Output Total 300 ml 800 ml Balance 640 ml 600 ml -680 ml Physical Exam General: Alert, Oriented X3, Cooperative, severe distress Heart: Regular rate Lungs: Clear, Other (Decreased breath sounds bilaterally) Abdomen: Normal bowel sounds, Soft, No tenderness, No hepatosplenomegaly, No masses Extremities: No clubbing, No cyanosis, No edema, Normal pulses, No tenderness/swelling Skin: No rashes, No breakdown, No significant lesion Labs Labs: Laboratory Tests Test 08/21/21 05:44 Sodium Level 142 mmol/L (136-145) Potassium Level 5.3 mmol/L (3.5-5.1) Chloride Level 107 mmol/L (98-107) Carbon Dioxide Level 31 mmol/L (21-32) Anion Gap 4 (6-14) Blood Urea Nitrogen 64 mg/dL (7-20) Creatinine 2.3 mg/dL (0.6-1.0) Estimated GFR (Cockcroft-Gault) 26.0 Glucose Level 90 mg/dL (70-99) Calcium Level 8.5 mg/dL (8.5-10.1) Phosphorus Level 5.0 mg/dL (2.6-4.7) Magnesium Level 1.9 mg/dL (1.8-2.4) Albumin 2.2 g/dL (3.4-5.0) Assessment and Plan Assessmemt and Plan Problems Medical Problems: (1) COVID-19 Status: Acute (2) Elevated troponin Status: Acute (3) Pneumonia due to COVID-19 virus Status: Acute (4) Respiratory acidosis Status: Acute (5) Respiratory failure with hypoxia Status: Acute Comment Review of Relevant I have reviewed the following items marcus (where applicable) has been applied. Justifications for Admission Other Justification EBER ZHOU MD Aug 21, 2021 14:32
[2021-08-21 15:00] VITALS: BP 139/73
[2021-08-21 19:39] VITALS: BP 140/63
[2021-08-21] MEDS: ATORVASTATIN CALCIUM 10 MG TABLET. PO SCH (20:06)
[2021-08-21 22:08] VITALS: BP 131/60
[2021-08-22 02:58] VITALS: BP 131/61
[2021-08-22 04:38] LABS: ALBUMIN 2.1 g/dL (3.4-5.0); CALCIUM 8.4 mg/dL (8.5-10.1); CREATININE 2.2 mg/dL (0.6-1.0); GFR 27.4; PHOSPHORUS 4.1 mg/dL (2.6-4.7); POTASSIUM 5.1 mmol/L (3.5-5.1)
[2021-08-22] MEDS: HEPARIN for SUB-Q USE 5,000 UNIT/ML VIAL. SQ SCH ×3 (06:35→20:06)
[2021-08-22 07:00] VITALS: BP 127/60
[2021-08-22] MEDS: PANTOPRAZOLE 40 MG TABLET.DR. PO SCH (07:24)
[2021-08-22] MEDS: NYSTATIN TOPICAL POWDER 15GM BOTTLE. TP SCH ×2 (09:00→20:14)
[2021-08-22] MEDS: LACTOBACILLUS RHAMNOSUS GG 1 CAPSULE. PO SCH ×2 (09:25→20:13)
[2021-08-22] MEDS: METOPROLOL TART IMMED RELEASE 50 MG TABLET. PO SCH ×2 (09:26→20:13)
[2021-08-22] MEDS: FUROSEMIDE 40 MG TABLET. PO SCH ×2 (09:26→20:14)
[2021-08-22] MEDS: CETIRIZINE HCL 10 MG TABLET. PO SCH (09:26)
--- NOTE | 2021-08-22 09:32 | PDOC ---
PULMONARY PROGRESS NOTES DATE: 08/22/21 TIME: 09:32 Subjective Patient with no new complaints continues on nasal cannula oxygen Vitals Vital Signs Date Time Temp Pulse Resp B/P (MAP) Pulse Ox O2 Delivery O2 Flow Rate FiO2 08/22/21 09:26 76 127/60 08/22/21 07:00 97.6 18 96 Nasal Cannula 3.0 97.6 ROS: No Nausea, No Chest Pain, No Abdominal Pain, No Increase Cough General: Alert HEENT: Other Lungs: Clear, Other (Decreased breath sounds bilaterally) Cardiovascular: S1, S2 Abdomen: Soft, Other (Trace pitting edema) Extremities: Other Skin: Warm, No Rashes Labs Laboratory Tests Test 08/21/21 05:44 08/22/21 03:05 Sodium Level 142 mmol/L (136-145) 141 mmol/L (136-145) Potassium Level 5.3 mmol/L (3.5-5.1) 5.1 mmol/L (3.5-5.1) Chloride Level 107 mmol/L (98-107) 106 mmol/L (98-107) Carbon Dioxide Level 31 mmol/L (21-32) 33 mmol/L (21-32) Anion Gap 4 (6-14) 2 (6-14) Blood Urea Nitrogen 64 mg/dL (7-20) 61 mg/dL (7-20) Creatinine 2.3 mg/dL (0.6-1.0) 2.2 mg/dL (0.6-1.0) Estimated GFR (Cockcroft-Gault) 26.0 27.4 Glucose Level 90 mg/dL (70-99) 97 mg/dL (70-99) Calcium Level 8.5 mg/dL (8.5-10.1) 8.4 mg/dL (8.5-10.1) Phosphorus Level 5.0 mg/dL (2.6-4.7) 4.1 mg/dL (2.6-4.7) Magnesium Level 1.9 mg/dL (1.8-2.4) Albumin 2.2 g/dL (3.4-5.0) 2.1 g/dL (3.4-5.0) Laboratory Tests Test 08/22/21 03:05 Sodium Level 141 mmol/L (136-145) Potassium Level 5.1 mmol/L (3.5-5.1) Chloride Level 106 mmol/L (98-107) Carbon Dioxide Level 33 mmol/L (21-32) Anion Gap 2 (6-14) Blood Urea Nitrogen 61 mg/dL (7-20) Creatinine 2.2 mg/dL (0.6-1.0) Estimated GFR (Cockcroft-Gault) 27.4 Glucose Level 97 mg/dL (70-99) Calcium Level 8.4 mg/dL (8.5-10.1) Phosphorus Level 4.1 mg/dL (2.6-4.7) Albumin 2.1 g/dL (3.4-5.0) Medications Active Scripts Medications Dose Route/Sig Max Daily Dose Days Date Category [Megestrol Acetate] 20 MG Tablet 20 Mg PO BID 11/11/14 Rx Feosol (Ferrous Sulfate) 325 Mg Tablet 325 Mg PO DAILYWBKFT 30 11/11/14 Rx [place] 3-6-9 1,200 mg Softgel (Fish Oil/Borage/Flax/Om3,6,9#1) 1,200 Mg Capsule 1,200 Mg PO DAILY 11/05/14 Reported Loratadine 10 Mg Tablet 10 Mg PO 11/05/14 Reported Metoprolol Tartrate 50 Mg Tablet 50 Mg PO BID 11/05/14 Reported Toviaz (Fesoterodine Fumarate) 8 Mg Tab.er.24h 8 Mg PO 11/05/14 Reported Lovastatin 20 Mg Tablet 20 Mg PO HS 11/05/14 Reported Omeprazole 20 Mg Tablet.dr 20 Mg PO DAILY 02/04/14 Reported Daily Vitamin (Multivitamin) 1 Each Tablet 1 Each PO 02/04/14 Reported Detrol La (Tolterodine Tartrate) 4 Mg Cap.er.24h 4 Mg PO DAILY 02/04/14 Reported Impression . IMPRESSION: 1. Acute on chronic hypercapnic and hypoxic respiratory failure secondary to multifactorial etiologies including COVID-19 viral pneumonia and underlying obesity hypoventilation syndrome with acute on chronic cor pulmonale. 2. Chronic kidney disease, acute kidney insufficiency 3. COVID positive 4. Abnormal chest x-ray with bilateral interstitial infiltrates consistent with COVID-19 viral pneumonia. 5. Encephalopathy multifactorial 6. History of tobaccoism. Plan . d/w dr Aparna ramos dc today or IVORY Hong MD Aug 22, 2021 09:32
[2021-08-22 11:00] VITALS: BP 130/59
--- NOTE | 2021-08-22 11:47 | PDOC ---
[employer] PROGRESS NOTE Date of Service DOS: DATE: 08/22/21 TIME: 11:46 Chief Complaint Chief Complaint A/P: Acute on chronic hypercapnic respiratory failure - likely from aspiratory infection with COVID-19 complicated by pre-existing OHS and MADHU. BiPAP as needed while sleeping Hypoxic respiratory failure - likely from COVID-19 viral pneumonia acute on chronic cor pulmonale. Hyperkalemia - Stabilized Acute kidney injury -on chronic kidney disease baseline creatinine from 7 years ago was 1.5 likely just vasomotor nephropathy from above. Will consult neph rology COVID 19 pneumonia -required 5 L nasal cannula O2 increased for home O2 eval with BiPAP. S/p steroid therapy with dexamethasone and remdesivir. Acute metabolic encephalopathy -likely hypercapnic respiratory failure. We will treat with BiPAP. Resolved Anemia - likely of chronic disease. will monitor Hb MADHU and OHS on 2 to 3 L home O2 HLD - statin therapy HTN - stable Transaminitis -due to COVID-19 likely. Protein calorie malnutrition Elevated troponin -likely type II demand ischemia from hypoxia and hypercapnia and possibly COVID myocarditis. FEN - General diet PPX - lovenox FULL CODE DIspo - inpatient cc time 37 minutes History of Present Illness History of Present Illness Ms Londono is a 61 year old female w/ PMHx anemia, MADHU, OHS on 2 to 3 L home O2, HLD, HTN comes to ED on 08/08/2021 via EMS from home for a 1 week history of progressive weakness fatigue malaise nausea vomiting. She has been unable to get up out of bed and had been calling EMS for lift assist, and had previously declined transport earlier in the day. She is unable to provide significant history to me is very confused responsive to name mostly moving. ED physician has obtained above history patient did not complain of chest pain. ED physician noted patient is vaccinating is COVID-19 but her tested +1-week ago and patient herself has not been tested. There was concern noted by EMS about the condition of the home being unlivable. Labs with WBC 6.8, Hb 9.3, platelets 131, had a 136, K4.9, BUN 58, CR 2.8, glucose 129, calcium 8.4, mag 1.6, bilirubin 0.4, AST 112, ALT 35, alkaline phosphatase 69, high-sensitivity troponin is 298, NT proBNP 871, albumin is 2.7, lactic acid is 1.3, rapid influenza negative, rapid COVID-19 positive ABG 7.1 on 5 L nasal cannula oxygen. Chest radiograph with cardiomegaly and bibasilar opacities EKG sinus rate 94 bpm normal axis and intervals no ST elevations or TWI. Place on BIPAP, given dexamethasone and admitted for further care. 08/09: BUN/creatinine worsened slightly K5.8 given bicarb. More alert. BiPAP qhs. On remdesivir and Decadron. Has appetite and is thirsty. Very weak diarrhea is improving. 08/10: ABG 7.2 back on BiPAP. BUN 85. K down to 5.4. She is asking if she can have something to eat. Still with significant dyspnea 08/11: BUN increased to 109 CR 2.6, renal ultrasound did not identify kidneys ureters or bladder. On BiPAP / FiO2 40% she made some improvements with yesterday evening ABG 7.3 . O2 was increased to 60% and continue her BiPAP overnight. Restarting BP meds today. More alert. Amenable to dialysis if necessary. Hold remdesivir. 08/12: Patient evaluated examined at bedside. Resting in bed on the phone with her daughter. She was on 6 L nasal cannula. Said to me she was still feeling just very weak 08/13: Patient evaluated examined at bedside. Resting in bed still on 6 L nasal cannula. Continue COVID treatment. Encourage BiPAP use when asleep. Dialysis today. PT OT 08/14: Patient evaluated examined at bedside. Still on 6 L oxygen. Did okay with the first dialysis yesterday. Any further sessions per nephrology. 08/15: Seen and examined at bedside. Still little confused today. No dialysis today per nephrology. Covid treatment. Continue PT OT. Suspect will need placement. 08/16: Evaluated at bedside. Plan for dialysis today. Patient agreeable. A little bit altered still. Treat COVID still. Plan discussed with bedside RN. 08/17: Eval examined at bedside. Nephro pulm following. Not much clinical change. Continue current. 08/18: Evaluated examined at bedside. Able to wean O2 a little bit. Nephro evaluating for dialysis. Continue current otherwise. Most recent therapy note recommending SNF. 08/19: K5.7, BUN 84, CR 2. Going for dialysis today. On 3L NCO2 and QHS BIPAP. Very weak. 08/20: K BUN/creatinine improved. No plans for dialysis next day will monitor labs. Feeling weak is amenable to rehab. On 3 L nasal cannula with O2 saturations 94%. BiPAP nightly. 08/21: Stable on 3 L nasal cannula. Had easily awakened. CR and BUN with a slight bump today. Good urine output 900 cc per shift. Awaiting renal labs on 08/22/2021. 08/22: K5.1, BUN 61, CR 2.2 discussed with nephrology can have her HD catheter removed and likely is near her new renal baseline will need outpatient monitoring. Very weak Vitals/I&O Vitals/I&O: Vital Signs Date Time Temp Pulse Resp B/P (MAP) Pulse Ox O2 Delivery O2 Flow Rate FiO2 08/22/21 09:26 76 127/60 08/22/21 07:00 97.6 18 96 Nasal Cannula 3.0 97.6 I & O 08/21/21 08/21/21 08/22/21 15:00 23:00 07:00 Intake Total 200 ml 350 ml Output Total 900 ml 500 ml Balance -700 ml -150 ml Physical Exam General: Alert, Oriented X3, Cooperative, severe distress Heart: Regular rate Lungs: Clear, Other (Decreased breath sounds bilaterally) Abdomen: Normal bowel sounds, Soft, No tenderness, No hepatosplenomegaly, No masses Extremities: No clubbing, No cyanosis, No edema, Normal pulses, No tenderness/swelling Skin: No rashes, No breakdown, No significant lesion Labs Labs: Laboratory Tests Test 08/22/21 03:05 Sodium Level 141 mmol/L (136-145) Potassium Level 5.1 mmol/L (3.5-5.1) Chloride Level 106 mmol/L (98-107) Carbon Dioxide Level 33 mmol/L (21-32) Anion Gap 2 (6-14) Blood Urea Nitrogen 61 mg/dL (7-20) Creatinine 2.2 mg/dL (0.6-1.0) Estimated GFR (Cockcroft-Gault) 27.4 Glucose Level 97 mg/dL (70-99) Calcium Level 8.4 mg/dL (8.5-10.1) Phosphorus Level 4.1 mg/dL (2.6-4.7) Albumin 2.1 g/dL (3.4-5.0) Assessment and Plan Assessmemt and Plan Problems Medical Problems: (1) COVID-19 Status: Acute (2) Elevated troponin Status: Acute (3) Pneumonia due to COVID-19 virus Status: Acute (4) Respiratory acidosis Status: Acute (5) Respiratory failure with hypoxia Status: Acute Comment Review of Relevant I have reviewed the following items marcus (where applicable) has been applied. Justifications for Admission Other Justification EBER ZHOU MD Aug 22, 2021 11:47
[2021-08-22] MEDS ORDERED: ACET325T21 PO (12:06)
[2021-08-22] MEDS ORDERED: FURO40TA4 PO (12:06)
--- NOTE | 2021-08-22 12:07 | SNU/HH DC ---
DISCHARGE ORDERS DISCHARGE INFORMATION: DISCHARGE DATE: Aug 22, 2021 FINAL DIAGNOSIS Problems Medical Problems: (1) COVID-19 Status: Acute (2) Elevated troponin Status: Acute (3) Pneumonia due to COVID-19 virus Status: Acute (4) Respiratory acidosis Status: Acute (5) Respiratory failure with hypoxia Status: Acute CONDITION ON DISCHARGE: Stable CODE STATUS: Code Status: Full LONG TERM: SNF STAY <30 DAYS: Yes POST DISCHARGE ORDERS: ACTIVITY ORDERS: Activity as tolerated WEIGHT BEARING STATUS: As tolerated DIET AFTER DISCHARGE: Renal (Low K) CHECKS AFTER DISCHARGE: CHECKS AFTER DISCHARGE: Check blood press - daily, Check your Temp as needed FOLLOW-UP: Additional Instructions: [facility] Doctors: Anthony [address] [place] [address], [address] [place] [address] TREATMENT/EQUIPMENT ORDERS: ADAPTIVE EQUIPMENT NEEDED: None RESPIRATORY EQUIPMENT NEEDED: Oxygen (3L/min), BiPAP (18/8 QHS while sleeping) Physical Therapy For: Evalulation/Treatment Occupational Therapy For: Evaluation/Treatment DISCHARGE MEDICATIONS: Home Meds Active Scripts Furosemide (FUROSEMIDE) 40 Mg Tablet, 40 MG PO BID for CKD for 30 Days, #60 TAB 2 Refills Prov:EBER ZHOU MD 08/22/21 Acetaminophen (ACETAMINOPHEN) 325 Mg Tablet, 650 MG PO PRN Q6HRS PRN for MILD PAIN / TEMP > 100.3'F for 30 Days, #120 TAB Prov:EBER ZHOU MD 08/22/21 Ferrous Sulfate (FEOSOL) 325 Mg Tablet, 325 MG PO DAILYWBKFT for 30 Days, TAB Prov:RALF COOK MD 11/11/14 Reported Medications Fish Oil/Borage/Flax/Om3,6,9#1 ([place] 3-6-9 1,200 mg Softgel) 1,200 Mg Capsule, 1200 MG PO DAILY 11/05/14 Loratadine (LORATADINE) 10 Mg Tablet, 10 MG PO 11/05/14 Metoprolol Tartrate (METOPROLOL TARTRATE) 50 Mg Tablet, 50 MG PO BID for FOR HYPERTENSION, #60 TAB 0 Refills 11/05/14 Lovastatin (LOVASTATIN) 20 Mg Tablet, 20 MG PO HS, TAB 11/05/14 Omeprazole (OMEPRAZOLE) 20 Mg Tablet.dr, 20 MG PO DAILY, TAB 02/04/14 Multivitamin (DAILY VITAMIN) 1 Each Tablet, 1 EACH PO 02/04/14 Discontinued Reported Medications Fesoterodine Fumarate (TOVIAZ) 8 Mg Tab.er.24h, 8 MG PO 11/05/14 Tolterodine Tartrate (DETROL LA) 4 Mg Cap.er.24h, 4 MG PO DAILY, CAP.SR 02/04/14 Discontinued Scripts [Megestrol Acetate] 20 MG TABLET No Conflict Check, 20 MG PO BID Prov:RALF COOK MD 11/11/14 EBER ZHOU MD Aug 22, 2021 12:07
--- NOTE | 2021-08-22 12:08 | PDOC3 ---
Discharge Summary Visit Information Final Diagnosis Problems Medical Problems: (1) COVID-19 Status: Acute (2) Elevated troponin Status: Acute (3) Pneumonia due to COVID-19 virus Status: Acute (4) Respiratory acidosis Status: Acute (5) Respiratory failure with hypoxia Status: Acute Brief Hospital Course Allergies Allergies Coded Allergies Type Severity Reaction Last Updated Verified tree nut Allergy Intermediate LIP SWELLING 06/26/16 Yes Vital Signs Vital Signs Date Time Temp Pulse Resp B/P (MAP) Pulse Ox O2 Delivery O2 Flow Rate FiO2 08/22/21 11:00 98.2 70 18 130/59 (82) 96 Nasal Cannula 3.0 98.2 Lab Results Laboratory Tests Test 08/21/21 05:44 08/22/21 03:05 Sodium Level 142 mmol/L (136-145) 141 mmol/L (136-145) Potassium Level 5.3 mmol/L (3.5-5.1) 5.1 mmol/L (3.5-5.1) Chloride Level 107 mmol/L (98-107) 106 mmol/L (98-107) Carbon Dioxide Level 31 mmol/L (21-32) 33 mmol/L (21-32) Anion Gap 4 (6-14) 2 (6-14) Blood Urea Nitrogen 64 mg/dL (7-20) 61 mg/dL (7-20) Creatinine 2.3 mg/dL (0.6-1.0) 2.2 mg/dL (0.6-1.0) Estimated GFR (Cockcroft-Gault) 26.0 27.4 Glucose Level 90 mg/dL (70-99) 97 mg/dL (70-99) Calcium Level 8.5 mg/dL (8.5-10.1) 8.4 mg/dL (8.5-10.1) Phosphorus Level 5.0 mg/dL (2.6-4.7) 4.1 mg/dL (2.6-4.7) Magnesium Level 1.9 mg/dL (1.8-2.4) Albumin 2.2 g/dL (3.4-5.0) 2.1 g/dL (3.4-5.0) Laboratory Tests Test 08/22/21 03:05 Sodium Level 141 mmol/L (136-145) Potassium Level 5.1 mmol/L (3.5-5.1) Chloride Level 106 mmol/L (98-107) Carbon Dioxide Level 33 mmol/L (21-32) Anion Gap 2 (6-14) Blood Urea Nitrogen 61 mg/dL (7-20) Creatinine 2.2 mg/dL (0.6-1.0) Estimated GFR (Cockcroft-Gault) 27.4 Glucose Level 97 mg/dL (70-99) Calcium Level 8.4 mg/dL (8.5-10.1) Phosphorus Level 4.1 mg/dL (2.6-4.7) Albumin 2.1 g/dL (3.4-5.0) Brief Hospital Course Ms. Londono is a 61 old [sex] who presented with [ ] Discharge Information Scheduled Ferrous Sulfate (Feosol) 325 Mg Tablet, 325 MG PO DAILYWBKFT for 30 Days Prescribed by: RALF COOK MD on 11/11/14 1432 Last Action: HELD on 08/11/21 1212 by EBER ZHOU MD Fish Oil/Borage/Flax/Om3,6,9#1 ([place] 3-6-9 1,200 mg Softgel) 1,200 Mg Capsule, 1,200 MG PO DAILY, (Reported) Entered as Reported by: LISSETTE GENAO on 11/05/14 1013 Furosemide (Furosemide) 40 Mg Tablet, 40 MG PO BID for CKD for 30 Days, #60 Ref 2 Prescribed by: EBER ZHOU MD on 08/22/21 1206 Lovastatin (Lovastatin) 20 Mg Tablet, 20 MG PO HS, (Reported) Entered as Reported by: LISSETTE GENAO on 11/05/14 1007 Last Action: Converted on 08/11/211212 by EBER ZHOU MD Metoprolol Tartrate (Metoprolol Tartrate) 50 Mg Tablet, 50 MG PO BID for FOR HYPERTENSION, #60 Ref 0 (Reported) Entered as Reported by: LISSETTE GENAO on 11/05/14 1009 Last Action: Continued on 08/11/211212 by EBER ZHOU MD Omeprazole (Omeprazole) 20 Mg Tablet.dr, 20 MG PO DAILY, (Reported) Entered as Reported by: JOSEPH MELGAR on 02/04/14 0358 Last Action: Converted on 08/11/211212 by EBER ZHOU MD Scheduled PRN Acetaminophen (Acetaminophen) 325 Mg Tablet, 650 MG PO PRN Q6HRS PRN for MILD PAIN / TEMP > 100.3'F for 30 Days, #120 Prescribed by: EBER ZHOU MD on 08/22/21 1206 Miscellaneous Medications Loratadine (Loratadine) 10 Mg Tablet, 10 MG PO, (Reported) Entered as Reported by: LISSETTE GENAO on 11/05/14 1011 Last Action: Converted on 08/11/21 1213 by EBER ZHOU MD Multivitamin (Daily Vitamin) 1 Each Tablet, 1 EACH PO, (Reported) Entered as Reported by: JOSEPH MELGAR on 02/04/14 0358 Discontinued Medications Fesoterodine Fumarate (Toviaz) 8 Mg Tab.er.24h, 8 MG PO, (Reported) Entered as Reported by: LISSETTE GENAO on 11/05/14 1007 Tolterodine Tartrate (Detrol La) 4 Mg Cap.er.24h, 4 MG PO DAILY, (Reported) Entered as Reported by: JOSEPH MELGAR on 02/04/14 0358 [Megestrol Acetate] 20 MG TABLET, 20 MG PO BID Prescribed by: RALF COOK MD on 11/11/14 1432 Justicifation of Admission Dx: Justifications for Admission: Justification of Admission Dx: N/A EBER ZHOU MD Aug 22, 2021 12:08
--- NOTE | 2021-08-22 12:24 | NUR ---
SS following up with discharge planning. SS reviewed pt chart and discussed with pt RN. Pt is currently requiring oxygen at three liters nasal canula and BIPAP PRN. COVID19 positive. Pt has home oxygen. Morbid obesity. No dialysis needed. HD cath being removed. PT/OT recommended assisted unit. Pt accepted at [facility], ; fax [phone]. Discharge orders received and phoned and faxed to [facility] with clinical updates. Currently awaiting transportation time from [facility]. SS will continue to follow for discharge planning. Addendum: 08/22/21 at 1449 by JOSEPH HANSON SS Pt has [facility] primary to Medicare A&B through her spouse. Currently awaiting insurance approval.
--- NOTE | 2021-08-22 14:34 | PDOC ---
Renal-Progress Notes Subjective Notes Notes NO NEW COMPLAINTS History of Present Illness Hx of present illness STABLE Vitals Vitals Vital Signs Date Time Temp Pulse Resp B/P (MAP) Pulse Ox O2 Delivery O2 Flow Rate FiO2 08/22/21 11:00 98.2 70 18 130/59 (82) 96 Nasal Cannula 3.0 98.2 Weight Weight [ ] I.O. Intake and Output Intake and Output 08/22/21 07:00 Intake Total 550 ml Output Total 1400 ml Balance -850 ml Intake Oral 550 ml Output Urine Total 1400 ml # Bowel Movements 1 Labs Labs Laboratory Tests Test 08/22/21 03:05 Sodium Level 141 mmol/L (136-145) Potassium Level 5.1 mmol/L (3.5-5.1) Chloride Level 106 mmol/L (98-107) Carbon Dioxide Level 33 mmol/L (21-32) Anion Gap 2 (6-14) Blood Urea Nitrogen 61 mg/dL (7-20) Creatinine 2.2 mg/dL (0.6-1.0) Estimated GFR (Cockcroft-Gault) 27.4 Glucose Level 97 mg/dL (70-99) Calcium Level 8.4 mg/dL (8.5-10.1) Phosphorus Level 4.1 mg/dL (2.6-4.7) Albumin 2.1 g/dL (3.4-5.0) Micro Micro Microbiology 08/10/21 Urine Culture - Final, Complete 08/08/21 Blood Culture - Final, Complete Staphylococcus Pettenkoferi Review of Systems Constitutional: yes: alert, oriented Ears/Nose/Throat: Yes: no symptom reported Eyes: Yes: no symptom reported Pulmonary: Yes dyspnea Cardiovascular: Yes no symptom reported Gastrointestional: Yes: no symptom reported Genitourinary: Yes: no symptom reported Musculoskeletal: Yes: no symptom reported Skin: Yes no symptom reported Psychiatric/Neurological: Yes: no symptom reported Endocrine: Yes: no symptom reported Physical Exam General Appearance: no apparent distress Skin: warm Respiratory: decreased breath sounds Heart: S1S2 Abdomen: soft, bowel sounds present Genitourinary: bladder flat Extremities: pulses present Neurology: alert, oriented Assessment Assessment IMP JULIA-ATN-NON OLIGURIC-RESOLVED MILD HYPERKALEMIA-RESOLVED CKD STAGE 3B TO 4 - CR AT BASELINE OF 2.2 NOW ACUTE HYPOXIC HYPERCAPNEIC RESP FAILURE-CORRECTED MORBID OBESITY COVID 19 VIRAL PNEUMONIA ENCEPHALOPATHY-RESOLVED ANEMIA PLAN LOW K DIET RESTRICTION NO FURTHER HD NEEDED WILL HAVE HER TEMP HD LINE REMOVED CONT PO LASSURINDER D/W ATTENDING BOOM RAINEY MD Aug 22, 2021 14:34
[2021-08-22 15:10] VITALS: BP 122/66
--- NOTE | 2021-08-22 18:09 | NUR ---
Patient dialysis catheter was supposed to be remove today but this RN gave the patient 1400 heparin dose today so IR nurse did not removed dialysis catheter due to risk for bleeding. Dr. Luna was notified and aware of the situation.
[2021-08-22 19:27] VITALS: BP 139/62
[2021-08-22] MEDS: ATORVASTATIN CALCIUM 10 MG TABLET. PO SCH (20:13)
[2021-08-22 22:35] VITALS: BP 125/58
[2021-08-23 03:06] VITALS: BP 124/61
[2021-08-23] MEDS: HEPARIN for SUB-Q USE 5,000 UNIT/ML VIAL. SQ SCH ×3 (06:00→21:47)
[2021-08-23 06:19] LABS: ALBUMIN 2.2 g/dL (3.4-5.0); CALCIUM 8.9 mg/dL (8.5-10.1); CREATININE 2.5 mg/dL (0.6-1.0); GFR 23.6; PHOSPHORUS 5.2 mg/dL (2.6-4.7)
[2021-08-23 06:26] LABS: POTASSIUM 5.3 mmol/L (3.5-5.1)
[2021-08-23 07:30] VITALS: BP 131/68
[2021-08-23] MEDS: FUROSEMIDE 40 MG TABLET. PO SCH ×2 (09:00→21:43)
[2021-08-23] MEDS: NYSTATIN TOPICAL POWDER 15GM BOTTLE. TP SCH ×2 (09:00→23:40)
[2021-08-23] MEDS: PANTOPRAZOLE 40 MG TABLET.DR. PO SCH (09:06)
[2021-08-23] MEDS: LACTOBACILLUS RHAMNOSUS GG 1 CAPSULE. PO SCH ×2 (09:06→21:42)
[2021-08-23] MEDS: CETIRIZINE HCL 10 MG TABLET. PO SCH (09:06)
[2021-08-23] MEDS: METOPROLOL TART IMMED RELEASE 50 MG TABLET. PO SCH ×2 (09:06→21:43)
--- NOTE | 2021-08-23 09:09 | PDOC ---
PULMONARY PROGRESS NOTES DATE: 08/23/21 TIME: 09:09 Subjective patient seen resting in bed on 3L NC reports she is discharging today Vitals Vital Signs Date Time Temp Pulse Resp B/P (MAP) Pulse Ox O2 Delivery O2 Flow Rate FiO2 08/23/21 09:06 71 131/68 08/23/21 07:30 98.3 18 98 Nasal Cannula 3.0 98.3 General: Alert, Oriented X4 Lungs: Other (dimninished) Abdomen: Soft, Non-tender Neuro Exam: Alert, Oriented Skin: Warm, Dry Labs Laboratory Tests Test 08/22/21 03:05 08/23/21 04:50 Sodium Level 141 mmol/L (136-145) 146 mmol/L (136-145) Potassium Level 5.1 mmol/L (3.5-5.1) 5.3 mmol/L (3.5-5.1) Chloride Level 106 mmol/L (98-107) 108 mmol/L (98-107) Carbon Dioxide Level 33 mmol/L (21-32) 35 mmol/L (21-32) Anion Gap 2 (6-14) 3 (6-14) Blood Urea Nitrogen 61 mg/dL (7-20) 59 mg/dL (7-20) Creatinine 2.2 mg/dL (0.6-1.0) 2.5 mg/dL (0.6-1.0) Estimated GFR (Cockcroft-Gault) 27.4 23.6 Glucose Level 97 mg/dL (70-99) 96 mg/dL (70-99) Calcium Level 8.4 mg/dL (8.5-10.1) 8.9 mg/dL (8.5-10.1) Phosphorus Level 4.1 mg/dL (2.6-4.7) 5.2 mg/dL (2.6-4.7) Albumin 2.1 g/dL (3.4-5.0) 2.2 g/dL (3.4-5.0) Laboratory Tests Test 08/23/21 04:50 Sodium Level 146 mmol/L (136-145) Potassium Level 5.3 mmol/L (3.5-5.1) Chloride Level 108 mmol/L (98-107) Carbon Dioxide Level 35 mmol/L (21-32) Anion Gap 3 (6-14) Blood Urea Nitrogen 59 mg/dL (7-20) Creatinine 2.5 mg/dL (0.6-1.0) Estimated GFR (Cockcroft-Gault) 23.6 Glucose Level 96 mg/dL (70-99) Calcium Level 8.9 mg/dL (8.5-10.1) Phosphorus Level 5.2 mg/dL (2.6-4.7) Albumin 2.2 g/dL (3.4-5.0) Medications Active Scripts Medications Dose Route/Sig Max Daily Dose Days Date Category Furosemide 40 Mg Tablet 40 Mg PO BID 30 08/22/21 Rx Acetaminophen 325 Mg Tablet 650 Mg PO PRN Q6HRS PRN 30 08/22/21 Rx Feosol (Ferrous Sulfate) 325 Mg Tablet 325 Mg PO DAILYWBKFT 30 11/11/14 Rx [place] 3-6-9 1,200 mg Softgel (Fish Oil/Borage/Flax/Om3,6,9#1) 1,200 Mg Capsule 1,200 Mg PO DAILY 11/05/14 Reported Loratadine 10 Mg Tablet 10 Mg PO 11/05/14 Reported Metoprolol Tartrate 50 Mg Tablet 50 Mg PO BID 11/05/14 Reported Lovastatin 20 Mg Tablet 20 Mg PO HS 11/05/14 Reported Omeprazole 20 Mg Tablet.dr 20 Mg PO DAILY 02/04/14 Reported Daily Vitamin (Multivitamin) 1 Each Tablet 1 Each PO 02/04/14 Reported Impression . IMPRESSION: 1. Acute on chronic hypercapnic and hypoxic respiratory failure secondary to multifactorial etiologies including COVID-19 viral pneumonia and underlying obesity hypoventilation syndrome with acute on chronic cor pulmonale. 2. Chronic kidney disease, acute kidney insufficiency 3. COVID positive 4. Abnormal chest x-ray with bilateral interstitial infiltrates consistent with COVID-19 viral pneumonia. 5. Encephalopathy multifactorial 6. History of tobaccoism. Plan . anticipate dc today IVORY WEBER MD Aug 23, 2021 09:09
[2021-08-23] MEDS ORDERED: SODIUM POLYSTYRENE SULFON/SORB 15 GM/60 ML ORAL.SUSP. PO ONE (10:30)
--- NOTE | 2021-08-23 11:01 | RAD ---
Sterility: All elements of maximal sterile barrier technique including the use of a cap, mask, sterile gown, sterile gloves, large sterile sheet, appropriate hand hygiene, and 2% chlorhexidine for cutaneous antisepsis (or acceptable alternative antiseptic per current guidelines) were followed for this procedure. Consent: The procedure was explained in its entirety to the patient or the patients designated branch customer service representative by a member of the treatment team, including a discussion of the risks, benefits and commonly accepted alternatives to the procedure, as well as the expected consequences of no therapy whatsoever. Discussion of the risks included, but was not limited to, those that are most frequent and those that are rare but possibly severe or life-threatening, as well as the possibility of unforeseen complications. Technique and Findings: Following informed consent, the patient was prepped and draped in the usual sterile fashion. Ultrasound interrogation of the right neck revealed patency and compressibility of the right internal jugular vein. A 21- gauge micropuncture was then used to gain access to this vein under ultrasound guidance. A hard copy ultrasound image was recorded. A guidewire was advanced centrally over which, following dilatation, a temporary dialysis catheter was placed. The new catheter was found to flush and aspirate normally. The catheter was secured in place. Sterile dressings were applied. No immediate complications were identified. IMPRESSION: Placement of a temporary dialysis catheter Electronically signed by: Ilia Negron MD (08/13/2021 4:14 PM) [id number]
[2021-08-23 11:29] VITALS: BP 132/63
--- NOTE | 2021-08-23 11:54 | PDOC ---
Renal-Progress Notes Subjective Notes Notes NO NEW COMPLAINTS History of Present Illness Hx of present illness STABLE Vitals Vitals Vital Signs Date Time Temp Pulse Resp B/P (MAP) Pulse Ox O2 Delivery O2 Flow Rate FiO2 08/23/21 11:31 97 Nasal Cannula 3.0 08/23/21 11:29 98.0 64 18 132/63 (86) 98.0 Weight Weight [ ] I.O. Intake and Output Intake and Output 08/23/21 07:00 Intake Total 350 ml Output Total 2500 ml Balance -2150 ml Intake Oral 350 ml Output Urine Total 2500 ml Labs Labs Laboratory Tests Test 08/23/21 04:50 Sodium Level 146 mmol/L (136-145) Potassium Level 5.3 mmol/L (3.5-5.1) Chloride Level 108 mmol/L (98-107) Carbon Dioxide Level 35 mmol/L (21-32) Anion Gap 3 (6-14) Blood Urea Nitrogen 59 mg/dL (7-20) Creatinine 2.5 mg/dL (0.6-1.0) Estimated GFR (Cockcroft-Gault) 23.6 Glucose Level 96 mg/dL (70-99) Calcium Level 8.9 mg/dL (8.5-10.1) Phosphorus Level 5.2 mg/dL (2.6-4.7) Albumin 2.2 g/dL (3.4-5.0) Micro Micro Microbiology 08/10/21 Urine Culture - Final, Complete 08/08/21 Blood Culture - Final, Complete Staphylococcus Pettenkoferi Review of Systems Constitutional: yes: alert, oriented Ears/Nose/Throat: Yes: no symptom reported Eyes: Yes: no symptom reported Pulmonary: Yes dyspnea Cardiovascular: Yes no symptom reported Gastrointestional: Yes: no symptom reported Genitourinary: Yes: no symptom reported Musculoskeletal: Yes: no symptom reported Skin: Yes no symptom reported Psychiatric/Neurological: Yes: no symptom reported Endocrine: Yes: no symptom reported Physical Exam General Appearance: no apparent distress Skin: warm Respiratory: decreased breath sounds Heart: S1S2 Abdomen: soft, bowel sounds present Genitourinary: bladder flat Extremities: pulses present Neurology: alert, oriented Assessment Assessment IMP JULIA-ATN-NON OLIGURIC-RESOLVED MILD HYPERKALEMIA CKD STAGE 3B TO 4 - CR AT BASELINE OF 2.2 NOW ACUTE HYPOXIC HYPERCAPNEIC RESP FAILURE-CORRECTED MORBID OBESITY COVID 19 VIRAL PNEUMONIA ENCEPHALOPATHY-RESOLVED ANEMIA PLAN LOW K DIET RESTRICTION NO FURTHER HD NEEDED WILL HAVE HER TEMP HD LINE REMOVED CONT PO LASIX KAYEXALATE D/W ATTENDING BOOM RAINEY MD Aug 23, 2021 11:54
--- NOTE | 2021-08-23 12:05 | PDOC ---
[employer] PROGRESS NOTE Date of Service DOS: DATE: 08/23/21 TIME: 12:03 Chief Complaint Chief Complaint A/P: Acute on chronic hypercapnic respiratory failure - likely from aspiratory infection with COVID-19 complicated by pre-existing OHS and MADHU. BiPAP as needed while sleeping Hypoxic respiratory failure - likely from COVID-19 viral pneumonia acute on chronic cor pulmonale. Hyperkalemia - Stabilized Acute kidney injury -on chronic kidney disease baseline creatinine from 7 years ago was 1.5 likely just vasomotor nephropathy from above. Will consult neph rology COVID 19 pneumonia -required 5 L nasal cannula O2 increased for home O2 eval with BiPAP. S/p steroid therapy with dexamethasone and remdesivir. Acute metabolic encephalopathy -likely hypercapnic respiratory failure. We will treat with BiPAP. Resolved Anemia - likely of chronic disease. will monitor Hb MADHU and OHS on 2 to 3 L home O2 HLD - statin therapy HTN - stable Transaminitis -due to COVID-19 likely. Protein calorie malnutrition Elevated troponin -likely type II demand ischemia from hypoxia and hypercapnia and possibly COVID myocarditis. FEN - General diet PPX - lovenox FULL CODE DIspo - inpatient cc time 37 minutes History of Present Illness History of Present Illness Ms Londono is a 61 year old female w/ PMHx anemia, MADHU, OHS on 2 to 3 L home O2, HLD, HTN comes to ED on 08/08/2021 via EMS from home for a 1 week history of progressive weakness fatigue malaise nausea vomiting. She has been unable to get up out of bed and had been calling EMS for lift assist, and had previously declined transport earlier in the day. She is unable to provide significant history to me is very confused responsive to name mostly moving. ED physician has obtained above history patient did not complain of chest pain. ED physician noted patient is vaccinating is COVID-19 but her tested +1-week ago and patient herself has not been tested. There was concern noted by EMS about the condition of the home being unlivable. Labs with WBC 6.8, Hb 9.3, platelets 131, had a 136, K4.9, BUN 58, CR 2.8, glucose 129, calcium 8.4, mag 1.6, bilirubin 0.4, AST 112, ALT 35, alkaline phosphatase 69, high-sensitivity troponin is 298, NT proBNP 871, albumin is 2.7, lactic acid is 1.3, rapid influenza negative, rapid COVID-19 positive ABG 7.1 on 5 L nasal cannula oxygen. Chest radiograph with cardiomegaly and bibasilar opacities EKG sinus rate 94 bpm normal axis and intervals no ST elevations or TWI. Place on BIPAP, given dexamethasone and admitted for further care. 08/09: BUN/creatinine worsened slightly K5.8 given bicarb. More alert. BiPAP qhs. On remdesivir and Decadron. Has appetite and is thirsty. Very weak diarrhea is improving. 08/10: ABG 7.2 back on BiPAP. BUN 85. K down to 5.4. She is asking if she can have something to eat. Still with significant dyspnea 08/11: BUN increased to 109 CR 2.6, renal ultrasound did not identify kidneys ureters or bladder. On BiPAP / FiO2 40% she made some improvements with yesterday evening ABG 7.3 . O2 was increased to 60% and continue her BiPAP overnight. Restarting BP meds today. More alert. Amenable to dialysis if necessary. Hold remdesivir. 08/12: Patient evaluated examined at bedside. Resting in bed on the phone with her daughter. She was on 6 L nasal cannula. Said to me she was still feeling just very weak 08/13: Patient evaluated examined at bedside. Resting in bed still on 6 L nasal cannula. Continue COVID treatment. Encourage BiPAP use when asleep. Dialysis today. PT OT 08/14: Patient evaluated examined at bedside. Still on 6 L oxygen. Did okay with the first dialysis yesterday. Any further sessions per nephrology. 08/15: Seen and examined at bedside. Still little confused today. No dialysis today per nephrology. Covid treatment. Continue PT OT. Suspect will need placement. 08/16: Evaluated at bedside. Plan for dialysis today. Patient agreeable. A little bit altered still. Treat COVID still. Plan discussed with bedside RN. 08/17: Eval examined at bedside. Nephro pulm following. Not much clinical change. Continue current. 08/18: Evaluated examined at bedside. Able to wean O2 a little bit. Nephro evaluating for dialysis. Continue current otherwise. Most recent therapy note recommending SNF. 08/19: K5.7, BUN 84, CR 2. Going for dialysis today. On 3L NCO2 and QHS BIPAP. Very weak. 08/20: K BUN/creatinine improved. No plans for dialysis next day will monitor labs. Feeling weak is amenable to rehab. On 3 L nasal cannula with O2 saturations 94%. BiPAP nightly. 08/21: Stable on 3 L nasal cannula. Had easily awakened. CR and BUN with a slight bump today. Good urine output 900 cc per shift. Awaiting renal labs on 08/22/2021. 08/22: K5.1, BUN 61, CR 2.2 discussed with nephrology can have her HD catheter removed and likely is near her new renal baseline will need outpatient monitoring. Very weak 08/23: K5.3, BUN down to 59 CR 2.5. Feeling good given Kayexalate. Dialysis catheter removed. Discharged to skilled rehab when bed is available Vitals/I&O Vitals/I&O: Vital Signs Date Time Temp Pulse Resp B/P (MAP) Pulse Ox O2 Delivery O2 Flow Rate FiO2 08/23/21 11:31 97 Nasal Cannula 3.0 08/23/21 11:29 98.0 64 18 132/63 (86) 98.0 I & O 08/22/21 08/22/21 08/23/21 15:00 23:00 07:00 Intake Total 350 ml Output Total 1100 ml 700 ml 700 ml Balance -1100 ml -700 ml -350 ml Physical Exam General: Alert, Oriented X3, Cooperative, severe distress Heart: Regular rate Lungs: Other (dimninished) Abdomen: Normal bowel sounds, Soft, No tenderness, No hepatosplenomegaly, No masses Extremities: No clubbing, No cyanosis, No edema, Normal pulses, No tenderness/swelling Skin: No rashes, No breakdown, No significant lesion Labs Labs: Laboratory Tests Test 08/23/21 04:50 Sodium Level 146 mmol/L (136-145) Potassium Level 5.3 mmol/L (3.5-5.1) Chloride Level 108 mmol/L (98-107) Carbon Dioxide Level 35 mmol/L (21-32) Anion Gap 3 (6-14) Blood Urea Nitrogen 59 mg/dL (7-20) Creatinine 2.5 mg/dL (0.6-1.0) Estimated GFR (Cockcroft-Gault) 23.6 Glucose Level 96 mg/dL (70-99) Calcium Level 8.9 mg/dL (8.5-10.1) Phosphorus Level 5.2 mg/dL (2.6-4.7) Albumin 2.2 g/dL (3.4-5.0) Assessment and Plan Assessmemt and Plan Problems Medical Problems: (1) COVID-19 Status: Acute (2) Elevated troponin Status: Acute (3) Pneumonia due to COVID-19 virus Status: Acute (4) Respiratory acidosis Status: Acute (5) Respiratory failure with hypoxia Status: Acute Comment Review of Relevant I have reviewed the following items marcus (where applicable) has been applied. Justifications for Admission Other Justification EBER ZHOU MD Aug 23, 2021 12:05
--- NOTE | 2021-08-23 14:02 | NUR ---
SS following up with discharge planning. SS reviewed pt chart and discussed with pt RN. Pt is currently requiring oxygen at three liters PRN. COVID19 positive. PT/OT recommended residential unit. [facility] in [facility] reporting no beds available at this time. Pt's referral and discharge orders forwarded to [facility] and [facility]. [facility], , accepted and discussed with spouse. Pt's spouse agreeable to [facility]. Pt will discharge today and go to [facility] at 1600 via [facility] transport, . Pt, pt's RN, and pt's spouse notified. Addendum: 08/23/21 at 1543 by JOSEPH HANSON [facility] and stated that they are having trouble verifying pt's insurance through [employer]. Pt's spouse emailed them copy of insurance card to assist. Wilder requested transportation be pushed back. [facility] reported no other times available today. Transportation rescheduled for 0700 tomorrow morning. Facility notified. Addendum: 08/23/21 at 1600 by JOSEPH HANSON SS Facility contacted and reported that insurance has been verified.
[2021-08-23 14:30] VITALS: BP 126/62
[2021-08-23 19:57] VITALS: BP 118/55
[2021-08-23] MEDS: ATORVASTATIN CALCIUM 10 MG TABLET. PO SCH (21:43)
[2021-08-23 23:41] VITALS: BP 124/60
--- NOTE | 2021-08-24 03:03 | NUR ---
Patient's height was corrected in the chart, she reported that she is 5 feet, 4 or 5 inches tall,
[2021-08-24 03:33] VITALS: BP 107/51
[2021-08-24] MEDS: HEPARIN for SUB-Q USE 5,000 UNIT/ML VIAL. SQ SCH (05:39)
[2021-08-24] MEDS: PANTOPRAZOLE 40 MG TABLET.DR. PO SCH (05:39)
--- NOTE | 2021-08-24 07:10 | NUR ---
PATIENT OFF UNIT PER EMS VIA [facility] TO [facility].
--- NOTE | 2021-08-24 22:39 | PDOC ---
[employer] PROGRESS NOTE Date of Service DOS: DATE: 08/24/21 TIME: 22:12 Chief Complaint Chief Complaint A/P: Acute on chronic hypercapnic respiratory failure - likely from aspiratory infection with COVID-19 complicated by pre-existing OHS and MADHU. BiPAP as needed while sleeping Hypoxic respiratory failure - likely from COVID-19 viral pneumonia acute on chronic cor pulmonale. Hyperkalemia - Stabilized Acute kidney injury -on chronic kidney disease baseline creatinine from 7 years ago was 1.5 likely just vasomotor nephropathy from above. Will consult neph rology COVID 19 pneumonia -required 5 L nasal cannula O2 increased for home O2 eval with BiPAP. S/p steroid therapy with dexamethasone and remdesivir. Acute metabolic encephalopathy -likely hypercapnic respiratory failure. We will treat with BiPAP. Resolved Anemia - likely of chronic disease. will monitor Hb MADHU and OHS on 2 to 3 L home O2 HLD - statin therapy HTN - stable Transaminitis -due to COVID-19 likely. Protein calorie malnutrition Elevated troponin -likely type II demand ischemia from hypoxia and hypercapnia and possibly COVID myocarditis. FEN - General diet PPX - lovenox FULL CODE DIspo - inpatient cc time 37 minutes History of Present Illness History of Present Illness Ms Londono is a 61 year old female w/ PMHx anemia, MADHU, OHS on 2 to 3 L home O2, HLD, HTN comes to ED on 08/08/2021 via EMS from home for a 1 week history of progressive weakness fatigue malaise nausea vomiting. She has been unable to get up out of bed and had been calling EMS for lift assist, and had previously declined transport earlier in the day. She is unable to provide significant history to me is very confused responsive to name mostly moving. ED physician has obtained above history patient did not complain of chest pain. ED physician noted patient is vaccinating is COVID-19 but her tested +1-week ago and patient herself has not been tested. There was concern noted by EMS about the condition of the home being unlivable. Labs with WBC 6.8, Hb 9.3, platelets 131, had a 136, K4.9, BUN 58, CR 2.8, glucose 129, calcium 8.4, mag 1.6, bilirubin 0.4, AST 112, ALT 35, alkaline phosphatase 69, high-sensitivity troponin is 298, NT proBNP 871, albumin is 2.7, lactic acid is 1.3, rapid influenza negative, rapid COVID-19 positive ABG 7.1 on 5 L nasal cannula oxygen. Chest radiograph with cardiomegaly and bibasilar opacities EKG sinus rate 94 bpm normal axis and intervals no ST elevations or TWI. Place on BIPAP, given dexamethasone and admitted for further care. 08/09: BUN/creatinine worsened slightly K5.8 given bicarb. More alert. BiPAP qhs. On remdesivir and Decadron. Has appetite and is thirsty. Very weak diarrhea is improving. 08/10: ABG 7.2 back on BiPAP. BUN 85. K down to 5.4. She is asking if she can have something to eat. Still with significant dyspnea 08/11: BUN increased to 109 CR 2.6, renal ultrasound did not identify kidneys ureters or bladder. On BiPAP / FiO2 40% she made some improvements with yesterday evening ABG 7.3 . O2 was increased to 60% and continue her BiPAP overnight. Restarting BP meds today. More alert. Amenable to dialysis if necessary. Hold remdesivir. 08/12: Patient evaluated examined at bedside. Resting in bed on the phone with her daughter. She was on 6 L nasal cannula. Said to me she was still feeling just very weak 08/13: Patient evaluated examined at bedside. Resting in bed still on 6 L nasal cannula. Continue COVID treatment. Encourage BiPAP use when asleep. Dialysis today. PT OT 08/14: Patient evaluated examined at bedside. Still on 6 L oxygen. Did okay with the first dialysis yesterday. Any further sessions per nephrology. 08/15: Seen and examined at bedside. Still little confused today. No dialysis today per nephrology. Covid treatment. Continue PT OT. Suspect will need placement. 08/16: Evaluated at bedside. Plan for dialysis today. Patient agreeable. A little bit altered still. Treat COVID still. Plan discussed with bedside RN. 08/17: Eval examined at bedside. Nephro pulm following. Not much clinical change. Continue current. 08/18: Evaluated examined at bedside. Able to wean O2 a little bit. Nephro evaluating for dialysis. Continue current otherwise. Most recent therapy note recommending SNF. 08/19: K5.7, BUN 84, CR 2. Going for dialysis today. On 3L NCO2 and QHS BIPAP. Very weak. 08/20: K BUN/creatinine improved. No plans for dialysis next day will monitor labs. Feeling weak is amenable to rehab. On 3 L nasal cannula with O2 saturations 94%. BiPAP nightly. 08/21: Stable on 3 L nasal cannula. Had easily awakened. CR and BUN with a slight bump today. Good urine output 900 cc per shift. Awaiting renal labs on 08/22/2021. 08/22: K5.1, BUN 61, CR 2.2 discussed with nephrology can have her HD catheter removed and likely is near her new renal baseline will need outpatient monitoring. Very weak 08/23: K5.3, BUN down to 59 CR 2.5. Feeling good given Kayexalate. Dialysis catheter removed. Discharged to skilled rehab when bed is available 08/24: Seen and examined. Had BM after kayexelate. Feeling somewhat improved. Vitals/I&O Vitals/I&O: Vital Signs Date Time Temp Pulse Resp B/P (MAP) Pulse Ox O2 Delivery O2 Flow Rate FiO2 08/24/21 03:33 97.0 61 26 107/51 (69) 95 BiPAP/CPAP 97.0 08/23/21 23:41 3.0 I & O 08/23/21 08/23/21 08/24/21 15:00 23:00 07:00 Intake Total 860 ml 600 ml 160 ml Output Total 1000 ml 900 ml Balance -140 ml 600 ml -740 ml Physical Exam General: Alert, Oriented X3, Cooperative, severe distress Heart: Regular rate Lungs: Other (dimninished) Abdomen: Normal bowel sounds, Soft, No tenderness, No hepatosplenomegaly, No masses Extremities: No clubbing, No cyanosis, No edema, Normal pulses, No tenderness/swelling Skin: No rashes, No breakdown, No significant lesion Assessment and Plan Assessmemt and Plan Problems Medical Problems: (1) COVID-19 Status: Acute (2) Elevated troponin Status: Acute (3) Pneumonia due to COVID-19 virus Status: Acute (4) Respiratory acidosis Status: Acute (5) Respiratory failure with hypoxia Status: Acute Comment Review of Relevant I have reviewed the following items marcus (where applicable) has been applied. Justifications for Admission Other Justification EBER ZHOU MD Aug 24, 2021 22:39
== END 2021-08-24 07:10 | DRG 177 ==
LOC: ER 04:55 → 6 SOUTH 06:54 → 5 NORTH 06:54 → 6 SOUTH 09:15
PROVIDERS: ADMIT Internal Medicine; ATTEND Internal Medicine
PROC: 5A09357 Assistance with Respiratory Ventilation, Less than 24 Consecutive Hours, Continuous Positive Airway Pressure (ICD-10-PCS; 2021-08-08)
PROC: XW033E5 Introduction of Remdesivir Anti-infective into Peripheral Vein, Percutaneous Approach, New Technology Group 5 (ICD-10-PCS; 2021-08-08)
PROC: 5A09357 Assistance with Respiratory Ventilation, Less than 24 Consecutive Hours, Continuous Positive Airway Pressure (ICD-10-PCS; 2021-08-09)
PROC: 5A09357 Assistance with Respiratory Ventilation, Less than 24 Consecutive Hours, Continuous Positive Airway Pressure (ICD-10-PCS; 2021-08-10)
PROC: 5A09357 Assistance with Respiratory Ventilation, Less than 24 Consecutive Hours, Continuous Positive Airway Pressure (ICD-10-PCS; 2021-08-11)
PROC: 5A09357 Assistance with Respiratory Ventilation, Less than 24 Consecutive Hours, Continuous Positive Airway Pressure (ICD-10-PCS; 2021-08-12)
PROC: 02HV33Z Insertion of Infusion Device into Superior Vena Cava, Percutaneous Approach (ICD-10-PCS; principal; 2021-08-13)
PROC: B548ZZA Ultrasonography of Superior Vena Cava, Guidance (ICD-10-PCS; 2021-08-13)
PROC: 5A09357 Assistance with Respiratory Ventilation, Less than 24 Consecutive Hours, Continuous Positive Airway Pressure (ICD-10-PCS; 2021-08-13)
PROC: 5A09357 Assistance with Respiratory Ventilation, Less than 24 Consecutive Hours, Continuous Positive Airway Pressure (ICD-10-PCS; 2021-08-14)
PROC: 5A09357 Assistance with Respiratory Ventilation, Less than 24 Consecutive Hours, Continuous Positive Airway Pressure (ICD-10-PCS; 2021-08-15)
PROC: 5A09357 Assistance with Respiratory Ventilation, Less than 24 Consecutive Hours, Continuous Positive Airway Pressure (ICD-10-PCS; 2021-08-16)
PROC: 5A09357 Assistance with Respiratory Ventilation, Less than 24 Consecutive Hours, Continuous Positive Airway Pressure (ICD-10-PCS; 2021-08-17)
PROC: 5A09357 Assistance with Respiratory Ventilation, Less than 24 Consecutive Hours, Continuous Positive Airway Pressure (ICD-10-PCS; 2021-08-18)
PROC: 5A09357 Assistance with Respiratory Ventilation, Less than 24 Consecutive Hours, Continuous Positive Airway Pressure (ICD-10-PCS; 2021-08-19)
PROC: 5A09357 Assistance with Respiratory Ventilation, Less than 24 Consecutive Hours, Continuous Positive Airway Pressure (ICD-10-PCS; 2021-08-20)
PROC: 5A09357 Assistance with Respiratory Ventilation, Less than 24 Consecutive Hours, Continuous Positive Airway Pressure (ICD-10-PCS; 2021-08-21)
PROC: 5A09357 Assistance with Respiratory Ventilation, Less than 24 Consecutive Hours, Continuous Positive Airway Pressure (ICD-10-PCS; 2021-08-23)
PROC: 5A09357 Assistance with Respiratory Ventilation, Less than 24 Consecutive Hours, Continuous Positive Airway Pressure (ICD-10-PCS; 2021-08-24)
DX: U07.1 COVID-19 (principal); G93.41 Metabolic encephalopathy; J12.82 Pneumonia due to coronavirus disease 2019; J96.21 Acute and chronic respiratory failure with hypoxia; J96.22 Acute and chronic respiratory failure with hypercapnia; N17.0 Acute kidney failure with tubular necrosis; E46 Unspecified protein-calorie malnutrition; E66.2 Morbid (severe) obesity with alveolar hypoventilation; E87.2 Acidosis; J44.0 Chronic obstructive pulmonary disease with (acute) lower respiratory infection; N17.9 Acute kidney failure, unspecified; Z68.45 Body mass index [BMI] 70 or greater, adult; D64.9 Anemia, unspecified; E78.00 Pure hypercholesterolemia, unspecified; E78.5 Hyperlipidemia, unspecified; E87.5 Hyperkalemia; G47.33 Obstructive sleep apnea (adult) (pediatric); F32.A Depression, unspecified; F41.9 Anxiety disorder, unspecified; R74.01 Elevation of levels of liver transaminase levels; R77.8 Other specified abnormalities of plasma proteins; I13.10 Hypertensive heart and chronic kidney disease without heart failure, with stage 1 through stage 4 chronic kidney disease, or unspecified chronic kidney disease; N18.32 Chronic kidney disease, stage 3b; Z78.9 Other specified health status; Z79.899 Other long term (current) drug therapy; Z82.49 Family history of ischemic heart disease and other diseases of the circulatory system; Z83.3 Family history of diabetes mellitus; Z87.891 Personal history of nicotine dependence; Z90.49 Acquired absence of other specified parts of digestive tract; Z91.018 Allergy to other foods
CPT/HCPCS: 36415; 36556; 36600; 71045; 74176; 76770; 76937; 80053; 80069; 81001; 82550; 82570; 82728; 82805; 83540; 83550; 83605; 83735; 83880; 84100; 84156; 84300; 84484; 85025; 86317; 87040; 87086; 87340; 87428; 93005; 94660; 94760; 96374; C1892; J0696; J1100; J1644; J1650; J3490; J7030; J7050; J7060; 97110-GP; 97116-GP; 97530-GO; 97530-GP; 97535-GO; 99285-25; G0378

== ENCOUNTER 2021-09-23 09:48 | Inpatient (IN) | payer OTHER, MEDICARE ==
[~2021-09-23] VITALS: Ht 162.6 cm; Wt 197.8 kg
[~2021-09-23 09:48] MED LIST changes: +ACET325T21 PO; +FURO40TA4 PO
--- NOTE | 2021-09-23 10:01 | PHYS DOC ---
Past Medical History Past Medical History: Anemia, High Cholesterol, Hypertension, Pneumonia, Other Additional Past Medical Histor: SLEEP APNEA, CKD, OBESITY, COLON POLYPS Past Surgical History: Cholecystectomy Smoking Status: Never Smoker Alcohol Use: Rarely Drug Use: None General Adult EDM: Chief Complaint: WEAKNESS/GENERALIZED HPI: HPI: Patient is a 61 year old female brought in by EMS from her home with report of generalized weakness and fatigue and altered mental status. The patient is a very poor historian, I am unable to procure any significantly meaningful information from her directly. She does appear to be very drowsy and sleepy. She is wearing nasal cannula oxygen, as she is supposed to do at all times. She has what sounds like obesity hypoventilation syndrome, she has been dependent on [place] oxygen for quite some time. Her is her primary caregiver. The patient reports that she does not get up and move around very much. I spoke with her , and he reports that for the past several days, she has seemed progressively more sleepy than usual. He denies that she has had any fall, trauma, head injury or seizure activity. No reported fever. The patient denies chest pain. She has some chronic shortness of breath, but she does not denies any acute dyspnea at present. She denies abdominal pain, nausea, headache, dizziness. She denies any numbness or tingling. Review of Systems: Review of Systems: Constitutional: Denies fever or chills. [] Eyes: Denies acute vision loss HENT: Denies nasal congestion or sore throat. [] Respiratory: Chronic dyspnea. Denies cough or hemoptysis Cardiovascular: Denies chest pain. She has chronic peripheral edema. GI: Denies abdominal pain, nausea, vomiting, or diarrhea : Denies urinary symptom Musculoskeletal: Denies back pain or joint pain. [] Integument: Denies rash. [] Neurologic: Denies headache, focal weakness or sensory changes. Generalized, nonfocal weakness, sleepiness, lethargy. No syncope. No reported seizure activity. Psychiatric: Denies depression or anxiety. [] Heart Score: C/O Chest Pain: No Risk Factors: Risk Factors: DM, Current or recent (<one month) smoker, HTN, HLP, family history of CAD, obesity. Risk Scores: Score 0 - 3: 2.5% MACE over next 6 weeks - Discharge Home Score 4 - 6: 20.3% MACE over next 6 weeks - Admit for Clinical Observation Score 7 - 10: 72.7% MACE over next 6 weeks - Early Invasive Strategies Allergies: Allergies: Allergies Coded Allergies Type Severity Reaction Last Updated Verified tree nut Allergy Intermediate LIP SWELLING 06/26/16 Yes Physical Exam: PE: Constitutional: Well developed, well nourished, chronically ill-appearing female, appears much older than stated, sleeping, snoring on the ED gurney. HENT: Normocephalic, atraumatic, no evidence of facial trauma, oropharynx patent and clear, mucous membranes are moist. Gag reflex intact. Eyes: Sclera anicteric. PERRL, EOMI, no nystagmus. Neck: Normal range of motion, no tenderness, supple, no stridor. Trachea midline. No JVD. Cardiovascular:Heart rate regular rhythm, 2 radial pulses bilaterally. +2 posterior tibial pulses bilaterally Lungs & Thorax: Mild to moderate bradypnea. Intermittent snoring respirations, though she awakens easily. Equal chest rise. No tachypnea. No retractions. No wheezing or stridor. Diminished breath sounds throughout. Breath sounds are equal, however Abdomen: Abdomen is markedly obese, mildly distended, no apparent tenderness to palpation. Skin: Warm, dry, no erythema, no rash. Lichenified skin of the pannus and bilateral upper and lower extremities. Extremities: Bilateral, symmetric, nonpitting lower extremity lymphedema. No calf tenderness. No evidence of trauma. Neurologic: Patient is drowsy, sleepy, opens eyes to voice and pain, localizes to pain, gag reflex intact, no facial asymmetry, moves all 4 extremities equally, diffuse, symmetric but equal generalized motor weakness noted. Sensation is grossly intact. Speech is fluent when she is awake enough to converse meaningfully and for brief periods. Psychologic: Affect is flat EKG: EKG: EKG is interpreted at 1001 Rhythm is sinus Rate is 82 bpm Gardner is normal No STEMI Radiology/Procedures: Radiology/Procedures: IMAGING REPORT Signed PATIENT: TAYLOR ORDOÑEZ RACCOUNT: [id number] : 1960 LOCATION: ER AGE: 61 SEX: F EXAM STATUS: PRE ER ORD. PHYSICIAN: ZENOBIA,PETE M DO REASON: dyspnea PROCEDURE: PORTABLE CHEST 1V Single view of the chest. 09/23/2021 10:27 AM Indication: Dyspnea Comparison: Chest radiograph August 13, 2021 Findings: Portions of the lung bases are not included on this exam. Exam appears to be limited by body habitus. There are diffuse interstitial alveolar inf iltrates. The cardiomediastinal silhouette is enlarged. No pneumothorax is identified. No definitive effusion is seen. No acute osseous changes are seen. IMPRESSION: Cardiomegaly with diffuse interstitial alveolar infiltrates. Findings could represent pulmonary edema versus an atypical or viral infectious process Electronically signed by: Ilia Rodriguez MD (09/23/2021 10:38 AM) [id number] DICTATED and SIGNED BY: ILIA RODRIGUEZ MD DATE: 09/23/21 [id number] IMAGING REPORT Signed PATIENT: TAYLOR ORDOÑEZCOUNT: [id number] : 1960 LOCATION: ER AGE: 61 SEX: F EXAM STATUS: REG ER ORD. PHYSICIAN: PETE FREGOSO DO REASON: weakness, confusion PATIENT ON BYPAP, WAITING FOR RT BEFORE PT COMES DOWN F PROCEDURE: CT HEAD WO CONTRAST EXAM: CT head without contrast INDICATION: Weakness, confusion COMPARISON: None TECHNIQUE: Axial CT imaging through the head without intravenous contrast. Sagittal and coronal reformats were obtained. One or more of the following individualized dose reduction techniques were utilized for this examination: 1. Automated exposure control 2. Adjustment of the mA and/or kV according to patient size 3. Use of iterative reconstruction technique. FINDINGS: Ventricles are normal in size. Sulci are diffusely small. There is mild periventricular white matter hypoattenuation. No intracranial hemorrhage or definite acute infarct. The skull and scalp are intact. Paranasal sinuses and mastoid air cells are clear. Globes and orbits are intact.. IMPRESSION: 1. No acute intracranial abnormality. 2. The sulci appear diffusely small. This can be seen with cerebral edema or could be technical/artifact. Consider follow-up CT or MRI with and without contrast to further evaluate. 3. Mild chronic microvascular ischemic changes. Electronically signed by: Dolores Salmon MD (09/23/2021 1:09 PM) [id number] DICTATED and SIGNED BY: DOLORES SALMON MD DATE: 09/23/21 [id number] Course & Med Decision Making: Course & Med Decision Making Pertinent Labs and Imaging studies reviewed. (See chart for details) Initial ABG shows marked respiratory acidosis and hypercapnia. The patient is placed on BiPAP. Serial ABG is performed after being placed on BiPAP, there is modest improvement in acidosis and PCO2. The patient clinically appears to be improving, she is still slightly sleepy, but now she spontaneously awakens, she is interactive, more briskly verbally appropriate, is able to answer questions more accurately and appropriately inconsistently. I have discussed the findings, differential diagnosis and plan of care with her. The patient and her report that she has no advanced directive. She is her own guardian power of state attorney. She wishes to remain a full code. I did explain that she has very severe, chronic respiratory illness, which is unlikely to be completely reversible. I explained that if respiratory arrest occurs, and she or if she requires intubation, she would likely do very poorly clinically. She wishes to remain a full code at this time. Blood cultures are pending. Diffuse pulmonary infiltrates are noted, likely related to her underlying chronic respiratory issues, however since she has been hospitalized within the last 90 days, she is empirically given IV Zosyn and IV vancomycin to treat healthcare associated pneumonia. She is accepted for admission by Dr. Samson. Timur Disclaimer: Timur Disclaimer: This electronic medical record was generated, in whole or in part, using a voice recognition dictation system. Departure Departure Impression: Primary Impression: Respiratory failure with hypoxia and hypercapnia Qualified Codes: J96.21 - Acute and chronic respiratory failure with hypoxia; J96.22 - Acute and chronic respiratory failure with hypercapnia Additional Impressions: Obesity hypoventilation syndrome Respiratory acidosis CO2 narcosis Generalized weakness Failure to thrive in adult Healthcare-associated pneumonia Disposition: ADMITTED INPATIENT (Dr. Samson) [facility] Referrals: COLLETTE EPPERSON MD (PCP) PETE FREGOSO DO Sep 23, 2021 10:01
[2021-09-23 10:34] LABS: BASE EXCESS ABG 12 mmol/L (-3-3); HCO3 ABG 44 mmol/L (21-28); PO2 ABG 94 mmHg (65-108); SAT O2 ABG 96 % (92-99)
[2021-09-23 10:37] LABS: PCO2 ABG 122 mmHg (35-46)
--- NOTE | 2021-09-23 10:40 | RAD ---
Single view of the chest. 09/23/2021 10:27 AM Indication: Dyspnea Comparison: Chest radiograph August 13, 2021 Findings: Portions of the lung bases are not included on this exam. Exam appears to be limited by bod y habitus. There are diffuse interstitial alveolar infiltrates. The cardiomediastinal silhouette is e nlarged. No pneumothorax is identified. No definitive effusion is seen. No acute osseous changes are seen. IMPRESSION: Cardiomegaly with diffuse interstitial alveolar infiltrates. Findings could represent pul monary edema versus an atypical or viral infectious process Electronically signed by: Ilia Negron MD (09/23/2021 10:38 AM) [id number]
[2021-09-23 10:48] LABS: BASO % 1 % (0-3); EOS % 0 % (0-3); HEMATOCRIT 29.2 % (36.0-47.0); HEMOGLOBIN 9.3 g/dL (12.0-15.5); LYMPH # 0.4 x10^3/uL (1.0-4.8); LYMPH % 6 % (24-48); MEAN CORPUSCULAR HEMOGLOBIN 32 pg (25-35); MEAN CORPUSCULAR HGB CONC 32 g/dL (31-37); MEAN CORPUSCULAR VOLUME 101 fL (79-100); MONO # 0.4 x10^3/uL (0.0-1.1); MONO % 7 % (0-9); NEUT # 5.4 x10^3/uL (1.8-7.7); NEUT % 86 % (31-73); PLATELET COUNT 157 x10^3/uL (140-400); RED BLOOD COUNT 2.89 x10^6/uL (3.50-5.40); RED CELL DISTRIBUTION WIDTH 14.5 % (11.5-14.5); WHITE BLOOD COUNT 6.3 x10^3/uL (4.0-11.0)
[2021-09-23 11:09] LABS: CALCIUM 9.2 mg/dL (8.5-10.1); CREATININE 2.3 mg/dL (0.6-1.0); POTASSIUM 5.2 mmol/L (3.5-5.1)
[2021-09-23 11:15] LABS: ALBUMIN/GLOBULIN RATIO 0.6 (1.0-1.7); PHOSPHORUS 5.5 mg/dL (2.6-4.7); TOTAL BILIRUBIN 0.2 mg/dL (0.2-1.0); TOTAL PROTEIN 7.7 g/dL (6.4-8.2)
[2021-09-23] MEDS ORDERED: FUROSEMIDE 20 MG/2 ML VIAL. IVP ONE (11:15)
[2021-09-23 11:22] LABS: COLOR,URINE YELLOW
[2021-09-23 11:23] LABS: BILIRUBIN,URINE NEGATIVE (NEG); CLARITY,URINE HAZY; NITRITE,URINE POSITIVE (NEG); PH,URINE 5.5 (<5.0-8.0); PROTEIN,URINE 30 mg/dL (NEG-TRACE); RBC,URINE >40 /HPF (0-2); UROBILINOGEN,URINE 0.2 mg/dL (0.2 mg/dL)
[2021-09-23 11:24] LABS: BACTERIA,URINE MANY /HPF (0-FEW)
[2021-09-23] MEDS ORDERED: PIPERACILLIN/TAZOBACTAM 4.5 GM in IV NORMAL SALINE 100ML 100 ML IV ONE (11:30)
[2021-09-23] MEDS ORDERED: PIPERACILLIN/TAZOBACTAM 4.5 GM in IV DEXTROSE 5% 100ML 100 ML IV ONE (11:30)
[2021-09-23] MEDS ORDERED: VANCOMYCIN 2 GM in IV NORMAL SALINE 500ML BAG 500 ML IV ONE (12:00)
--- NOTE | 2021-09-23 13:12 | RAD ---
EXAM: CT head without contrast INDICATION: Weakness, confusion COMPARISON: None TECHNIQUE: Axial CT imaging through the head without intravenous contrast. Sagittal and coronal refor mats were obtained. One or more of the following individualized dose reduction techniques were utilized for this examinat ion: 1. Automated exposure control 2. Adjustment of the mA and/or kV according to patient size 3. Use of iterative reconstruction technique. FINDINGS: Ventricles are normal in size. Sulci are diffusely small. There is mild periventricular white matter hypoattenuation. No intracranial hemorrhage or definite acute infarct. The skull and scalp are intact . Paranasal sinuses and mastoid air cells are clear. Globes and orbits are intact.. IMPRESSION: 1. No acute intracranial abnormality. 2. The sulci appear diffusely small. This can be seen with cerebral edema or could be technical/artif act. Consider follow-up CT or MRI with and without contrast to further evaluate. 3. Mild chronic microvascular ischemic changes. Electronically signed by: Pamela Salmon MD (09/23/2021 1:09 PM) [id number]
--- NOTE | 2021-09-23 13:42 | PDOC1 ---
History and Physical Date of Service: DOS: DATE: 09/23/21 TIME: 13:32 Chief Complaint: Chief Complain: Altered mental status and shortness of breath Past Medical/Surgical History: PMH/PSH: Past Medical History: Anemia, High Cholesterol, Hypertension, Pneumonia, SLEEP APNEA, CKD, OBESITY, COLON POLYPS Past Surgical History: Cholecystectomy Allergies: Allergies: Coded Allergies: tree nut (Verified Allergy, Intermediate, LIP SWELLING, 06/26/16) PECAN FUZZ Family History: Family History: Reviewed with no relative findings in the chart Social History: Social History: Smoking Status: Never Smoker Alcohol Use: Rarely Drug Use: None Current Medications: Current Medications Current Medications Furosemide (Lasix) 20 mg 1X ONCE IVP Last administered on 09/23/21at 12:12; Start 09/23/21 at 11:15; Stop 09/23/21 at 11:17; Status DC Vancomycin HCl 2 gm/Sodium Chloride 500 ml @ 250 mls/hr 1X ONCE IV ; Start 09/23/21 at 12:00; Stop 09/23/21 at 13:59 Piperacillin Sod/ Tazobactam Sod 4.5 gm/Sodium Chloride 100 ml @ 200 mls/hr 1X ONCE IV ; Start 09/23/21 at 11:30; Stop 09/23/21 at 11:59; Status Cancel Piperacillin Sod/ Tazobactam Sod 4.5 gm/Dextrose 100 ml @ 200 mls/hr 1X ONCE IV Last administered on 09/23/21at 12:53; Start 09/23/21 at 11:30; Stop 09/23/21 at 11:59; Status DC Active Scripts Active Furosemide 40 Mg Tablet 40 Mg PO BID 30 Days Acetaminophen 325 Mg Tablet 650 Mg PO PRN Q6HRS PRN 30 Days Feosol (Ferrous Sulfate) 325 Mg Tablet 325 Mg PO DAILYWBKFT 30 Days Reported Macy 3-6-9 1,200 mg Softgel (Fish Oil/Borage/Flax/Om3,6,9#1) 1,200 Mg Capsule 1,200 Mg PO DAILY Loratadine 10 Mg Tablet 10 Mg PO Metoprolol Tartrate 50 Mg Tablet 50 Mg PO BID Lovastatin 20 Mg Tablet 20 Mg PO HS Omeprazole 20 Mg Tablet.dr 20 Mg PO DAILY Daily Vitamin (Multivitamin) 1 Each Tablet 1 Each PO ROS: Review of Systems Review of System Limited due to BiPAP and lethargy. Physical Exam: Vital Signs: Vital Signs Date Time Temp Pulse Resp B/P (MAP) Pulse Ox O2 Delivery O2 Flow Rate FiO2 09/23/21 10:58 91 BiPAP/CPAP 09/23/21 09:48 97.9 86 22 152/65 (94) 3.0 97.9 Physcial Exam: GEN: No apparent distress. Alert and oriented HEENT: Normal cephalic, atraumatic, external auditory canals are patent EYES: Extraocular muscles are intact, pupil are equally round and reactive to light and accommodation MUSCULOSKELETAL: Well developed , well nourished, good range of motion ENDOCRINE: No thyromegaly was palpated LYMPHATICS: No cervical chain or axillary nodes were noted HEMATOPOIETIC: No bruising NECK: Supple, no JVD, no thyromegaly was noted LUNGS: Clear to auscultation in all lung hughes without rhonchi or wheezing HEART: RRR, S!, S2 present. Peripheral pulses intact, no obvious murmurs noted ABDOMEN: Soft, nontender. Positive bowel sounds, no organomegaly, normal bowel sounds EXTREMITIES: Without clubbing, cyanosis, or edema. Pedal pulses intact. Negative Homans sign NEUROLOGIC: Normal speech and tone. A&O x 3, moves all extremities, no obvious focal deficits PSYCHIATRIC: Normal affect, normal mood. Stable SKIN: No ulcerations or rashes, good skin turgor, no jaundice VASCULAR: Good capillary refill, neurovascular bundle appears to be intact Labs: Labs: Laboratory Tests Test 09/23/21 10:25 09/23/21 10:36 09/23/21 10:50 O2 Saturation 96 % (92-99) Arterial Blood pH 7.17 (7.35-7.45) Arterial Blood pCO2 at Patient Temp 122 mmHg (35-46) Arterial Blood pO2 at Patient Temp 94 mmHg (65-108) Arterial Blood HCO3 44 mmol/L (21-28) Arterial Blood Base Excess 12 mmol/L (-3-3) FiO2 32%/ 3lnc White Blood Count 6.3 x10^3/uL (4.0-11.0) Red Blood Count 2.89 x10^6/uL (3.50-5.40) Hemoglobin 9.3 g/dL (12.0-15.5) Hematocrit 29.2 % (36.0-47.0) Mean Corpuscular Volume 101 fL (79-100) Mean Corpuscular Hemoglobin 32 pg (25-35) Mean Corpuscular Hemoglobin Concent 32 g/dL (31-37) Red Cell Distribution Width 14.5 % (11.5-14.5) Platelet Count 157 x10^3/uL (140-400) Neutrophils (%) (Auto) 86 % (31-73) Lymphocytes (%) (Auto) 6 % (24-48) Monocytes (%) (Auto) 7 % (0-9) Eosinophils (%) (Auto) 0 % (0-3) Basophils (%) (Auto) 1 % (0-3) Neutrophils # (Auto) 5.4 x10^3/uL (1.8-7.7) Lymphocytes # (Auto) 0.4 x10^3/uL (1.0-4.8) Monocytes # (Auto) 0.4 x10^3/uL (0.0-1.1) Eosinophils # (Auto) 0.0 x10^3/uL (0.0-0.7) Basophils # (Auto) 0.0 x10^3/uL (0.0-0.2) Sodium Level 147 mmol/L (136-145) Potassium Level 5.2 mmol/L (3.5-5.1) Chloride Level 105 mmol/L (98-107) Carbon Dioxide Level 41 mmol/L (21-32) Anion Gap 1 (6-14) Blood Urea Nitrogen 42 mg/dL (7-20) Creatinine 2.3 mg/dL (0.6-1.0) Estimated GFR (Cockcroft-Gault) 26.0 BUN/Creatinine Ratio 18 (6-20) Glucose Level 152 mg/dL (70-99) Lactic Acid Level 0.6 mmol/L (0.4-2.0) Calcium Level 9.2 mg/dL (8.5-10.1) Phosphorus Level 5.5 mg/dL (2.6-4.7) Magnesium Level 2.0 mg/dL (1.8-2.4) Total Bilirubin 0.2 mg/dL (0.2-1.0) Aspartate Amino Transf (AST/SGOT) 25 U/L (15-37) Alanine Aminotransferase (ALT/SGPT) 22 U/L (14-59) Alkaline Phosphatase 68 U/L (46-116) Ammonia 40 mcmol/L (11-34) Creatine Kinase 46 U/L (26-192) Troponin I High Sensitivity 14 ng/L (4-50) JV-Yux-X-Type Natriuretic Peptide 788 pg/mL (0-124) Total Protein 7.7 g/dL (6.4-8.2) Albumin 3.0 g/dL (3.4-5.0) Albumin/Globulin Ratio 0.6 (1.0-1.7) Urine Collection Type U cath Urine Color Yellow Urine Clarity Hazy Urine pH 5.5 (<5.0-8.0) Urine Specific [place] 1.025 (1.000-1.030) Urine Protein 30 mg/dL (NEG-TRACE) Urine Glucose (UA) Negative mg/dL (NEG) Urine Ketones (Stick) Negative mg/dL (NEG) Urine Blood Large (NEG) Urine Nitrite Positive (NEG) Urine Bilirubin Negative (NEG) Urine Urobilinogen Dipstick 0.2 mg/dL (0.2 mg/dL) Urine Leukocyte Esterase Trace (NEG) Urine RBC >40 /HPF (0-2) Urine WBC 11-20 /HPF (0-4) Urine Bacteria Many /HPF (0-FEW) Laboratory Tests Test 09/23/21 10:25 09/23/21 10:36 09/23/21 10:50 O2 Saturation 96 % (92-99) Arterial Blood pH 7.17 (7.35-7.45) Arterial Blood pCO2 at Patient Temp 122 mmHg (35-46) Arterial Blood pO2 at Patient Temp 94 mmHg (65-108) Arterial Blood HCO3 44 mmol/L (21-28) Arterial Blood Base Excess 12 mmol/L (-3-3) FiO2 32%/ 3lnc White Blood Count 6.3 x10^3/uL (4.0-11.0) Red Blood Count 2.89 x10^6/uL (3.50-5.40) Hemoglobin 9.3 g/dL (12.0-15.5) Hematocrit 29.2 % (36.0-47.0) Mean Corpuscular Volume 101 fL (79-100) Mean Corpuscular Hemoglobin 32 pg (25-35) Mean Corpuscular Hemoglobin Concent 32 g/dL (31-37) Red Cell Distribution Width 14.5 % (11.5-14.5) Platelet Count 157 x10^3/uL (140-400) Neutrophils (%) (Auto) 86 % (31-73) Lymphocytes (%) (Auto) 6 % (24-48) Monocytes (%) (Auto) 7 % (0-9) Eosinophils (%) (Auto) 0 % (0-3) Basophils (%) (Auto) 1 % (0-3) Neutrophils # (Auto) 5.4 x10^3/uL (1.8-7.7) Lymphocytes # (Auto) 0.4 x10^3/uL (1.0-4.8) Monocytes # (Auto) 0.4 x10^3/uL (0.0-1.1) Eosinophils # (Auto) 0.0 x10^3/uL (0.0-0.7) Basophils # (Auto) 0.0 x10^3/uL (0.0-0.2) Sodium Level 147 mmol/L (136-145) Potassium Level 5.2 mmol/L (3.5-5.1) Chloride Level 105 mmol/L (98-107) Carbon Dioxide Level 41 mmol/L (21-32) Anion Gap 1 (6-14) Blood Urea Nitrogen 42 mg/dL (7-20) Creatinine 2.3 mg/dL (0.6-1.0) Estimated GFR (Cockcroft-Gault) 26.0 BUN/Creatinine Ratio 18 (6-20) Glucose Level 152 mg/dL (70-99) Lactic Acid Level 0.6 mmol/L (0.4-2.0) Calcium Level 9.2 mg/dL (8.5-10.1) Phosphorus Level 5.5 mg/dL (2.6-4.7) Magnesium Level 2.0 mg/dL (1.8-2.4) Total Bilirubin 0.2 mg/dL (0.2-1.0) Aspartate Amino Transf (AST/SGOT) 25 U/L (15-37) Alanine Aminotransferase (ALT/SGPT) 22 U/L (14-59) Alkaline Phosphatase 68 U/L (46-116) Ammonia 40 mcmol/L (11-34) Creatine Kinase 46 U/L (26-192) Troponin I High Sensitivity 14 ng/L (4-50) XP-Kkc-N-Type Natriuretic Peptide 788 pg/mL (0-124) Total Protein 7.7 g/dL (6.4-8.2) Albumin 3.0 g/dL (3.4-5.0) Albumin/Globulin Ratio 0.6 (1.0-1.7) Urine Collection Type U cath Urine Color Yellow Urine Clarity Hazy Urine pH 5.5 (<5.0-8.0) Urine Specific [place] 1.025 (1.000-1.030) Urine Protein 30 mg/dL (NEG-TRACE) Urine Glucose (UA) Negative mg/dL (NEG) Urine Ketones (Stick) Negative mg/dL (NEG) Urine Blood Large (NEG) Urine Nitrite Positive (NEG) Urine Bilirubin Negative (NEG) Urine Urobilinogen Dipstick 0.2 mg/dL (0.2 mg/dL) Urine Leukocyte Esterase Trace (NEG) Urine RBC >40 /HPF (0-2) Urine WBC 11-20 /HPF (0-4) Urine Bacteria Many /HPF (0-FEW) Images: Images PROCEDURE: PORTABLE CHEST 1V Single view of the chest. 09/23/2021 10:27 AM Indication: Dyspnea Comparison: Chest radiograph August 13, 2021 Findings: Portions of the lung bases are not included on this exam. Exam appears to be limited by body habitus. There are diffuse interstitial alveolar infiltrates. The cardiomediastinal silhouette is enlarged. No pneumothorax is identified. No definitive effusion is seen. No acute osseous changes are seen. IMPRESSION: Cardiomegaly with diffuse interstitial alveolar infiltrates. Findings could represent pulmonary edema versus an atypical or viral infectious process PROCEDURE: CT HEAD WO CONTRAST EXAM: CT head without contrast INDICATION: Weakness, confusion COMPARISON: None TECHNIQUE: Axial CT imaging through the head without intravenous contrast. Sagittal and coronal reformats were obtained. One or more of the following individualized dose reduction techniques were utilized for this examination: 1. Automated exposure control 2. Adjustment of the mA and/or kV according to patient size 3. Use of iterative reconstruction technique. FINDINGS: Ventricles are normal in size. Sulci are diffusely small. There is mild periventricular white matter hypoattenuation. No intracranial hemorrhage or definite acute infarct. The skull and scalp are intact. Paranasal sinuses and mastoid air cells are clear. Globes and orbits are intact.. IMPRESSION: 1. No acute intracranial abnormality. 2. The sulci appear diffusely small. This can be seen with cerebral edema or could be technical/artifact. Consider follow-up CT or MRI with and without contrast to further evaluate. 3. Mild chronic microvascular ischemic changes. Assessment/Plan Assessment/Plan Acute metabolic encephalopathy, CO2 narcosis Acute on chronic hypercapnic and hypoxic respiratory failure requiring BiPAP Macrocytic anemia Acute electrolyte derangementhyponatremia, hyperkalemia suggestive of dehydration JULIA due to vasomotor nephropathy Debilitation and failure to thrive Morbid obesity History of Covid pneumonia in July 2021 History of hypertension History of dyslipidemia History of MADHU MADHU and OHS on 2 to 3 L home O2 HLD - statin therapy HTN - stable Protein calorie malnutrition Admit to hospitalist service for further management Continue BiPAP support Pulmonology consult Pending B12 levels Continue IV fluids judiciously Strict I/os Monitor urine output Avoid nephrotoxic agents Continue IV fluids Continue empiric IV antibiotics Pending pro calcitonin PT OT modalities Lovenox for DVT prophylaxis Protonix GI prophylaxis ADA diet CODE STATUS full Discussed with RN and SW Disposition inpatient management as above DPOA: A total of 45 minutes of critical care time was spent in reviewing chart, labs, and images. Discussed with RN and SW. Justifications for Admission Other Justification STANFORD LOTT MD Sep 23, 2021 13:42
[2021-09-23] MEDS ORDERED: SENNOSIDES 8.6 MG TABLET PO PRN (13:45)
[2021-09-23] MEDS ORDERED: PROCHLORPERAZINE 10 MG/2 ML VIAL. IV PRN (13:45)
[2021-09-23] MEDS ORDERED: diphenhydrAMINE 50 MG/ML VIAL IVP PRN (13:45)
[2021-09-23] MEDS ORDERED: ZOLPIDEM 5 MG TABLET. PO PRN (13:45)
[2021-09-23] MEDS ORDERED: DEXTROSE 50% 25 GM / 50ML DISP.SYRIN. IV PRN (13:45)
[2021-09-23] MEDS ORDERED: LORazepam 0.5 MG TABLET PO PRN (13:45)
[2021-09-23] MEDS ORDERED: ONDANSETRON PF 4 MG/2 ML VIAL. IVP PRN (13:45)
[2021-09-23] MEDS ORDERED: DOCUSATE SODIUM 100 MG CAPSULE. PO PRN (13:45)
[2021-09-23] MEDS ORDERED: diphenhydrAMINE HCL 25 MG CAPSULE PO PRN ×2 (13:45)
[2021-09-23 13:58] LABS: BASE EXCESS ABG 10 mmol/L (-3-3); HCO3 ABG 40 mmol/L (21-28); PO2 ABG 82 mmHg (65-108); SAT O2 ABG 95 % (92-99)
[2021-09-23 14:01] LABS: PCO2 ABG 92 mmHg (35-46)
[2021-09-23 16:00] VITALS: BP 176/85
[2021-09-23 16:06] LABS: INFLUENZA A PATIENT NEGATIVE (NEGATIVE); INFLUENZA B PATIENT NEGATIVE (NEGATIVE)
[2021-09-23] MEDS: AZITHROMYCIN 500 MG in IV NORMAL SALINE 250ML 250 ML IV SCH (16:28)
[2021-09-23] MEDS: cefTRIAXone IV Push 1 GM VIAL. IVP SCH (16:29)
[2021-09-23] MEDS: IV NORMAL SALINE 1000ML BAG 1,000 ML IV SCH (16:29)
[2021-09-23] MEDS: INSULIN LISPRO 300 UNITS/3 ML VIAL. SQ SCH (16:35)
[2021-09-23] MEDS ORDERED: NYST15PO9 TP (17:06)
[2021-09-23] MEDS ORDERED: ACETAMINOPHEN 325 MG TABLET. PO PRN (17:30)
--- NOTE | 2021-09-23 18:09 | EKG ---
[facility] [address] [place] [address] Test Date: 2021-09-23 Test Time: 09:58:29 Pat Name: TAYLOR ORDOÑEZ Department: Room: [facility] Gender: F Meal Packer: : 1960 Requested By: PETE FREGOSO Order Number: [id number] Reading MD: Bart Conroy Measurements Intervals [place] Rate: 82 P: 43 CA: 150 QRS: 30 QRSD: 74 T: 51 QT: 360 QTc: 424 Interpretive Statements SINUS RHYTHM NORMAL ECG RI6.02 Compared to ECG 08/08/2021 05:10:30 No significant changes Electronically Signed On 09-26-2021 8:51:00 [employer] by Bart Conroy
[2021-09-23 19:15] VITALS: BP 157/78
[2021-09-23] MEDS: ATORVASTATIN CALCIUM 10 MG TABLET. PO SCH (20:55)
[2021-09-23] MEDS: METOPROLOL TART IMMED RELEASE 50 MG TABLET. PO SCH (20:55)
[2021-09-23] MEDS: NYSTATIN TOPICAL POWDER 15GM BOTTLE. TP SCH (20:55)
[2021-09-23 22:50] VITALS: BP 138/74
[2021-09-24 03:05] VITALS: BP 161/85
[2021-09-24 05:12] LABS: BASO % 1 % (0-3); EOS # 0.1 x10^3/uL (0.0-0.7); EOS % 3 % (0-3); HEMATOCRIT 26.7 % (36.0-47.0); HEMOGLOBIN 8.4 g/dL (12.0-15.5); LYMPH # 0.8 x10^3/uL (1.0-4.8); LYMPH % 16 % (24-48); MEAN CORPUSCULAR HEMOGLOBIN 32 pg (25-35); MEAN CORPUSCULAR HGB CONC 31 g/dL (31-37); MEAN CORPUSCULAR VOLUME 101 fL (79-100); MONO # 0.7 x10^3/uL (0.0-1.1); MONO % 13 % (0-9); NEUT # 3.6 x10^3/uL (1.8-7.7); NEUT % 68 % (31-73); PLATELET COUNT 145 x10^3/uL (140-400); RED BLOOD COUNT 2.65 x10^6/uL (3.50-5.40); RED CELL DISTRIBUTION WIDTH 14.4 % (11.5-14.5); WHITE BLOOD COUNT 5.3 x10^3/uL (4.0-11.0)
[2021-09-24 05:35] LABS: CALCIUM 8.9 mg/dL (8.5-10.1); CREATININE 2.2 mg/dL (0.6-1.0); GFR 27.4; PHOSPHORUS 4.5 mg/dL (2.6-4.7)
[2021-09-24 05:39] LABS: POTASSIUM 5.2 mmol/L (3.5-5.1)
[2021-09-24] MEDS: PANTOPRAZOLE IV PUSH 40 MG VIAL. IVP SCH (06:06)
[2021-09-24 07:00] VITALS: BP 159/83
[2021-09-24] MEDS: INSULIN LISPRO 300 UNITS/3 ML VIAL. SQ SCH ×3 (08:00→17:00)
[2021-09-24] MEDS: FUROSEMIDE 40 MG TABLET. PO SCH ×2 (08:26→15:57)
[2021-09-24] MEDS: OMEGA-3 FATTY ACIDS/FISH OIL 1,000 MG CAPSULE. PO SCH (08:26)
[2021-09-24] MEDS: MULTIVITAMIN with MINERAL TABLET. PO SCH (08:26)
[2021-09-24] MEDS: CETIRIZINE HCL 10 MG TABLET. PO SCH (08:26)
[2021-09-24] MEDS: FERROUS SULFATE 325 MG TABLET. PO SCH (08:26)
[2021-09-24] MEDS: METOPROLOL TART IMMED RELEASE 50 MG TABLET. PO SCH ×2 (08:27→20:06)
[2021-09-24] MEDS: NYSTATIN TOPICAL POWDER 15GM BOTTLE. TP SCH ×2 (08:27→20:09)
[2021-09-24] MEDS: IV NORMAL SALINE 1000ML BAG 1,000 ML IV SCH ×2 (08:28→23:29)
[2021-09-24] MEDS ORDERED: NON FORMULARY ITEM (Omeprazole 20 MG) PO SCH (09:00)
--- NOTE | 2021-09-24 10:38 | PDOC ---
[facility] PROGRESS NOTE Date of Service DOS: DATE: 09/24/21 TIME: 10:36 Chief Complaint Chief Complaint Acute metabolic encephalopathy, CO2 narcosis Acute on chronic hypercapnic and hypoxic respiratory failure requiring BiPAP Macrocytic anemia Acute electrolyte derangementhyponatremia, hyperkalemia suggestive of dehydration JULIA due to vasomotor nephropathy Debilitation and failure to thrive Morbid obesity History of Covid pneumonia in July 2021 History of hypertension History of dyslipidemia History of MADHU MADHU and OHS on 2 to 3 L home O2 HLD - statin therapy HTN - stable Protein calorie malnutrition History of Present Illness History of Present Illness 09/24/2021 Patient seen and examined She is on BiPAP 12/03 with 35% FiO2 and a rate of 24 On IV azithromycin Discussed with RT Discussed with case management Discussed with RN Chart reviewed Vitals/I&O Vitals/I&O: Vital Signs Date Time Temp Pulse Resp B/P (MAP) Pulse Ox O2 Delivery O2 Flow Rate FiO2 09/24/21 08:50 96 BiPAP/CPAP 09/24/21 08:27 70 159/83 09/24/21 07:00 97.8 18 97.8 09/23/21 22:50 3.0 I & O 09/23/21 09/23/21 09/24/21 15:00 23:00 07:00 Intake Total 100 ml 500 ml 400 ml Output Total 900 ml Balance 100 ml 500 ml -500 ml Physical Exam General: Alert Heart: Regular rate Lungs: Clear, Other Abdomen: Normal bowel sounds, Other (Obese) Extremities: No clubbing Skin: No rashes Labs Labs: Laboratory Tests Test 09/23/21 10:50 09/23/21 13:48 09/23/21 15:20 09/23/21 16:35 Urine Collection Type U cath Urine Color Yellow Urine Clarity Hazy Urine pH 5.5 (<5.0-8.0) Urine Specific [place] 1.025 (1.000-1.030) Urine Protein 30 mg/dL (NEG-TRACE) Urine Glucose (UA) Negative mg/dL (NEG) Urine Ketones (Stick) Negative mg/dL (NEG) Urine Blood Large (NEG) Urine Nitrite Positive (NEG) Urine Bilirubin Negative (NEG) Urine Urobilinogen Dipstick 0.2 mg/dL (0.2 mg/dL) Urine Leukocyte Esterase Trace (NEG) Urine RBC >40 /HPF (0-2) Urine WBC 11-20 /HPF (0-4) Urine Bacteria Many /HPF (0-FEW) O2 Saturation 95 % (92-99) Arterial Blood pH 7.25 (7.35-7.45) Arterial Blood pCO2 at Patient Temp 92 mmHg (35-46) Arterial Blood pO2 at Patient Temp 82 mmHg (65-108) Arterial Blood HCO3 40 mmol/L (21-28) Arterial Blood Base Excess 10 mmol/L (-3-3) FiO2 40% bipap Influenza Type A Antigen Negative (NEGATIVE) Influenza Type B Antigen Negative (NEGATIVE) SARS-CoV-2 Antigen (Rapid) Negative (NEGATIVE) Glucose (Fingerstick) 73 mg/dL (70-99) Test 09/23/21 21:12 09/24/21 04:20 09/24/21 04:25 09/24/21 08:16 Glucose (Fingerstick) 79 mg/dL (70-99) 89 mg/dL (70-99) Sodium Level 148 mmol/L (136-145) Potassium Level 5.2 mmol/L (3.5-5.1) Chloride Level 107 mmol/L (98-107) Carbon Dioxide Level 40 mmol/L (21-32) Anion Gap 1 (6-14) Blood Urea Nitrogen 41 mg/dL (7-20) Creatinine 2.2 mg/dL (0.6-1.0) Estimated GFR (Cockcroft-Gault) 27.4 Glucose Level 100 mg/dL (70-99) Calcium Level 8.9 mg/dL (8.5-10.1) Phosphorus Level 4.5 mg/dL (2.6-4.7) Magnesium Level 2.0 mg/dL (1.8-2.4) White Blood Count 5.3 x10^3/uL (4.0-11.0) Red Blood Count 2.65 x10^6/uL (3.50-5.40) Hemoglobin 8.4 g/dL (12.0-15.5) Hematocrit 26.7 % (36.0-47.0) Mean Corpuscular Volume 101 fL (79-100) Mean Corpuscular Hemoglobin 32 pg (25-35) Mean Corpuscular Hemoglobin Concent 31 g/dL (31-37) Red Cell Distribution Width 14.4 % (11.5-14.5) Platelet Count 145 x10^3/uL (140-400) Neutrophils (%) (Auto) 68 % (31-73) Lymphocytes (%) (Auto) 16 % (24-48) Monocytes (%) (Auto) 13 % (0-9) Eosinophils (%) (Auto) 3 % (0-3) Basophils (%) (Auto) 1 % (0-3) Neutrophils # (Auto) 3.6 x10^3/uL (1.8-7.7) Lymphocytes # (Auto) 0.8 x10^3/uL (1.0-4.8) Monocytes # (Auto) 0.7 x10^3/uL (0.0-1.1) Eosinophils # (Auto) 0.1 x10^3/uL (0.0-0.7) Basophils # (Auto) 0.0 x10^3/uL (0.0-0.2) Assessment and Plan Assessmemt and Plan Problems Medical Problems: (1) CO2 narcosis Status: Acute (2) Failure to thrive in adult Status: Acute (3) Generalized weakness Status: Acute (4) Healthcare-associated pneumonia Status: Acute (5) Obesity hypoventilation syndrome Status: Acute (6) Respiratory acidosis Status: Acute (7) Respiratory failure with hypoxia and hypercapnia Status: Acute Acute metabolic encephalopathy, CO2 narcosis Acute on chronic hypercapnic and hypoxic respiratory failure requiring BiPAP Macrocytic anemia Acute electrolyte derangementhyponatremia, hyperkalemia suggestive of dehydration JULIA due to vasomotor nephropathy Debilitation and failure to thrive Morbid obesity History of Covid pneumonia in July 2021 History of hypertension History of dyslipidemia History of MADHU MADHU and OHS on 2 to 3 L home O2 HLD - statin therapy HTN - stable Protein calorie malnutrition Plan Continue BiPAP and monitor CO2 Pulmonology consult Pending B12 levels Continue IV fluids judiciously Strict I/os Monitor urine output Avoid nephrotoxic agents Continue IV fluids Continue empiric IV antibiotics PT OT modalities Lovenox for DVT prophylaxis Protonix GI prophylaxis ADA diet CODE STATUS full Discussed with RN and SW Disposition inpatient management as above DPOA: Comment Review of Relevant I have reviewed the following items marcus (where applicable) has been applied. Medications: Current Medications Medications (Trade) Dose Ordered Sig/Jeannie Route PRN Reason Start Time Stop Time Status Last Admin Dose Admin Furosemide (Lasix) 20 mg 1X ONCE IVP 09/23/21 11:15 09/23/21 11:17 DC 09/23/21 12:12 Vancomycin HCl 2 gm/Sodium Chloride 500 ml @ 250 mls/hr 1X ONCE IV 09/23/21 12:00 09/23/21 13:59 DC 09/23/21 13:36 Piperacillin Sod/ Tazobactam Sod 4.5 gm/Dextrose 100 ml @ 200 mls/hr 1X ONCE IV 09/23/21 11:30 09/23/21 11:59 DC 09/23/21 12:53 Sodium Chloride 1,000 ml @ 75 mls/hr [id number] IV 09/23/21 15:00 09/25/21 14:59 09/24/21 08:28 Enoxaparin Sodium (Lovenox 60mg Syringe) 60 mg DAILY SQ 09/24/21 09:00 09/24/21 08:28 Pantoprazole Sodium (PROTONIX VIAL for IV PUSH) 40 mg DAILYAC IVP 09/24/21 07:30 09/24/21 06:06 Azithromycin 500 mg/Sodium Chloride 250 ml @ 250 mls/hr Q24H IV 09/23/21 16:00 09/23/21 16:28 Ceftriaxone Sodium (Rocephin) 1 gm Q24H IVP 09/23/21 16:00 09/23/21 16:29 Ferrous Sulfate (Feosol) 325 mg DAILYWBKFT PO 09/24/21 08:00 09/24/21 08:26 Furosemide (Lasix) 40 mg [id number] PO 09/24/21 09:00 09/24/21 08:26 Metoprolol Tartrate (Lopressor) 50 mg BID PO 09/23/21 21:00 09/24/21 08:27 Nystatin (Nystop) 1 blayne BID TP 09/23/21 21:00 09/24/21 08:27 Fish Oil (Fish Oil) 1,000 mg DAILY PO 09/24/21 09:00 09/24/21 08:26 Atorvastatin Calcium (Lipitor) 5 mg QHS PO 09/23/21 21:00 09/23/21 20:55 Cetirizine HCl (ZyrTEC) 10 mg DAILY PO 09/24/21 09:00 09/24/21 08:26 Multivitamins (Thera M Plus) 1 tab DAILY PO 09/24/21 09:00 09/24/21 08:26 Justifications for Admission Other Justification Acute hypoxic respiratory failure AZAM NINO III DO Sep 24, 2021 10:38
[2021-09-24 11:00] VITALS: BP 123/65
--- NOTE | 2021-09-24 11:38 | CONS ---
DATE OF CONSULTATION: 09/24/2021 PULMONARY CONSULTATION ATTENDING PHYSICIAN: Roger Pascual MD REASON FOR CONSULTATION: Respiratory failure. HISTORY OF PRESENT ILLNESS: The patient is a 61-year-old morbidly obese female with a BMI of 75.3. The patient has history of sleep apnea and obesity hypoventilation syndrome. She was brought into the hospital with increasing dyspnea and lethargy. The patient was very drowsy in the Emergency Room. She has just received her BiPAP, but has not started using it. She has an occasional cough. No chest pain. She has lower extremity edema. The patient's arterial blood gases were abnormal with a pH of 7.17, pCO2 of 122 and a pO2 of 94. After a few hours on BiPAP, pH was 7.25, pCO2 of 92 and a pO2 of 82. This was on 40% BiPAP. She is now fully awake and following commands. The patient denies any complaints. I also had another blood gas, which is not reported in [facility]. This was the latest one. The pH was 7.32, pCO2 of 76 and a pO2 of 49.5. At home, the patient is on oxygen between 2-3 liters. I have reviewed the patient's chest x-ray which shows diffuse bilateral infiltrates. PAST MEDICAL HISTORY: Significant for history of anemia, dyslipidemia, hypertension, morbid obesity, history of obesity hypoventilation syndrome with chronic hypoxic and hypercapnic respiratory failure. PAST SURGICAL HISTORY: Cholecystectomy. SOCIAL HISTORY: Only smoked for 5 years. ALLERGIES: None to any medications. CURRENT MEDICATIONS: Reviewed as listed in the [facility] including Lovenox for DVT prophylaxis, PPI, Rocephin and Zithromax. REVIEW OF SYSTEMS: A 12-point review of system obtained. Pertinent positives discussed in my present illness, otherwise noncontributory. All systems that were negative were reviewed as well. FAMILY HISTORY: Noncontributory to lungs. PHYSICAL EXAMINATION: VITAL SIGNS: Reviewed. Blood pressure 159 systolic, afebrile, pulse ox 96%. She is fully awake and following commands. NECK: Supple. LUNGS: With diminished breath sounds. CARDIOVASCULAR: With a regular rate. ABDOMEN: With marked obesity. EXTREMITIES: With 2+ pitting edema. LABORATORY DATA: Labs are reviewed. ABGs are discussed in my history of present illness. Influenza screen is negative. COVID negative rapid. BUN 41 and a creatinine of 2.2. Sodium 148, potassium 5.2. White cell count 5.3, hemoglobin 8.4 and platelets are 145. IMPRESSION: 1. Acute on chronic hypercapnic respiratory failure secondary to combination of acute on chronic cor pulmonale. Cannot exclude the possibility of pneumonia, but clinically less likely. 2. The patient with underlying marked obesity. She has a BMI of 75.3. She has underlying obesity hypoventilation syndrome/Pickwickian syndrome. 3. No significant tobacco history. 4. Chronic kidney disease. 5. Abnormal chest x-ray with bilateral infiltrates suggestive of congestive heart failure. RECOMMENDATIONS: 1. I have discussed with the patient and RT. We will follow another arterial blood gases. 2. We will give her a trial of without the BiPAP and use it at night and p.r.n. during the day. 3. The patient to continue oxygen during the day. Keep saturations 90-92% and avoid hyperoxia. 4. We will do p.r.n. diuresis. 5. Continue empiric antibiotics. 6. Lovenox for DVT prophylaxis. 7. The patient was strongly emphasized the importance of using BiPAP at home. 8. Weight loss is strongly emphasized. 9. Discussed with RN and RT. Chart reviewed, imaging studies reviewed. Total critical care time [address]: Katty TID: [id number]
--- NOTE | 2021-09-24 12:47 | NUR ---
SS following for discharge planning. SS reviewed pt chart and discussed with pt RN. Pt is from home with spouse and is currently requiring oxygen at four liters nasal canula and BIPAP PRN. COVID19 negative. Pt has home oxygen. Pt on IV Rocephin and IV Azithromycin. Pulmonology consulted. PT/OT recommended [facility] unit. SS met with pt to discuss discharge planning and [facility] unit. Pt reported that she would need to discuss with her spouse and will notify SS of decision. SS will continue to follow for discharge planning.
[2021-09-24 13:39] LABS: BASE EXCESS ABG 10 mmol/L (-3-3); HCO3 ABG 39 mmol/L (21-28); PO2 ABG 75 mmHg (65-108); SAT O2 ABG 93 % (92-99)
[2021-09-24 13:41] LABS: FIO2 ABG 35; PCO2 ABG 82 mmHg (35-46)
[2021-09-24 15:00] VITALS: BP 149/80
[2021-09-24] MEDS: cefTRIAXone IV Push 1 GM VIAL. IVP SCH (15:53)
[2021-09-24] MEDS: AZITHROMYCIN 500 MG in IV NORMAL SALINE 250ML 250 ML IV SCH (15:55)
[2021-09-24 19:00] VITALS: BP 144/67
[2021-09-24] MEDS: LACTOBACILLUS RHAMNOSUS GG 1 CAPSULE. PO SCH (20:06)
[2021-09-24] MEDS: ATORVASTATIN CALCIUM 10 MG TABLET. PO SCH (20:06)
[2021-09-24 22:45] VITALS: BP 140/73
[2021-09-25] VITALS (7 sets, daily range): BP systolic 147–194; BP diastolic 72–80
[2021-09-25 03:25] LABS: BASO % 1 % (0-3); EOS # 0.2 x10^3/uL (0.0-0.7); EOS % 4 % (0-3); HEMATOCRIT 28.1 % (36.0-47.0); HEMOGLOBIN 8.7 g/dL (12.0-15.5); LYMPH # 0.8 x10^3/uL (1.0-4.8); LYMPH % 18 % (24-48); MEAN CORPUSCULAR HEMOGLOBIN 31 pg (25-35); MEAN CORPUSCULAR HGB CONC 31 g/dL (31-37); MEAN CORPUSCULAR VOLUME 100 fL (79-100); MONO # 0.5 x10^3/uL (0.0-1.1); MONO % 12 % (0-9); NEUT % 66 % (31-73); PLATELET COUNT 146 x10^3/uL (140-400); RED BLOOD COUNT 2.82 x10^6/uL (3.50-5.40); RED CELL DISTRIBUTION WIDTH 14.4 % (11.5-14.5); WHITE BLOOD COUNT 4.6 x10^3/uL (4.0-11.0)
[2021-09-25 03:52] LABS: CALCIUM 9.4 mg/dL (8.5-10.1); CREATININE 2.1 mg/dL (0.6-1.0); GFR 28.9; MAGNESIUM 1.9 mg/dL (1.8-2.4); POTASSIUM 5.1 mmol/L (3.5-5.1)
[2021-09-25] MEDS: PANTOPRAZOLE IV PUSH 40 MG VIAL. IVP SCH (05:34)
[2021-09-25] MEDS: IV NORMAL SALINE 1000ML BAG 1,000 ML IV SCH (07:00)
[2021-09-25] MEDS: INSULIN LISPRO 300 UNITS/3 ML VIAL. SQ SCH ×3 (08:00→17:00)
--- NOTE | 2021-09-25 08:22 | PDOC ---
[employer] PROGRESS NOTE Date of Service DOS: DATE: 09/25/21 TIME: 08:20 Chief Complaint Chief Complaint Acute metabolic encephalopathy, CO2 narcosis Acute on chronic hypercapnic and hypoxic respiratory failure requiring BiPAP Macrocytic anemia Acute electrolyte derangementhyponatremia, hyperkalemia suggestive of dehydration JULIA due to vasomotor nephropathy Debilitation and failure to thrive Morbid obesity History of Covid pneumonia in July 2021 History of hypertension History of dyslipidemia History of MADHU MADHU and OHS on 2 to 3 L home O2 HLD - statin therapy HTN - stable Protein calorie malnutrition History of Present Illness History of Present Illness 09/25/2021 Patient seen and examined She looks great she is off BiPAP talking alert watching TV eating wants to go home Vital signs are stable Creatinine 2.1 which I suspect is her baseline We will likely discharge this afternoon if okay with pulmonary 09/24/2021 Patient seen and examined She is on BiPAP 12/03 with 35% FiO2 and a rate of 24 On IV azithromycin Discussed with RT Discussed with case management Discussed with RN Chart reviewed Vitals/I&O Vitals/I&O: Vital Signs Date Time Temp Pulse Resp B/P (MAP) Pulse Ox O2 Delivery O2 Flow Rate FiO2 09/25/21 07:00 97.9 68 28 159/75 (103) 92 BiPAP/CPAP 97.9 09/24/21 19:00 4.0 I & O 09/24/21 09/24/21 09/25/21 15:00 23:00 07:00 Intake Total 1580 ml 1150 ml 1900 ml Output Total 500 ml 600 ml Balance 1580 ml 650 ml 1300 ml Physical Exam General: Alert Heart: Regular rate Lungs: Clear, Other Abdomen: Normal bowel sounds, Other (Obese) Extremities: No clubbing Skin: No rashes Labs Labs: Laboratory Tests Test 09/24/21 11:58 09/24/21 13:20 09/24/21 17:32 09/24/21 21:27 Glucose (Fingerstick) 92 mg/dL (70-99) 75 mg/dL (70-99) 146 mg/dL (70-99) O2 Saturation 93 % (92-99) Arterial Blood pH 7.29 (7.35-7.45) Arterial Blood pCO2 at Patient Temp 82 mmHg (35-46) Arterial Blood pO2 at Patient Temp 75 mmHg (65-108) Arterial Blood HCO3 39 mmol/L (21-28) Arterial Blood Base Excess 10 mmol/L (-3-3) FiO2 35 Test 09/25/21 02:50 09/25/21 07:19 White Blood Count 4.6 x10^3/uL (4.0-11.0) Red Blood Count 2.82 x10^6/uL (3.50-5.40) Hemoglobin 8.7 g/dL (12.0-15.5) Hematocrit 28.1 % (36.0-47.0) Mean Corpuscular Volume 100 fL (79-100) Mean Corpuscular Hemoglobin 31 pg (25-35) Mean Corpuscular Hemoglobin Concent 31 g/dL (31-37) Red Cell Distribution Width 14.4 % (11.5-14.5) Platelet Count 146 x10^3/uL (140-400) Neutrophils (%) (Auto) 66 % (31-73) Lymphocytes (%) (Auto) 18 % (24-48) Monocytes (%) (Auto) 12 % (0-9) Eosinophils (%) (Auto) 4 % (0-3) Basophils (%) (Auto) 1 % (0-3) Neutrophils # (Auto) 3.0 x10^3/uL (1.8-7.7) Lymphocytes # (Auto) 0.8 x10^3/uL (1.0-4.8) Monocytes # (Auto) 0.5 x10^3/uL (0.0-1.1) Eosinophils # (Auto) 0.2 x10^3/uL (0.0-0.7) Basophils # (Auto) 0.0 x10^3/uL (0.0-0.2) Sodium Level 146 mmol/L (136-145) Potassium Level 5.1 mmol/L (3.5-5.1) Chloride Level 105 mmol/L (98-107) Carbon Dioxide Level 39 mmol/L (21-32) Anion Gap 2 (6-14) Blood Urea Nitrogen 38 mg/dL (7-20) Creatinine 2.1 mg/dL (0.6-1.0) Estimated GFR (Cockcroft-Gault) 28.9 Glucose Level 95 mg/dL (70-99) Calcium Level 9.4 mg/dL (8.5-10.1) Magnesium Level 1.9 mg/dL (1.8-2.4) Glucose (Fingerstick) 84 mg/dL (70-99) Assessment and Plan Assessmemt and Plan Problems Medical Problems: (1) CO2 narcosis Status: Acute (2) Failure to thrive in adult Status: Acute (3) Generalized weakness Status: Acute (4) Healthcare-associated pneumonia Status: Acute (5) Obesity hypoventilation syndrome Status: Acute (6) Respiratory acidosis Status: Acute (7) Respiratory failure with hypoxia and hypercapnia Status: Acute Acute metabolic encephalopathy, CO2 narcosis Acute on chronic hypercapnic and hypoxic respiratory failure requiring BiPAP Macrocytic anemia Acute electrolyte derangementhyponatremia, hyperkalemia suggestive of dehydration JULIA due to vasomotor nephropathy Debilitation and failure to thrive Morbid obesity History of Covid pneumonia in July 2021 History of hypertension History of dyslipidemia History of MADHU MADHU and OHS on 2 to 3 L home O2 HLD - statin therapy HTN - stable Protein calorie malnutrition Plan We will discharge on p.o. Lasix p.o. antibiotics and continue her home BiPAP if okay with pulmonary For now continue the following; Steroids Breathing treatments Oxygen Home meds DVT prophylaxis Full code Lifestyle modification she needs to lose weight Discharge Comment Review of Relevant I have reviewed the following items marcus (where applicable) has been applied. Medications: Current Medications Medications (Trade) Dose Ordered Sig/Jeannie Route PRN Reason Start Time Stop Time Status Last Admin Dose Admin Enoxaparin Sodium (Lovenox 60mg Syringe) 60 mg DAILY SQ 09/24/21 09:00 09/24/21 08:28 Furosemide (Lasix) 40 mg [id number] PO 09/24/21 09:00 09/24/21 15:57 Fish Oil (Fish Oil) 1,000 mg DAILY PO 09/24/21 09:00 09/24/21 08:26 Cetirizine HCl (ZyrTEC) 10 mg DAILY PO 09/24/21 09:00 09/24/21 08:26 Multivitamins (Thera M Plus) 1 tab DAILY PO 09/24/21 09:00 09/24/21 08:26 Lactobacillus Rhamnosus (Culturelle) 1 cap BID PO 09/24/21 21:00 09/24/21 20:06 Justifications for Admission Other Justification Acute hypoxic respiratory failure CASTAZAM VALENCIA K III DO Sep 25, 2021 08:22
[2021-09-25] MEDS ORDERED: DOXY100C3 PO (08:25)
[2021-09-25] MEDS ORDERED: AMOX1TAB10 PO (08:25)
[2021-09-25] MEDS ORDERED: FURO-68 PO (08:26)
--- NOTE | 2021-09-25 08:26 | SNU/HH DC ---
DISCHARGE WITH HOME HEALTH DISCHARGE INFORMATION: Final Diagnosis: Problems Medical Problems: (1) CO2 narcosis Status: Acute (2) Failure to thrive in adult Status: Acute (3) Generalized weakness Status: Acute (4) Healthcare-associated pneumonia Status: Acute (5) Obesity hypoventilation syndrome Status: Acute (6) Respiratory acidosis Status: Acute (7) Respiratory failure with hypoxia and hypercapnia Status: Acute Condition on Discharge: Stable CODE STATUS: Code Status: Full HOME HEALTH: Face to Face: I certify this patient is under my care and that I, or a nurse practitioner or physician's food and beverage assistant working with me, had a face to face encounter that meets the physician face to face encounter requirements with this patient on []. Medical Complications: Other (Overweight chronic respiratory failure) [facility] For: Assess & Educate Safety RN For Eval/Treatment: Yes Physical Therapy For: Evalulation/Treatment Occupational Therapy For: Evaluation/Treatment Home Health Aide For: Self-care CELERY TIER For: Community Resources Pt Meets Homebound Status: Poor coordination w/ amb. POST DISCHARGE ORDERS: Activity Instructions for Disc: Activity as tolerated Weight Bearing Status after Di: As tolerated DIET AFTER DISCHARGE: Cardiac CHECKS AFTER DISCHARGE: Checks after discharge: Check blood press - daily, Check your Temp as needed TREATMENT/EQUIPMENT ORDERS: Adaptive Equipment Issued: None Discharge Respiratory Equipmen: Oxygen, BiPAP CERTIFICATION STATEMENT: Certification Statement: Certification Statement: Based on the above finding, I certify that this patient is confined to the home and needs intermittent shelter care, physical therapy and/or speech therapy, or continues to need occupational therapy.~ This patient is under my care, and I have initiated the establishment of the plan of care.~ This patient will be followed by myself or a community physician who will periodically review the plan of care. Home Meds Active Scripts Doxycycline Hyclate (DOXYCYCLINE HYCLATE) 100 Mg Capsule, 1 CAP PO BID for ., #14 CAP Prov:CASTLE,NIAL K III DO 09/25/21 Amoxicillin/Potassium Clav (AMOX TR-K CLV 500-125 MG TAB) 1 Each Tablet, 1 TAB PO BID for ., #14 TAB Prov:CASTLE,NIAL K III DO 09/25/21 Furosemide (FUROSEMIDE) 40 Mg Tablet, 40 MG PO BID for CKD for 30 Days, #60 TAB 2 Refills Prov:EBER ZHOU MD 08/22/21 Acetaminophen (ACETAMINOPHEN) 325 Mg Tablet, 650 MG PO PRN Q6HRS PRN for MILD PAIN / TEMP > 100.3'F for 30 Days, #120 TAB Prov:EBER ZHOU MD 08/22/21 Ferrous Sulfate (FEOSOL) 325 Mg Tablet, 325 MG PO DAILYWBKFT for 30 Days, TAB Prov:RALF COOK MD 11/11/14 Reported Medications Nystatin (NYSTATIN) 15 Gm Powder, 1 ASHER TP BID for reddened folds for 7 Days, #1 BOTTLE 0 Refills apply to affected area(s) 09/23/21 Fish Oil/Borage/Flax/Om3,6,9#1 ([place] 3-6-9 1,200 mg Softgel) 1,200 Mg Capsule, 1200 MG PO DAILY 11/05/14 Loratadine (LORATADINE) 10 Mg Tablet, 10 MG PO 11/05/14 Metoprolol Tartrate (METOPROLOL TARTRATE) 50 Mg Tablet, 50 MG PO BID for FOR HYPERTENSION, #60 TAB 0 Refills 11/05/14 Lovastatin (LOVASTATIN) 20 Mg Tablet, 20 MG PO HS, TAB 11/05/14 Omeprazole (OMEPRAZOLE) 20 Mg Tablet.dr, 20 MG PO DAILY, TAB 02/04/14 Multivitamin (DAILY VITAMIN) 1 Each Tablet, 1 EACH PO 02/04/14 AZAM NINO III DO Sep 25, 2021 08:26
[2021-09-25] MEDS: FERROUS SULFATE 325 MG TABLET. PO SCH (08:32)
[2021-09-25] MEDS: OMEGA-3 FATTY ACIDS/FISH OIL 1,000 MG CAPSULE. PO SCH (08:32)
[2021-09-25] MEDS: LACTOBACILLUS RHAMNOSUS GG 1 CAPSULE. PO SCH ×2 (08:32→21:21)
[2021-09-25] MEDS: CETIRIZINE HCL 10 MG TABLET. PO SCH (08:32)
[2021-09-25] MEDS: FUROSEMIDE 40 MG TABLET. PO SCH ×2 (08:32→15:40)
[2021-09-25] MEDS: MULTIVITAMIN with MINERAL TABLET. PO SCH (08:32)
[2021-09-25] MEDS: METOPROLOL TART IMMED RELEASE 50 MG TABLET. PO SCH ×2 (08:33→21:21)
[2021-09-25] MEDS: NYSTATIN TOPICAL POWDER 15GM BOTTLE. TP SCH ×2 (08:40→21:00)
[2021-09-25 09:41] LABS: BASE EXCESS ABG 9 mmol/L (-3-3); HCO3 ABG 37 mmol/L (21-28); SAT O2 ABG 83 % (92-99)
[2021-09-25 10:00] LABS: PCO2 ABG 69 mmHg (35-46); PO2 ABG 50 mmHg (65-108)
[2021-09-25 10:01] LABS: FIO2 ABG 3 LPM
--- NOTE | 2021-09-25 10:13 | PDOC ---
PULMONARY PROGRESS NOTES DATE: 09/25/21 TIME: 10:08 Subjective Patient is resting comfortably on 3 L nasal cannula Patient denies any increased shortness of breath or cough, reports that she wore BiPAP overnight Vitals Vital Signs Date Time Temp Pulse Resp B/P (MAP) Pulse Ox O2 Delivery O2 Flow Rate FiO2 09/25/21 08:55 91 Nasal Cannula 3.0 09/25/21 08:33 68 159/75 09/25/21 07:00 97.9 28 97.9 ROS: No Nausea, No Chest Pain, No Abdominal Pain, No Increase Cough General: Alert, Oriented X4 Lungs: Clear Cardiovascular: S1, S2 Abdomen: Soft, Non-tender Extremities: Other Labs Laboratory Tests Test 09/23/21 10:25 09/23/21 10:36 09/23/21 10:50 09/23/21 13:48 O2 Saturation 96 % (92-99) 95 % (92-99) Arterial Blood pH 7.17 (7.35-7.45) 7.25 (7.35-7.45) Arterial Blood pCO2 at Patient Temp 122 mmHg (35-46) 92 mmHg (35-46) Arterial Blood pO2 at Patient Temp 94 mmHg (65-108) 82 mmHg (65-108) Arterial Blood HCO3 44 mmol/L (21-28) 40 mmol/L (21-28) Arterial Blood Base Excess 12 mmol/L (-3-3) 10 mmol/L (-3-3) FiO2 32%/ 3lnc 40% bipap White Blood Count 6.3 x10^3/uL (4.0-11.0) Red Blood Count 2.89 x10^6/uL (3.50-5.40) Hemoglobin 9.3 g/dL (12.0-15.5) Hematocrit 29.2 % (36.0-47.0) Mean Corpuscular Volume 101 fL (79-100) Mean Corpuscular Hemoglobin 32 pg (25-35) Mean Corpuscular Hemoglobin Concent 32 g/dL (31-37) Red Cell Distribution Width 14.5 % (11.5-14.5) Platelet Count 157 x10^3/uL (140-400) Neutrophils (%) (Auto) 86 % (31-73) Lymphocytes (%) (Auto) 6 % (24-48) Monocytes (%) (Auto) 7 % (0-9) Eosinophils (%) (Auto) 0 % (0-3) Basophils (%) (Auto) 1 % (0-3) Neutrophils # (Auto) 5.4 x10^3/uL (1.8-7.7) Lymphocytes # (Auto) 0.4 x10^3/uL (1.0-4.8) Monocytes # (Auto) 0.4 x10^3/uL (0.0-1.1) Eosinophils # (Auto) 0.0 x10^3/uL (0.0-0.7) Basophils # (Auto) 0.0 x10^3/uL (0.0-0.2) Sodium Level 147 mmol/L (136-145) Potassium Level 5.2 mmol/L (3.5-5.1) Chloride Level 105 mmol/L (98-107) Carbon Dioxide Level 41 mmol/L (21-32) Anion Gap 1 (6-14) Blood Urea Nitrogen 42 mg/dL (7-20) Creatinine 2.3 mg/dL (0.6-1.0) Estimated GFR (Cockcroft-Gault) 26.0 BUN/Creatinine Ratio 18 (6-20) Glucose Level 152 mg/dL (70-99) Lactic Acid Level 0.6 mmol/L (0.4-2.0) Calcium Level 9.2 mg/dL (8.5-10.1) Phosphorus Level 5.5 mg/dL (2.6-4.7) Magnesium Level 2.0 mg/dL (1.8-2.4) Total Bilirubin 0.2 mg/dL (0.2-1.0) Aspartate Amino Transf (AST/SGOT) 25 U/L (15-37) Alanine Aminotransferase (ALT/SGPT) 22 U/L (14-59) Alkaline Phosphatase 68 U/L (46-116) Ammonia 40 mcmol/L (11-34) Creatine Kinase 46 U/L (26-192) Troponin I High Sensitivity 14 ng/L (4-50) YZ-Piw-W-Type Natriuretic Peptide 788 pg/mL (0-124) Total Protein 7.7 g/dL (6.4-8.2) Albumin 3.0 g/dL (3.4-5.0) Albumin/Globulin Ratio 0.6 (1.0-1.7) Procalcitonin 0.11 ng/mL (0.00-0.10) Urine Collection Type U cath Urine Color Yellow Urine Clarity Hazy Urine pH 5.5 (<5.0-8.0) Urine Specific [place] 1.025 (1.000-1.030) Urine Protein 30 mg/dL (NEG-TRACE) Urine Glucose (UA) Negative mg/dL (NEG) Urine Ketones (Stick) Negative mg/dL (NEG) Urine Blood Large (NEG) Urine Nitrite Positive (NEG) Urine Bilirubin Negative (NEG) Urine Urobilinogen Dipstick 0.2 mg/dL (0.2 mg/dL) Urine Leukocyte Esterase Trace (NEG) Urine RBC >40 /HPF (0-2) Urine WBC 11-20 /HPF (0-4) Urine Bacteria Many /HPF (0-FEW) Test 09/23/21 15:20 09/23/21 16:35 09/23/21 21:12 09/24/21 04:20 Influenza Type A Antigen Negative (NEGATIVE) Influenza Type B Antigen Negative (NEGATIVE) SARS-CoV-2 Antigen (Rapid) Negative (NEGATIVE) Glucose (Fingerstick) 73 mg/dL (70-99) 79 mg/dL (70-99) Sodium Level 148 mmol/L (136-145) Potassium Level 5.2 mmol/L (3.5-5.1) Chloride Level 107 mmol/L (98-107) Carbon Dioxide Level 40 mmol/L (21-32) Anion Gap 1 (6-14) Blood Urea Nitrogen 41 mg/dL (7-20) Creatinine 2.2 mg/dL (0.6-1.0) Estimated GFR (Cockcroft-Gault) 27.4 Glucose Level 100 mg/dL (70-99) Calcium Level 8.9 mg/dL (8.5-10.1) Phosphorus Level 4.5 mg/dL (2.6-4.7) Magnesium Level 2.0 mg/dL (1.8-2.4) Test 09/24/21 04:25 09/24/21 08:16 09/24/21 11:58 09/24/21 13:20 White Blood Count 5.3 x10^3/uL (4.0-11.0) Red Blood Count 2.65 x10^6/uL (3.50-5.40) Hemoglobin 8.4 g/dL (12.0-15.5) Hematocrit 26.7 % (36.0-47.0) Mean Corpuscular Volume 101 fL (79-100) Mean Corpuscular Hemoglobin 32 pg (25-35) Mean Corpuscular Hemoglobin Concent 31 g/dL (31-37) Red Cell Distribution Width 14.4 % (11.5-14.5) Platelet Count 145 x10^3/uL (140-400) Neutrophils (%) (Auto) 68 % (31-73) Lymphocytes (%) (Auto) 16 % (24-48) Monocytes (%) (Auto) 13 % (0-9) Eosinophils (%) (Auto) 3 % (0-3) Basophils (%) (Auto) 1 % (0-3) Neutrophils # (Auto) 3.6 x10^3/uL (1.8-7.7) Lymphocytes # (Auto) 0.8 x10^3/uL (1.0-4.8) Monocytes # (Auto) 0.7 x10^3/uL (0.0-1.1) Eosinophils # (Auto) 0.1 x10^3/uL (0.0-0.7) Basophils # (Auto) 0.0 x10^3/uL (0.0-0.2) Glucose (Fingerstick) 89 mg/dL (70-99) 92 mg/dL (70-99) O2 Saturation 93 % (92-99) Arterial Blood pH 7.29 (7.35-7.45) Arterial Blood pCO2 at Patient Temp 82 mmHg (35-46) Arterial Blood pO2 at Patient Temp 75 mmHg (65-108) Arterial Blood HCO3 39 mmol/L (21-28) Arterial Blood Base Excess 10 mmol/L (-3-3) FiO2 35 Test 09/24/21 17:32 09/24/21 21:27 09/25/21 02:50 09/25/21 07:19 Glucose (Fingerstick) 75 mg/dL (70-99) 146 mg/dL (70-99) 84 mg/dL (70-99) White Blood Count 4.6 x10^3/uL (4.0-11.0) Red Blood Count 2.82 x10^6/uL (3.50-5.40) Hemoglobin 8.7 g/dL (12.0-15.5) Hematocrit 28.1 % (36.0-47.0) Mean Corpuscular Volume 100 fL (79-100) Mean Corpuscular Hemoglobin 31 pg (25-35) Mean Corpuscular Hemoglobin Concent 31 g/dL (31-37) Red Cell Distribution Width 14.4 % (11.5-14.5) Platelet Count 146 x10^3/uL (140-400) Neutrophils (%) (Auto) 66 % (31-73) Lymphocytes (%) (Auto) 18 % (24-48) Monocytes (%) (Auto) 12 % (0-9) Eosinophils (%) (Auto) 4 % (0-3) Basophils (%) (Auto) 1 % (0-3) Neutrophils # (Auto) 3.0 x10^3/uL (1.8-7.7) Lymphocytes # (Auto) 0.8 x10^3/uL (1.0-4.8) Monocytes # (Auto) 0.5 x10^3/uL (0.0-1.1) Eosinophils # (Auto) 0.2 x10^3/uL (0.0-0.7) Basophils # (Auto) 0.0 x10^3/uL (0.0-0.2) Sodium Level 146 mmol/L (136-145) Potassium Level 5.1 mmol/L (3.5-5.1) Chloride Level 105 mmol/L (98-107) Carbon Dioxide Level 39 mmol/L (21-32) Anion Gap 2 (6-14) Blood Urea Nitrogen 38 mg/dL (7-20) Creatinine 2.1 mg/dL (0.6-1.0) Estimated GFR (Cockcroft-Gault) 28.9 Glucose Level 95 mg/dL (70-99) Calcium Level 9.4 mg/dL (8.5-10.1) Magnesium Level 1.9 mg/dL (1.8-2.4) Test 09/25/21 09:30 O2 Saturation 83 % (92-99) Arterial Blood pH 7.35 (7.35-7.45) Arterial Blood pCO2 at Patient Temp 69 mmHg (35-46) Arterial Blood pO2 at Patient Temp 50 mmHg (65-108) Arterial Blood HCO3 37 mmol/L (21-28) Arterial Blood Base Excess 9 mmol/L (-3-3) FiO2 3 lpm Laboratory Tests Test 09/24/21 11:58 09/24/21 13:20 09/24/21 17:32 09/24/21 21:27 Glucose (Fingerstick) 92 mg/dL (70-99) 75 mg/dL (70-99) 146 mg/dL (70-99) O2 Saturation 93 % (92-99) Arterial Blood pH 7.29 (7.35-7.45) Arterial Blood pCO2 at Patient Temp 82 mmHg (35-46) Arterial Blood pO2 at Patient Temp 75 mmHg (65-108) Arterial Blood HCO3 39 mmol/L (21-28) Arterial Blood Base Excess 10 mmol/L (-3-3) FiO2 35 Test 09/25/21 02:50 09/25/21 07:19 09/25/21 09:30 White Blood Count 4.6 x10^3/uL (4.0-11.0) Red Blood Count 2.82 x10^6/uL (3.50-5.40) Hemoglobin 8.7 g/dL (12.0-15.5) Hematocrit 28.1 % (36.0-47.0) Mean Corpuscular Volume 100 fL (79-100) Mean Corpuscular Hemoglobin 31 pg (25-35) Mean Corpuscular Hemoglobin Concent 31 g/dL (31-37) Red Cell Distribution Width 14.4 % (11.5-14.5) Platelet Count 146 x10^3/uL (140-400) Neutrophils (%) (Auto) 66 % (31-73) Lymphocytes (%) (Auto) 18 % (24-48) Monocytes (%) (Auto) 12 % (0-9) Eosinophils (%) (Auto) 4 % (0-3) Basophils (%) (Auto) 1 % (0-3) Neutrophils # (Auto) 3.0 x10^3/uL (1.8-7.7) Lymphocytes # (Auto) 0.8 x10^3/uL (1.0-4.8) Monocytes # (Auto) 0.5 x10^3/uL (0.0-1.1) Eosinophils # (Auto) 0.2 x10^3/uL (0.0-0.7) Basophils # (Auto) 0.0 x10^3/uL (0.0-0.2) Sodium Level 146 mmol/L (136-145) Potassium Level 5.1 mmol/L (3.5-5.1) Chloride Level 105 mmol/L (98-107) Carbon Dioxide Level 39 mmol/L (21-32) Anion Gap 2 (6-14) Blood Urea Nitrogen 38 mg/dL (7-20) Creatinine 2.1 mg/dL (0.6-1.0) Estimated GFR (Cockcroft-Gault) 28.9 Glucose Level 95 mg/dL (70-99) Calcium Level 9.4 mg/dL (8.5-10.1) Magnesium Level 1.9 mg/dL (1.8-2.4) Glucose (Fingerstick) 84 mg/dL (70-99) O2 Saturation 83 % (92-99) Arterial Blood pH 7.35 (7.35-7.45) Arterial Blood pCO2 at Patient Temp 69 mmHg (35-46) Arterial Blood pO2 at Patient Temp 50 mmHg (65-108) Arterial Blood HCO3 37 mmol/L (21-28) Arterial Blood Base Excess 9 mmol/L (-3-3) FiO2 3 lpm Medications Active Scripts Medications Dose Route/Sig Max Daily Dose Days Date Category Dose Instructions Lasix (Furosemide) 40 Mg Tablet 1 Tab PO DAILY 30 09/25/21 Rx Doxycycline Hyclate 100 Mg Capsule 1 Cap PO BID 09/25/21 Rx Amox Tr-K Clv 500-125 Mg Tab (Amoxicillin/Potassium Clav) 1 Each Tablet 1 Tab PO BID 09/25/21 Rx Nystatin 15 Gm Powder 1 Baldev TP BID 7 09/23/21 Reported apply to affected area(s) Furosemide 40 Mg Tablet 40 Mg PO BID 30 08/22/21 Rx Acetaminophen 325 Mg Tablet 650 Mg PO PRN Q6HRS PRN 30 08/22/21 Rx Feosol (Ferrous Sulfate) 325 Mg Tablet 325 Mg PO DAILYWBKFT 30 11/11/14 Rx [place] 3-6-9 1,200 mg Softgel (Fish Oil/Borage/Flax/Om3,6,9#1) 1,200 Mg Capsule 1,200 Mg PO DAILY 11/05/14 Reported Loratadine 10 Mg Tablet 10 Mg PO 11/05/14 Reported Metoprolol Tartrate 50 Mg Tablet 50 Mg PO BID 11/05/14 Reported Lovastatin 20 Mg Tablet 20 Mg PO HS 11/05/14 Reported Omeprazole 20 Mg Tablet.dr 20 Mg PO DAILY 02/04/14 Reported Daily Vitamin (Multivitamin) 1 Each Tablet 1 Each PO 02/04/14 Reported Impression . IMPRESSION: 1. Acute on chronic hypercapnic respiratory failure secondary to combination of acute on chronic cor pulmonale. Cannot exclude the possibility of pneumonia, but clinically less likely. 2. The patient with underlying marked obesity. She has a BMI of 75.3. She has underlying obesity hypoventilation syndrome/Pickwickian syndrome. 3. No significant tobacco history. 4. Chronic kidney disease. 5. Abnormal chest x-ray with bilateral infiltrates suggestive of congestive heart failure. Plan . Updated 09/25/2021 Continue supplemental oxygen, hypoxia on ABG, increase nasal cannula oxygen requirement to 3.5 Liter NC , patient chronically wears 2 to 3 L nasal cannula at home. Continue BiPAP at night Lasix x1 DC antibiotics Bronchodilators as needed Educated on the importance of compliance with home CPAP/BiPAP DVT/GI prophylaxis: Protonix/Lovenox Discussed with RN and RT RECOMMENDATIONS: 1. I have discussed with the patient and RT. We will follow another arterial blood gases. 2. We will give her a trial of without the BiPAP and use it at night and p.r.n. during the day. 3. The patient to continue oxygen during the day. Keep saturations 90-92% and avoid hyperoxia. 4. We will do p.r.n. diuresis. 5. Continue empiric antibiotics. 6. Lovenox for DVT prophylaxis. 7. The patient was strongly emphasized the importance of using BiPAP at home. 8. Weight loss is strongly emphasized. 9. Discussed with RN and RT. Chart reviewed, imaging studies reviewed. OLGA PAREDES MD Sep 25, 2021 10:13
[2021-09-25] MEDS ORDERED: FUROSEMIDE 20 MG/2 ML VIAL. IVP ONE (10:15)
--- NOTE | 2021-09-25 14:28 | NUR ---
SS following up with discharge planning. SS reviewed pt chart and discussed with pt RN. Pt is currently requiring oxygen at 3-4 liters nasal canula. COVID19 recovered from July of 2021. PT/OT recommended [facility] unit. SS met with pt in room and discussed discharge planning. Pt requesting referral to [facility], ; fax [phone]. Referral phoned and faxed as requested. Per Pulmonology not ready due to blood gases. COVID19 test pending for placement. SS will continue to follow for discharge planning.
[2021-09-25] MEDS: ATORVASTATIN CALCIUM 10 MG TABLET. PO SCH (21:21)
[2021-09-25] MEDS: ACETAMINOPHEN 325 MG TABLET. PO PRN (21:43)
[2021-09-26 02:12] VITALS: BP 153/79
[2021-09-26 06:13] LABS: BASO % 1 % (0-3); EOS # 0.3 x10^3/uL (0.0-0.7); EOS % 6 % (0-3); HEMATOCRIT 30.5 % (36.0-47.0); HEMOGLOBIN 9.5 g/dL (12.0-15.5); LYMPH # 0.8 x10^3/uL (1.0-4.8); LYMPH % 17 % (24-48); MEAN CORPUSCULAR HEMOGLOBIN 31 pg (25-35); MEAN CORPUSCULAR HGB CONC 31 g/dL (31-37); MEAN CORPUSCULAR VOLUME 99 fL (79-100); MONO # 0.5 x10^3/uL (0.0-1.1); MONO % 11 % (0-9); NEUT # 3.1 x10^3/uL (1.8-7.7); NEUT % 65 % (31-73); PLATELET COUNT 155 x10^3/uL (140-400); RED BLOOD COUNT 3.08 x10^6/uL (3.50-5.40); RED CELL DISTRIBUTION WIDTH 14.6 % (11.5-14.5); WHITE BLOOD COUNT 4.8 x10^3/uL (4.0-11.0)
[2021-09-26 06:30] LABS: CALCIUM 9.8 mg/dL (8.5-10.1); GFR 30.5; MAGNESIUM 1.9 mg/dL (1.8-2.4); POTASSIUM 4.6 mmol/L (3.5-5.1)
[2021-09-26 07:00] VITALS: BP 175/81
[2021-09-26 07:36] LABS: BASE EXCESS ABG 9 mmol/L (-3-3); HCO3 ABG 40 mmol/L (21-28); PO2 ABG 72 mmHg (65-108); SAT O2 ABG 92 % (92-99)
[2021-09-26 07:44] LABS: FIO2 ABG 3.5 LPM; PCO2 ABG 88 mmHg (35-46)
[2021-09-26] MEDS: INSULIN LISPRO 300 UNITS/3 ML VIAL. SQ SCH ×3 (08:00→17:00)
[2021-09-26] MEDS: NYSTATIN TOPICAL POWDER 15GM BOTTLE. TP SCH ×2 (08:29→21:00)
[2021-09-26] MEDS: MULTIVITAMIN with MINERAL TABLET. PO SCH (08:44)
[2021-09-26] MEDS: FUROSEMIDE 40 MG TABLET. PO SCH ×2 (08:44→16:36)
[2021-09-26] MEDS: LACTOBACILLUS RHAMNOSUS GG 1 CAPSULE. PO SCH ×2 (08:44→21:12)
[2021-09-26] MEDS: OMEGA-3 FATTY ACIDS/FISH OIL 1,000 MG CAPSULE. PO SCH (08:44)
[2021-09-26] MEDS: PANTOPRAZOLE 40 MG TABLET.DR. PO SCH (08:44)
[2021-09-26] MEDS: CETIRIZINE HCL 10 MG TABLET. PO SCH (08:45)
[2021-09-26] MEDS: FERROUS SULFATE 325 MG TABLET. PO SCH (08:45)
[2021-09-26] MEDS: METOPROLOL TART IMMED RELEASE 50 MG TABLET. PO SCH ×2 (08:45→21:12)
[2021-09-26] MEDS: ACETAMINOPHEN 325 MG TABLET. PO PRN (09:07)
[2021-09-26 10:42] VITALS: BP 149/75
--- NOTE | 2021-09-26 10:43 | PDOC ---
PULMONARY PROGRESS NOTES DATE: 09/26/21 TIME: 10:38 Subjective Patient is resting comfortably on 3.5 L nasal cannula Patient denies any increased shortness of breath or cough, reports that she wore BiPAP overnight BG continues to show hypercarbic respiratory failure with mild acidosis Vitals Vital Signs Date Time Temp Pulse Resp B/P (MAP) Pulse Ox O2 Delivery O2 Flow Rate FiO2 09/26/21 09:10 88 BiPAP/CPAP 09/26/21 08:45 68 175/81 09/26/21 07:22 3.5 09/26/21 07:00 98.0 22 98.0 ROS: No Nausea, No Chest Pain, No Abdominal Pain, No Increase Cough General: Alert, Oriented X4 Lungs: Clear Cardiovascular: S1, S2 Abdomen: Soft, Non-tender Extremities: Other Labs Laboratory Tests Test 09/24/21 11:58 09/24/21 13:20 09/24/21 17:32 09/24/21 21:27 Glucose (Fingerstick) 92 mg/dL (70-99) 75 mg/dL (70-99) 146 mg/dL (70-99) O2 Saturation 93 % (92-99) Arterial Blood pH 7.29 (7.35-7.45) Arterial Blood pCO2 at Patient Temp 82 mmHg (35-46) Arterial Blood pO2 at Patient Temp 75 mmHg (65-108) Arterial Blood HCO3 39 mmol/L (21-28) Arterial Blood Base Excess 10 mmol/L (-3-3) FiO2 35 Test 09/25/21 02:50 09/25/21 07:19 09/25/21 09:30 09/25/21 11:05 White Blood Count 4.6 x10^3/uL (4.0-11.0) Red Blood Count 2.82 x10^6/uL (3.50-5.40) Hemoglobin 8.7 g/dL (12.0-15.5) Hematocrit 28.1 % (36.0-47.0) Mean Corpuscular Volume 100 fL (79-100) Mean Corpuscular Hemoglobin 31 pg (25-35) Mean Corpuscular Hemoglobin Concent 31 g/dL (31-37) Red Cell Distribution Width 14.4 % (11.5-14.5) Platelet Count 146 x10^3/uL (140-400) Neutrophils (%) (Auto) 66 % (31-73) Lymphocytes (%) (Auto) 18 % (24-48) Monocytes (%) (Auto) 12 % (0-9) Eosinophils (%) (Auto) 4 % (0-3) Basophils (%) (Auto) 1 % (0-3) Neutrophils # (Auto) 3.0 x10^3/uL (1.8-7.7) Lymphocytes # (Auto) 0.8 x10^3/uL (1.0-4.8) Monocytes # (Auto) 0.5 x10^3/uL (0.0-1.1) Eosinophils # (Auto) 0.2 x10^3/uL (0.0-0.7) Basophils # (Auto) 0.0 x10^3/uL (0.0-0.2) Sodium Level 146 mmol/L (136-145) Potassium Level 5.1 mmol/L (3.5-5.1) Chloride Level 105 mmol/L (98-107) Carbon Dioxide Level 39 mmol/L (21-32) Anion Gap 2 (6-14) Blood Urea Nitrogen 38 mg/dL (7-20) Creatinine 2.1 mg/dL (0.6-1.0) Estimated GFR (Cockcroft-Gault) 28.9 Glucose Level 95 mg/dL (70-99) Calcium Level 9.4 mg/dL (8.5-10.1) Magnesium Level 1.9 mg/dL (1.8-2.4) Glucose (Fingerstick) 84 mg/dL (70-99) 109 mg/dL (70-99) O2 Saturation 83 % (92-99) Arterial Blood pH 7.35 (7.35-7.45) Arterial Blood pCO2 at Patient Temp 69 mmHg (35-46) Arterial Blood pO2 at Patient Temp 50 mmHg (65-108) Arterial Blood HCO3 37 mmol/L (21-28) Arterial Blood Base Excess 9 mmol/L (-3-3) FiO2 3 lpm Test 09/25/21 16:36 09/25/21 20:01 09/26/21 05:20 09/26/21 07:25 Glucose (Fingerstick) 92 mg/dL (70-99) 111 mg/dL (70-99) 90 mg/dL (70-99) White Blood Count 4.8 x10^3/uL (4.0-11.0) Red Blood Count 3.08 x10^6/uL (3.50-5.40) Hemoglobin 9.5 g/dL (12.0-15.5) Hematocrit 30.5 % (36.0-47.0) Mean Corpuscular Volume 99 fL (79-100) Mean Corpuscular Hemoglobin 31 pg (25-35) Mean Corpuscular Hemoglobin Concent 31 g/dL (31-37) Red Cell Distribution Width 14.6 % (11.5-14.5) Platelet Count 155 x10^3/uL (140-400) Neutrophils (%) (Auto) 65 % (31-73) Lymphocytes (%) (Auto) 17 % (24-48) Monocytes (%) (Auto) 11 % (0-9) Eosinophils (%) (Auto) 6 % (0-3) Basophils (%) (Auto) 1 % (0-3) Neutrophils # (Auto) 3.1 x10^3/uL (1.8-7.7) Lymphocytes # (Auto) 0.8 x10^3/uL (1.0-4.8) Monocytes # (Auto) 0.5 x10^3/uL (0.0-1.1) Eosinophils # (Auto) 0.3 x10^3/uL (0.0-0.7) Basophils # (Auto) 0.0 x10^3/uL (0.0-0.2) Sodium Level 145 mmol/L (136-145) Potassium Level 4.6 mmol/L (3.5-5.1) Chloride Level 105 mmol/L (98-107) Carbon Dioxide Level 39 mmol/L (21-32) Anion Gap 1 (6-14) Blood Urea Nitrogen 34 mg/dL (7-20) Creatinine 2.0 mg/dL (0.6-1.0) Estimated GFR (Cockcroft-Gault) 30.5 Glucose Level 98 mg/dL (70-99) Calcium Level 9.8 mg/dL (8.5-10.1) Magnesium Level 1.9 mg/dL (1.8-2.4) Test 09/26/21 07:35 O2 Saturation 92 % (92-99) Arterial Blood pH 7.27 (7.35-7.45) Arterial Blood pCO2 at Patient Temp 88 mmHg (35-46) Arterial Blood pO2 at Patient Temp 72 mmHg (65-108) Arterial Blood HCO3 40 mmol/L (21-28) Arterial Blood Base Excess 9 mmol/L (-3-3) FiO2 3.5 lpm Laboratory Tests Test 09/25/21 11:05 09/25/21 16:36 09/25/21 20:01 09/26/21 05:20 Glucose (Fingerstick) 109 mg/dL (70-99) 92 mg/dL (70-99) 111 mg/dL (70-99) White Blood Count 4.8 x10^3/uL (4.0-11.0) Red Blood Count 3.08 x10^6/uL (3.50-5.40) Hemoglobin 9.5 g/dL (12.0-15.5) Hematocrit 30.5 % (36.0-47.0) Mean Corpuscular Volume 99 fL (79-100) Mean Corpuscular Hemoglobin 31 pg (25-35) Mean Corpuscular Hemoglobin Concent 31 g/dL (31-37) Red Cell Distribution Width 14.6 % (11.5-14.5) Platelet Count 155 x10^3/uL (140-400) Neutrophils (%) (Auto) 65 % (31-73) Lymphocytes (%) (Auto) 17 % (24-48) Monocytes (%) (Auto) 11 % (0-9) Eosinophils (%) (Auto) 6 % (0-3) Basophils (%) (Auto) 1 % (0-3) Neutrophils # (Auto) 3.1 x10^3/uL (1.8-7.7) Lymphocytes # (Auto) 0.8 x10^3/uL (1.0-4.8) Monocytes # (Auto) 0.5 x10^3/uL (0.0-1.1) Eosinophils # (Auto) 0.3 x10^3/uL (0.0-0.7) Basophils # (Auto) 0.0 x10^3/uL (0.0-0.2) Sodium Level 145 mmol/L (136-145) Potassium Level 4.6 mmol/L (3.5-5.1) Chloride Level 105 mmol/L (98-107) Carbon Dioxide Level 39 mmol/L (21-32) Anion Gap 1 (6-14) Blood Urea Nitrogen 34 mg/dL (7-20) Creatinine 2.0 mg/dL (0.6-1.0) Estimated GFR (Cockcroft-Gault) 30.5 Glucose Level 98 mg/dL (70-99) Calcium Level 9.8 mg/dL (8.5-10.1) Magnesium Level 1.9 mg/dL (1.8-2.4) Test 09/26/21 07:25 09/26/21 07:35 Glucose (Fingerstick) 90 mg/dL (70-99) O2 Saturation 92 % (92-99) Arterial Blood pH 7.27 (7.35-7.45) Arterial Blood pCO2 at Patient Temp 88 mmHg (35-46) Arterial Blood pO2 at Patient Temp 72 mmHg (65-108) Arterial Blood HCO3 40 mmol/L (21-28) Arterial Blood Base Excess 9 mmol/L (-3-3) FiO2 3.5 lpm Medications Active Scripts Medications Dose Route/Sig Max Daily Dose Days Date Category Dose Instructions Lasix (Furosemide) 40 Mg Tablet 1 Tab PO DAILY 30 09/25/21 Rx Doxycycline Hyclate 100 Mg Capsule 1 Cap PO BID 09/25/21 Rx Amox Tr-K Clv 500-125 Mg Tab (Amoxicillin/Potassium Clav) 1 Each Tablet 1 Tab PO BID 09/25/21 Rx Nystatin 15 Gm Powder 1 Baldev TP BID 7 09/23/21 Reported apply to affected area(s) Furosemide 40 Mg Tablet 40 Mg PO BID 30 08/22/21 Rx Acetaminophen 325 Mg Tablet 650 Mg PO PRN Q6HRS PRN 30 08/22/21 Rx Feosol (Ferrous Sulfate) 325 Mg Tablet 325 Mg PO DAILYWBKFT 30 11/11/14 Rx [place] 3-6-9 1,200 mg Softgel (Fish Oil/Borage/Flax/Om3,6,9#1) 1,200 Mg Capsule 1,200 Mg PO DAILY 11/05/14 Reported Loratadine 10 Mg Tablet 10 Mg PO 11/05/14 Reported Metoprolol Tartrate 50 Mg Tablet 50 Mg PO BID 11/05/14 Reported Lovastatin 20 Mg Tablet 20 Mg PO HS 11/05/14 Reported Omeprazole 20 Mg Tablet.dr 20 Mg PO DAILY 02/04/14 Reported Daily Vitamin (Multivitamin) 1 Each Tablet 1 Each PO 02/04/14 Reported Impression . IMPRESSION: 1. Acute on chronic hypercapnic respiratory failure secondary to combination of acute on chronic cor pulmonale. Cannot exclude the possibility of pneumonia, but clinically less likely. 2. The patient with underlying marked obesity. She has a BMI of 75.3. She has underlying obesity hypoventilation syndrome/Pickwickian syndrome.--Ongoing 3. No significant tobacco history. 4. Chronic kidney disease. 5. Abnormal chest x-ray with bilateral infiltrates suggestive of congestive heart failure. Plan . Updated 09/26/2021 Continue supplemental oxygen, patient chronically wears 2 to 3 L nasal cannula at home. Continue BiPAP at night reduce FiO2 on BiPAP and attempt to decrease Co2 Follow chest x-ray/ABG, ABG continues to demonstrate hypercarbic respiratory failure with mild acidosis. Bronchodilators as needed Educated on the importance of compliance with home CPAP/BiPAP DVT/GI prophylaxis: Protonix/Lovenox Discussed with RN and RT Updated 09/25/2021 Continue supplemental oxygen, hypoxia on ABG, increase nasal cannula oxygen requirement to 3.5 Liter NC , patient chronically wears 2 to 3 L nasal cannula at home. Continue BiPAP at night Lasix x1 DC antibiotics Bronchodilators as needed Educated on the importance of compliance with home CPAP/BiPAP DVT/GI prophylaxis: Protonix/Lovenox Discussed with RN and RT RECOMMENDATIONS: 1. I have discussed with the patient and RT. We will follow another arterial blood gases. 2. We will give her a trial of without the BiPAP and use it at night and p.r.n. during the day. 3. The patient to continue oxygen during the day. Keep saturations 90-92% and avoid hyperoxia. 4. We will do p.r.n. diuresis. 5. Continue empiric antibiotics. 6. Lovenox for DVT prophylaxis. 7. The patient was strongly emphasized the importance of using BiPAP at home. 8. Weight loss is strongly emphasized. 9. Discussed with RN and RT. Chart reviewed, imaging studies reviewed. OLGA PAREDES MD Sep 26, 2021 10:43
--- NOTE | 2021-09-26 11:10 | PDOC ---
[employer] PROGRESS NOTE Date of Service DOS: DATE: 09/26/21 TIME: 11:09 Chief Complaint Chief Complaint Acute metabolic encephalopathy, CO2 narcosis Acute on chronic hypercapnic and hypoxic respiratory failure requiring BiPAP Macrocytic anemia Acute electrolyte derangementhyponatremia, hyperkalemia suggestive of dehydration JULIA due to vasomotor nephropathy Debilitation and failure to thrive Morbid obesity History of Covid pneumonia in July 2021 History of hypertension History of dyslipidemia History of MADHU MADHU and OHS on 2 to 3 L home O2 HLD - statin therapy HTN - stable Protein calorie malnutrition History of Present Illness History of Present Illness 09/26/2021 Patient seen and examined She is back on BiPAP Discussed with RN Chart reviewed Discussed with respiratory therapist I called her daughter and discussed the case with her as well 09/25/2021 Patient seen and examined She looks great she is off BiPAP talking alert watching TV eating wants to go home Vital signs are stable Creatinine 2.1 which I suspect is her baseline We will likely discharge this afternoon if okay with pulmonary 09/24/2021 Patient seen and examined She is on BiPAP 12/03 with 35% FiO2 and a rate of 24 On IV azithromycin Discussed with RT Discussed with case management Discussed with RN Chart reviewed Vitals/I&O Vitals/I&O: Vital Signs Date Time Temp Pulse Resp B/P (MAP) Pulse Ox O2 Delivery O2 Flow Rate FiO2 09/26/21 10:42 98.1 55 24 149/75 (99) 94 BiPAP/CPAP 98.1 09/26/21 07:22 3.5 I & O 09/25/21 09/25/21 09/26/21 15:00 23:00 07:00 Intake Total 660 ml 530 ml 490 ml Output Total 1500 ml 600 ml Balance 660 ml -970 ml -110 ml Physical Exam General: Alert Heart: Regular rate Lungs: Clear Abdomen: Normal bowel sounds, Other (Obese) Extremities: No clubbing Skin: No rashes Labs Labs: Laboratory Tests Test 09/25/21 16:36 09/25/21 20:01 09/26/21 05:20 09/26/21 07:25 Glucose (Fingerstick) 92 mg/dL (70-99) 111 mg/dL (70-99) 90 mg/dL (70-99) White Blood Count 4.8 x10^3/uL (4.0-11.0) Red Blood Count 3.08 x10^6/uL (3.50-5.40) Hemoglobin 9.5 g/dL (12.0-15.5) Hematocrit 30.5 % (36.0-47.0) Mean Corpuscular Volume 99 fL (79-100) Mean Corpuscular Hemoglobin 31 pg (25-35) Mean Corpuscular Hemoglobin Concent 31 g/dL (31-37) Red Cell Distribution Width 14.6 % (11.5-14.5) Platelet Count 155 x10^3/uL (140-400) Neutrophils (%) (Auto) 65 % (31-73) Lymphocytes (%) (Auto) 17 % (24-48) Monocytes (%) (Auto) 11 % (0-9) Eosinophils (%) (Auto) 6 % (0-3) Basophils (%) (Auto) 1 % (0-3) Neutrophils # (Auto) 3.1 x10^3/uL (1.8-7.7) Lymphocytes # (Auto) 0.8 x10^3/uL (1.0-4.8) Monocytes # (Auto) 0.5 x10^3/uL (0.0-1.1) Eosinophils # (Auto) 0.3 x10^3/uL (0.0-0.7) Basophils # (Auto) 0.0 x10^3/uL (0.0-0.2) Sodium Level 145 mmol/L (136-145) Potassium Level 4.6 mmol/L (3.5-5.1) Chloride Level 105 mmol/L (98-107) Carbon Dioxide Level 39 mmol/L (21-32) Anion Gap 1 (6-14) Blood Urea Nitrogen 34 mg/dL (7-20) Creatinine 2.0 mg/dL (0.6-1.0) Estimated GFR (Cockcroft-Gault) 30.5 Glucose Level 98 mg/dL (70-99) Calcium Level 9.8 mg/dL (8.5-10.1) Magnesium Level 1.9 mg/dL (1.8-2.4) Test 09/26/21 07:35 O2 Saturation 92 % (92-99) Arterial Blood pH 7.27 (7.35-7.45) Arterial Blood pCO2 at Patient Temp 88 mmHg (35-46) Arterial Blood pO2 at Patient Temp 72 mmHg (65-108) Arterial Blood HCO3 40 mmol/L (21-28) Arterial Blood Base Excess 9 mmol/L (-3-3) FiO2 3.5 lpm Assessment and Plan Assessmemt and Plan Problems Medical Problems: (1) CO2 narcosis Status: Acute (2) Failure to thrive in adult Status: Acute (3) Generalized weakness Status: Acute (4) Healthcare-associated pneumonia Status: Acute (5) Obesity hypoventilation syndrome Status: Acute (6) Respiratory acidosis Status: Acute (7) Respiratory failure with hypoxia and hypercapnia Status: Acu Acute metabolic encephalopathy, CO2 narcosis Acute on chronic hypercapnic and hypoxic respiratory failure requiring BiPAP Macrocytic anemia Acute electrolyte derangementhyponatremia, hyperkalemia suggestive of dehydration JULIA due to vasomotor nephropathy Debilitation and failure to thrive Morbid obesity History of Covid pneumonia in July 2021 History of hypertension History of dyslipidemia History of MADHU MADHU and OHS on 2 to 3 L home O2 HLD - statin therapy HTN - stable Protein calorie malnutrition Plan Continue BiPAP Appreciate pulmonary input She needs to lose weight and I discussed that with her daughter and the patient Steroids Breathing treatments Oxygen Home meds DVT prophylaxis Full code Per pulmonary recommendations today please see the following we certainly agree and appreciate their input Updated 09/26/2021 Continue supplemental oxygen, patient chronically wears 2 to 3 L nasal cannula at home. Continue BiPAP at night reduce FiO2 on BiPAP and attempt to decrease Co2 Follow chest x-ray/ABG, ABG continues to demonstrate hypercarbic respiratory failure with mild acidosis. Bronchodilators as needed Educated on the importance of compliance with home CPAP/BiPAP DVT/GI prophylaxis: Protonix/Lovenox Discussed with RN and RT Comment Review of Relevant I have reviewed the following items marcus (where applicable) has been applied. Medications: Current Medications Medications (Trade) Dose Ordered Sig/Jeannie Route PRN Reason Start Time Stop Time Status Last Admin Dose Admin Pantoprazole Sodium (Protonix) 40 mg DAILYAC PO 09/26/21 07:30 09/26/21 08:44 Justifications for Admission Other Justification Acute hypoxic respiratory failure AZAM NINO III DO Sep 26, 2021 11:10
--- NOTE | 2021-09-26 13:39 | NUR ---
SS following up with discharge planning. SS reviewed pt chart and discussed with pt RN. Pt is currently requiring oxygen at 3-4 liters nasal canula. BIPAP PRN. COVID19 recovered from July of 2021. PT/OT [facility]. Pt accepted at [facility] in [place], [place], ; fax [phone], pending insurance approval. COVID19 PCR pending for placement. SS will continue to follow for discharge planning.
[2021-09-26] MEDS ORDERED: FUROSEMIDE 40 MG/4 ML VIAL. IVP ONE (14:15)
[2021-09-26 15:00] VITALS: BP 146/68
[2021-09-26 19:53] VITALS: BP 150/65
[2021-09-26] MEDS: ATORVASTATIN CALCIUM 10 MG TABLET. PO SCH (21:12)
[2021-09-26 22:08] VITALS: BP 132/63
[2021-09-27 02:16] VITALS: BP 150/67
[2021-09-27 07:00] VITALS: BP 156/72
[2021-09-27] MEDS: FERROUS SULFATE 325 MG TABLET. PO SCH (08:00)
[2021-09-27] MEDS: INSULIN LISPRO 300 UNITS/3 ML VIAL. SQ SCH ×2 (08:00→11:10)
[2021-09-27] MEDS: NYSTATIN TOPICAL POWDER 15GM BOTTLE. TP SCH (09:00)
[2021-09-27] MEDS: FUROSEMIDE 40 MG TABLET. PO SCH (09:08)
[2021-09-27] MEDS: CETIRIZINE HCL 10 MG TABLET. PO SCH (09:09)
[2021-09-27] MEDS: LACTOBACILLUS RHAMNOSUS GG 1 CAPSULE. PO SCH (09:09)
[2021-09-27] MEDS: METOPROLOL TART IMMED RELEASE 50 MG TABLET. PO SCH (09:09)
[2021-09-27] MEDS: PANTOPRAZOLE 40 MG TABLET.DR. PO SCH (09:09)
[2021-09-27] MEDS: MULTIVITAMIN with MINERAL TABLET. PO SCH (09:09)
[2021-09-27] MEDS: OMEGA-3 FATTY ACIDS/FISH OIL 1,000 MG CAPSULE. PO SCH (09:09)
[2021-09-27 10:04] LABS: BASE EXCESS ABG 12 mmol/L (-3-3); HCO3 ABG 40 mmol/L (21-28); PO2 ABG 73 mmHg (65-108); SAT O2 ABG 92 % (92-99)
[2021-09-27 10:08] LABS: PCO2 ABG 82 mmHg (35-46)
--- NOTE | 2021-09-27 10:20 | PDOC ---
[employer] PROGRESS NOTE Date of Service DOS: DATE: 09/27/21 TIME: 10:18 Chief Complaint Chief Complaint Acute metabolic encephalopathy, CO2 narcosis Acute on chronic hypercapnic and hypoxic respiratory failure requiring BiPAP Macrocytic anemia Acute electrolyte derangementhyponatremia, hyperkalemia suggestive of dehydration JULIA due to vasomotor nephropathy Debilitation and failure to thrive Morbid obesity History of Covid pneumonia in July 2021 History of hypertension History of dyslipidemia History of MADHU MADHU and OHS on 2 to 3 L home O2 HLD - statin therapy HTN - stable Protein calorie malnutrition History of Present Illness History of Present Illness 09/27/2021 Patient seen and examined She is back off BiPAP and alert seems depressed Discussed with case management we are awaiting PCR Covid-19 so the patient can go to [facility] unit Chart reviewed Discussed with RN 09/26/2021 Patient seen and examined She is back on BiPAP Discussed with RN Chart reviewed Discussed with respiratory therapist I called her daughter and discussed the case with her as well 09/25/2021 Patient seen and examined She looks great she is off BiPAP talking alert watching TV eating wants to go home Vital signs are stable Creatinine 2.1 which I suspect is her baseline We will likely discharge this afternoon if okay with pulmonary 09/24/2021 Patient seen and examined She is on BiPAP 12/03 with 35% FiO2 and a rate of 24 On IV azithromycin Discussed with RT Discussed with case management Discussed with RN Chart reviewed Vitals/I&O Vitals/I&O: Vital Signs Date Time Temp Pulse Resp B/P (MAP) Pulse Ox O2 Delivery O2 Flow Rate FiO2 09/27/21 09:09 58 156/72 09/27/21 07:38 Nasal Cannula 3.5 09/27/21 07:00 98.6 18 98 98.6 I & O 09/26/21 09/26/21 09/27/21 15:00 23:00 07:00 Intake Total 580 ml 315 ml 500 ml Output Total 1500 ml 350 ml Balance 580 ml -1185 ml 150 ml Physical Exam General: Alert Heart: Regular rate Lungs: Clear Abdomen: Normal bowel sounds, Other (Obese) Extremities: No clubbing Skin: No rashes Labs Labs: Laboratory Tests Test 09/26/21 11:54 09/26/21 16:52 09/26/21 21:23 09/27/21 07:35 Glucose (Fingerstick) 100 mg/dL (70-99) 85 mg/dL (70-99) 122 mg/dL (70-99) 82 mg/dL (70-99) Test 09/27/21 10:00 O2 Saturation 92 % (92-99) Arterial Blood pH 7.31 (7.35-7.45) Arterial Blood pCO2 at Patient Temp 82 mmHg (35-46) Arterial Blood pO2 at Patient Temp 73 mmHg (65-108) Arterial Blood HCO3 40 mmol/L (21-28) Arterial Blood Base Excess 12 mmol/L (-3-3) Assessment and Plan Assessmemt and Plan Problems Medical Problems: (1) CO2 narcosis Status: Acute (2) Failure to thrive in adult Status: Acute (3) Generalized weakness Status: Acute (4) Healthcare-associated pneumonia Status: Acute (5) Obesity hypoventilation syndrome Status: Acute (6) Respiratory acidosis Status: Acute (7) Respiratory failure with hypoxia and hypercapnia Status: Acute Acute metabolic encephalopathy, CO2 narcosis Acute on chronic hypercapnic and hypoxic respiratory failure requiring BiPAP Macrocytic anemia Acute electrolyte derangementhyponatremia, hyperkalemia suggestive of dehydration JULIA due to vasomotor nephropathy Debilitation and failure to thrive Morbid obesity History of Covid pneumonia in July 2021 History of hypertension History of dyslipidemia History of MADHU MADHU and OHS on 2 to 3 L home O2 HLD - statin therapy HTN - stable Protein calorie malnutrition Plan We hope to discharge to [facility] later today if the PCR is negative For now continue the following; Continue BiPAP Appreciate pulmonary input She needs to lose weight and I discussed that with her daughter and the patient Steroids Breathing treatments Oxygen Home meds DVT prophylaxis Full code Discharge to [facility] at [facility] if PCR negative Comment Review of Relevant I have reviewed the following items marcus (where applicable) has been applied. Medications: Current Medications Medications (Trade) Dose Ordered Sig/Jeannie Route PRN Reason Start Time Stop Time Status Last Admin Dose Admin Furosemide (Lasix) 40 mg 1X ONCE IVP 09/26/21 14:15 09/26/21 14:16 DC 09/26/21 13:59 Justifications for Admission Other Justification Acute hypoxic respiratory failure AZAM NINO III DO Sep 27, 2021 10:20
--- NOTE | 2021-09-27 10:22 | PDOC ---
PULMONARY PROGRESS NOTES DATE: 09/27/21 TIME: 10:13 Subjective Patient is resting comfortably on 3.5 L nasal cannula is at bedside. Multiple questions asked and answered Reports wearing BiPAP overnight, settings changed to 24/6 24 40% BG continues to show hypercarbic respiratory failure with mild acidosisl partially compensated Spoke with RN to decrease FiO2 to 3L and repeat ABG at 0800 tomorrow. Vitals Vital Signs Date Time Temp Pulse Resp B/P (MAP) Pulse Ox O2 Delivery O2 Flow Rate FiO2 09/27/21 09:09 58 156/72 09/27/21 07:38 Nasal Cannula 3.5 09/27/21 07:00 98.6 18 98 98.6 ROS: No Nausea, No Chest Pain, No Abdominal Pain, No Increase Cough General: Alert, Oriented X4 Lungs: Clear Cardiovascular: S1, S2 Abdomen: Soft, Non-tender Extremities: Other Labs Laboratory Tests Test 09/25/21 11:05 09/25/21 16:36 09/25/21 20:01 09/26/21 05:20 Glucose (Fingerstick) 109 mg/dL (70-99) 92 mg/dL (70-99) 111 mg/dL (70-99) White Blood Count 4.8 x10^3/uL (4.0-11.0) Red Blood Count 3.08 x10^6/uL (3.50-5.40) Hemoglobin 9.5 g/dL (12.0-15.5) Hematocrit 30.5 % (36.0-47.0) Mean Corpuscular Volume 99 fL (79-100) Mean Corpuscular Hemoglobin 31 pg (25-35) Mean Corpuscular Hemoglobin Concent 31 g/dL (31-37) Red Cell Distribution Width 14.6 % (11.5-14.5) Platelet Count 155 x10^3/uL (140-400) Neutrophils (%) (Auto) 65 % (31-73) Lymphocytes (%) (Auto) 17 % (24-48) Monocytes (%) (Auto) 11 % (0-9) Eosinophils (%) (Auto) 6 % (0-3) Basophils (%) (Auto) 1 % (0-3) Neutrophils # (Auto) 3.1 x10^3/uL (1.8-7.7) Lymphocytes # (Auto) 0.8 x10^3/uL (1.0-4.8) Monocytes # (Auto) 0.5 x10^3/uL (0.0-1.1) Eosinophils # (Auto) 0.3 x10^3/uL (0.0-0.7) Basophils # (Auto) 0.0 x10^3/uL (0.0-0.2) Sodium Level 145 mmol/L (136-145) Potassium Level 4.6 mmol/L (3.5-5.1) Chloride Level 105 mmol/L (98-107) Carbon Dioxide Level 39 mmol/L (21-32) Anion Gap 1 (6-14) Blood Urea Nitrogen 34 mg/dL (7-20) Creatinine 2.0 mg/dL (0.6-1.0) Estimated GFR (Cockcroft-Gault) 30.5 Glucose Level 98 mg/dL (70-99) Calcium Level 9.8 mg/dL (8.5-10.1) Magnesium Level 1.9 mg/dL (1.8-2.4) Test 09/26/21 07:25 09/26/21 07:35 09/26/21 11:54 09/26/21 16:52 Glucose (Fingerstick) 90 mg/dL (70-99) 100 mg/dL (70-99) 85 mg/dL (70-99) O2 Saturation 92 % (92-99) Arterial Blood pH 7.27 (7.35-7.45) Arterial Blood pCO2 at Patient Temp 88 mmHg (35-46) Arterial Blood pO2 at Patient Temp 72 mmHg (65-108) Arterial Blood HCO3 40 mmol/L (21-28) Arterial Blood Base Excess 9 mmol/L (-3-3) FiO2 3.5 lpm Test 09/26/21 21:23 09/27/21 07:35 09/27/21 10:00 Glucose (Fingerstick) 122 mg/dL (70-99) 82 mg/dL (70-99) O2 Saturation 92 % (92-99) Arterial Blood pH 7.31 (7.35-7.45) Arterial Blood pCO2 at Patient Temp 82 mmHg (35-46) Arterial Blood pO2 at Patient Temp 73 mmHg (65-108) Arterial Blood HCO3 40 mmol/L (21-28) Arterial Blood Base Excess 12 mmol/L (-3-3) Laboratory Tests Test 09/26/21 11:54 09/26/21 16:52 09/26/21 21:23 09/27/21 07:35 Glucose (Fingerstick) 100 mg/dL (70-99) 85 mg/dL (70-99) 122 mg/dL (70-99) 82 mg/dL (70-99) Test 09/27/21 10:00 O2 Saturation 92 % (92-99) Arterial Blood pH 7.31 (7.35-7.45) Arterial Blood pCO2 at Patient Temp 82 mmHg (35-46) Arterial Blood pO2 at Patient Temp 73 mmHg (65-108) Arterial Blood HCO3 40 mmol/L (21-28) Arterial Blood Base Excess 12 mmol/L (-3-3) Medications Active Scripts Medications Dose Route/Sig Max Daily Dose Days Date Category Dose Instructions Lasix (Furosemide) 40 Mg Tablet 1 Tab PO DAILY 30 09/25/21 Rx Doxycycline Hyclate 100 Mg Capsule 1 Cap PO BID 09/25/21 Rx Amox Tr-K Clv 500-125 Mg Tab (Amoxicillin/Potassium Clav) 1 Each Tablet 1 Tab PO BID 09/25/21 Rx Nystatin 15 Gm Powder 1 Baldev TP BID 7 09/23/21 Reported apply to affected area(s) Furosemide 40 Mg Tablet 40 Mg PO BID 30 08/22/21 Rx Acetaminophen 325 Mg Tablet 650 Mg PO PRN Q6HRS PRN 30 08/22/21 Rx Feosol (Ferrous Sulfate) 325 Mg Tablet 325 Mg PO DAILYWBKFT 30 11/11/14 Rx Clio 3-6-9 1,200 mg Softgel (Fish Oil/Borage/Flax/Om3,6,9#1) 1,200 Mg Capsule 1,200 Mg PO DAILY 11/05/14 Reported Loratadine 10 Mg Tablet 10 Mg PO 11/05/14 Reported Metoprolol Tartrate 50 Mg Tablet 50 Mg PO BID 11/05/14 Reported Lovastatin 20 Mg Tablet 20 Mg PO HS 11/05/14 Reported Omeprazole 20 Mg Tablet.dr 20 Mg PO DAILY 02/04/14 Reported Daily Vitamin (Multivitamin) 1 Each Tablet 1 Each PO 02/04/14 Reported Impression . IMPRESSION: 1. Acute on chronic hypercapnic respiratory failure secondary to combination of acute on chronic cor pulmonale. Cannot exclude the possibility of pneumonia, but clinically less likely. 2. The patient with underlying marked obesity. She has a BMI of 75.3. She has underlying obesity hypoventilation syndrome/Pickwickian syndrome.--Ongoing 3. No significant tobacco history. 4. Chronic kidney disease. 5. Abnormal chest x-ray with bilateral infiltrates suggestive of congestive heart failure. Plan . Updated 09/27/2021 Continue supplemental oxygen, decrease FiO2 to 3L Continue BiPAP at night with settings 24/6 24 40% ABG shows partial compensation; will repeat ABG tomorrow at 0800 Educated on use of IS and need for Diet changes Patient to follow up in clinic within the month DVT/GI prophylaxis Discussed with RN and RT Will continue inpatient through tomorrow at least Updated 09/26/2021 Continue supplemental oxygen, patient chronically wears 2 to 3 L nasal cannula at home. Continue BiPAP at night reduce FiO2 on BiPAP and attempt to decrease Co2 Follow chest x-ray/ABG, ABG continues to demonstrate hypercarbic respiratory failure with mild acidosis. Bronchodilators as needed Educated on the importance of compliance with home CPAP/BiPAP DVT/GI prophylaxis: Protonix/Lovenox Discussed with RN and RT Updated 09/25/2021 Continue supplemental oxygen, hypoxia on ABG, increase nasal cannula oxygen requirement to 3.5 Liter NC , patient chronically wears 2 to 3 L nasal cannula at home. Continue BiPAP at night Lasix x1 DC antibiotics Bronchodilators as needed Educated on the importance of compliance with home CPAP/BiPAP DVT/GI prophylaxis: Protonix/Lovenox Discussed with RN and RT RECOMMENDATIONS: 1. I have discussed with the patient and RT. We will follow another arterial blood gases. 2. We will give her a trial of without the BiPAP and use it at night and p.r.n. during the day. 3. The patient to continue oxygen during the day. Keep saturations 90-92% and avoid hyperoxia. 4. We will do p.r.n. diuresis. 5. Continue empiric antibiotics. 6. Lovenox for DVT prophylaxis. 7. The patient was strongly emphasized the importance of using BiPAP at home. 8. Weight loss is strongly emphasized. 9. Discussed with RN and RT. Chart reviewed, imaging studies reviewed. OLGA PAREDES MD Sep 27, 2021 10:22
--- NOTE | 2021-09-27 10:40 | SNU/HH DC ---
DISCHARGE ORDERS DISCHARGE INFORMATION: FINAL DIAGNOSIS Problems Medical Problems: (1) CO2 narcosis Status: Acute (2) Failure to thrive in adult Status: Acute (3) Generalized weakness Status: Acute (4) Healthcare-associated pneumonia Status: Acute (5) Obesity hypoventilation syndrome Status: Acute (6) Respiratory acidosis Status: Acute (7) Respiratory failure with hypoxia and hypercapnia Status: Acute CONDITION ON DISCHARGE: Stable CODE STATUS: Code Status: Full SNF: SNF STAY <30 DAYS: Yes HOSPICE: HOSPICE: No HOSPICE EVAL & TREAT: No LTAC: ADMIT TO LTAC: No POST DISCHARGE ORDERS: ACTIVITY ORDERS: Activity as tolerated WEIGHT BEARING STATUS: As tolerated DIET AFTER DISCHARGE: Cardiac CHECKS AFTER DISCHARGE: CHECKS AFTER DISCHARGE: Check blood press - daily, Check your Temp as needed TREATMENT/EQUIPMENT ORDERS: ADAPTIVE EQUIPMENT NEEDED: None RESPIRATORY EQUIPMENT NEEDED: Oxygen, BiPAP Physical Therapy For: Evalulation/Treatment Occupational Therapy For: Evaluation/Treatment DISCHARGE MEDICATIONS: Home Meds Active Scripts Furosemide (LASIX) 40 Mg Tablet, 1 TAB PO DAILY for . for 30 Days, #30 TAB 0 Refills Prov:CASTLE,NIAL K III DO 09/25/21 Doxycycline Hyclate (DOXYCYCLINE HYCLATE) 100 Mg Capsule, 1 CAP PO BID for ., #14 CAP Prov:CASTLE,NIAL K III DO 09/25/21 Amoxicillin/Potassium Clav (AMOX TR-K CLV 500-125 MG TAB) 1 Each Tablet, 1 TAB PO BID for ., #14 TAB Prov:CASTLE,NIAL K III DO 09/25/21 Furosemide (FUROSEMIDE) 40 Mg Tablet, 40 MG PO BID for CKD for 30 Days, #60 TAB 2 Refills Prov:EBER ZHOU MD 08/22/21 Acetaminophen (ACETAMINOPHEN) 325 Mg Tablet, 650 MG PO PRN Q6HRS PRN for MILD PAIN / TEMP > 100.3'F for 30 Days, #120 TAB Prov:EBER ZHOU MD 08/22/21 Ferrous Sulfate (FEOSOL) 325 Mg Tablet, 325 MG PO DAILYWBKFT for 30 Days, TAB Prov:RALF COOK MD 11/11/14 Reported Medications Nystatin (NYSTATIN) 15 Gm Powder, 1 ASHER TP BID for reddened folds for 7 Days, #1 BOTTLE 0 Refills apply to affected area(s) 09/23/21 Fish Oil/Borage/Flax/Om3,6,9#1 ([place] 3-6-9 1,200 mg Softgel) 1,200 Mg Capsule, 1200 MG PO DAILY 11/05/14 Loratadine (LORATADINE) 10 Mg Tablet, 10 MG PO 11/05/14 Metoprolol Tartrate (METOPROLOL TARTRATE) 50 Mg Tablet, 50 MG PO BID for FOR HYPERTENSION, #60 TAB 0 Refills 11/05/14 Lovastatin (LOVASTATIN) 20 Mg Tablet, 20 MG PO HS, TAB 11/05/14 Omeprazole (OMEPRAZOLE) 20 Mg Tablet.dr, 20 MG PO DAILY, TAB 02/04/14 Multivitamin (DAILY VITAMIN) 1 Each Tablet, 1 EACH PO 02/04/14 AZAM NINO III DO Sep 27, 2021 10:40
--- NOTE | 2021-09-27 10:46 | DS ---
DATE OF DISCHARGE: 09/27/2021 ADMISSION DIAGNOSES: Hypercapnic respiratory failure and morbid obesity. DISCHARGE DIAGNOSES: Resolving acute on chronic hypercapnic respiratory failure, morbid obesity, history of anemia, hyperlipidemia, hypertension, pneumonia, chronic kidney disease, colon polyps, cholecystectomy. CONSULTS: Keith Yu MD. PROCEDURES: None. HOSPITAL COURSE: The patient is a pleasant, middle-aged female who is morbidly obese and basically presented with hypercapnic respiratory failure. We consulted Dr. Yu. We put her on BiPAP. We blew off the CO2. Today, I saw and examined her. She was brought back off the BiPAP, doing better, but quite debilitated. I spoke with case management. We are hoping to get her to [facility] at [facility] the [facility] if her PCR COVID-19 is negative. DISPOSITION: [facility] Half-Way Unit at the [facility]. ACTIVITY: As tolerated. DIET: Low sodium. DISCHARGE MEDICATIONS: Please see the MRAD. BiPAP at night, amoxicillin 500 p.o. b.i.d., doxycycline 100 p.o. b.i.d., Lasix 40 a day, p.r.n. Tylenol, iron 325 a day, fish oil, Lasix 40 a day, Claritin 10 a day, lovastatin 20 a day, metoprolol 50 b.i.d., multiple vitamins, nystatin powder, and omeprazole 20 a day. TOTAL TIME: 33 minutes. OLIVIA/DELROY DR: OLIVIA/shara TID: [id number]
[2021-09-27 11:00] VITALS: BP 139/69
--- NOTE | 2021-09-27 11:03 | DS ---
DATE OF DISCHARGE: 09/27/2021 ADMISSION DIAGNOSES: Acute on chronic hypercapnic respiratory failure and obesity. DISCHARGE DIAGNOSES: Resolving acute on chronic hypercapnic respiratory failure, morbid obesity, resolving electrolyte disturbance, chronic anemia, acute kidney injury, debility, history of COVID-19 in 08/10, obstructive sleep apnea, on 2 liters of oxygen at home, history of hyperlipidemia, hypertension. CONSULTS: Pulmonary Medicine. PROCEDURES: None. HOSPITAL COURSE: The patient is a pleasant, morbidly obese female who presented with hypercapnic respiratory failure. We admitted her and placed her on BiPAP. Consulted Pulmonary. Over the past few days, she has done better. Today, I saw and examined her. She is off BiPAP, but still weak. I spoke with case management. [facility] DISPOSITION: [facility]. ACTIVITY: As tolerated. DIET: Low sodium. DISCHARGE MEDICATIONS: Please see the MRAD. TOTAL TIME: 32 minutes. OLIVIA/DELROY DR: Yolanda TID: [id number]
--- NOTE | 2021-09-27 11:35 | NUR ---
SS following up with discharge planning. SS reviewed pt chart and discussed with pt RN. Pt is currently requiring oxygen at 3-4 liters nasal canula. BIPAP PRN. COVID19 recovered from July of 2021. PT/OT recommended half-way unit. Pt accepted at [facility] in [place], [place], ; fax [phone], pending insurance approval. COVID19 PCR pending for placement. Pt and pt's spouse requested to speak with SS. Pt's spouse reported that he spoke with respiratory therapist and [facility], ; fax [phone], was recommended for respiratory therapy. Pt's spouse requesting referral to [facility]. SS explained differences between acute rehab and half-way unit and requirements of each facility. SS also discussed insurance requirements for each facility. Pt's spouse reported that pt has to go to rehab and is not strong enough to return to home. Pt's spouse insisting SS send referral to [facility] as well as [facility]. SS phoned and faxed referral as requested. SS will continue to follow for discharge planning. Addendum: 09/27/21 at 1447 by JOSEPH HANSON SS following up with discharge planning. SS reviewed pt chart and discussed with pt RN. Insurance authorization received for half-way unit. Discharge orders phoned and faxed to [facility]. [facility] reporting that they will accept today. Pt will discharge today and go to [facility] at 1630 via [facility], . Packet and ambulance form on the chart. Pt, pt's RN, and pt's spouse notified.
[2021-09-27 15:00] VITALS: BP 158/82
== END 2021-09-27 16:42 | DRG 193 ==
LOC: ER 09:48 → 6 SOUTH 12:00
PROVIDERS: ADMIT Student in an Organized Health Care Education/Training Program; ATTEND Student in an Organized Health Care Education/Training Program
PROC: 5A09357 Assistance with Respiratory Ventilation, Less than 24 Consecutive Hours, Continuous Positive Airway Pressure (ICD-10-PCS; principal; 2021-09-23)
PROC: 5A09357 Assistance with Respiratory Ventilation, Less than 24 Consecutive Hours, Continuous Positive Airway Pressure (ICD-10-PCS; 2021-09-24)
PROC: 5A09357 Assistance with Respiratory Ventilation, Less than 24 Consecutive Hours, Continuous Positive Airway Pressure (ICD-10-PCS; 2021-09-25)
PROC: 5A09357 Assistance with Respiratory Ventilation, Less than 24 Consecutive Hours, Continuous Positive Airway Pressure (ICD-10-PCS; 2021-09-26)
PROC: 5A09357 Assistance with Respiratory Ventilation, Less than 24 Consecutive Hours, Continuous Positive Airway Pressure (ICD-10-PCS; 2021-09-27)
DX: J18.9 Pneumonia, unspecified organism (principal); G93.41 Metabolic encephalopathy; J96.21 Acute and chronic respiratory failure with hypoxia; J96.22 Acute and chronic respiratory failure with hypercapnia; N17.0 Acute kidney failure with tubular necrosis; E46 Unspecified protein-calorie malnutrition; E66.2 Morbid (severe) obesity with alveolar hypoventilation; E87.1 Hypo-osmolality and hyponatremia; E87.2 Acidosis; Z68.45 Body mass index [BMI] 70 or greater, adult; D53.9 Nutritional anemia, unspecified; E78.00 Pure hypercholesterolemia, unspecified; E78.5 Hyperlipidemia, unspecified; E87.5 Hyperkalemia; I13.10 Hypertensive heart and chronic kidney disease without heart failure, with stage 1 through stage 4 chronic kidney disease, or unspecified chronic kidney disease; N18.9 Chronic kidney disease, unspecified; R62.7 Adult failure to thrive; Y95 Nosocomial condition; Z86.16 Personal history of COVID-19; Z87.01 Personal history of pneumonia (recurrent); Z87.19 Personal history of other diseases of the digestive system; Z90.49 Acquired absence of other specified parts of digestive tract; Z20.822 Contact with and (suspected) exposure to COVID-19; Z88.8 Allergy status to other drugs, medicaments and biological substances
CPT/HCPCS: 36415; 36600; 70450; 71045; 80048; 80053; 81001; 82140; 82550; 82805; 82962; 83605; 83735; 83880; 84100; 84145; 84484; 85025; 87040; 87077; 87086; 87186; 87428; 93005; 94660; 94760; 96365; 96367; 96375; C9113; J0456; J0696; J1650; J1815; J1940; J2543; J3370; J7030; J7040; J7050; J7060; U0003; 97530-GO; 99285-25; G0378; Q0163